=== PATIENT | female | born 1940 | race Caucasian/White ===

== ENCOUNTER 2019-01-08 13:04 | Emergency (ER) | payer MEDICARE, OTHER ==
[2019-01-08] MEDS ORDERED: HYDROcodone/APAP 7.5-325MG 1 EACH TAB PO ONE (14:17)
--- NOTE | 2019-01-08 14:18 | CT ---
EXAMINATION TYPE: CT brain gaye greco DATE OF EXAM: 01/08/2019 COMPARISON: None HISTORY: Fall 2 days ago. Left sided pain CT DLP: 1398.4 mGycm Automated exposure control for dose reduction was used. TECHNIQUE: CT scan of the head and cervical spine are performed without contrast. FINDINGS: There is cerebral cortical atrophy. There is no mass effect nor midline shift. There is n o sign of intracranial hemorrhage. The calvarium is intact. There are subcutaneous calcified masses o abhishek the frontal bone that could be calcified sebaceous cyst. Cervical vertebra have normal alignment. There is degenerative disc space narrowing from C4 to C6 wit h spur formation. Facet joints are intact. The skull base is intact. There is no evidence of a fractu re. I see no bony destructive process. IMPRESSION: Cerebral atrophy. No acute intracranial abnormality. Spondylotic changes in the lower cervical spine. No fracture.
--- NOTE | 2019-01-08 15:05 | XR ---
EXAMINATION TYPE: XR hand complete LT DATE OF EXAM: 01/08/2019 COMPARISON: NONE HISTORY: Pain TECHNIQUE: 3 views FINDINGS: There is some spurring of the IP joints. There is moderate spurring at the first carpometac arpal joint. There are no erosions. I see no fracture. Metacarpals are intact. IMPRESSION: Moderate osteoarthritis. No fracture seen.
--- NOTE | 2019-01-08 15:06 | XR ---
EXAMINATION TYPE: XR femur LT DATE OF EXAM: 01/08/2019 COMPARISON: NONE HISTORY: Fall. Pain. TECHNIQUE: 4 views FINDINGS: There is vascular calcification. Hip joint spaces fairly normal. There is moderately severe osteoarthritis in the knee joint medial joint space. I see no fracture nor dislocation. Hip joint is intact. There is mild acetabular spurring. IMPRESSION: Osteoarthritic changes more severe in the medial joint space of the knee. No fracture see n.
--- NOTE | 2019-01-08 15:07 | XR ---
EXAMINATION TYPE: XR chest 2V DATE OF EXAM: 01/08/2019 COMPARISON: NONE HISTORY: Fall. Pain. TECHNIQUE: Frontal and lateral views of the chest are obtained. FINDINGS: Heart is enlarged. There is no heart failure. Costophrenic angles are clear. Bony thorax i s intact. There is spurring in the thoracic spine. Thoracic aorta is atheromatous. IMPRESSION: Mild cardiomegaly. No active cardiopulmonary disease.
--- NOTE | 2019-01-08 15:08 | XR ---
EXAMINATION TYPE: XR Hip LT and AP Pelvis DATE OF EXAM: 01/08/2019 COMPARISON: NONE HISTORY: Fall. Pain. TECHNIQUE: A single AP view of the pelvis is obtained. Two views of the left hip are obtained. FINDINGS: The pelvic ring is intact. Proximal femur and hip joint appear intact. There is mild acetab ular spurring. Sacroiliac joints appear intact. There are numerous phleboliths in the pelvis. IMPRESSION: Mild spurring. No fracture seen.
[2019-01-08 15:09] LABS: Glucose,Whole Blood 329 mg/dL (75-99)
--- NOTE | 2019-01-08 15:09 | XR ---
EXAMINATION TYPE: XR knee 4V LT DATE OF EXAM: 01/08/2019 COMPARISON: NONE HISTORY: Fall. Pain. TECHNIQUE: 4 views FINDINGS: There is narrowing of the medial joint space with spurring of the femoral and tibial condyl es. I see no fracture nor dislocation. There is no sign of joint effusion. IMPRESSION: Moderate osteoarthritis in the medial joint space. No fracture.
[2019-01-08 15:36] VITALS: BP 166/71; PULSE 71; RESP 16; TEMP 97.9
[2019-01-08] MEDS ORDERED: metFORMIN 500 MG TAB PO STA (15:44)
--- NOTE | 2019-01-08 15:50 | ED ---
General Adult HPI - General Chief complaint: Fall Stated complaint: Fall Time Seen by Provider: 01/08/19 13:23 Source: patient, RN notes reviewed, old records reviewed Mode of arrival: wheelchair Limitations: no limitations - History of Present Illness Initial comments: 79-year-old female patient with past medical history of asthma, type 2 diabetes, hypertension, hyperlipidemia presents to ED after sustaining a fall approximately 2 days prior. Patient reports that she was walking when she lost her footing, fell forward. Patient reports that she fell primarily on her left hip. Patient also had a minor trauma to her left hand. Patient reports that she may have had a minor trauma to head. Patient has a loss of consciousness. Patient denies any use of blood thinners. Patient denies any other complaints. Patient walks with a walker however has had difficulty with ambulation secondary to pain after fall. Patient hasn't chest pain shortness breath abdominal pain nausea vomiting or diarrhea. Systemic: Pt denies fatigue, myalgia, fever/chills, rash. Pt denies weakness, night sweats, weight loss. Neuro: Pt denies headache, visual disturbances, syncope or pre-syncope. HEENT: Pt denies ocular discharge or irritation, otalgia, rhinorrhea, pharyngitis or notable lymphadenopathy. Cardiopulmonary: Pt denies chest pain, SOB, heart palpitations, dyspnea on exertion. Abdominal/GI: Pt denies abdominal pain, n/v/d. : Pt denies dysuria, burning w/ urination, frequency/urgency. Denies new onset urinary or bowel incontinence. MSK: Pt denies myalgia, loss of strength or function in extremities. Neuro: Pt denies new onset weakness, paresthesias. - Related Data Home Medications Medication Instructions Recorded Confirmed Aspirin [Adult Low Dose Aspirin EC] 81 mg PO DAILY 03/13/16 01/08/19 Atorvastatin [Lipitor] 40 mg PO QAM 03/13/16 01/08/19 Fenofibrate [Tricor] 160 mg PO QAM 03/13/16 01/08/19 amLODIPine [Norvasc] 5 mg PO BID 03/13/16 01/08/19 sitaGLIPtin [Januvia] 100 mg PO QAM 03/13/16 01/08/19 Glimepiride [Amaryl] 4 mg PO BID 01/08/19 01/08/19 Isosorbide Mononitrate ER [Imdur] 30 mg PO DAILY 01/08/19 01/08/19 Lisinopril [Zestril] 20 mg PO DAILY 01/08/19 01/08/19 Metoprolol Tartrate [Lopressor] 50 mg PO BID 01/08/19 01/08/19 metFORMIN HCL 1,000 mg PO BID 01/08/19 01/08/19 Allergies Allergy/AdvReac Type Severity Reaction Status Date / Time lincomycin HCl Allergy Unknown Unknown Verified 01/08/19 14:24 [From Lincocin] Review of Systems ROS Statement: Those systems with pertinent positive or pertinent negative responses have been documented in the HPI. ROS Other: All systems not noted in ROS Statement are negative. 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 History of Any Multi-Drug Resistant Organisms: None Reported Past Surgical History: Section, Hysterectomy, Orthopedic Surgery Additional Past Surgical History / Comment(s): X3, CARPAL TUNNEL, LEFT KNEE ARTHROSCOPY, RIGHT CATARACT. Past Anesthesia/Blood Transfusion Reactions: No Reported Reaction Past Psychological History: No Psychological Hx Reported Smoking Status: Former smoker Past Alcohol Use History: Rare Past Drug Use History: None Reported - Past Family History Mother Family Medical History: Cancer Additional Family Medical History / Comment(s): BRAIN TUMOR Brother(s) Family Medical History: Cancer Additional Family Medical History / Comment(s): BRAIN TUMOR. General Exam - General Exam Comments Initial Comments: Constitutional: NAD, AOX3, Pt has pleasant affect. HEENT: NC/AT, trachea midline, neck supple, no lymphadenopathy. Posterior pharynx non erythematous, without exudates. External ears appear normal, without discharge. Mucous membranes moist. Eyes PERRLA, EOM intact. There is no scleral icterus. No pallor noted. Cardiopulmonary: RRR, no murmurs, rubs or gallops, no JVD noted. Lungs CTAB in anterior and posterior webb. No peripheral edema. Abdominal exam: Abdomen soft and non-distended. Abdomen non-tender to palpation in all 4 quadrants. Bowel sounds active in LLQ. No hepatosplenomegaly. No ecchymosis Neuro: CN II-XII grossly intact. No nuchal rigidity. MSK: Dorsal aspect of hand mildly tender to palpation. Full active range of motion. No ecchymoses, neurovascularly intact. Left hip nontender to palpation. No ecchymoses. Range of motion intact. Distal pulses intact and equal. No posterior calf tenderness bilaterally, homans sign negative bilaterally. Posterior tibialis and radial pulse +2 bilaterally. Sensation intact in upper and lower extremities. Full active ROM in upper and lower extremities, 5/5 stregnth. Limitations: no limitations Course Vital Signs 01/08/19 01/08/19 01/08/19 13:13 13:54 15:35 Temperature 98.7 F 97.9 F Pulse Rate 72 79 71 Respiratory 18 18 16 Rate Blood Pressure 212/81 204/78 166/71 O2 Sat by Pulse 98 96 100 Oximetry Medical Decision Making - Medical Decision Making 79-year-old female patient with past medical history of asthma, type 2 diabetes, hypertension, hyperlipidemia presents to ED after sustaining a fall approximately 2 days prior. Patient reports that she was walking when she lost her footing, fell forward. Patient reports that she fell primarily on her left hip. Patient also had a minor trauma to her left hand. Patient reports that she may have had a minor trauma to head. Patient has a loss of consciousness. Patient denies any use of blood thinners. Patient denies any other complaints. Patient walks with a walker however has had difficulty with ambulation secondary to pain after fall. Patient hasn't chest pain shortness breath abdominal pain nausea vomiting or diarrhea. Patient also has additionally displayed mild hypertension, vital signs normalized after analgesic administration. Physical exam displayed: Dorsal aspect of hand mildly tender to palpation. Full active range of motion. No ecchymoses, neurovascularly intact. Left hip nontender to palpation. No ecchymoses. Range of motion intact. Distal pulses intact and equal. Maedw-oe-jsoy glucose elevated at 329. Patient administered at home dose of metformin. Plain film of the knee, hip, hand, femur, chest did not display acute pathology. CT of brain cervical spine not displaying acute pathology. No discharge. Patient follow up with primary care provider in 1-2 days. Patient will monitor blood pressure and his blood sugar at home. Patient return to ER if condition worsens in any way. Case discussed with Dr. Corbett. - Lab Data Lab Results 01/08/19 Range/Units 14:48 POC Glucose (mg/dL) 329 H (75-99) mg/dL POC Glu Childcare Aide ID Suyapa Steven Disposition Clinical Impression: Fall Disposition: HOME SELF-CARE Condition: Stable Instructions (If sedation given, give patient instructions): Fall Prevention for Older Adults (ED) Additional Instructions: Patient to adhere to previously discussed treatment plan and will take medica tion(s) as directed. Patient to follow up with PCP in 1-2 days. Patient to return to ED if symptoms do not improve. Please take medications at home. Metformin administered to you in the ER. Please monitor blood sugar and blood pressure at home. Please return to ER if condition worsens. Is patient prescribed a controlled substance at d/c from ED?: No Referrals: None,Stated [Primary Care Provider] - 1-2 days [facility] [NON-STAFF] - 1-2 days
== END 2019-01-08 16:15 | disposition home or self-care (01) ==
LOC: EC 13:04
DX: S69.92XA Unspecified injury of left wrist, hand and finger(s), initial encounter (principal); E11.9 Type 2 diabetes mellitus without complications; E78.5 Hyperlipidemia, unspecified; I10 Essential (primary) hypertension; M19.90 Unspecified osteoarthritis, unspecified site; Z86.73 Personal history of transient ischemic attack (TIA), and cerebral infarction without residual deficits; Z85.828 Personal history of other malignant neoplasm of skin; Z87.891 Personal history of nicotine dependence; Z79.84 Long term (current) use of oral hypoglycemic drugs; Z79.82 Long term (current) use of aspirin; Z79.899 Other long term (current) drug therapy; Z88.1 Allergy status to other antibiotic agents; W19.XXXA Unspecified fall, initial encounter; Y93.01 Activity, walking, marching and hiking
CPT/HCPCS: 36415; 70450; 71046; 72125; 73502; 99284

== ENCOUNTER 2019-01-17 17:42 | Observation (INO) | payer MEDICARE, OTHER ==
[2019-01-17] MEDS ORDERED: SODIUM CHLORIDE 0.9% 1,000 ML IV STA (17:51)
--- NOTE | 2019-01-17 17:52 | ED ---
Neuro HPI - General Chief Complaint: Neuro Symptoms/Deficit Stated Complaint: WEAKNESS, ALTERED Time Seen by Provider: 01/17/19 17:50 Source: patient, family, RN notes reviewed, old records reviewed Mode of arrival: wheelchair Limitations: altered mental status, physical limitation - History of Present Illness Is the patient presenting with stroke symptoms?: Yes Initial Comments: This is an 17-year-old female the ER for evaluation history of diabetes coming in for possible CVA neurological changes. 15 minutes prior to arrival patient was living dinner and was unable to actively unable to get into the car by her self. Demerol patient over to the hospital patient was very altered at the time unable to answer questions or follow directions, family denies prior history of CVA, no blood thinners. - Related Data Home Medications: Home Medications Medication Instructions Recorded Confirmed Aspirin [Adult Low Dose Aspirin EC] 81 mg PO DAILY 03/13/16 01/17/19 Atorvastatin [Lipitor] 40 mg PO QAM 03/13/16 01/17/19 Fenofibrate [Tricor] 160 mg PO QAM 03/13/16 01/17/19 amLODIPine [Norvasc] 5 mg PO BID 03/13/16 01/17/19 sitaGLIPtin [Januvia] 100 mg PO QAM 03/13/16 01/17/19 Isosorbide Mononitrate ER [Imdur] 30 mg PO DAILY 01/08/19 01/17/19 Lisinopril [Zestril] 20 mg PO DAILY 01/08/19 01/17/19 Metoprolol Tartrate [Lopressor] 50 mg PO BID 01/08/19 01/17/19 metFORMIN HCL 1,000 mg PO BID 01/08/19 01/17/19 Allergies/Adverse Reactions: Allergies Allergy/AdvReac Type Severity Reaction Status Date / Time lincomycin HCl Allergy Unknown Unknown Verified 01/17/19 18:11 [From Lincocin] Review of Systems ROS Statement: Those systems with pertinent positive or pertinent negative responses have been documented in the HPI. ROS Other: All systems not noted in ROS Statement are negative. General Exam Limitations: altered mental status, physical limitation Stroke MDM - Lab Data Result diagrams: 01/17/19 18:10 Lab Results 01/17/19 01/17/19 Range/Units 18:00 18:10 WBC 14.6 H (3.8-10.6) k/uL RBC 4.36 (3.80-5.40) m/uL Hgb 12.8 (11.4-16.0) gm/dL Hct 38.2 (34.0-46.0) % MCV 87.6 (80.0-100.0) fL MCH 29.3 (25.0-35.0) pg MCHC 33.4 (31.0-37.0) g/dL RDW 13.3 (11.5-15.5) % Plt Count 556 H (150-450) k/uL Neutrophils % 55 % Lymphocytes % 36 % Monocytes % 6 % Eosinophils % 1 % Basophils % 0 % Neutrophils # 8.1 H (1.3-7.7) k/uL Lymphocytes # 5.3 H (1.0-4.8) k/uL Monocytes # 0.8 (0-1.0) k/uL Eosinophils # 0.1 (0-0.7) k/uL Basophils # 0.1 (0-0.2) k/uL POC Glucose (mg/dL) 34 L (75-99) mg/dL POC Glu Terminal Supervisor ID Joana Lubin - NIH Stroke Scale 1a. Level of Consciousness: (0) alert 1b. LOC Questions: (1) answers 1 question correctly 1c. LOC Commands: (1) performs 1 task correctly 3. Visual: (0) no visual loss 4. Facial Palsy: (0) normal symmetrical movement 5a. Motor Arm Left: (0) no drift 5b. Motor Arm Right: (0) no drift 6a. Motor Leg Left: (0) no drift 6b. Motor Leg Right: (0) no drift 7. Limb Ataxia: (0) absent 8. Sensory: (0) normal 9. Best Language: (1) mild/moderate aphasia 10. Dysarthria: (1) mild/moderate dysarthria 11. Extinction/Inattention: (1) visual/tactile inattention - Thrombolytic Inclusion/Exclusion Thrombolytic Inclusion Criteria: Ischemic Stroke Onset< 3h Thrombolytic Contraindications: Glucose Below 50mg/dl (Blood sugar noted to be) - Medical Decision Making 79-year-old female the ER for evaluation neurological changes. Patient is hypoglycemic, patient does the [place] s and has complete resolution of symptoms. 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 History of Any Multi-Drug Resistant Organisms: None Reported Past Surgical History: Section, Hysterectomy, Orthopedic Surgery Additional Past Surgical History / Comment(s): X3, CARPAL TUNNEL, LEFT KNEE ARTHROSCOPY, RIGHT CATARACT. Past Anesthesia/Blood Transfusion Reactions: No Reported Reaction Past Psychological History: No Psychological Hx Reported Smoking Status: Former smoker Past Alcohol Use History: Rare Past Drug Use History: None Reported - Past Family History Mother Family Medical History: Cancer Additional Family Medical History / Comment(s): BRAIN TUMOR Brother(s) Family Medical History: Cancer Additional Family Medical History / Comment(s): BRAIN TUMOR. Course Vital Signs 01/17/19 01/17/19 17:45 18:15 Temperature 98.8 F Pulse Rate 69 66 Respiratory 18 18 Rate Blood Pressure 158/72 173/68 O2 Sat by Pulse 96 100 Oximetry - Reevaluation(s) Reevaluation #1: 01/17/19 18:43 Medical record reviewed Reevaluation #2: 01/17/19 18:43 Symptoms are completely resolved with blood sugar administration inpatient eating Disposition Clinical Impression: Hypoglycemia, Adverse reaction to oral hypoglycemic drug Narrative: Recurrent Hypoglycemia Disposition: ADMITTED IP TO THIS [facility] Condition: Fair Is patient prescribed a controlled substance at d/c from ED?: No Referrals: None,Stated [Primary Care Provider] - 1-2 days
[2019-01-17] MEDS ORDERED: DEXTROSE 50% SYRINGE 50 ML IVP STA (18:02)
[2019-01-17] MEDS ORDERED: DEXTROSE 5%-0.45% NACL 1,000 ML IV ONE (18:02)
[2019-01-17] MEDS ORDERED: OCTREOTIDE 100 MCG/ML INJ IVP STA (18:02)
[2019-01-17 18:11] LABS: Glucose,Whole Blood 34 mg/dL (75-99)
[2019-01-17 18:28] LABS: Basophils # (A) 0.1 k/uL (0-0.2); Basophils % (A) 0 %; Eosinophils # (A) 0.1 k/uL (0-0.7); Eosinophils % (A) 1 %; HCT 38.2 % (34.0-46.0); HGB 12.8 gm/dL (11.4-16.0); Lymphocytes # (A) 5.3 k/uL (1.0-4.8); Lymphocytes % (A) 36 %; MCH 29.3 pg (25.0-35.0); MCHC 33.4 g/dL (31.0-37.0); MCV 87.6 fL (80.0-100.0); Monocytes # (A) 0.8 k/uL (0-1.0); Monocytes % (A) 6 %; Neutrophils # (A) 8.1 k/uL (1.3-7.7); Neutrophils % (A) 55 %; Platelet Count 556 k/uL (150-450); RBC 4.36 m/uL (3.80-5.40); RDW 13.3 % (11.5-15.5); WBC 14.6 k/uL (3.8-10.6)
[2019-01-17 18:33] LABS: Albumin 4.6 g/dL (3.5-5.0); Calcium 10.3 mg/dL (8.4-10.2); Potassium 4.1 mmol/L (3.5-5.1); Total Bilirubin 0.6 mg/dL (0.2-1.3); Total Protein 7.3 g/dL (6.3-8.2)
[2019-01-17 18:59] LABS: Partial Thromboplastin Time 29.1 sec (22.0-30.0); Prothrombin Time 10.6 sec (9.0-12.0)
[2019-01-17 19:21] LABS: Glucose,Whole Blood 152 mg/dL (75-99)
[2019-01-17 19:21] LABS: Glucose,Whole Blood 134 mg/dL (75-99)
[2019-01-17 19:53] LABS: Glucose,Whole Blood 208 mg/dL (75-99)
[2019-01-17 20:51] LABS: Glucose,Whole Blood 252 mg/dL (75-99)
[2019-01-17 21:21] VITALS: BMI 31.4
[2019-01-17 22:05] LABS: Glucose,Whole Blood 394 mg/dL (75-99)
[2019-01-17 23:59] LABS: Glucose,Whole Blood 462 mg/dL (75-99)
[2019-01-17 23:59] LABS: Glucose,Whole Blood 504 mg/dL (75-99)
[2019-01-18] MEDS: OCTREOTIDE 100 MCG/ML INJ IVP SCH ×2 (02:34→02:36)
[2019-01-18 06:01] LABS: Glucose,Whole Blood 511 mg/dL (75-99)
[2019-01-18] MEDS ORDERED: SODIUM CHLORIDE 0.9% 500 ML 500 ML IV ONE (06:07)
[2019-01-18] MEDS ORDERED: INSULIN ASPART (NovoLOG) 100 UNIT/ML VIAL SQ ONE (06:08)
[2019-01-18] MEDS ORDERED: INSULIN ASPART (NovoLOG) 100 UNIT/ML VIAL SQ SCH (07:30)
[2019-01-18] MEDS ORDERED: metFORMIN 500 MG TAB PO SCH (09:45)
[2019-01-18 10:01] LABS: Glucose,Whole Blood 459 mg/dL (75-99)
[2019-01-18] MEDS: amLODIPine 5 MG TAB PO SCH ×2 (10:10→20:03)
[2019-01-18] MEDS: METOPROLOL TARTRATE 50 MG TAB PO SCH ×2 (10:10→20:03)
[2019-01-18] MEDS: LISINOPRIL 20 MG TAB PO SCH (10:10)
[2019-01-18] MEDS: ISOSORBIDE MONONITRATE ER 30 MG TAB.ER.24H PO SCH (10:14)
[2019-01-18] MEDS: ASPIRIN 81 MG PO SCH (10:15)
[2019-01-18] MEDS: FENOFIBRATE 160 MG TAB PO SCH (11:24)
[2019-01-18] MEDS: LINAGLIPTIN 5 MG TABLET PO SCH (11:24)
[2019-01-18] MEDS: ATORVASTATIN 40 MG TAB PO SCH (11:25)
[2019-01-18 11:44] LABS: Glucose,Whole Blood 403 mg/dL (75-99)
[2019-01-18] MEDS: SODIUM CHLORIDE 0.9% 1,000 ML IV SCH ×2 (11:50→20:02)
[2019-01-18] MEDS: INSULIN ASPART (NovoLOG) 100 UNIT/ML VIAL SQ SCH ×3 (12:25→20:04)
[2019-01-18 14:09] LABS: Glucose,Whole Blood 408 mg/dL (75-99)
--- NOTE | 2019-01-18 14:50 | P.HPIM ---
History of Present Illness Patient is a pleasant 79-year-old female came in after she had symptoms of hypoglycemia including lightheadedness and palpitations check her blood sugars which are extremely low and the patient came to ER her blood sugars a 30. Linda ent was on glimepiride Januvia and metformin, other than glimepiride rest of the other 2 will not cause hypoglycemia these glimepiride was discontinued by her engine tester on Wednesday she did not take glimepiride yesterday. Patient was started on octreotide by ER and patient received a D5 ampules and now her blood sugars of 400. Patient was resumed on metformin and Januvia will check his her blood sugars every 4 hours here will monitor her overnight depending on on the blood sugars we can make addition regarding her regimen area did patient is bit hyponatremic and creatinine is 1.29 I don't have her baseline available at this time patient will be hydrated patient is not aware she has chronic kidney disease. Worsening kidney function may have contributed to her hypoglycemia from glimepiride. Octreotide was discontinued. Patient will be started on IV fluids and recheck kidney function tomorrow follow the blood sugars depending on that final regimen will be decided. Patient had any fever chills does not have any other signs or symptoms of sepsis patient does not appear to have any ear infection Review of Systems REVIEW OF SYSTEMS: CONSTITUTIONAL: No fever, no malaise, no fatigue. HEENT: No recent visual problems or hearing problems. Denied any sore throat. CARDIOVASCULAR: No chest pain, orthopnea, PND, no palpitations, no syncope. PULMONARY: No shortness of breath, no cough, no hemoptysis. GASTROINTESTINAL: No diarrhea, no nausea, no vomiting, no abdominal pain. NEUROLOGICAL: No headaches, no weakness, no numbness. HEMATOLOGICAL: Denies any bleeding or petechiae. GENITOURINARY: Denies any burning micturition, frequency, or urgency. MUSCULOSKELETAL/RHEUMATOLOGICAL: Denies any joint pain, swelling, or any muscle pain. ENDOCRINE: Denies any polyuria or polydipsia. The rest of the 14-point review of systems is negative. 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 History of Any Multi-Drug Resistant Organisms: None Reported Past Surgical History: Section, Hysterectomy, Orthopedic Surgery Additional Past Surgical History / Comment(s): X3, CARPAL TUNNEL, LEFT KNEE ARTHROSCOPY, RIGHT CATARACT. Past Anesthesia/Blood Transfusion Reactions: No Reported Reaction Smoking Status: Never smoker - Past Family History Mother Family Medical History: Cancer Additional Family Medical History / Comment(s): BRAIN TUMOR Brother(s) Family Medical History: Cancer Additional Family Medical History / Comment(s): BRAIN TUMOR. Medications and Allergies Home Medications Medication Instructions Recorded Confirmed Type Aspirin [Adult Low Dose Aspirin EC] 81 mg PO DAILY 03/13/16 01/17/19 History Atorvastatin [Lipitor] 40 mg PO QAM 03/13/16 01/17/19 History Fenofibrate [Tricor] 160 mg PO QAM 03/13/16 01/17/19 History amLODIPine [Norvasc] 5 mg PO BID 03/13/16 01/17/19 History sitaGLIPtin [Januvia] 100 mg PO QAM 03/13/16 01/17/19 History Isosorbide Mononitrate ER [Imdur] 30 mg PO DAILY 01/08/19 01/17/19 History Lisinopril [Zestril] 20 mg PO DAILY 01/08/19 01/17/19 History Metoprolol Tartrate [Lopressor] 50 mg PO BID 01/08/19 01/17/19 History metFORMIN HCL 1,000 mg PO BID 01/08/19 01/17/19 History Allergies Allergy/AdvReac Type Severity Reaction Status Date / Time lincomycin HCl Allergy Unknown Unknown Verified 01/17/19 18:11 [From Lincocin] Physical Exam Vitals: Vital Signs Temp Pulse Pulse Resp BP BP Pulse Ox 01/18/19 12:00 97.8 F 57 L 16 185/74 98 01/18/19 07:57 99 F 78 16 168/63 96 01/18/19 03:16 73 16 01/18/19 00:00 98.8 F 70 15 166/69 96 01/17/19 23:19 62 16 01/17/19 20:00 64 16 01/17/19 19:39 97.9 F 64 15 125/68 97 01/17/19 19:35 16 01/17/19 19:05 80 18 153/105 01/17/19 18:15 66 18 173/68 100 01/17/19 17:45 98.8 F 69 18 158/72 96 Intake and Output 01/17/19 01/18/19 01/18/19 22:59 06:59 14:59 Intake Total 100 150 840 Balance 100 150 840 Intake: Amount of Fluid Infused ( 100 ml) Oral 150 840 Other: Voiding Method Toilet Toilet # Voids 1 1 1 Weight 68.039 kg PHYSICAL EXAMINATION: GENERAL: The patient is alert and oriented x3, not in any acute distress. Well developed, well nourished. HEENT: Pupils are round and equally reacting to light. EOMI. No scleral icterus. No conjunctival pallor. Normocephalic, atraumatic. No pharyngeal erythema. No thyromegaly. CARDIOVASCULAR: S1 and S2 present. No murmurs, rubs, or gallops. PULMONARY: Chest is clear to auscultation, no wheezing or crackles. ABDOMEN: Soft, nontender, nondistended, normoactive bowel sounds. No palpable organomegaly. MUSCULOSKELETAL: No joint swelling or deformity. EXTREMITIES: No cyanosis, clubbing, or pedal edema. NEUROLOGICAL: Gross neurological examination did not reveal any focal deficits. SKIN: No rashes. Results CBC & Chem 7: 01/17/19 18:10 01/17/19 18:10 Labs: Abnormal Lab Results - Last 24 Hours (Table) 01/17/19 01/17/19 01/17/19 Range/Units 18:00 18:10 18:10 WBC 14.6 H (3.8-10.6) k/uL Plt Count 556 H (150-450) k/uL Neutrophils # 8.1 H (1.3-7.7) k/uL Lymphocytes # 5.3 H (1.0-4.8) k/uL Sodium 133 L (137-145) mmol/L Chloride 97 L (98-107) mmol/L Carbon Dioxide 21 L (22-30) mmol/L BUN 25 H (7-17) mg/dL Creatinine 1.29 H (0.52-1.04) mg/dL Glucose 25 L* (74-99) mg/dL POC Glucose (mg/dL) 34 L (75-99) mg/dL Calcium 10.3 H (8.4-10.2) mg/dL AST 44 H (14-36) U/L 01/17/19 01/17/19 01/17/19 Range/Units 18:20 19:04 19:52 WBC (3.8-10.6) k/uL Plt Count (150-450) k/uL Neutrophils # (1.3-7.7) k/uL Lymphocytes # (1.0-4.8) k/uL Sodium (137-145) mmol/L Chloride (98-107) mmol/L Carbon Dioxide (22-30) mmol/L BUN (7-17) mg/dL Creatinine (0.52-1.04) mg/dL Glucose (74-99) mg/dL POC Glucose (mg/dL) 152 H 134 H 208 H (75-99) mg/dL Calcium (8.4-10.2) mg/dL AST (14-36) U/L 01/17/19 01/17/19 01/17/19 Range/Units 20:50 22:03 23:57 WBC (3.8-10.6) k/uL Plt Count (150-450) k/uL Neutrophils # (1.3-7.7) k/uL Lymphocytes # (1.0-4.8) k/uL Sodium (137-145) mmol/L Chloride (98-107) mmol/L Carbon Dioxide (22-30) mmol/L BUN (7-17) mg/dL Creatinine (0.52-1.04) mg/dL Glucose (74-99) mg/dL POC Glucose (mg/dL) 252 H 394 H 504 H (75-99) mg/dL Calcium (8.4-10.2) mg/dL AST (14-36) U/L 01/17/19 01/18/19 01/18/19 Range/Units 23:58 05:59 09:59 WBC (3.8-10.6) k/uL Plt Count (150-450) k/uL Neutrophils # (1.3-7.7) k/uL Lymphocytes # (1.0-4.8) k/uL Sodium (137-145) mmol/L Chloride (98-107) mmol/L Carbon Dioxide (22-30) mmol/L BUN (7-17) mg/dL Creatinine (0.52-1.04) mg/dL Glucose (74-99) mg/dL POC Glucose (mg/dL) 462 H 511 H 459 H (75-99) mg/dL Calcium (8.4-10.2) mg/dL AST (14-36) U/L 01/18/19 01/18/19 Range/Units 11:43 13:59 WBC (3.8-10.6) k/uL Plt Count (150-450) k/uL Neutrophils # (1.3-7.7) k/uL Lymphocytes # (1.0-4.8) k/uL Sodium (137-145) mmol/L Chloride (98-107) mmol/L Carbon Dioxide (22-30) mmol/L BUN (7-17) mg/dL Creatinine (0.52-1.04) mg/dL Glucose (74-99) mg/dL POC Glucose (mg/dL) 403 H 408 H (75-99) mg/dL Calcium (8.4-10.2) mg/dL AST (14-36) U/L Thrombosis Risk Factor Assmnt - Choose All That Apply Each Factor Represents 1 point: Obesity (BMI >25) Each Risk Factor Represents 3 Points: Age 75 years or older Other congenital or acquired thrombophilia - If yes, enter type in comment: No Thrombosis Risk Factor Assessment Total Risk Factor Score: 4 Thrombosis Risk Factor Assessment Level: Moderate Risk Assessment and Plan Plan: -Hypoglycemia probably because of residual effects of glimepiride she received on Wednesday. Now the patient is hypoglycemic because of the octreotide and the amps of D5 and D50 she received. Patient will be resumed on metformin as her creatinine is at an acceptable level and Januvia and monitor the blood sugars closely. -possible acute renal failure secondary to possibly prerenal azotemia patient will be monitored after IV fluid hydration with a basic metabolic profile tomorrow. -Leukocytosis appear to be reactive without any signs or symptoms of infection -Asthma without any acute exacerbation x-ray and-severity and the past -hypertension: Lisinopril will be held because of possibility of acute renal failure DVT prophylaxis early ablation
[2019-01-18 16:23] LABS: Glucose,Whole Blood 274 mg/dL (75-99)
[2019-01-18 20:05] LABS: Glucose,Whole Blood 272 mg/dL (75-99)
[2019-01-19 01:36] VITALS: RESP 18
[2019-01-19 02:33] LABS: Glucose,Whole Blood 176 mg/dL (75-99)
[2019-01-19 06:47] LABS: Glucose,Whole Blood 224 mg/dL (75-99)
[2019-01-19] MEDS: SODIUM CHLORIDE 0.9% 1,000 ML IV SCH (07:56)
[2019-01-19] MEDS: METOPROLOL TARTRATE 50 MG TAB PO SCH (07:57)
[2019-01-19] MEDS: amLODIPine 5 MG TAB PO SCH (07:57)
[2019-01-19] MEDS: LINAGLIPTIN 5 MG TABLET PO SCH (07:57)
[2019-01-19] MEDS: INSULIN ASPART (NovoLOG) 100 UNIT/ML VIAL SQ SCH ×2 (07:57→12:29)
[2019-01-19] MEDS: FENOFIBRATE 160 MG TAB PO SCH (07:58)
[2019-01-19] MEDS: LISINOPRIL 20 MG TAB PO SCH (07:58)
[2019-01-19] MEDS: ASPIRIN 81 MG PO SCH (07:58)
[2019-01-19] MEDS: ATORVASTATIN 40 MG TAB PO SCH (07:58)
[2019-01-19 08:00] VITALS: BP 178/73; PULSE 65; TEMP 98.5
[2019-01-19] MEDS: ISOSORBIDE MONONITRATE ER 30 MG TAB.ER.24H PO SCH (08:00)
[2019-01-19] MEDS ORDERED: ACETAMINOPHEN TAB 325 MG TAB PO PRN (09:57)
[2019-01-19] MEDS ORDERED: HYDROcodone/APAP 5-325MG 1 EACH TAB PO PRN (09:59)
[2019-01-19 11:43] LABS: Glucose,Whole Blood 354 mg/dL (75-99)
[2019-01-19 12:28] LABS: HCT 34.9 % (34.0-46.0); HGB 11.3 gm/dL (11.4-16.0); MCH 29.8 pg (25.0-35.0); MCHC 32.5 g/dL (31.0-37.0); MCV 91.6 fL (80.0-100.0); Mean Platelet Volume 7.6; Platelet Count 408 k/uL (150-450); RBC 3.81 m/uL (3.80-5.40); RDW 12.7 % (11.5-15.5); WBC 10.4 k/uL (3.8-10.6)
[2019-01-19 12:36] LABS: Calcium 9.5 mg/dL (8.4-10.2); Potassium 5.3 mmol/L (3.5-5.1)
--- NOTE | 2019-01-19 13:58 | P.DS ---
Providers Date of admission: 01/17/19 18:42 Attending physician: Zenaida Hu Primary care physician: Stated None Hospital Course: 79-year-old female came in after she had symptoms of hypoglycemia including lightheadedness and palpitations check her blood sugars which are extremely low and the patient came to ER her blood sugars a 30. Patient was on glimepiride Januvia and metformin, other than glimepiride rest of the other 2 will not cause hypoglycemia these glimepiride was discontinued by her auto finance sales rep on Wednesday she did not take glimepiride yesterday. Patient was started on octreotide by ER and patient received a D5 ampules and now her blood sugars of 400. Patient was resumed on metformin and Januvia will check his her blood sugars every 4 hours here will monitor her overnight depending on on the blood sugars we can make addition regarding her regimen area did patient is bit hyponatremic and creatinine is 1.29 I don't have her baseline available at this time patient will be hydrated patient is not aware she has chronic kidney disease. Worsening kidney function may have contributed to her hypoglycemia from glimepiride. Octreotide was discontinued. Patient will be started on IV fluids and recheck kidney function tomorrow follow the blood sugars depending on that final regimen will be decided. Patient had any fever chills does not have any other signs or symptoms of sepsis patient does not appear to have any ear infection 01/19/2019 Patient is clinically doing well blood sugars are bit elevated. I believe her hypoglycemia is secondary to acute renal failure, have given right was discontinued on Wednesday, patient came in with hyperglycemia on Wednesday. Patient is presently hyperglycemic but patient will be resumed on metformin and Januvia which doesn't cause hypoglycemia normally. Patient will be discharged to follow up closely with endocrinology as an outpatient considering this hyper and hypoglycemia episodes are not started in any new medications are glimepiride. Patient's creatinine improved now patient can resume her metformin. Patient blood pressure is bit elevated because of IV fluids of believe has a serum potassium is bit elevated to 5.3 because of which I'm cutting down the lisinopril dose will repeat basic metabolic profile again since her blood pressure is already elevated I'll change a beta gela from metoprolol to Coreg for better blood pressure control. PHYSICAL EXAMINATION: GENERAL: The patient is alert and oriented x3, not in any acute distress. Well developed, well nourished. HEENT: Pupils are round and equally reacting to light. EOMI. No scleral icterus. No conjunctival pallor. Normocephalic, atraumatic. No pharyngeal erythema. No thyromegaly. CARDIOVASCULAR: S1 and S2 present. No murmurs, rubs, or gallops. PULMONARY: Chest is clear to auscultation, no wheezing or crackles. ABDOMEN: Soft, nontender, nondistended, normoactive bowel sounds. No palpable organomegaly. MUSCULOSKELETAL: No joint swelling or deformity. EXTREMITIES: No cyanosis, clubbing, or pedal edema. NEUROLOGICAL: Gross neurological examination did not reveal any focal deficits. SKIN: No rashes. Assessment and Plan Plan: -Hypoglycemia probably because of residual effects of glimepiride she received on Wednesday. -possible acute renal failure, improved now secondary to prerenal azotemia -Leukocytosis appear to be reactive without any signs or symptoms of infection, improved now -Asthma without any acute exacerbation -hypertension: Management as mentioned above Patient Condition at Discharge: Fair Plan - Discharge Summary Discharge Rx Participant: Yes New Discharge Prescriptions: New Carvedilol [Coreg] 12.5 mg PO BID #60 tablet Continue Atorvastatin [Lipitor] 40 mg PO QAM Fenofibrate [Lofibra] 160 mg PO QAM amLODIPine [Norvasc] 5 mg PO BID sitaGLIPtin [Januvia] 100 mg PO QAM Aspirin [Adult Low Dose Aspirin EC] 81 mg PO DAILY metFORMIN HCL 1,000 mg PO BID Isosorbide Mononitrate ER [Imdur] 30 mg PO DAILY Changed Lisinopril [Zestril] 10 mg PO DAILY #0 Discontinued Metoprolol Tartrate [Lopressor] 50 mg PO BID Discharge Medication List Aspirin [Adult Low Dose Aspirin EC] 81 mg PO DAILY 03/13/16 [History] Atorvastatin [Lipitor] 40 mg PO QAM 03/13/16 [History] Fenofibrate [Lofibra] 160 mg PO QAM 03/13/16 [History] amLODIPine [Norvasc] 5 mg PO BID 03/13/16 [History] sitaGLIPtin [Januvia] 100 mg PO QAM 03/13/16 [History] Isosorbide Mononitrate ER [Imdur] 30 mg PO DAILY 01/08/19 [History] metFORMIN HCL 1,000 mg PO BID 01/08/19 [History] Carvedilol [Coreg] 12.5 mg PO BID #60 tablet 01/19/19 [Rx] Lisinopril [Zestril] 10 mg PO DAILY #0 01/19/19 [Rx] Follow up Appointment(s)/Referral(s): Arianna Davis MD [STAFF PHYSICIAN] - 1 Week None,Stated [Primary Care Provider] - 1-2 days Kassy Vergara MD [STAFF PHYSICIAN] - 3 Days Ambulatory/Diagnostic Orders: Basic Metabolic Panel [LAB.AMB] Time Frame: 3 Days, Location: None Selected Patient Instructions/Handouts: Hypoglycemia in a Person with Diabetes (DC), What to Do if Your Blood Sugar is Low (DC) Discharge Disposition: HOME SELF-CARE
== END 2019-01-19 15:04 | disposition home or self-care (01) ==
LOC: EC 17:42 → 1SOBS 18:42
PROVIDERS: ADMIT Hospitalist; ATTEND Hospitalist
DX: E11.649 Type 2 diabetes mellitus with hypoglycemia without coma (principal); J45.909 Unspecified asthma, uncomplicated; R79.89 Other specified abnormal findings of blood chemistry; E87.1 Hypo-osmolality and hyponatremia; E87.5 Hyperkalemia; D72.829 Elevated white blood cell count, unspecified; R50.9 Fever, unspecified; I10 Essential (primary) hypertension; E11.65 Type 2 diabetes mellitus with hyperglycemia; E78.5 Hyperlipidemia, unspecified; M19.90 Unspecified osteoarthritis, unspecified site; E66.9 Obesity, unspecified; Z68.32 Body mass index [BMI] 32.0-32.9, adult; Z79.82 Long term (current) use of aspirin; Z79.84 Long term (current) use of oral hypoglycemic drugs; Z79.899 Other long term (current) drug therapy; Z88.1 Allergy status to other antibiotic agents; Z86.73 Personal history of transient ischemic attack (TIA), and cerebral infarction without residual deficits; Z85.828 Personal history of other malignant neoplasm of skin; Z98.41 Cataract extraction status, right eye; Z90.710 Acquired absence of both cervix and uterus; Z87.891 Personal history of nicotine dependence; Z80.8 Family history of malignant neoplasm of other organs or systems
CPT/HCPCS: 96361 ×2; 96376; 96365; 96375; 99285; 36415; 93005; 80053; 80048; 84484; 85025; 85027; 85610; 85730; G0378 ×3; J2354 ×2

== ENCOUNTER 2019-02-21 13:06 | Emergency (ER) | payer MEDICARE, OTHER ==
[2019-02-21 13:42] VITALS: RESP 18
[2019-02-21] MEDS ORDERED: DIPH,PERTUS(ACELL)TETVAC-LF 0.5 ML VIAL IM ONE (13:55)
--- NOTE | 2019-02-21 14:27 | CT ---
EXAMINATION TYPE: CT brain cspine wo con DATE OF EXAM: 02/21/2019 COMPARISON: CT brain and cervical spine January 08, 2019 HISTORY: Patient fell and hit back of head from seated position with headache and neck pain. CT DLP: 1256 mGycm. Automated Exposure Control for Dose Reduction was Utilized. TECHNIQUE: CT scan of the head and cervical spine are performed without contrast. FINDINGS: There is no acute intracranial hemorrhage or midline shift identified. Ventricular and fuller lcal prominence is present. Well-defined ossific projection from the frontal calvarium likely reflect osteomas. Cervical spine is visualized in its entirety from C1 through upper thoracic levels and demonstrates s traightened alignment without evidence of acute fracture or dislocation. Prevertebral soft tissue ap pears within normal limits. The C1-C2 articulation is within normal limits on the coronal images. Os seous structures are demineralized. Vertebral body heights are maintained. Mild to moderate spurring and disc space narrowing C4-C5 and C5-C6 levels is present. Posterior spur disc complex effaces anter ior thecal sac at C5-C6 level on sagittal and axial images. Review of axial images shows left-sided uncovertebral facet degenerative changes C3-C4 level causing left-sided neural foraminal narrowing and right C4-C5 and C5-C6 levels causing right-sided neural for aminal narrowing. No apical pneumothorax is present bilaterally. Thyroid gland is within normal limit s. IMPRESSION: 1. There is no acute fracture or dislocation evident in the cervical spine. 2. No acute intracranial hemorrhage or midline shift is seen. No significant interval change from CT roughly 6 weeks ago.
--- NOTE | 2019-02-21 14:32 | XR ---
EXAMINATION TYPE: XR Hip Complete LT DATE OF EXAM: 02/21/2019 CLINICAL HISTORY: Pain after fall. TECHNIQUE: AP and frogleg views of the left hip are obtained. COMPARISON: Pelvic and left hip x-ray January 08, 2019 FINDINGS: There is no acute fracture/dislocation evident in the left hip. Mild axial joint space los s with mild acetabular spurring is redemonstrated. There are left-sided pelvic phleboliths. There is vascular calcification left groin region. IMPRESSION: There is no acute fracture or dislocation in the left hip. No significant change from pr ior.
--- NOTE | 2019-02-21 14:32 | XR ---
EXAMINATION TYPE: XR elbow complete LT DATE OF EXAM: 02/21/2019 CLINICAL HISTORY: Left elbow pain after fall TECHNIQUE: Frontal, lateral and oblique images of the left elbow are obtained. COMPARISON: None FINDINGS: There is no acute fracture/dislocation evident in the left elbow. No abnormal fat pad sig ns are seen. The overlying soft tissue appears unremarkable. There is a punctate focus of subcutaneo us emphysema overlying the olecranon. Enthesophytes are seen at the common flexor and common extensor origins. IMPRESSION: There is no acute fracture or dislocation in the left elbow. Punctate focus of subcutane ous emphysema is seen over the olecranon. Correlate for laceration. No radiopaque foreign body.
[2019-02-21] MEDS: LIDOCAINE 1% INJ 10MG/ML (20 ML MDV) SQ ONE ×2 (14:40→14:41)
--- NOTE | 2019-02-21 14:45 | ED ---
Fall HPI - General Chief Complaint: Fall Stated Complaint: Laceration Time Seen by Provider: 02/21/19 13:48 Source: patient, family Mode of arrival: ambulatory - History of Present Illness Initial Comments: 79-year-old female presenting for fall. Patient states that she was sitting on her walker on the seat being pushed patient states her walker collapsed. She states she fell backwards hitting the back for head however she states her left elbow took most of the force. Patient states she is a laceration of the elbow. She states she is able to range the elbow and there is some mild swelling. Patient states there is pain at the site of laceration however no deeper pain. Patient denies. The shoulder wrist. Patient denies any headache nausea vomiting dizziness visual changes. Patient states her head and neck are fine she denies any back pain. Patient denies any use of anticoagulation therapy. Patient denies any numbness tingling loss sensation of the upper extremities. Patient thought she may need sutures and presented to the emergency department for evaluation. Remaining review of system negative. Upon arrival patient appears well she is smiling and pleasant. Ambulate without difficulty. - Related Data Home Medications Medication Instructions Recorded Confirmed Aspirin [Adult Low Dose Aspirin EC] 81 mg PO DAILY 03/13/16 01/17/19 Atorvastatin [Lipitor] 40 mg PO QAM 03/13/16 01/17/19 Fenofibrate [Lofibra] 160 mg PO QAM 03/13/16 01/17/19 amLODIPine [Norvasc] 5 mg PO BID 03/13/16 01/17/19 sitaGLIPtin [Januvia] 100 mg PO QAM 03/13/16 01/17/19 Isosorbide Mononitrate ER [Imdur] 30 mg PO DAILY 01/08/19 01/17/19 metFORMIN HCL 1,000 mg PO BID 01/08/19 01/17/19 Previous Rx's Medication Instructions Recorded Carvedilol [Coreg] 12.5 mg PO BID #60 tablet 01/19/19 Lisinopril [Zestril] 10 mg PO DAILY #0 01/19/19 Allergies Allergy/AdvReac Type Severity Reaction Status Date / Time lincomycin HCl Allergy Unknown Unknown Verified 01/17/19 18:11 [From Lincocin] Review of Systems ROS Statement: Those systems with pertinent positive or pertinent negative responses have been documented in the HPI. ROS Other: All systems not noted in ROS Statement are negative. 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 History of Any Multi-Drug Resistant Organisms: None Reported Past Surgical History: Section, Hysterectomy, Orthopedic Surgery Additional Past Surgical History / Comment(s): X3, CARPAL TUNNEL, LEFT KNEE ARTHROSCOPY, RIGHT CATARACT. Past Anesthesia/Blood Transfusion Reactions: No Reported Reaction Past Psychological History: No Psychological Hx Reported Smoking Status: Former smoker Past Alcohol Use History: None Reported Past Drug Use History: None Reported - Past Family History Mother Family Medical History: Cancer Additional Family Medical History / Comment(s): BRAIN TUMOR Brother(s) Family Medical History: Cancer Additional Family Medical History / Comment(s): BRAIN TUMOR. General Exam - General Exam Comments Initial Comments: General: The patient is awake and alert, in no distress, and does not appear acutely ill. Eye: +3 mm pupils are equal, round and reactive to light, extra-ocular movements are intact. No nystagmus. There is normal conjunctiva bilaterally. No signs of icterus. Ears, nose, mouth and throat: There are moist mucous membranes and no oral lesions. No raccoon or Quick sign. Tympanic membranes within normal limits. Midline or paravertebral tenderness. Patient of the cervical spine. Patient is able to forward flex extend lateral flex and rotate at the cervical spine without difficulty Neck: The neck is supple, there is no tenderness or JVD. Cardiovascular: There is a regular rate and rhythm. No murmur, rub or gallop is appreciated. Respiratory: Lungs are clear to auscultation, respirations are non-labored, breath sounds are equal. No wheezes, stridor, rales, or rhonchi. Gastrointestinal: Soft, non-distended, non-tender abdomen without masses or organomegaly noted. There is no rebound or guarding present. Bowel sounds are unremarkable. Musculoskeletal: Normal ROM shoulders elbows wrists bilaterally, no tenderness. Strength 5/5. Sensation intact both proximal and distal to injury site. Pulses equal bilaterally 2+. Patient is able to make the okay fingers crossed thumbs- up finger opposition extend at the wrist bilaterally. Neurological: A&O x 3. CN II-XII intact, There are no obvious motor or sensory deficits. Coordination appears grossly intact. Speech is normal. Skin: Skin is warm and dry and no rashes or lesions are noted. v shaped 2.5 cmlaceration of the right elbow, no exposure of underlying structures. Small skin tear superior to laceration. No flap. Psychiatric: Cooperative, appropriate mood & affect, normal judgment. Limitations: no limitations Course Vital Signs 02/21/19 02/21/19 13:36 15:24 Temperature 97.6 F 98 F Pulse Rate 73 70 Respiratory 18 18 Rate Blood Pressure 149/83 153/68 O2 Sat by Pulse 97 98 Oximetry Procedures - Laceration Laceration #1 Consent Obtained: verbal consent Indication: laceration Site: upper extremity (right elbow) Size (cm): 2 Description: linear Depth: simple, single layer Anesthetic Used: lidocaine 1% Anesthesia Technique: local infiltration Amount (mls): 2 Pre-repair: wound explored, irrigated extensively, deep structures intact Size of Sutures: 4-0 Number of Sutures: 3 Technique: simple, interrupted, running Patient Tolerated Procedure: well, no complications Additional Comments: Wound was cleansed with iodine and extensively irrigated with 0.9% NS, prior to closure, no exposure of underlying structure/bone or tendon. Medical Decision Making - Medical Decision Making 79-year-old female presenting for left elbow laceration. Patient is neurovascularly. No limitation to range of motion at the left elbow. No suspicion for acute osseous injury. Laceration was superficial no exposure of underlying structures. This is not open fracture. Patient tetanus was updated. After extensive irrigation and cleansing patient's wound was repaired edges approximated well. Patient states her diabetes controlled last A1c 6.0. At this time feel patient is stable for discharge with outpatient follow-up for wound check. Diabetic status. Otherwise imaging studies of the cervical spine and brain without acute intercurrent apprises. Patient denies any neurological complaints. No focal neurological deficits. C-spine cleared. No difficulties with range of motion no midline tenderness to palpation. Return parameters as well as instructions for suture removal care and signs and symptoms of infection were discussed with patient verbalized understanding. Patient was discharged appearing well after discussed the case by attending provider Dr. Espinosa Disposition Clinical Impression: Fall, Head injury, Elbow laceration, Elbow pain Disposition: HOME SELF-CARE Condition: Good Instructions (If sedation given, give patient instructions): Care For Your Stitches (ED), Laceration (ED), Head Injury (ED) Additional Instructions: Please use medication as discussed. Please follow-up with family doctor in the next 2 days for wound check. Please return to emergency room if the symptoms increase or worsen or for any other concerns. Please return for suture removal in the next 7-10 days. Is patient prescribed a controlled substance at d/c from ED?: No Referrals: None,Stated [Primary Care Provider] - 1-2 days [facility] [NON[facility]] - 1-2 days Time of Disposition: 14:44
[2019-02-21 15:25] VITALS: BP 153/68; PULSE 70; TEMP 98
== END 2019-02-21 15:24 | disposition home or self-care (01) ==
LOC: EC 13:06
DX: S51.012A Laceration without foreign body of left elbow, initial encounter (principal); S09.90XA Unspecified injury of head, initial encounter; E11.9 Type 2 diabetes mellitus without complications; E78.5 Hyperlipidemia, unspecified; I10 Essential (primary) hypertension; M19.90 Unspecified osteoarthritis, unspecified site; Z87.891 Personal history of nicotine dependence; Z88.1 Allergy status to other antibiotic agents; Z79.82 Long term (current) use of aspirin; Z79.84 Long term (current) use of oral hypoglycemic drugs; Z79.899 Other long term (current) drug therapy; Z86.73 Personal history of transient ischemic attack (TIA), and cerebral infarction without residual deficits; Z85.828 Personal history of other malignant neoplasm of skin; Z23 Encounter for immunization; W01.10XA Fall on same level from slipping, tripping and stumbling with subsequent striking against unspecified object, initial encounter; Y93.89 Activity, other specified; Y92.009 Unspecified place in unspecified non-institutional (private) residence as the place of occurrence of the external cause
CPT/HCPCS: 73502; 73080; 72125; 70450; 90715; 99284; 12001; 90471; J2001

== ENCOUNTER → 2019-04-06 | Outpatient (CLI) | payer MEDICARE, OTHER ==
--- NOTE | 2019-04-06 13:40 | US ---
EXAMINATION TYPE: US kidneys/renal and bladder DATE OF EXAM: 04/06/2019 COMPARISON: NONE CLINICAL HISTORY: N18.3 CKD stage 3. no symptoms EXAM MEASUREMENTS: Right Kidney: 9.1 x 3.9 x 4.6 cm Left Kidney: 10.2 x 4.0 x 4.5 cm Right Kidney: 1.4cm cyst seen at inferior pole Left Kidney: 1.1cm inferior pole cyst Bladder: not fully distended, patient voided just prior to exam and was not going to wait for bladder to refill Bilateral diminished cortical medullary differentiation is seen with bilateral cortical renal thinnin g. There is no evidence for hydronephrosis at this point in time. No nephrolithiasis is seen. No fuller spicious masses are identified. The urinary bladder is completely distended. IMPRESSION: 1. Sonographic sequela of medical renal disease with bilateral simple appearing cysts, Bosniak type I . 2. No hydronephrosis of either kidney.
== END | disposition home or self-care (01) ==
LOC: RADUSWWP 12:37
PROVIDERS: ATTEND Internal Medicine Nephrology
DX: N18.3 Chronic kidney disease, stage 3 (moderate) (principal); N28.1 Cyst of kidney, acquired
CPT/HCPCS: 76770

== ENCOUNTER → 2019-04-12 | Outpatient (CLI) | payer MEDICARE, OTHER ==
[2019-04-12 10:28] LABS: Basophils % (A) 0 %; Eosinophils # (A) 0.2 k/uL (0-0.7); Eosinophils % (A) 3 %; HCT 29.7 % (34.0-46.0); HGB 9.5 gm/dL (11.4-16.0); Hypochromasia Slight; Lymphocytes # (A) 2.3 k/uL (1.0-4.8); Lymphocytes % (A) 37 %; MCH 29.5 pg (25.0-35.0); MCHC 32.1 g/dL (31.0-37.0); MCV 91.8 fL (80.0-100.0); Mean Platelet Volume 8.3; Monocytes # (A) 0.2 k/uL (0-1.0); Monocytes % (A) 4 %; Neutrophils # (A) 3.2 k/uL (1.3-7.7); Neutrophils % (A) 53 %; Platelet Count 269 k/uL (150-450); RBC 3.23 m/uL (3.80-5.40); RDW 14.5 % (11.5-15.5)
[2019-04-12 10:38] LABS: Appearance,Urine Cloudy (Clear); Bacteria,Urine Many /hpf; Bilirubin,Urine Negative (Negative); Blood,Urine Trace (Negative); Color,Urine Yellow; Glucose,Urine (UA) Negative (Negative); Ketones,Urine Negative (Negative); Leukocyte Esterase,Urine Large (Negative); Mucus,Urine Rare /hpf; Nitrite,Urine Positive (Negative); Protein,Urine Trace (Negative); RBC,Urine 3 /hpf (0-5); Specific Gravity,Urine 1.015 (1.001-1.035); Squamous Epithelial Cell,Urine 1 /hpf (0-4); Urobilinogen,Urine <2.0 mg/dL (<2.0); WBC,Urine 126 /hpf (0-5)
[2019-04-12 16:29] LABS: Iron Saturation 17.7 (12.00-45.00)
[2019-04-12 16:37] LABS: Vitamin D 25 Hydroxy 16.3 ng/mL (30.0-100.0)
[2019-04-12 16:42] LABS: African American GFR (CKD) 49.4 (60.0-200.0); Anion Gap 9.5 mmol/L (4.00-12.00); BUN/Creat Ratio 22.5 Ratio (12.00-20.00); Calcium 9.4 mg/dL (8.7-10.3); Carbon Dioxide 22.5 mmol/L (21.6-31.8); Magnesium 1.6 mg/dL (1.5-2.4); Phosphorus 3.8 mg/dL (2.4-5.1); Potassium 4.5 mmol/L (3.5-5.5); Uric Acid 5.6 mg/dL (2.9-7.7)
[2019-04-12 16:52] LABS: Parathyroid Hormone Intact 37.2 pg/mL (14.0-72.0)
[2019-04-12 17:15] LABS: Creatinine,Urine Random 115.8 mg/dL
[2019-04-12 18:35] LABS: Total Protein,Urine Random 25.1 mg/dL (0.0-13.5)
== END | disposition home or self-care (01) ==
LOC: LABWHC1 09:38
PROVIDERS: ATTEND Internal Medicine Nephrology
DX: N39.0 Urinary tract infection, site not specified (principal); M10.9 Gout, unspecified; D63.1 Anemia in chronic kidney disease; N18.3 Chronic kidney disease, stage 3 (moderate); E55.9 Vitamin D deficiency, unspecified; N25.81 Secondary hyperparathyroidism of renal origin; R80.9 Proteinuria, unspecified
CPT/HCPCS: 36415; 80048; 81001; 82040; 82306; 82570; 82728; 83540; 83550; 83735; 83970; 84100; 84156; 84550; 85025

== ENCOUNTER → 2019-07-06 | Outpatient (CLI) | payer MEDICARE, OTHER ==
[2019-07-06 11:59] LABS: Basophils % (A) 0 %; Eosinophils # (A) 0.2 k/uL (0-0.7); Eosinophils % (A) 3 %; HCT 34.4 % (34.0-46.0); HGB 11.2 gm/dL (11.4-16.0); Lymphocytes # (A) 2.2 k/uL (1.0-4.8); Lymphocytes % (A) 25 %; MCH 30.2 pg (25.0-35.0); MCHC 32.5 g/dL (31.0-37.0); MCV 93.1 fL (80.0-100.0); Mean Platelet Volume 6.7; Monocytes # (A) 0.4 k/uL (0-1.0); Monocytes % (A) 5 %; Neutrophils # (A) 5.7 k/uL (1.3-7.7); Neutrophils % (A) 65 %; Platelet Count 283 k/uL (150-450); RBC 3.69 m/uL (3.80-5.40); RDW 13.1 % (11.5-15.5); WBC 8.8 k/uL (3.8-10.6)
[2019-07-06 12:28] LABS: Appearance,Urine Cloudy (Clear); Bacteria,Urine Moderate /hpf; Bilirubin,Urine Negative (Negative); Blood,Urine Negative (Negative); Color,Urine Yellow; Glucose,Urine (UA) Negative (Negative); Ketones,Urine Negative (Negative); Leukocyte Esterase,Urine Large (Negative); Mucus,Urine Rare /hpf; Nitrite,Urine Positive (Negative); Protein,Urine 1+ (Negative); RBC,Urine 5 /hpf (0-5); Specific Gravity,Urine 1.015 (1.001-1.035); Squamous Epithelial Cell,Urine 1 /hpf (0-4); Urobilinogen,Urine <2.0 mg/dL (<2.0); WBC,Urine >182 /hpf (0-5)
[2019-07-06 19:01] LABS: Iron Saturation 12.12 (12.00-45.00)
[2019-07-06 19:08] LABS: African American GFR (CKD) 49.4 (60.0-200.0); Albumin 4.3 g/dL (3.80-4.90); Anion Gap 11.2 mmol/L (4.00-12.00); BUN/Creat Ratio 14.17 Ratio (12.00-20.00); Calcium 9.8 mg/dL (8.7-10.3); Carbon Dioxide 24.8 mmol/L (21.6-31.8); Magnesium 1.6 mg/dL (1.5-2.4); Potassium 4.5 mmol/L (3.5-5.5); Uric Acid 6.8 mg/dL (2.9-7.7)
[2019-07-06 19:10] LABS: Ferritin 69.3 ng/mL (10.0-291.0); Vitamin D 25 Hydroxy 39.5 ng/mL (30.0-100.0)
[2019-07-07 01:14] LABS: Creatinine,Urine Random 117.4 mg/dL; Total Protein,Urine Random 36.4 mg/dL (0.0-13.5)
== END | disposition home or self-care (01) ==
LOC: LABWHC1 11:05
PROVIDERS: ATTEND Internal Medicine Nephrology
DX: E55.9 Vitamin D deficiency, unspecified (principal); N25.81 Secondary hyperparathyroidism of renal origin; M10.9 Gout, unspecified; N39.0 Urinary tract infection, site not specified; D64.9 Anemia, unspecified; N18.3 Chronic kidney disease, stage 3 (moderate); R80.9 Proteinuria, unspecified
CPT/HCPCS: 36415; 80048; 81001; 82040; 82306; 82570; 82728; 83540; 83550; 83735; 83970; 84100; 84156; 84550; 85025

== ENCOUNTER → 2020-01-19 | Outpatient (CLI) | payer MEDICARE, OTHER ==
[2020-01-19 09:59] LABS: Basophils # (A) 0.1 k/uL (0-0.2); Basophils % (A) 1 %; Eosinophils # (A) 0.2 k/uL (0-0.7); Eosinophils % (A) 2 %; HCT 38.5 % (34.0-46.0); Lymphocytes # (A) 2.7 k/uL (1.0-4.8); Lymphocytes % (A) 30 %; MCH 28.7 pg (25.0-35.0); MCHC 31.2 g/dL (31.0-37.0); MCV 91.9 fL (80.0-100.0); Mean Platelet Volume 7.9; Monocytes # (A) 0.4 k/uL (0-1.0); Monocytes % (A) 5 %; Neutrophils # (A) 5.5 k/uL (1.3-7.7); Neutrophils % (A) 61 %; Platelet Count 290 k/uL (150-450); RBC 4.19 m/uL (3.80-5.40)
[2020-01-19 10:12] LABS: Appearance,Urine Turbid (Clear); Bacteria,Urine Many /hpf; Bilirubin,Urine Negative (Negative); Blood,Urine Small (Negative); Color,Urine Yellow; Glucose,Urine (UA) Negative (Negative); Ketones,Urine Negative (Negative); Leukocyte Esterase,Urine Large (Negative); Nitrite,Urine Positive (Negative); PH, Urine 5.5 (5.0-8.0); Protein,Urine 1+ (Negative); RBC,Urine 19 /hpf (0-5); Specific Gravity,Urine 1.019 (1.001-1.035); Squamous Epithelial Cell,Urine 2 /hpf (0-4); Urobilinogen,Urine <2.0 mg/dL (<2.0); WBC,Urine >182 /hpf (0-5)
[2020-01-19 15:20] LABS: Urine Creatinine 75.9 mg/dL
[2020-01-19 15:41] LABS: % Iron Saturation 23.96 (12.00-45.00); African American GFR (CKD) 26.5 (60.0-200.0); Anion Gap 12.1 mmol/L (4.00-12.00); BUN/Creat Ratio 16.5 Ratio (12.00-20.00); Calcium 9.6 mg/dL (8.7-10.3); Carbon Dioxide 24.9 mmol/L (21.6-31.8); Non-African American GFR(CKD) 22.8 (60.0-200.0); Potassium 4.9 mmol/L (3.5-5.5); Uric Acid 7.7 mg/dL (2.9-7.7)
[2020-01-19 15:49] LABS: Ferritin 135.3 ng/mL (10.0-291.0)
== END | disposition home or self-care (01) ==
LOC: LABWHC1 09:19
PROVIDERS: ATTEND Nurse Practitioner Family
DX: N18.3 Chronic kidney disease, stage 3 (moderate) (principal); M10.9 Gout, unspecified; N39.0 Urinary tract infection, site not specified; D64.9 Anemia, unspecified; R80.9 Proteinuria, unspecified
CPT/HCPCS: 36415; 80048; 81001; 82043; 82570; 82728; 83540; 83550; 84550; 85025

== ENCOUNTER → 2020-03-07 | Outpatient (CLI) | payer MEDICARE, OTHER ==
[2020-03-07 16:41] LABS: Anion Gap 10.2 mmol/L (4.00-12.00); BUN/Creat Ratio 18.1 Ratio (12.00-20.00); Calcium 9.5 mg/dL (8.7-10.3); Carbon Dioxide 23.8 mmol/L (21.6-31.8); Non-African American GFR(CKD) 21.5 (60.0-200.0); Potassium 4.6 mmol/L (3.5-5.5)
== END | disposition home or self-care (01) ==
LOC: LABWHC1 09:33
PROVIDERS: ATTEND Internal Medicine Nephrology
DX: N18.3 Chronic kidney disease, stage 3 (moderate) (principal)
CPT/HCPCS: 36415; 80048

== ENCOUNTER → 2020-04-12 | Outpatient (CLI) | payer MEDICARE, OTHER ==
[2020-04-12 17:19] LABS: African American GFR (CKD) 30.1 (60.0-200.0); Albumin 4.3 g/dL (3.80-4.90); Albumin/Globulin Ratio 1.87 (1.60-3.17); Anion Gap 8.7 mmol/L (4.00-12.00); BUN/Creat Ratio 17.22 Ratio (12.00-20.00); Calcium 9.6 mg/dL (8.7-10.3); Carbon Dioxide 23.3 mmol/L (21.6-31.8); Chol/HDL Ratio 6.21; Globulin 2.3 g/dL (1.6-3.3); LDL Cholesterol,Calculated 158.6 mg/dL (0.0-131.0); Non-African American GFR(CKD) 25.9 (60.0-200.0); Potassium 5.1 mmol/L (3.5-5.5); Total Bilirubin 0.7 mg/dL (0.2-1.2); Total Protein 6.6 g/dL (6.2-8.2); VLDL Calculation 60.4 mg/dL (5.00-40.00)
== END | disposition home or self-care (01) ==
LOC: LABWHC1 08:36
PROVIDERS: ATTEND Nurse Practitioner Adult Health
DX: E78.2 Mixed hyperlipidemia (principal); N18.9 Chronic kidney disease, unspecified
CPT/HCPCS: 36415; 80053; 80061

== ENCOUNTER → 2020-04-26 | Outpatient (CLI) | payer MEDICARE, OTHER ==
[2020-04-26 10:03] LABS: Appearance,Urine Clear (Clear); Basophils % (A) 0 %; Bilirubin,Urine Negative (Negative); Blood,Urine Negative (Negative); Color,Urine Yellow; Eosinophils # (A) 0.2 k/uL (0-0.7); Eosinophils % (A) 3 %; Glucose,Urine (UA) Negative (Negative); HCT 35.4 % (34.0-46.0); HGB 11.2 gm/dL (11.4-16.0); Ketones,Urine Negative (Negative); Leukocyte Esterase,Urine Trace (Negative); Lymphocytes # (A) 2.8 k/uL (1.0-4.8); Lymphocytes % (A) 35 %; MCHC 31.6 g/dL (31.0-37.0); MCV 91.7 fL (80.0-100.0); Mean Platelet Volume 8.6; Monocytes # (A) 0.4 k/uL (0-1.0); Monocytes % (A) 5 %; Mucus,Urine Rare /hpf; Neutrophils # (A) 4.6 k/uL (1.3-7.7); Neutrophils % (A) 56 %; Nitrite,Urine Negative (Negative); Platelet Count 252 k/uL (150-450); Protein,Urine 1+ (Negative); RBC 3.86 m/uL (3.80-5.40); RBC,Urine 1 /hpf (0-5); RDW 13.2 % (11.5-15.5); Specific Gravity,Urine 1.015 (1.001-1.035); Squamous Epithelial Cell,Urine 1 /hpf (0-4); Urobilinogen,Urine <2.0 mg/dL (<2.0); WBC 8.2 k/uL (3.8-10.6); WBC,Urine 3 /hpf (0-5)
[2020-04-26 10:22] LABS: Protein/Creatinine Ratio,Urine 0.362
[2020-04-26 17:20] LABS: % Iron Saturation 23.02 (12.00-45.00); African American GFR (CKD) 30.1 (60.0-200.0); Anion Gap 6.1 mmol/L (4.00-12.00); BUN/Creat Ratio 21.67 Ratio (12.00-20.00); Calcium 9.3 mg/dL (8.7-10.3); Carbon Dioxide 22.9 mmol/L (21.6-31.8); Magnesium 1.7 mg/dL (1.5-2.4); Non-African American GFR(CKD) 25.9 (60.0-200.0); Potassium 4.4 mmol/L (3.5-5.5); Uric Acid 6.7 mg/dL (2.9-7.7)
[2020-04-26 17:29] LABS: Ferritin 152.4 ng/mL (10.0-291.0)
== END | disposition home or self-care (01) ==
LOC: LABWHC1 09:19
PROVIDERS: ATTEND Internal Medicine Nephrology
DX: N18.3 Chronic kidney disease, stage 3 (moderate) (principal); E55.9 Vitamin D deficiency, unspecified; N25.81 Secondary hyperparathyroidism of renal origin; M10.9 Gout, unspecified; N39.0 Urinary tract infection, site not specified; D63.1 Anemia in chronic kidney disease
CPT/HCPCS: 36415; 80048; 81001; 82040; 82306; 82570; 82728; 83540; 83550; 83735; 83970; 84100; 84156; 84550; 85025

== ENCOUNTER 2020-05-07 22:55 | Inpatient (IN) | payer MEDICARE, OTHER ==
[2020-05-07 23:03] LABS: Glucose,Whole Blood 501 mg/dL (75-99)
[2020-05-07] MEDS ORDERED: LABETALOL 5 MG/ML VIAL MDV IVP STA (23:18)
[2020-05-07] MEDS ORDERED: SODIUM CHLORIDE 0.9% 500 ML 500 ML IV STA (23:18)
[2020-05-07 23:31] LABS: Basophils % (A) 0 %; Eosinophils % (A) 0 %; HGB 12.9 gm/dL (11.4-16.0); Lymphocytes # (A) 1.1 k/uL (1.0-4.8); Lymphocytes % (A) 12 %; MCH 30.3 pg (25.0-35.0); MCHC 32.2 g/dL (31.0-37.0); Mean Platelet Volume 8.8; Monocytes # (A) 0.1 k/uL (0-1.0); Monocytes % (A) 1 %; Neutrophils # (A) 7.9 k/uL (1.3-7.7); Neutrophils % (A) 86 %; Platelet Count 309 k/uL (150-450); RBC 4.25 m/uL (3.80-5.40); RDW 12.7 % (11.5-15.5); WBC 9.2 k/uL (3.8-10.6)
[2020-05-07] MEDS ORDERED: SODIUM CHLORIDE 0.9% 1,000 ML IV ONE (23:31)
[2020-05-07] MEDS ORDERED: INSULIN ASPART (NovoLOG) 100 UNIT/ML VIAL SQ ONE (23:32)
--- NOTE | 2020-05-07 23:33 | ED ---
Chest Pain HPI - General Source: patient, RN notes reviewed Mode of arrival: ambulatory Limitations: no limitations <Scottie Dupree - Last Filed: 05/08/20 01:26> <Jose Jones - Last Filed: 05/09/20 07:56> - General Chief Complaint: Chest Pain Stated Complaint: High blood sugar Time Seen by Provider: 05/07/20 23:07 - History of Present Illness Initial Comments: This is an 80-year-old female presents emergency Department chief complaint of chest pain, hyperglycemia. Patient states that earlier today she received a cortisone injection by Dr. Walter in her left knee. Patient states that she was walking down from her apartment to another apartment when she developed sharp chest pain. Patient states only lasted a few minutes and has subsided at this point. Patient does state that her blood pressure is elevated. She is on multiple medications for hypertension. She does admit that she has a history of Diabetes mellitus, hyperlipidemia hypertension, asthma. Patient did take over medications. Patient denies any current back pain, leg swelling. (Scottie Dupree) - Related Data Home Medications Medication Instructions Recorded Confirmed Aspirin [Adult Low Dose Aspirin EC] 81 mg PO DAILY 03/13/16 05/08/20 sitaGLIPtin [Januvia] 50 mg PO QAM 03/13/16 05/08/20 Isosorbide Mononitrate ER [Imdur] 30 mg PO DAILY 01/08/19 05/08/20 Carvedilol [Coreg] 25 mg PO BID 05/08/20 05/08/20 Ergocalciferol [Vitamin D2 50,000 unit PO Q7D 05/08/20 05/08/20 (DRISDOL)] Fluticasone/Vilanterol [Breo 1 puff INHALATION RT-DAILY PRN 05/08/20 05/08/20 Ellipta 100-25 Mcg Inhaler] Previous Rx's Medication Instructions Recorded lisinopriL [Zestril] 10 mg PO DAILY #0 01/19/19 Atorvastatin [Lipitor] 40 mg PO DAILY 30 Days #30 tab 05/08/20 Clopidogrel [Plavix] 75 mg PO DAILY 30 Days #30 tab 05/08/20 Nitroglycerin Sl Tabs [Nitrostat] 0.4 mg SUBLINGUAL Q5M PRN #20 tab 08/12/20 amLODIPine [Norvasc] 5 mg PO BID 30 Days #60 tab 05/08/20 Allergies Allergy/AdvReac Type Severity Reaction Status Date / Time lincomycin HCl Allergy Unknown Unknown Verified 05/08/20 07:15 [From Lincocin] Review of Systems ROS Other: All systems not noted in ROS Statement are negative. <Scottie Dupree - Last Filed: 05/08/20 01:26> ROS Other: All systems not noted in ROS Statement are negative. <Jose Jones - Last Filed: 05/09/20 07:56> ROS Statement: Those systems with pertinent positive or pertinent negative responses have been documented in the HPI. EKG Findings - EKG Comments: EKG Findings:: EKG performed at 23:09 sinus tachycardia, rate of 107 LA 182 QRS 78, QT/QTC 320/437. Noted Q wave <Scottie Dupree - Last Filed: 05/08/20 01:26> Past Medical History Past Medical History: Asthma, Cancer, CVA/TIA, Diabetes Mellitus, Hyperlipidemia, Hypertension, Osteoarthritis (OA) Additional Past Medical History / Comment(s): CVA - DECEMBER 2015-NO RESIDUAL WEAKNESS., SLIGHT EDEMA LOWER EXTREMITIES, HX OF SKIN CANCER. History of Any Multi-Drug Resistant Organisms: None Reported Past Surgical History: Section, Hysterectomy, Orthopedic Surgery Additional Past Surgical History / Comment(s): X3, CARPAL TUNNEL, LEFT KNEE ARTHROSCOPY, RIGHT CATARACT. Past Anesthesia/Blood Transfusion Reactions: No Reported Reaction Past Psychological History: No Psychological Hx Reported Past Alcohol Use History: None Reported Past Drug Use History: None Reported - Past Family History Mother Family Medical History: Cancer Additional Family Medical History / Comment(s): BRAIN TUMOR Brother(s) Family Medical History: Cancer Additional Family Medical History / Comment(s): BRAIN TUMOR. <Scottie Dupree - Last Filed: 05/08/20 01:26> General Exam Limitations: no limitations General appearance: alert, in no apparent distress Head exam: Present: atraumatic, normocephalic, normal inspection Eye exam: Present: normal appearance, PERRL, EOMI. Absent: scleral icterus, conjunctival injection, periorbital swelling ENT exam: Present: normal exam, mucous membranes moist Neck exam: Present: normal inspection, full ROM. Absent: tenderness, meningismus, lymphadenopathy Respiratory exam: Present: normal lung sounds bilaterally. Absent: respiratory distress, wheezes, rales, rhonchi, stridor Cardiovascular Exam: Present: normal rhythm, tachycardia, normal heart sounds. Absent: systolic murmur, diastolic murmur, rubs, gallop, clicks GI/Abdominal exam: Present: soft, normal bowel sounds. Absent: distended, tenderness, guarding, rebound, rigid Neurological exam: Present: alert, oriented X3 Skin exam: Present: warm, dry, intact, normal color. Absent: rash <Scottie Dupree - Last Filed: 05/08/20 01:26> Course Vital Signs 05/07/20 05/08/20 05/08/20 22:56 00:34 01:02 Temperature 97.5 F L Pulse Rate 110 H 85 91 Respiratory 18 17 18 Rate Blood Pressure 253/108 229/98 221/102 O2 Sat by Pulse 97 95 96 Oximetry 05/08/20 08 01:24 01:48 Temperature Pulse Rate 100 97 Respiratory 18 18 Rate Blood Pressure 184/81 170/90 O2 Sat by Pulse 96 96 Oximetry Chest Pain MDM <Scottie Dupree - Last Filed: 05/08/20 01:26> <Jose Jones - Last Filed: 05/09/20 07:56> - MDM 80-year-old presented for chest pain hyperglycemia. Patient reportedly was taken EKG does not reveal acute abnormality. Patient's blood pressure is improved after multiple antihypertensives. Patient will be admitted for cardiac abscess for hyperglycemia chest pain hypertension (Scottie Dupree) I saw this patient in conjunction with the physician botany laboratory assistant. I performed independent history and physical exam. Agree with case management. Please note there is no evidence of cardiac abscess at time of admission. This is a amalgamator error (Jose Jones) Disposition <Scottie Dupree - Last Filed: 05/08/20 01:26> <Jose Jones - Last Filed: 05/09/20 07:56> Clinical Impression: Hyperglycemia, Chest pain, Hypertension Disposition: ADMITTED IP TO THIS HOSP Condition: Fair
--- NOTE | 2020-05-07 23:46 | XR ---
EXAMINATION TYPE: XR chest 2V DATE OF EXAM: 05/07/2020 COMPARISON: 01/08/2019 HISTORY: Chest pain TECHNIQUE: FINDINGS: There is no heart failure nor confluent pneumonic infiltrate. There is small linear density at the left cardiac border. There is no pleural effusion. Thoracic aorta is atheromatous. There is s purring in the thoracic spine. IMPRESSION: Mild subsegmental atelectasis on the left side is a change compared to old exam. No heart failure.
[2020-05-07 23:49] LABS: Partial Thromboplastin Time 28.1 sec (22.0-30.0)
[2020-05-08 00:03] LABS: Albumin 4.5 g/dL (3.5-5.0); Calcium 9.6 mg/dL (8.4-10.2); Magnesium 1.6 mg/dL (1.6-2.3); Potassium 4.9 mmol/L (3.5-5.1); Total Bilirubin 0.8 mg/dL (0.2-1.3); Total Protein 7.4 g/dL (6.3-8.2)
[2020-05-08 00:32] LABS: Glucose,Whole Blood 487 mg/dL (75-99)
[2020-05-08] MEDS ORDERED: hydrALAZINE HCL 20 MG/ML 1 ML VIAL IVP STA (00:51)
[2020-05-08] MEDS ORDERED: NITROGLYCERIN SL TABS 0.4 MG TAB SUBLINGUAL PRN (01:28)
[2020-05-08] MEDS ORDERED: HEPARIN SODIUM,PORCINE 5,000 UNIT/ML 1 ML VIAL IV PRN (01:28)
[2020-05-08] MEDS ORDERED: ASPIRIN 81 MG PO STA (01:28)
[2020-05-08] MEDS ORDERED: HEPARIN SODIUM,PORCINE 5,000 UNIT/ML 1 ML VIAL IV ONE (01:28)
[2020-05-08] MEDS ORDERED: HEPARIN SOD,PORK IN 0.45% NACL 25,000 UNIT in 0.45% NACL 1 250ML.BAG IV SCH (01:30)
[2020-05-08] MEDS ORDERED: hydrALAZINE HCL 20 MG/ML 1 ML VIAL IVP PRN (01:30)
[2020-05-08 01:54] LABS: Glucose,Whole Blood 382 mg/dL (75-99)
[2020-05-08 06:09] LABS: Mean Platelet Volume 8.7; Platelet Count 297 k/uL (150-450)
[2020-05-08 06:36] LABS: Glucose,Whole Blood 387 mg/dL (75-99)
[2020-05-08 07:49] VITALS: BP 161/75; PULSE 90; RESP 18; TEMP 98.4
[2020-05-08] MEDS: INSULIN ASPART (NovoLOG) 100 UNIT/ML VIAL SQ SCH ×2 (07:53→12:34)
[2020-05-08] MEDS ORDERED: CLOPIDOGREL 75 MG TAB PO SCH (09:00)
[2020-05-08] MEDS ORDERED: carvediloL 12.5 MG TAB PO SCH (09:00)
[2020-05-08] MEDS ORDERED: amLODIPine 5 MG TAB PO SCH (09:00)
[2020-05-08] MEDS ORDERED: ISOSORBIDE MONONITRATE ER 30 MG TAB.ER.24H PO SCH (09:00)
[2020-05-08] MEDS ORDERED: ATORVASTATIN 40 MG TAB PO SCH (09:00)
[2020-05-08] MEDS ORDERED: lisinopriL 10 MG TAB PO SCH ×2 (09:00→21:00)
--- NOTE | 2020-05-08 09:50 | P.CRDCN ---
History of Present Illness History of present illness: HISTORY OF PRESENTING ILLNESS This is a pleasant 80-year-old female past medical history significant for hypertension, dyslipidemia, diabetes mellitus, CVA, thoracic aortic aneurysm 4.2 cm in 2018 and former nicotine dependence. She follows in the office with Dr. Arita. We have been asked to see in consultation for chest pain. She states yesterday she was having lunch with a friend. While walking back to her apartment she started feeling acutely diaphoretic and had a heavy pressure sensation in her chest. She got into her apartment sat down and called her grandson. He called EMS. By the time they arrived her chest pain had subsided. She is seen and examined sitting up in bed in no acute distress. She has had no further symptoms of chest discomfort since arriving at the hospital. Initial EKG on admission was unremarkable for ischemic changes. Initial troponin was unremarkable, second was 0.051 third was 0.292. Creatinine was 1.78. Blood pressure on arrival was 253/108 and 229/98. She was also hyperglycemic. She did receive cortisone injection earlier in the day. Chest x-ray is negative for acute cardiopulmonary process. Current daily cardiac medications include aspirin 81 mg daily, carvedilol 25 mg twice a day, Imdur 30 mg daily, lisinopril 10 mg daily and amlodipine 5 mg twice a day by mouth she states she is compliant with her medication regimen. In January 2019 she underwent a Lexiscan stress test revealing normal ejection fraction and no evidence of reversible reactive ischemia. Echocardiogram obtained February 2019 revealed normal ejection fraction with mild MR and mild TR. REVIEW OF SYSTEMS At the time of my exam: CONSTITUTIONAL: Denies fever or chills. CARDIOVASCULAR: Denies chest pain, shortness of breath, orthopnea, PND or palpit ations. RESPIRATORY: Denies cough. GASTROINTESTINAL: Denies abdominal pain, diarrhea, constipation, nausea or vomiting. MUSCULOSKELETAL: Denies myalgias. NEUROLOGIC: Denies numbness, tingling or weakness. ENDOCRINE: Denies fatigue, weight change, polydipsia or polyurina. GENITOURINARY: Denies burning, hematuria or urgency with micturation. HEMATOLOGIC: Denies history of anemia or bleeding. PHYSICAL EXAMINATION Blood pressure 161/75 heart rate 90 afebrile and maintaining oxygen saturation on room air. CONSTITUTIONAL: No apparent distress. HEENT: Head is normocephalic. Pupils are equal, round. Sclerae anicteric. Mucous membranes of the mouth are moist. No JVD. No carotid bruit. CHEST EXAMINATION: Lungs are clear to auscultation. No chest wall tenderness is noted on palpation or with deep breathing. HEART EXAMINATION: Regular rate and rhythm. S1, S2 heard. No murmurs, gallops or rub. ABDOMEN: Soft, nontender. Positive bowel sounds. EXTREMITIES: 2+ peripheral pulses, no lower extremity edema and no calf tenderness. NEUROLOGIC EXAMINATION: Patient is awake, alert and oriented x3. ASSESSMENT Non-ST elevated myocardial infarction Chest pain suggestive of unstable angina Hypertensive emergency Chronic kidney disease Diabetes mellitus PLAN We discussed at length the diagnosis with the patient and recommended proceeding with cardiac catheterization. The patient does not want to proceed at this time. She would like her medications optimized and would like to follow-up in the office with Dr. Arita for further recommendations if medical therapy does not work. The risks of this approach have been discussed with the patient and she is agreeable. She is agreeable to have an echocardiogram done to assess for wall motion abnormalities. At this time we recommend continuing amlodipine, carvedilol and Imdur. We will increase lisinopril as well as initiate atorvastatin and aspirin daily. Check lipid panel. Thank you kindly for this consultation. Nurse Practitioner note has been reviewed, I agree with a documented findings and plan of care. Patient was seen and examined. Past Medical History Past Medical History: Asthma, Cancer, CVA/TIA, Diabetes Mellitus, Hyperlipidemia, Hypertension, Osteoarthritis (OA) Additional Past Medical History / Comment(s): CVA - DECEMBER 2015-NO RESIDUAL WEAKNESS., HX OF SKIN CANCER. History of Any Multi-Drug Resistant Organisms: None Reported Past Surgical History: Section, Hysterectomy, Orthopedic Surgery Additional Past Surgical History / Comment(s): X3, CARPAL TUNNEL, LEFT KNEE ARTHROSCOPY, RIGHT CATARACT. Past Anesthesia/Blood Transfusion Reactions: No Reported Reaction Past Psychological History: No Psychological Hx Reported Smoking Status: Former smoker Past Alcohol Use History: None Reported Past Drug Use History: None Reported - Past Family History Mother Family Medical History: Cancer Additional Family Medical History / Comment(s): BRAIN TUMOR Brother(s) Family Medical History: Cancer Additional Family Medical History / Comment(s): BRAIN TUMOR. Medications and Allergies Home Medications Medication Instructions Recorded Confirmed Type Aspirin [Adult Low Dose Aspirin EC] 81 mg PO DAILY 03/13/16 05/08/20 History amLODIPine [Norvasc] 5 mg PO BID 03/13/16 05/08/20 History sitaGLIPtin [Januvia] 50 mg PO QAM 03/13/16 05/08/20 History Isosorbide Mononitrate ER [Imdur] 30 mg PO DAILY 01/08/19 05/08/20 History lisinopriL [Zestril] 10 mg PO DAILY #0 01/19/19 05/08/20 Rx Carvedilol [Coreg] 25 mg PO BID 05/08/20 05/08/20 History Ergocalciferol [Vitamin D2] 50,000 unit PO Q7D 05/08/20 05/08/20 History Fluticasone/Vilanterol [Breo 1 puff INHALATION RT-DAILY PRN 05/08/20 05/08/20 History Ellipta 100-25 Mcg Inhaler] Allergies Allergy/AdvReac Type Severity Reaction Status Date / Time lincomycin HCl Allergy Unknown Unknown Verified 05/08/20 07:15 [From Lincocin] Physical Exam Vitals: Vital Signs Temp Pulse Pulse Resp BP BP Pulse Ox 05/08/20 07:47 98.4 F 90 18 161/75 95 05/08/20 03:00 97.6 F 98 20 161/69 97 05/08/20 01:48 97 18 170/90 96 05/08/20 01:24 100 18 184/81 96 05/08/20 01:02 91 18 221/102 96 05/08/20 00:34 85 17 229/98 95 05/07/20 22:56 97.5 F L 110 H 18 253/108 97 Intake and Output 05/07/20 05/08/20 05/08/20 22:59 06:59 14:59 Other: Voiding Method Toilet # Voids 1 Weight 65.771 kg Results 05/08/20 05:37 05/07/20 23:21 Cardiac Enzymes 05/07/20 05/07/20 05/08/20 Range/Units 23:21 23:21 02:48 AST 24 (14-36) U/L Troponin I <0.012 0.051 H* (0.000-0.034) ng/mL 05/08/20 Range/Units 05:37 AST (14-36) U/L Troponin I 0.292 H* (0.000-0.034) ng/mL Coagulation 05/07/20 05/08/20 Range/Units 23:21 07:48 PT 10.0 (9.0-12.0) sec APTT 28.1 82.6 H (22.0-30.0) sec CBC 05/07/20 05/08/20 Range/Units 23:21 05:37 WBC 9.2 (3.8-10.6) k/uL RBC 4.25 (3.80-5.40) m/uL Hgb 12.9 (11.4-16.0) gm/dL Hct 40.0 (34.0-46.0) % Plt Count 309 297 (150-450) k/uL Comprehensive Metabolic Panel 05/07/20 Range/Units 23:21 Sodium 133 L (137-145) mmol/L Potassium 4.9 (3.5-5.1) mmol/L Chloride 101 (98-107) mmol/L Carbon Dioxide 20 L (22-30) mmol/L BUN 37 H (7-17) mg/dL Creatinine 1.78 H (0.52-1.04) mg/dL Glucose 536 H* (74-99) mg/dL Calcium 9.6 (8.4-10.2) mg/dL AST 24 (14-36) U/L ALT 14 (4-34) U/L Alkaline Phosphatase 145 H (38-126) U/L Total Protein 7.4 (6.3-8.2) g/dL Albumin 4.5 (3.5-5.0) g/dL Current Medications Generic Name Dose Route Start Last Admin Trade Name Freq PRN Reason Stop Dose Admin Aspirin 325 mg 05/09/20 09:00 Aspirin PO DAILY GHAZAL Heparin Sodium (Porcine) 0 unit 05/08/20 01:28 Heparin IV Q6HR PRN Low PTT Protocol Hydralazine HCl 10 mg 05/08/20 01:30 Apresoline IVP Q4HR PRN Blood Pressure - High Heparin Sodium/Sodium Chloride 250 mls @ 7.893 mls/hr 05/08/20 01:30 05/08/20 01:50 25,000 unit/ Sodium Chloride IV 12 units/kg/hr .Q24H GHAZAL 7.893 mls/hr Administration Protocol 12 UNITS/KG/HR Insulin Aspart 0 unit 05/08/20 07:30 05/08/20 07:53 Novolog SQ 7 unit ACHS GHAZAL Administration Protocol Nitroglycerin 0.4 mg 05/08/20 01:28 Nitrostat SUBLINGUAL Q5M PRN Chest Pain Intake and Output 05/07/20 05/08/20 05/08/20 22:59 06:59 14:59 Other: Voiding Method Toilet # Voids 1 Weight 65.771 kg 05/08/20 05:37 05/07/20 23:21
[2020-05-08 10:18] LABS: Cholesterol 250 mg/dL (<200); HDL Cholesterol 54 mg/dL (40-60); LDL Cholesterol,Calculated 151 mg/dL (0-99); Triglycerides 227 mg/dL (<150)
--- NOTE | 2020-05-08 12:32 | ECHOF ---
Referral Reason:cp MEASUREMENTS -------- HEIGHT: 127.0 cm WEIGHT: 65.8 kg BP: 161/75 RVIDd: 2.6 cm (< 3.3) IVSd: 1.4 cm (0.6 - 1.1) LVIDd: 3.7 cm (3.9 - 5.3) LVPWd: 1.4 cm (0.6 - 1.1) IVSs: 1.8 cm LVIDs: 1.7 cm LVPWs: 1.8 cm LAESV Index (A-L): 55.52 ml/m Ao Diam: 2.9 cm (2.0 - 3.7) AV Cusp: 1.7 cm (1.5 - 2.6) MV EXCURSION: 13.117 mm (> 18.000) MV EF SLOPE: 39 mm/s (70 - 150) EPSS: 0.5 cm MV E [place]: 0.97 m/s MV DecT: 276 ms MV A [place]: 1.26 m/s MV E/A Ratio: 0.77 RAP: 5.00 mmHg RVSP: 22.86 mmHg FINDINGS -------- This was a technically adequate study. The left ventricular size is normal. There is moderate concentric left ventricular hypertrophy. O verall left ventricular systolic function is normal with, an EF between 55 - 60 %. Left ventricular fillimg pressure cannot be estimated due to severe mitral annular calcification. The right ventricle is normal in size. LA is severely dilated >40 ml/m2 The right atrial size is normal. Interatrial and interventricular septum intact. There is mild aortic valve sclerosis. There is no evidence of aortic regurgitation. There is no e vidence of aortic stenosis. Severe mitral annular calcification present. Mild mitral regurgitation is present. Mild tricuspid regurgitation present. There is no evidence of pulmonary hypertension. The right v entricular systolic pressure, as measured by Doppler, is 22.86mmHg. There is no pulmonic regurgitation present. There is a trivial pericardial effusion present. CONCLUSIONS -------- 1. The left ventricular size is normal. 2. There is moderate concentric left ventricular hypertrophy. 3. Overall left ventricular systolic function is normal with, an EF between 55 - 60 %. 4. Left ventricular fillimg pressure cannot be estimated due to severe mitral annular calcification. 5. LA is severely dilated >40 ml/m2 6. There is mild aortic valve sclerosis. 7. Severe mitral annular calcification present. 8. Mild mitral regurgitation is present. 9. Mild tricuspid regurgitation present. 10. There is a trivial pericardial effusion present. GLASS SETTER: Monica Ponce RDCS
[2020-05-09] MEDS ORDERED: ASPIRIN 325 MG TAB PO SCH (09:00)
[2020-05-09] MEDS ORDERED: ASPIRIN 81 MG PO SCH (09:00)
--- NOTE | 2020-05-10 07:13 | CDI ---
Documentation Clarification Form Date: 05/10/2020 06:50:30 AM From: Ansley Edwards Phone: If you have a question about this query, please contact Kimberly Lilly Audit Clerks Supervisor at [phone] between 8am and 5pm. Admit Date: 05/08/2020 09:57:00 AM Patient Name: Chelsey Suarez Visit Number: [id number] Discharge Date: 05/08/2020 02:35:00 PM ATTENTION: The Clinical Documentation Specialists (CDI) and [facility] Coding Staff appreciate your assistance in clarifying documentation. Please respond to the clarification below the line at the bottom and electronically sign. The CDI & [facility] Coding staff will review the response and follow-up if needed. Please note: Queries are made part of the Legal Health Record. If you have any questions, please contact the author of this message via ITS. Dr. Zenaida Hu [CKD is defined as GFR<=60 for >= 3 months. CKD is documented in the cardiac consult. Please clarify STAGE History/Risk Factors: Clinical Indicators: Current BUN/CR/GFR [be sure to date lab values]: 37 BUN 1.78 CREAT GFR 26 Consults Patient admitted with an NSTEMI In order to capture the severity of condition, please clarify the stage of the CKD, if known: CKD Stage 1 (GFR > 90) CKD Stage 2 (GFR 60-89) CKD Stage 3 (GFR 30-59) CKD Stage 4 (GFR 15-29) CKD Stage 5 (GFR <15) ESRD Other, please specify Unable to determine CKD Stage 3 (GFR 30-59) MTDD
== END 2020-05-08 14:35 | disposition home or self-care (01) | DRG 281 ==
LOC: EC 22:55 → 1SOBS 05-08 01:40 → OBSVTOIN 05-08 09:57
PROVIDERS: ADMIT Hospitalist; ATTEND Hospitalist
DX: I21.4 Non-ST elevation (NSTEMI) myocardial infarction (principal); I16.1 Hypertensive emergency; E11.22 Type 2 diabetes mellitus with diabetic chronic kidney disease; E11.65 Type 2 diabetes mellitus with hyperglycemia; E78.5 Hyperlipidemia, unspecified; I13.10 Hypertensive heart and chronic kidney disease without heart failure, with stage 1 through stage 4 chronic kidney disease, or unspecified chronic kidney disease; J45.909 Unspecified asthma, uncomplicated; Z79.02 Long term (current) use of antithrombotics/antiplatelets; Z79.82 Long term (current) use of aspirin; Z79.84 Long term (current) use of oral hypoglycemic drugs; Z79.899 Other long term (current) drug therapy; Z85.828 Personal history of other malignant neoplasm of skin; Z86.73 Personal history of transient ischemic attack (TIA), and cerebral infarction without residual deficits; Z87.891 Personal history of nicotine dependence; Z90.710 Acquired absence of both cervix and uterus; N18.3 Chronic kidney disease, stage 3 (moderate); Z53.9 Procedure and treatment not carried out, unspecified reason
CPT/HCPCS: 36415; 71046; 80053; 80061; 82550; 83690; 83735; 83880; 84484; 85025; 85049; 85610; 85730; 93005; 93306; 96361; 96374; 96375; 99285

== ENCOUNTER 2020-05-13 12:53 | Inpatient (IN) | payer MEDICARE, OTHER ==
[2020-05-13] MEDS ORDERED: SODIUM CHLORIDE 0.9% 1,000 ML IV STA (13:15)
--- NOTE | 2020-05-13 13:22 | ED ---
Dizziness HPI - General Chief Complaint: Syncope Stated Complaint: Syncope Time Seen by Provider: 05/13/20 13:03 Source: patient, RN notes reviewed, old records reviewed Mode of arrival: wheelchair Limitations: no limitations - History of Present Illness Initial Comments: This 80-year-old female with a recent admission to this facility where she states was told she had headaches mild heart attack and hyperglycemia who presents today with complaints of a syncopal episode. She states she was at home 08/07/1930 when she passed out. She states she woke up on the floor within 5 minutes complains only of right shoulder pain she has noted palpitations no overt dizziness no focal weakness no other complaints. She was brought in by private vehicle with her grandson. MD Complaint: other - Related Data Home Medications Medication Instructions Recorded Confirmed Aspirin [Adult Low Dose Aspirin EC] 81 mg PO DAILY 03/13/16 05/13/20 sitaGLIPtin [Januvia] 100 mg PO QAM 03/13/16 05/13/20 Isosorbide Mononitrate ER [Imdur] 30 mg PO DAILY 01/08/19 05/13/20 Carvedilol [Coreg] 25 mg PO BID 05/08/20 05/13/20 Ergocalciferol [Vitamin D2 50,000 unit PO FR 05/08/20 05/13/20 (DRISDOL)] Fluticasone/Vilanterol [Breo 1 puff INHALATION RT-DAILY PRN 05/08/20 05/13/20 Ellipta 100-25 Mcg Inhaler] Ferrous Sulfate 324mg 324 mg PO DAILY 05/13/20 05/13/20 Vits A,C,E/Lutein/Minerals [Vision 1 tab PO DAILY 05/13/20 05/13/20 Formula with Lutein Tab] Previous Rx's Medication Instructions Recorded lisinopriL [Zestril] 10 mg PO DAILY #0 01/19/19 Atorvastatin [Lipitor] 40 mg PO DAILY 30 Days #30 tab 05/08/20 Clopidogrel [Plavix] 75 mg PO DAILY 30 Days #30 tab 05/08/20 Nitroglycerin Sl Tabs [Nitrostat] 0.4 mg SUBLINGUAL Q5M PRN #20 tab 05/08/20 amLODIPine [Norvasc] 5 mg PO BID 30 Days #60 tab 05/08/20 Allergies Allergy/AdvReac Type Severity Reaction Status Date / Time lincomycin HCl Allergy Unknown Unknown Verified 05/13/20 13:40 [From Lincocin] Review of Systems ROS Statement: Those systems with pertinent positive or pertinent negative responses have been documented in the HPI. ROS Other: All systems not noted in ROS Statement are negative. Past Medical History Past Medical History: Asthma, Cancer, CVA/TIA, Diabetes Mellitus, Hyperlipidemia, Hypertension, Osteoarthritis (OA) Additional Past Medical History / Comment(s): CVA - DECEMBER 2015-NO RESIDUAL WEAKNESS., HX OF SKIN CANCER. History of Any Multi-Drug Resistant Organisms: None Reported Past Surgical History: Section, Hysterectomy, Orthopedic Surgery Additional Past Surgical History / Comment(s): X3, CARPAL TUNNEL, LEFT KNEE ARTHROSCOPY, RIGHT CATARACT. Past Anesthesia/Blood Transfusion Reactions: No Reported Reaction Past Psychological History: No Psychological Hx Reported Smoking Status: Former smoker Past Alcohol Use History: None Reported Past Drug Use History: None Reported - Past Family History Mother Family Medical History: Cancer Additional Family Medical History / Comment(s): BRAIN TUMOR Brother(s) Family Medical History: Cancer Additional Family Medical History / Comment(s): BRAIN TUMOR. General Exam - General Exam Comments Initial Comments: This a well-developed well-nourished awake alert oriented 3 female she does demonstrate a Oenl Coma Scale of 15 Limitations: no limitations General appearance: alert, in no apparent distress Head exam: Present: atraumatic, normocephalic, normal inspection Eye exam: Present: normal appearance, PERRL, EOMI. Absent: scleral icterus, conjunctival injection, periorbital swelling ENT exam: Present: normal exam, mucous membranes moist Neck exam: Present: normal inspection, full ROM, other (No stridor JVD or bruits). Absent: tenderness, meningismus, lymphadenopathy Respiratory exam: Present: normal lung sounds bilaterally. Absent: respiratory distress, wheezes, rales, rhonchi, stridor Cardiovascular Exam: Present: regular rate, normal rhythm, normal heart sounds. Absent: systolic murmur, diastolic murmur, rubs, gallop, clicks GI/Abdominal exam: Present: soft, normal bowel sounds. Absent: distended, tenderness, guarding, rebound, rigid Extremities exam: Present: normal inspection, tenderness (Tennis palpation of the right shoulder no definite deformity however no overt evidence of subluxation.), normal capillary refill. Absent: full ROM, pedal edema, joint swelling, calf tenderness Back exam: Present: normal inspection Neurological exam: Present: alert, oriented X3, CN II-XII intact Psychiatric exam: Present: normal affect, normal mood Skin exam: Present: warm, dry, intact, normal color. Absent: rash Course Vital Signs 05/13/20 12:55 Temperature 98.2 F Pulse Rate 67 Respiratory 18 Rate Blood Pressure 126/57 O2 Sat by Pulse 97 Oximetry EKG Findings - EKG Results: EKG: interpreted by ERMIsmael, sinus rhythm (EKG shows sinus rhythm a 67 CO interval 156 QRS 70 QT since QTC 388/409. Evidence of old inferior and anterior changes this is compared with EKG dated 05/07/20 showing no overt changes.) Medical Decision Making - Medical Decision Making I did discuss the initial findings with Dr. Ferris who did come to the emergency department see the patient I did discuss the findings with the patient and her grandson. Patient will be admitted for evaluation of syncope. Shoulder x-rays are pending if neededwill be consulted - Lab Data Lab Results 05/13/20 Range/Units 13:48 POC Glucose (mg/dL) 308 H (75-99) mg/dL POC Glu Caddy ID Lori Dennis Disposition Clinical Impression: Syncope and collapse, Right shoulder pain Disposition: ADMITTED IP TO THIS HOSP Condition: Fair Referrals: Catherine Mejia MD [Primary Care Provider] - 1-2 days
[2020-05-13 13:57] LABS: Glucose,Whole Blood 308 mg/dL (75-99)
[2020-05-13 14:02] LABS: Basophils # (A) 0.1 k/uL (0-0.2); Basophils % (A) 1 %; Eosinophils # (A) 0.5 k/uL (0-0.7); Eosinophils % (A) 4 %; HCT 36.9 % (34.0-46.0); HGB 11.8 gm/dL (11.4-16.0); Lymphocytes % (A) 18 %; MCH 29.1 pg (25.0-35.0); MCHC 31.8 g/dL (31.0-37.0); MCV 91.3 fL (80.0-100.0); Mean Platelet Volume 8.3; Monocytes # (A) 0.5 k/uL (0-1.0); Monocytes % (A) 4 %; Neutrophils # (A) 7.8 k/uL (1.3-7.7); Neutrophils % (A) 72 %; Platelet Count 312 k/uL (150-450); RBC 4.04 m/uL (3.80-5.40); RDW 13.1 % (11.5-15.5); WBC 10.9 k/uL (3.8-10.6)
[2020-05-13] MEDS ORDERED: NALOXONE 0.4 MG/ML 1 ML VIAL IV PRN (14:02)
[2020-05-13] MEDS ORDERED: NITROGLYCERIN SL TABS 0.4 MG TAB SUBLINGUAL PRN (14:03)
[2020-05-13] MEDS ORDERED: SYMBICORT 80-4.5 MCG INHALER INHALATION PRN (14:03)
[2020-05-13 14:11] LABS: Calcium 9.4 mg/dL (8.4-10.2); Magnesium 1.9 mg/dL (1.6-2.3); Potassium 5.7 mmol/L (3.5-5.1); Total Bilirubin 1.2 mg/dL (0.2-1.3); Total Protein 6.7 g/dL (6.3-8.2)
[2020-05-13 14:13] LABS: Partial Thromboplastin Time 24.4 sec (22.0-30.0); Prothrombin Time 10.3 sec (9.0-12.0)
--- NOTE | 2020-05-13 14:17 | XR ---
EXAMINATION TYPE: XR chest 2V DATE OF EXAM: 05/13/2020 COMPARISON: 05/07/2020 HISTORY: 80-year-old female with syncope TECHNIQUE: PA and lateral views FINDINGS: Heart is upper limits of normal in size moderate atherosclerotic calcifications throughout the aorta. Mild interstitial prominence is unchanged. No consolidation or pleural effusion. IMPRESSION: Chronic changes without acute cardiopulmonary process.
--- NOTE | 2020-05-13 14:19 | XR ---
EXAMINATION TYPE: XR shoulder complete RT DATE OF EXAM: 05/13/2020 COMPARISON: NONE HISTORY: 80-year-old female trauma, syncope with fall, pain TECHNIQUE: 3 views FINDINGS: Mild to moderate degenerative joint space narrowing with marginal spurring and capsular hyp ertrophy at the acromioclavicular joint. Subacromial space is preserved. Minimal spurring at the infe rior humeral head. Some sclerosis is noted at the greater tuberosity. On the Grashey view, there is a pparent loss of the subacromial space. No acute fracture, subluxation, dislocation seen. IMPRESSION: 1. Grashey view shows apparent loss of the subacromial space. Unable to exclude underlying full-thick ness rotator cuff tear. 2. [id number] AC joint OA.
--- NOTE | 2020-05-13 14:33 | ED ---
Medical Decision Making - Medical Decision Making I did review the imaging and reports x-ray was unremarkable for acute findings with respect to the chest the shoulder shows no fracture but there is evidence of rotator cuff injury. - Lab Data Result diagrams: 05/13/20 13:52 05/13/20 13:52 Lab Results 05/13/20 05/13/20 05/13/20 Range/Units 13:48 13:52 13:52 WBC 10.9 H (3.8-10.6) k/uL RBC 4.04 (3.80-5.40) m/uL Hgb 11.8 (11.4-16.0) gm/dL Hct 36.9 (34.0-46.0) % MCV 91.3 (80.0-100.0) fL MCH 29.1 (25.0-35.0) pg MCHC 31.8 (31.0-37.0) g/dL RDW 13.1 (11.5-15.5) % Plt Count 312 (150-450) k/uL Neutrophils % 72 % Lymphocytes % 18 % Monocytes % 4 % Eosinophils % 4 % Basophils % 1 % Neutrophils # 7.8 H (1.3-7.7) k/uL Lymphocytes # 2.0 (1.0-4.8) k/uL Monocytes # 0.5 (0-1.0) k/uL Eosinophils # 0.5 (0-0.7) k/uL Basophils # 0.1 (0-0.2) k/uL PT 10.3 (9.0-12.0) sec INR 1.0 (<1.2) APTT 24.4 (22.0-30.0) sec Sodium (137-145) mmol/L Potassium (3.5-5.1) mmol/L Chloride (98-107) mmol/L Carbon Dioxide (22-30) mmol/L Anion Gap mmol/L BUN (7-17) mg/dL Creatinine (0.52-1.04) mg/dL Est GFR (CKD-EPI)AfAm (>60 ml/min/1.73 sqM) Est GFR (CKD-EPI)NonAf (>60 ml/min/1.73 sqM) Glucose (74-99) mg/dL POC Glucose (mg/dL) 308 H (75-99) mg/dL POC Glu Mica Machine Operator ID Halilaj, Lori Calcium (8.4-10.2) mg/dL Magnesium (1.6-2.3) mg/dL Total Bilirubin (0.2-1.3) mg/dL AST (14-36) U/L ALT (4-34) U/L Alkaline Phosphatase (38-126) U/L Creatine Kinase (30-135) U/L Total Protein (6.3-8.2) g/dL Albumin (3.5-5.0) g/dL 05/13/20 Range/Units 13:52 WBC (3.8-10.6) k/uL RBC (3.80-5.40) m/uL Hgb (11.4-16.0) gm/dL Hct (34.0-46.0) % MCV (80.0-100.0) fL MCH (25.0-35.0) pg MCHC (31.0-37.0) g/dL RDW (11.5-15.5) % Plt Count (150-450) k/uL Neutrophils % % Lymphocytes % % Monocytes % % Eosinophils % % Basophils % % Neutrophils # (1.3-7.7) k/uL Lymphocytes # (1.0-4.8) k/uL Monocytes # (0-1.0) k/uL Eosinophils # (0-0.7) k/uL Basophils # (0-0.2) k/uL PT (9.0-12.0) sec INR (<1.2) APTT (22.0-30.0) sec Sodium 134 L (137-145) mmol/L Potassium 5.7 H (3.5-5.1) mmol/L Chloride 102 (98-107) mmol/L Carbon Dioxide 23 (22-30) mmol/L Anion Gap 9 mmol/L BUN 32 H (7-17) mg/dL Creatinine 1.65 H (0.52-1.04) mg/dL Est GFR (CKD-EPI)AfAm 33 (>60 ml/min/1.73 sqM) Est GFR (CKD-EPI)NonAf 29 (>60 ml/min/1.73 sqM) Glucose 306 H (74-99) mg/dL POC Glucose (mg/dL) (75-99) mg/dL POC Glu Mica Machine Operator ID Calcium 9.4 (8.4-10.2) mg/dL Magnesium 1.9 (1.6-2.3) mg/dL Total Bilirubin 1.2 (0.2-1.3) mg/dL AST 21 (14-36) U/L ALT 12 (4-34) U/L Alkaline Phosphatase 108 (38-126) U/L Creatine Kinase 36 (30-135) U/L Total Protein 6.7 (6.3-8.2) g/dL Albumin 4.0 (3.5-5.0) g/dL Disposition Clinical Impression: Syncope and collapse, Right shoulder pain, Injury of right rotator cuff Disposition: ADMITTED IP TO THIS HOSP Condition: Fair
[2020-05-13 17:21] LABS: Glucose,Whole Blood 217 mg/dL (75-99)
[2020-05-13] MEDS: SODIUM CHLORIDE 0.45% 1,000 ML IV SCH (18:07)
[2020-05-13] MEDS: carvediloL 12.5 MG TAB PO SCH (18:08)
[2020-05-13 19:26] LABS: Amorphous Sediment,Urine Rare /hpf; Bacteria,Urine Rare /hpf; Hyaline Casts,Urine 1 /lpf (0-2); RBC,Urine 1 /hpf (0-5); Squamous Epithelial Cell,Urine 1 /hpf (0-4); WBC,Urine <1 /hpf (0-5)
[2020-05-13 19:30] LABS: Color,Urine Yellow
[2020-05-13 19:31] LABS: Appearance,Urine Clear (Clear); Glucose,Urine (UA) Negative (Negative); Ketones,Urine Negative (Negative); Protein,Urine 1+ (Negative); Specific Gravity,Urine 1.005 (1.001-1.035)
[2020-05-13 19:32] LABS: Bilirubin,Urine Negative (Negative); Blood,Urine Negative (Negative); Leukocyte Esterase,Urine Negative (Negative); Nitrite,Urine Negative (Negative); Urobilinogen,Urine 0.2 mg/dL (<2.0)
[2020-05-13 20:32] LABS: Glucose,Whole Blood 217 mg/dL (75-99)
[2020-05-13] MEDS: HEPARIN SODIUM,PORCINE 5,000 UNIT/ML 1 ML VIAL SQ SCH (20:46)
[2020-05-13] MEDS: amLODIPine 5 MG TAB PO SCH (20:46)
--- NOTE | 2020-05-13 21:15 | P.HPIM ---
History of Present Illness This is a pleasant 80 years old female with past medical history of hypertension, hyperlipidemia, diabetes mellitus, CVA, aortic aneurysm of 4.2 cm 2018, chronic kidney disease stage IV. She is a patient of Dr. Mar in her chief supply chain officer and PCP Dr. No. She follows up with electric arc welder for her kidney disease. Who presents because of syncope while she was cooking, patient thinks she was on the floor for 3-5 minutes however it was and witnessed, patient denies jerking movement, she denies urine or bowel incontinence or tongue biting, she denies chest pain or dizziness or dyspnea prior to or during the fall. She denies tr auma to the head however she complains from right shoulder pain, just 3 was suspicious for rotator cuff tear Vitals are stable. Labs showing sodium 134, potassium 5.7, creatinine 1.65 which is close to baseline of 1.7-2.1. Troponin were elevated at 0.35 and 0.29, liver enzymes not elevated. About 5 days ago on 05/08 she developed episodic chest pain with elevated troponin and found to have non-STEMI chief supply chain officer recommended cardiac cath but patient declined and wanted to follow-up as an outpatient with her chief supply chain officer Dr. Arita Her potassium on admission was 5.7, she is currently on lisinopril 10 mg also sugars uncontrolled while she is on Januvia Review of Systems CONSTITUTIONAL: No fever, no malaise, no fatigue. HEENT: No recent visual problems or hearing problems. Denied any sore throat. CARDIOVASCULAR: No orthopnea, PND, no palpitations, no syncope. PULMONARY: No shortness of breath, no cough, no hemoptysis. GASTROINTESTINAL: No diarrhea, no nausea, no vomiting, no abdominal pain. Normoactive bowel sounds. NEUROLOGICAL: No headaches, no weakness, no numbness. HEMATOLOGICAL: Denies any bleeding or petechiae. GENITOURINARY: Denies any burning micturition, frequency, or urgency. MUSCULOSKELETAL/RHEUMATOLOGICAL: Denies any joint pain, swelling, or any muscle pain. ENDOCRINE: Denies any polyuria or polydipsia. Past Medical History Past Medical History: Asthma, Cancer, CVA/TIA, Diabetes Mellitus, Hyperlipidemia, Hypertension, Osteoarthritis (OA), Pneumonia, Renal Disease, Skin Disorder, Syncope, Vascular Disorder Additional Past Medical History / Comment(s): Pt recently admitted to [facility] on 05/08/20 with chest pain, Other hx: CVA in 2016-no residual, NIDDM type II, low back pain, iron deficiency anemia, thoracic aneurysm per past medical record-pt states she has never been told about an aneurysm, nephrolithiasis-pt passed stones on her own, skin cancer with removals, L knee pain, eczema History of Any Multi-Drug Resistant Organisms: None Reported Past Surgical History: Section, Hysterectomy, Orthopedic Surgery Additional Past Surgical History / Comment(s): x3, bilateral carpal tunnel releases, bilateral cataract removals, skin cancer removals. Past Anesthesia/Blood Transfusion Reactions: No Reported Reaction Smoking Status: Former smoker - Past Family History Mother Family Medical History: Cancer Additional Family Medical History / Comment(s): Cancerous brain tumor Brother(s) Family Medical History: Cancer Additional Family Medical History / Comment(s): Cancerous brain tumor Father Additional Family Medical History / Comment(s): "Heart problems" Medications and Allergies Home Medications Medication Instructions Recorded Confirmed Type Aspirin [Adult Low Dose Aspirin EC] 81 mg PO DAILY 03/13/16 05/13/20 History sitaGLIPtin [Januvia] 100 mg PO QAM 03/13/16 05/13/20 History Isosorbide Mononitrate ER [Imdur] 30 mg PO DAILY 01/08/19 05/13/20 History lisinopriL [Zestril] 10 mg PO DAILY #0 01/19/19 05/13/20 Rx Atorvastatin [Lipitor] 40 mg PO DAILY 30 Days #30 tab 05/08/20 05/13/20 Rx Carvedilol [Coreg] 25 mg PO BID 05/08/20 05/13/20 History Clopidogrel [Plavix] 75 mg PO DAILY 30 Days #30 tab 05/08/20 05/13/20 Rx Ergocalciferol [Vitamin D2 50,000 unit PO FR 05/08/20 05/13/20 History (DRISDOL)] Fluticasone/Vilanterol [Breo 1 puff INHALATION RT-DAILY PRN 05/08/20 05/13/20 History Ellipta 100-25 Mcg Inhaler] Nitroglycerin Sl Tabs [Nitrostat] 0.4 mg SUBLINGUAL Q5M PRN #20 tab 05/08/20 05/13/20 Rx amLODIPine [Norvasc] 5 mg PO BID 30 Days #60 tab 05/08/20 05/13/20 Rx Ferrous Sulfate 324mg 324 mg PO DAILY 05/13/20 05/13/20 History Vits A,C,E/Lutein/Minerals [Vision 1 tab PO DAILY 05/13/20 05/13/20 History Formula with Lutein Tab] Allergies Allergy/AdvReac Type Severity Reaction Status Date / Time lincomycin HCl Allergy Unknown Unknown Verified 05/13/20 13:40 [From Lincocin] Physical Exam Vitals: Vital Signs Temp Pulse Pulse Resp BP BP Pulse Ox 05/13/20 20:36 98 F 65 17 151/75 98 05/13/20 17:21 98.1 F 62 16 148/72 97 05/13/20 15:21 58 L 20 130/65 96 05/13/20 15:00 58 L 20 130/65 96 05/13/20 14:00 20 05/13/20 13:00 20 05/13/20 12:55 98.2 F 67 18 126/57 97 Intake and Output 05/13/20 05/13/20 05/13/20 06:59 14:59 22:59 Other: Voiding Method Toilet Weight 65.771 kg GENERAL: The patient is alert and oriented x3, not in any acute distress. Well developed, well nourished. HEENT: Pupils are round and equally reacting to light. EOMI. No scleral icterus. No conjunctival pallor. Normocephalic, atraumatic. No pharyngeal erythema. No thyromegaly. CARDIOVASCULAR: S1 and S2 present. No murmurs, rubs, or gallops. PULMONARY: Chest is clear to auscultation, no wheezing or crackles. ABDOMEN: Soft, nontender, nondistended, normoactive bowel sounds. No palpable organomegaly. MUSCULOSKELETAL: No joint swelling or deformity. EXTREMITIES: No cyanosis, clubbing, or pedal edema. NEUROLOGICAL: Gross neurological examination did not reveal any focal deficits. SKIN: No rashes. No petechiae Results CBC & Chem 7: 05/13/20 13:52 05/13/20 13:52 Labs: Abnormal Lab Results - Last 24 Hours (Table) 05/13/20 05/13/20 05/13/20 Range/Units 13:48 13:52 13:52 WBC 10.9 H (3.8-10.6) k/uL Neutrophils # 7.8 H (1.3-7.7) k/uL Sodium 134 L (137-145) mmol/L Potassium 5.7 H (3.5-5.1) mmol/L BUN 32 H (7-17) mg/dL Creatinine 1.65 H (0.52-1.04) mg/dL Glucose 306 H (74-99) mg/dL POC Glucose (mg/dL) 308 H (75-99) mg/dL Troponin I (0.000-0.034) ng/mL Urine Protein (Negative) Amorphous Sediment (None) /hpf Urine Bacteria (None) /hpf 05/13/20 05/13/20 05/13/20 Range/Units 13:52 17:20 19:10 WBC (3.8-10.6) k/uL Neutrophils # (1.3-7.7) k/uL Sodium (137-145) mmol/L Potassium (3.5-5.1) mmol/L BUN (7-17) mg/dL Creatinine (0.52-1.04) mg/dL Glucose (74-99) mg/dL POC Glucose (mg/dL) 217 H (75-99) mg/dL Troponin I 0.352 H* (0.000-0.034) ng/mL Urine Protein 1+ H (Negative) Amorphous Sediment Rare H (None) /hpf Urine Bacteria Rare H (None) /hpf 05/13/20 05/13/20 Range/Units 20:10 20:30 WBC (3.8-10.6) k/uL Neutrophils # (1.3-7.7) k/uL Sodium (137-145) mmol/L Potassium (3.5-5.1) mmol/L BUN (7-17) mg/dL Creatinine (0.52-1.04) mg/dL Glucose (74-99) mg/dL POC Glucose (mg/dL) 217 H (75-99) mg/dL Troponin I 0.299 H* (0.000-0.034) ng/mL Urine Protein (Negative) Amorphous Sediment (None) /hpf Urine Bacteria (None) /hpf Thrombosis Risk Factor Assmnt - Choose All That Apply Any of the Below Risk Factors Present?: Yes Each Factor Represents 1 point: Obesity (BMI >25) Other Risk Factors: Yes Each Risk Factor Represents 3 Points: Age 75 years or older Other congenital or acquired thrombophilia - If yes, enter type in comment: No Thrombosis Risk Factor Assessment Total Risk Factor Score: 4 Thrombosis Risk Factor Assessment Level: Moderate Risk Assessment and Plan Assessment: Syncope Recent non-STEMI 5 days prior to admission, patient declined cardiac cath at that time. She has elevated troponin on this admission as well. Chronic kidney disease stage IV Right shoulder rotator cuff tear Diabetes mellitus with hyperglycemia Hypertension Hyperlipidemia History of CVA Aortic aneurysm Plan: This is a pleasant 80 years old female who presents with syncope and high troponin as well as right shoulder rotator cuff tear. Still admitted for further monitoring with cardiology consultation. Also we'll ask for orthopedic team to evaluate the patient. Continue with aspirin and Plavix. Continue with insulin sliding scale Labs and medication were reviewed.. Continue same treatment. Continue with symptomatic treatment. Resume home medication. Monitor lytes and vitals. DVT and GI prophylaxis. Further recommendations of the clinical course of the patient DVT prophylaxis: Subcutaneous heparin GI Prophylaxis: Pepcid Prognosis is guarded
[2020-05-14] MEDS: carvediloL 12.5 MG TAB PO SCH ×2 (06:13→17:40)
[2020-05-14 06:37] LABS: Glucose,Whole Blood 188 mg/dL (75-99)
[2020-05-14 06:45] LABS: Basophils % (A) 0 %; Eosinophils # (A) 0.4 k/uL (0-0.7); Eosinophils % (A) 5 %; HCT 34.2 % (34.0-46.0); HGB 11.2 gm/dL (11.4-16.0); Lymphocytes # (A) 2.6 k/uL (1.0-4.8); Lymphocytes % (A) 30 %; MCH 29.7 pg (25.0-35.0); MCHC 32.9 g/dL (31.0-37.0); MCV 90.5 fL (80.0-100.0); Monocytes # (A) 0.4 k/uL (0-1.0); Monocytes % (A) 5 %; Neutrophils # (A) 4.9 k/uL (1.3-7.7); Neutrophils % (A) 58 %; Platelet Count 235 k/uL (150-450); RBC 3.77 m/uL (3.80-5.40); WBC 8.5 k/uL (3.8-10.6)
[2020-05-14 08:01] LABS: Potassium 4.9 mmol/L (3.5-5.1)
[2020-05-14] MEDS ORDERED: ATORVASTATIN 80 MG TAB PO STA (08:49)
[2020-05-14] MEDS ORDERED: ALPRAZolam 0.25 MG TAB PO PRN (08:49)
[2020-05-14] MEDS ORDERED: ASPIRIN 325 MG TAB PO STA (08:49)
[2020-05-14] MEDS ORDERED: SODIUM CHLORIDE 0.9% 1,000 ML in EMPTY BAG 1 BAG IV ONE (08:49)
[2020-05-14] MEDS ORDERED: CLOPIDOGREL 75 MG TAB PO SCH (09:00)
[2020-05-14] MEDS: ATORVASTATIN 40 MG TAB PO SCH ×2 (09:00→14:36)
[2020-05-14] MEDS: ASPIRIN 81 MG PO SCH (09:00)
--- NOTE | 2020-05-14 09:18 | CONS ---
CONSULTATION CHIEF COMPLAINT: Syncope. HISTORY OF PRESENT ILLNESS: Chelsey is an 80-year-old lady with history of hypertension, [id number] diabetes and dyslipidemia who presents to the hospital having had an episode of syncope. She states that she was in the kitchen, found herself on the floor. She thinks she lost consciousness for about 3-5 minutes. There is no history of chest pain, leg edema, shortness of breath, PND or orthopnea. There was no bladder or bowel incontinence and no seizures. She came to the emergency room and subsequently got admitted. EKG shows sinus rhythm with evidence of prior inferior wall myocardial infarction. The patient was in the hospital last week with typical chest pain and had mild troponin elevation. She was advised to undergo cardiac catheterization at that time. She opted not to and was sent home on optimal medical therapy with aspirin, nitrates, Plavix, statin, and beta blockers. On this admission, again the troponin is mildly elevated. Given the recent non-STEMI and this syncope, I am advising the patient to undergo cardiac catheterization. She has elevated creatinine and is at risk for contrast induced nephropathy. We will hydrate her and Dr. Arita, her feltmaker, will perform the catheterization. I spoke to the patient, explained risks and benefits. She understands and is agreeable at this time. She had an echo at last admission that revealed normal LV function. PAST MEDICAL HISTORY: Significant for hypertension, diabetes, dyslipidemia. CURRENT MEDICATIONS: Include Januvia, daily, amlodipine 5 b.i.d., sublingual nitroglycerin, Imdur 30 daily, Plavix 75 daily, Coreg 25 b.i.d., Lipitor 40 daily and aspirin. ALLERGIC: LINCOMYCIN. FAMILY HISTORY: Negative for premature coronary artery disease. SOCIAL HISTORY: Negative for smoking, EtOH abuse, or drug abuse. REVIEW OF SYSTEMS: HEENT: Unremarkable. CARDIAC: As described above. RESPIRATORY: As described above. GI: Negative. GENITOURINARY: Negative. ALLERGY/IMMUNOLOGY: Negative. SKIN: Negative. MUSCULOSKELETAL: Significant for arthritis. PSYCHOSOCIAL: Negative. DERM: Negative. CONSTITUTIONAL: Negative. ONCOLOGICAL: Negative. EVENT ATTENDANT: Significant for syncope. The rest of the system review is not relevant. The patient had a stress test in February of 2019 that revealed a fixed inferior wall defect with normal LV function. ASSESSMENT: 1. Syncope. 2. Non ST-segment elevation myocardial infarction. 3. Hypertension. 4. Diabetes. 5. Dyslipidemia. PLAN: The patient will undergo cardiac catheterization and will decide on further course of action based on the cath findings. DNAIELA / ARGELIA: [id number] /
[2020-05-14] MEDS ORDERED: IV FLUID CONTINUATION 1,000 ML IV ONE (11:14)
[2020-05-14] MEDS ORDERED: LIDOCAINE 1% INJ 10MG/ML (20 ML MDV) ONE (11:23)
[2020-05-14] MEDS ORDERED: VERAPAMIL 2.5 MG/ML 2 ML AMP ONE (11:23)
[2020-05-14] MEDS ORDERED: fentaNYL (PF) 50 MCG/ML 2 ML AMP ONE (11:24)
--- NOTE | 2020-05-14 11:29 | P.CNOR ---
History of Present Illness - [facility] Consult date: 05/14/20 Consult reason: joint pain (Right shoulder) History of present illness: This is a pleasant 80-year-old female who presents to the emergency department because of syncope while she was cooking, patient thinks she was on the floor for 3-5 minutes however it was unwitnessed. She denies trauma to the head however she complains from right shoulder pain. Vitals are stable. Labs showing sodium 134, potassium 5.7, creatinine 1.65 which is close to baseline of 1.7-2.1. Troponin were elevated at 0.35 and 0.29, liver enzymes not elevated. About 5 days ago on 05/08 she developed episodic chest pain with elevated trop onin and found to have non-STEMI formulation technician recommended cardiac cath but patient declined and wanted to follow-up as an outpatient with her formulation technician Dr. Arita Her potassium on admission was 5.7, she is currently on lisinopril 10 mg also sugars uncontrolled while she is on Januvia. She is admitted for cardiac workup and we are consulted for orthopedic evaluation of her right shoulder pain. 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 Past Anesthesia/Blood Transfusion Reactions: No Reported Reaction Smoking Status: Former smoker - Past Family History Mother Family Medical History: Cancer Additional Family Medical History / Comment(s): Cancerous brain tumor Brother(s) Family Medical History: Cancer Additional Family Medical History / Comment(s): Cancerous brain tumor Father Additional Family Medical History / Comment(s): "Heart problems" Medications and Allergies Home Medications Medication Instructions Recorded Confirmed Type Aspirin [Adult Low Dose Aspirin EC] 81 mg PO DAILY 03/13/16 05/13/20 History sitaGLIPtin [Januvia] 100 mg PO QAM 03/13/16 05/13/20 History Isosorbide Mononitrate ER [Imdur] 30 mg PO DAILY 01/08/19 05/13/20 History lisinopriL [Zestril] 10 mg PO DAILY #0 01/19/19 05/13/20 Rx Atorvastatin [Lipitor] 40 mg PO DAILY 30 Days #30 tab 05/08/20 05/13/20 Rx Carvedilol [Coreg] 25 mg PO BID 05/08/20 05/13/20 History Clopidogrel [Plavix] 75 mg PO DAILY 30 Days #30 tab 05/08/20 05/13/20 Rx Ergocalciferol [Vitamin D2 50,000 unit PO FR 05/08/20 05/13/20 History (DRISDOL)] Fluticasone/Vilanterol [Breo 1 puff INHALATION RT-DAILY PRN 05/08/20 05/13/20 History Ellipta 100-25 Mcg Inhaler] Nitroglycerin Sl Tabs [Nitrostat] 0.4 mg SUBLINGUAL Q5M PRN #20 tab 05/08/20 05/13/20 Rx amLODIPine [Norvasc] 5 mg PO BID 30 Days #60 tab 05/08/20 05/13/20 Rx Ferrous Sulfate 324mg 324 mg PO DAILY 05/13/20 05/13/20 History Vits A,C,E/Lutein/Minerals [Vision 1 tab PO DAILY 05/13/20 05/13/20 History Formula with Lutein Tab] Allergies Allergy/AdvReac Type Severity Reaction Status Date / Time lincomycin HCl Allergy Unknown Unknown Verified 05/13/20 13:40 [From Lincocin] Physical Examination This is a pleasant 80-year-old female in no acute distress. She is alert and oriented 3. Exam of the head neck reveal no obvious deformity. She has full cervical spine motion without difficulty or pain. There is no pain with palpation about the cervical spine. Exam of the upper extremities reveals no obvious deformity. She has full for de la rosa flexion and abduction to the left shoulder. She has full external and internal rotation without difficulty or pain. Exam of the right upper extremity reveals slight limitation in her for flexion. She has 4 flexion to about 110 and abduction to 100 with mild discomfort. There is no pain with palpation about the clavicle or acromioclavicular joint. There is minimal pain with palpation about the proximal humerus. She has full elbow, wrist and finger motion without difficulty or pain bilaterally. Neurovascular status the upper extremities is intact. Exam of the lower extremities reveals no erythema or ecchymosis. She has fairly good knee motion in bed. She has full foot and ankle motion bilaterally. Neurovascular status to the lower extremities is intact. Results X-rays of the right shoulder reveal no obvious fracture. There is mild acromioclavicular joint arthritis and moderate glenohumeral joint arthritis. There is superior translation of the humeral head indicating chronic rotator cuff pathology. She has a type II acromion. - Labs Labs: Abnormal Lab Results - Last 24 Hours (Table) 05/13/20 05/13/20 05/13/20 Range/Units 13:48 13:52 13:52 WBC 10.9 H (3.8-10.6) k/uL RBC (3.80-5.40) m/uL Hgb (11.4-16.0) gm/dL Neutrophils # 7.8 H (1.3-7.7) k/uL Sodium 134 L (137-145) mmol/L Potassium 5.7 H (3.5-5.1) mmol/L Chloride (98-107) mmol/L BUN 32 H (7-17) mg/dL Creatinine 1.65 H (0.52-1.04) mg/dL Glucose 306 H (74-99) mg/dL POC Glucose (mg/dL) 308 H (75-99) mg/dL Troponin I (0.000-0.034) ng/mL Urine Protein (Negative) Amorphous Sediment (None) /hpf Urine Bacteria (None) /hpf 05/13/20 05/13/20 05/13/20 Range/Units 13:52 17:20 19:10 WBC (3.8-10.6) k/uL RBC (3.80-5.40) m/uL Hgb (11.4-16.0) gm/dL Neutrophils # (1.3-7.7) k/uL Sodium (137-145) mmol/L Potassium (3.5-5.1) mmol/L Chloride (98-107) mmol/L BUN (7-17) mg/dL Creatinine (0.52-1.04) mg/dL Glucose (74-99) mg/dL POC Glucose (mg/dL) 217 H (75-99) mg/dL Troponin I 0.352 H* (0.000-0.034) ng/mL Urine Protein 1+ H (Negative) Amorphous Sediment Rare H (None) /hpf Urine Bacteria Rare H (None) /hpf 05/13/20 05/13/20 05/13/20 Range/Units 20:10 20:30 23:02 WBC (3.8-10.6) k/uL RBC (3.80-5.40) m/uL Hgb (11.4-16.0) gm/dL Neutrophils # (1.3-7.7) k/uL Sodium (137-145) mmol/L Potassium (3.5-5.1) mmol/L Chloride (98-107) mmol/L BUN (7-17) mg/dL Creatinine (0.52-1.04) mg/dL Glucose (74-99) mg/dL POC Glucose (mg/dL) 217 H (75-99) mg/dL Troponin I 0.299 H* 0.318 H* (0.000-0.034) ng/mL Urine Protein (Negative) Amorphous Sediment (None) /hpf Urine Bacteria (None) /hpf 05/14/20 05/14/20 05/14/20 Range/Units 06:32 06:32 06:35 WBC (3.8-10.6) k/uL RBC 3.77 L (3.80-5.40) m/uL Hgb 11.2 L (11.4-16.0) gm/dL Neutrophils # (1.3-7.7) k/uL Sodium 136 L (137-145) mmol/L Potassium (3.5-5.1) mmol/L Chloride 108 H (98-107) mmol/L BUN 30 H (7-17) mg/dL Creatinine 1.54 H (0.52-1.04) mg/dL Glucose 181 H (74-99) mg/dL POC Glucose (mg/dL) 188 H (75-99) mg/dL Troponin I (0.000-0.034) ng/mL Urine Protein (Negative) Amorphous Sediment (None) /hpf Urine Bacteria (None) /hpf H & H 05/13/20 05/14/20 Range/Units 13:52 06:32 Hgb 11.8 11.2 L (11.4-16.0) gm/dL Hct 36.9 34.2 (34.0-46.0) % Coagulation 05/13/20 Range/Units 13:52 INR 1.0 (<1.2) Result Diagrams: 05/14/20 06:32 05/14/20 06:32 Assessment and Plan (1) Osteoarthritis of right shoulder Current Visit: Yes Status: Acute Code(s): M19.011 - PRIMARY OSTEOARTHRITIS, RIGHT SHOULDER SNOMED Code(s): 213307844298173 (2) Right shoulder pain Current Visit: Yes Status: Acute Code(s): M25.511 - PAIN IN RIGHT SHOULDER SNOMED Code(s): 12163287 (3) Syncope and collapse Current Visit: Yes Status: Acute Code(s): R55 - SYNCOPE AND COLLAPSE SNOMED Code(s): 569661814 Plan: The clinical and x-ray findings are discussed with the patient. She recently had an episode of hyperglycemia after a cortisone injection of the knee. I would not recommend a cortisone injection to the right shoulder at this time. The patient is related there are no fractures seen. I would recommend physical therapy and range of motion exercises. She is currently going down for a cardiac catheterization. She is to follow up with Dr. Walter, her regular orthopedic doctor, once she is discharged from the hospital. She is offered a sling which she declines at this time.
[2020-05-14] MEDS ORDERED: fentaNYL (PF) 50 MCG/ML 2 ML AMP IVP ONE (12:09)
[2020-05-14] MEDS ORDERED: LIDOCAINE 1% INJ 10MG/ML (20 ML MDV) SQ ONE (12:13)
[2020-05-14] MEDS: VERAPAMIL SYRINGE (5 MG/10 ML) INTRAARTER ONE ×2 (12:14→12:32)
[2020-05-14] MEDS ORDERED: HEPARIN SODIUM 1,000 UN/ML (10ML VL) IV ONE (12:27)
--- NOTE | 2020-05-14 12:48 | P.PN ---
Subjective This is a pleasant 80 years old female with past medical history of hypertension, hyperlipidemia, diabetes mellitus, CVA, aortic aneurysm of 4.2 cm 2018, chronic kidney disease stage IV. She is a patient of Dr. Mar in her garden implement mechanic and PCP Dr. No. She follows up with final inspector and tester for her kidney disease. Who presents because of syncope while she was cooking, patient thinks she was on the floor for 3-5 minutes however it was and witnessed, patient denies jerking movement, she denies urine or bowel incontinence or tongue biting, she denies chest pain or dizziness or dyspnea prior to or during the fall. She denies trauma to the head however she complains from right shoulder pain, just 3 was suspicious for rotator cuff tear Vitals are stable. Labs showing sodium 134, potassium 5.7, creatinine 1.65 which is close to baseline of 1.7-2.1. Troponin were elevated at 0.35 and 0.29, liver enzymes not elevated. About 5 days ago on 05/08 she developed episodic chest pain with elevated troponin and found to have non-STEMI garden implement mechanic recommended cardiac cath but patient declined and wanted to follow-up as an outpatient with her garden implement mechanic Dr. Arita Her potassium on admission was 5.7, she is currently on lisinopril 10 mg also s ugars uncontrolled while she is on Januvia 05/14/2020 Patient is asymptomatic today, no syncope, no chest pain, no dizziness,dyspnea, no shoulder pain Hemodynamically stable. Labs are unremarkable and creatinine is stable at baseline of 1.5. Patient has been evaluated by cardiology team and she is under: Cardiac cath today for non-STEMI [facility] orth[facility] team evaluated the patient and recommended physical therapy, she can follow up with orthopedic Dr. Walter upon discharge Review of Systems CONSTITUTIONAL: No fever, no malaise, no fatigue. HEENT: No recent visual problems or hearing problems. Denied any sore throat. CARDIOVASCULAR: No orthopnea, PND, no palpitations, no syncope. PULMONARY: No shortness of breath, no cough, no hemoptysis. GASTROINTESTINAL: No diarrhea, no nausea, no vomiting, no abdominal pain. Normoactive bowel sounds. NEUROLOGICAL: No headaches, no weakness, no numbness. HEMATOLOGICAL: Denies any bleeding or petechiae. GENITOURINARY: Denies any burning micturition, frequency, or urgency. MUSCULOSKELETAL/RHEUMATOLOGICAL: Denies any joint pain, swelling, or any muscle pain. ENDOCRINE: Denies any polyuria or polydipsia. Active Medications Generic Name Dose Route Start Last Admin Trade Name Freq PRN Reason Stop Dose Admin Alprazolam 0.25 mg 05/14/20 08:49 Xanax PO Q6HR PRN Mild Anxiety Alprazolam 0.5 mg 05/14/20 08:49 Xanax PO Q6HR PRN Moderate Anxiety Amlodipine Besylate 5 mg 05/13/20 21:00 05/13/20 20:46 Norvasc PO 5 mg BID GHA[facility]AL Administration Aspirin 81 mg 05/14/20 09:00 05/14/20 09:00 Aspirin PO Not Given DAILY [facility] Atorvastatin Calcium 40 mg 05/14/20 09:00 05/14/20 09:00 Lipitor PO Not Given DAILY [facility] Budesonide/Formoterol Fumarate 2 puff 05/13/20 14:03 Symbicort 80-4.5 Mcg Inhaler INHALATION RT-BID PRN Shortness Of Breath Carvedilol 25 mg 05/13/20 17:30 05/14/20 06:13 Coreg PO 25 mg BID-W/MEALS [facility] Administration Clopidogrel Bisulfate 75 mg 05/14/20 09:00 Plavix PO DAILY [facility] Ergocalciferol 50,000 unit 05/17/20 09:00 Vitamin D2 PO FR [facility] Famotidine 20 mg 05/14/20 09:00 Pepcid IV Q12HR [facility] Ferrous Sulfate 325 mg 05/14/20 09:00 Feosol PO DAILY [facility] Heparin Sodium (Porcine) 5,000 unit 05/13/20 21:00 05/13/20 20:46 Heparin SQ 5,000 unit Q12HR GHAZAL Administration Sodium Chloride 1,000 mls @ 100 mls/hr 05/13/20 14:15 05/13/20 18:07 Saline 0.45% IV Not Given .Q10H [facility]ZAL Sodium Chloride 1,000 ml/ IV 1,000 mls @ 65.771 mls/hr 05/14/20 08:49 Solution IV 05/15/20 00:01 .[id number] ONE 1 ML/KG/HR Insulin Aspart 0 unit 05/14/20 07:30 Novolog SQ ACHS [facility] Protocol Isosorbide Mononitrate 30 mg 05/14/20 09:00 Imdur PO DAILY [facility] Linagliptin 5 mg 05/14/20 09:00 Tradjenta PO QAM [facility] Lisinopril 10 mg 05/14/20 09:00 Zestril PO DAILY [facility]AAZL Naloxone HCl 0.2 mg 05/13/20 14:02 Narcan IV Q2M PRN Opioid Reversal Nitroglycerin 0.4 mg 05/13/20 14:03 Nitrostat SUBLINGUAL Q5M PRN Chest Pain Objective - Vital Signs Vital signs: Vital Signs Temp 98.1 F 05/14/20 09:00 Pulse 63 05/14/20 09:00 Resp 17 05/14/20 09:00 BP 154/70 05/14/20 09:00 Pulse Ox 97 05/14/20 09:00 Intake & Output 05/13/20 05/14/20 05/14/20 18:59 06:59 18:59 Intake Total 400 Balance 400 Weight 65.771 kg Intake: Intake, IV Titration 400 Amount Sodium Chloride 0.9% 1, 400 000 ml @ 50 mls/hr IV . Q20H [facility] Rx#:[id number] Other: Voiding Method Toilet # Voids 1 - Exam GENERAL: The patient is alert and oriented x3, not in any acute distress. Well developed, well nourished. HEENT: Pupils are round and equally reacting to light. EOMI. No scleral icterus. No conjunctival pallor. Normocephalic, atraumatic. No pharyngeal erythema. No thyromegaly. CARDIOVASCULAR: S1 and S2 present. No murmurs, rubs, or gallops. PULMONARY: Chest is clear to auscultation, no wheezing or crackles. ABDOMEN: Soft, nontender, nondistended, normoactive bowel sounds. No palpable organomegaly. MUSCULOSKELETAL: No joint swelling or deformity. EXTREMITIES: No cyanosis, clubbing, or pedal edema. NEUROLOGICAL: Gross neurological examination did not reveal any focal deficits. SKIN: No rashes. no petechiae. - Labs CBC & Chem 7: 05/14/20 06:32 05/14/20 06:32 Labs: Abnormal Lab Results - Last 24 Hours (Table) 05/13/20 05/13/20 05/13/20 Range/Units 13:48 13:52 13:52 WBC 10.9 H (3.8-10.6) k/uL RBC (3.80-5.40) m/uL Hgb (11.4-16.0) gm/dL Neutrophils # 7.8 H (1.3-7.7) k/uL Sodium 134 L (137-145) mmol/L Potassium 5.7 H (3.5-5.1) mmol/L Chloride (98-107) mmol/L BUN 32 H (7-17) mg/dL Creatinine 1.65 H (0.52-1.04) mg/dL Glucose 306 H (74-99) mg/dL POC Glucose (mg/dL) 308 H (75-99) mg/dL Troponin I (0.000-0.034) ng/mL Urine Protein (Negative) Amorphous Sediment (None) /hpf Urine Bacteria (None) /hpf 05/13/20 05/13/20 05/13/20 Range/Units 13:52 17:20 19:10 WBC (3.8-10.6) k/uL RBC (3.80-5.40) m/uL Hgb (11.4-16.0) gm/dL Neutrophils # (1.3-7.7) k/uL Sodium (137-145) mmol/L Potassium (3.5-5.1) mmol/L Chloride (98-107) mmol/L BUN (7-17) mg/dL Creatinine (0.52-1.04) mg/dL Glucose (74-99) mg/dL POC Glucose (mg/dL) 217 H (75-99) mg/dL Troponin I 0.352 H* (0.000-0.034) ng/mL Urine Protein 1+ H (Negative) Amorphous Sediment Rare H (None) /hpf Urine Bacteria Rare H (None) /hpf 05/13/20 05/13/20 05/13/20 Range/Units 20:10 20:30 23:02 WBC (3.8-10.6) k/uL RBC (3.80-5.40) m/uL Hgb (11.4-16.0) gm/dL Neutrophils # (1.3-7.7) k/uL Sodium (137-145) mmol/L Potassium (3.5-5.1) mmol/L Chloride (98-107) mmol/L BUN (7-17) mg/dL Creatinine (0.52-1.04) mg/dL Glucose (74-99) mg/dL POC Glucose (mg/dL) 217 H (75-99) mg/dL Troponin I 0.299 H* 0.318 H* (0.000-0.034) ng/mL Urine Protein (Negative) Amorphous Sediment (None) /hpf Urine Bacteria (None) /hpf 05/14/20 05/14/20 05/14/20 Range/Units 06:32 06:32 06:35 WBC (3.8-10.6) k/uL RBC 3.77 L (3.80-5.40) m/uL Hgb 11.2 L (11.4-16.0) gm/dL Neutrophils # (1.3-7.7) k/uL Sodium 136 L (137-145) mmol/L Potassium (3.5-5.1) mmol/L Chloride 108 H (98-107) mmol/L BUN 30 H (7-17) mg/dL Creatinine 1.54 H (0.52-1.04) mg/dL Glucose 181 H (74-99) mg/dL POC Glucose (mg/dL) 188 H (75-99) mg/dL Troponin I (0.000-0.034) ng/mL Urine Protein (Negative) Amorphous Sediment (None) /hpf Urine Bacteria (None) /hpf Assessment and Plan Assessment: Syncope Recent non-STEMI 5 days prior to admission, patient declined cardiac cath at that time. She has elevated troponin with non-STEMI on this admission as well. Chronic kidney disease stage III Right shoulder rotator cuff tear Diabetes mellitus with hyperglycemia Hypertension Hyperlipidemia History of CVA Aortic aneurysm Plan: This is a pleasant 80 years old female who presents with syncope and non-STEMI as well as right shoulder rotator cuff tear. Cardiology and orthopedic team on the case. Patient is going for cardiac cath. Continue with aspirin and Plavix. Continue with insulin sliding scale Labs and medication were reviewed.. Continue same treatment. Continue with symptomatic treatment. Resume home medication. Monitor lytes and vitals. DVT and GI prophylaxis. Further recommendations of the clinical course of the patient DVT prophylaxis: Subcutaneous heparin GI Prophylaxis: Pepcid Prognosis is guarded
[2020-05-14] MEDS ORDERED: IOPAMIDOL-370 100ML BTL INJ ONE (12:57)
[2020-05-14] MEDS ORDERED: IOPAMIDOL-370 125ML BTL INJ ONE (12:57)
[2020-05-14] MEDS ORDERED: RX INFO: IV CONTRAST WAS GIVEN 1 EACH MISC MISCELLANE PRN (13:18)
[2020-05-14] MEDS ORDERED: SODIUM CHLORIDE 0.9% 1,000 ML IV SCH (13:30)
[2020-05-14] MEDS: INSULIN ASPART (NovoLOG) 100 UNIT/ML VIAL SQ SCH ×4 (14:13→21:08)
[2020-05-14] MEDS: FAMOTIDINE 20 MG/2 ML VIAL IV SCH ×2 (14:13→14:36)
[2020-05-14] MEDS: SODIUM CHLORIDE 0.45% 1,000 ML IV SCH (14:15)
[2020-05-14] MEDS: HEPARIN SODIUM,PORCINE 5,000 UNIT/ML 1 ML VIAL SQ SCH ×2 (14:36→21:08)
[2020-05-14] MEDS: amLODIPine 5 MG TAB PO SCH ×2 (14:36→21:08)
[2020-05-14] MEDS: ISOSORBIDE MONONITRATE ER 30 MG TAB.ER.24H PO SCH (14:36)
[2020-05-14] MEDS: lisinopriL 10 MG TAB PO SCH (14:36)
[2020-05-14] MEDS: LINAGLIPTIN 5 MG TABLET PO SCH (14:36)
[2020-05-14] MEDS: FERROUS SULFATE 325 MG TAB PO SCH (14:38)
--- NOTE | 2020-05-14 15:40 | P.GSCN ---
History of Present Illness Consult date: 05/14/20 Reason for Consult: Coronary artery disease Requesting physician: Rigo Arita History of present illness: This is an 80-year-old active female who follows on an outpatient basis with Dr. Mejia. She has a previous medical history of recent hospitalization for non- STEMI, hypertension, hyperlipidemia, CVA in December 2015 without residual deficits, non-insulin dependent diabetes mellitus, chronic kidney disease stage IV, previous tobacco dependence, and family history of cancer. Apparently she had been making herself a sandwich at home yesterday when she had a syncopal episode. She thinks her loss of consciousness lasted about 3-5 minutes. She denied any chest pain, shortness of breath, dizziness, bowel or bladder incontinence, or any other symptomatology. Lab work in the emergency room demonstrated white blood cell count 10.9, hemoglobin 11.8, BUN 32, creatinine 1.65, potassium 5.7, troponin 0.352. Chest x-ray demonstrated no acute cardiopulmonary process. EKG showed normal sinus rhythm with a rate 67 bpm with evidence of old infarct. Due to her troponin elevation the patient was admitted for evaluation and treatment with consultation placed to cardiology. Upon further review of her chart the patient was here last week for chest pain with non-STEMI, she was recommended at that time to undergo heart catheterization which she declined. She did have a transthoracic echocardiogram completed du ring that admission which demonstrated normal left ventricular systolic function with EF 55-60%, moderate concentric left ventricular hypertrophy, severely dilated left atrium, severe mitral annular calcification with mild mitral regurgitation, and mild tricuspid regurgitation with no pulmonary hypertension. This admission she was agreeable to heart catheterization which was completed today by Dr. Arita and which demonstrated left main stenosis. Due to these findings Dr. Cui from cardiothoracic surgery was consulted for surgical recommendations. Review of Systems Review of systems was completed and was negative except as noted. - Cardiovascular Reports as per HPI, Reports chest pain, Reports syncope Past Medical History Past Medical History: Asthma, Coronary Artery Disease (CAD), Cancer, Chest Pain / Angina, CVA/TIA, Diabetes Mellitus, Hyperlipidemia, Hypertension, Myocardial Infarction (DC), Osteoarthritis (OA), Pneumonia, Renal Disease, Skin Disorder, Syncope, Vascular Disorder Additional Past Medical History / Comment(s): Pt recently admitted to [facility] on 09/15 with chest pain, Other hx: CVA in 2016-no residual, NIDDM type II, low back pain, iron deficiency anemia, thoracic aneurysm per past medical record-pt states she has never been told about an aneurysm, nephrolithiasis-pt passed stones on her own, skin cancer with removals, L knee pain, eczema History of Any Multi-Drug Resistant Organisms: None Reported Past Surgical History: Section, Hysterectomy, Orthopedic Surgery Additional Past Surgical History / Comment(s): x3, bilateral carpal tunnel releases, bilateral cataract removals, skin cancer removals. Past Anesthesia/Blood Transfusion Reactions: No Reported Reaction Past Psychological History: No Psychological Hx Reported Smoking Status: Former smoker Past Alcohol Use History: None Reported Past Drug Use History: None Reported - Past Family History Mother Family Medical History: Cancer Additional Family Medical History / Comment(s): Cancerous brain tumor Brother(s) Family Medical History: Cancer Additional Family Medical History / Comment(s): Cancerous brain tumor Father Additional Family Medical History / Comment(s): "Heart problems" Medications and Allergies Home Medications Medication Instructions Recorded Confirmed Type Aspirin [Adult Low Dose Aspirin EC] 81 mg PO DAILY 03/13/16 05/13/20 History sitaGLIPtin [Januvia] 100 mg PO QAM 03/13/16 05/13/20 History Isosorbide Mononitrate ER [Imdur] 30 mg PO DAILY 01/08/19 05/13/20 History lisinopriL [Zestril] 10 mg PO DAILY #0 01/19/19 05/13/20 Rx Atorvastatin [Lipitor] 40 mg PO DAILY 30 Days #30 tab 05/08/20 05/13/20 Rx Carvedilol [Coreg] 25 mg PO BID 05/08/20 05/13/20 History Clopidogrel [Plavix] 75 mg PO DAILY 30 Days #30 tab 05/08/20 05/13/20 Rx Ergocalciferol [Vitamin D2 50,000 unit PO FR 05/08/20 05/13/20 History (DRISDOL)] Fluticasone/Vilanterol [Breo 1 puff INHALATION RT-DAILY PRN 05/08/20 05/13/20 H istory Ellipta 100-25 Mcg Inhaler] Nitroglycerin Sl Tabs [Nitrostat] 0.4 mg SUBLINGUAL Q5M PRN #20 tab 05/08/20 05/13/20 Rx amLODIPine [Norvasc] 5 mg PO BID 30 Days #60 tab 05/08/20 05/13/20 Rx Ferrous Sulfate 324mg 324 mg PO DAILY 05/13/20 05/13/20 History Vits A,C,E/Lutein/Minerals [Vision 1 tab PO DAILY 05/13/20 05/13/20 History Formula with Lutein Tab] Allergies Allergy/AdvReac Type Severity Reaction Status Date / Time lincomycin HCl Allergy Unknown Unknown Verified 05/13/20 13:40 [From Lincocin] Surgical - Exam Vital Signs Temp Pulse Resp BP Pulse Ox 98.2 F 67 18 126/57 97 05/13/20 12:55 05/13/20 12:55 05/13/20 12:55 05/13/20 12:55 05/13/20 12:55 - General well developed, well nourished, no distress, no pain - Eyes normal ocular movement - ENT no hearing loss - Neck no masses, no bruits, trachea midline - Respiratory Lungs sounds clear bilaterally. Respirations even, nonlabored. Currently on room air with oxygen saturation 97%. No chest wall deformities. No clubbing or cyanosis present. - Cardiovascular S1, S2 present. Regular rate and rhythm, sinus rhythm on telemetry. Palpable peripheral pulses bilaterally. No edema present. No calf pain or tenderness noted. No chest wall deformities. - Abdomen Abdomen: soft, non tender, bowel sounds - Genitourinary Deferred - Rectum Deferred - Integumentary no rash, no growths - Neurologic normal coordination, normal sensation - Musculoskeletal normal posture - Psychiatric oriented to time, oriented to person, oriented to place, speech is normal, memory intact Results - Labs 05/14/20 06:32 05/14/20 06:32 Abnormal Lab Results - Last 24 Hours (Table) 05/13/20 05/13/20 05/13/20 Range/Units 17:20 19:10 20:10 RBC (3.80-5.40) m/uL Hgb (11.4-16.0) gm/dL Sodium (137-145) mmol/L Chloride (98-107) mmol/L BUN (7-17) mg/dL Creatinine (0.52-1.04) mg/dL Glucose (74-99) mg/dL POC Glucose (mg/dL) 217 H (75-99) mg/dL Troponin I 0.299 H* (0.000-0.034) ng/mL Urine Protein 1+ H (Negative) Amorphous Sediment Rare H (None) /hpf Urine Bacteria Rare H (None) /hpf 05/13/20 05/13/20 05/14/20 Range/Units 20:30 23:02 06:32 RBC 3.77 L (3.80-5.40) m/uL Hgb 11.2 L (11.4-16.0) gm/dL Sodium (137-145) mmol/L Chloride (98-107) mmol/L BUN (7-17) mg/dL Creatinine (0.52-1.04) mg/dL Glucose (74-99) mg/dL POC Glucose (mg/dL) 217 H (75-99) mg/dL Troponin I 0.318 H* (0.000-0.034) ng/mL Urine Protein (Negative) Amorphous Sediment (None) /hpf Urine Bacteria (None) /hpf 05/14/20 05/14/20 Range/Units 06:32 06:35 RBC (3.80-5.40) m/uL Hgb (11.4-16.0) gm/dL Sodium 136 L (137-145) mmol/L Chloride 108 H (98-107) mmol/L BUN 30 H (7-17) mg/dL Creatinine 1.54 H (0.52-1.04) mg/dL Glucose 181 H (74-99) mg/dL POC Glucose (mg/dL) 188 H (75-99) mg/dL Troponin I (0.000-0.034) ng/mL Urine Protein (Negative) Amorphous Sediment (None) /hpf Urine Bacteria (None) /hpf Diabetes panel 05/14/20 Range/Units 06:32 Sodium 136 L (137-145) mmol/L Potassium 4.9 (3.5-5.1) mmol/L Chloride 108 H (98-107) mmol/L Carbon Dioxide 23 (22-30) mmol/L BUN 30 H (7-17) mg/dL Creatinine 1.54 H (0.52-1.04) mg/dL Glucose 181 H (74-99) mg/dL Calcium 9.0 (8.4-10.2) mg/dL Calcium panel 05/14/20 Range/Units 06:32 Calcium 9.0 (8.4-10.2) mg/dL Pituitary panel 05/14/20 Range/Units 06:32 Sodium 136 L (137-145) mmol/L Potassium 4.9 (3.5-5.1) mmol/L Chloride 108 H (98-107) mmol/L Carbon Dioxide 23 (22-30) mmol/L BUN 30 H (7-17) mg/dL Creatinine 1.54 H (0.52-1.04) mg/dL Glucose 181 H (74-99) mg/dL Calcium 9.0 (8.4-10.2) mg/dL Adrenal panel 05/14/20 Range/Units 06:32 Sodium 136 L (137-145) mmol/L Potassium 4.9 (3.5-5.1) mmol/L Chloride 108 H (98-107) mmol/L Carbon Dioxide 23 (22-30) mmol/L BUN 30 H (7-17) mg/dL Creatinine 1.54 H (0.52-1.04) mg/dL Glucose 181 H (74-99) mg/dL Calcium 9.0 (8.4-10.2) mg/dL - Imaging Chest x-ray: report reviewed, image reviewed EKG: image reviewed Additional studies: Heart catheterization films were reviewed with Dr. Cui Assessment and Plan Assessment: 1. Coronary artery disease with left main disease, non-STEMI 2. Mild mitral regurgitation with severe mitral annular calcification, mild tricuspid regurgitation, normal left ventricular systolic function with EF 55- 60% on transthoracic echocardiogram 3. Hypertension 4. Hyperlipidemia 5. CVA in December 2015 without residual deficit 6. [id number] diabetes 7. Chronic kidney disease stage IV 8. Previous tobacco dependence 9. Family history of cancer Plan: The patient was seen and examined at the bedside with Dr. Cui. Chart/diagnostics were reviewed. The case was discussed in detail between Dr. Marisol zapata and Dr. Arita. There is indication for and we offered the patient coronary artery bypass surgery. The patient adamantly stated she does not want open heart surgery. We did discuss the risk of surgery is less than the risk of stenting the left main coronary artery. We also informed the patient that she does not need to make a decision today and that she can discuss our recommendations with her family members. She did have Plavix yesterday and would need to be off Plavix for 5-7 days prior to surgery if she consents. We will see the patient again tomorrow and discuss surgical option further. If patient consents we will initiate preoperative testing, we will calculate STS risk score, we will perform 5 m walk test. We recommend continuing aspirin, statin, beta gela therapy. If patient is agreeable to surgery we would recommend continuing to hold Plavix. Medical management of other co-morbidities per primary care service. More recommendations to follow once patient makes her decision. Thank you Dr. Arita for this consult. We look forward to working with you in the care of your patient.
[2020-05-14 16:51] LABS: Glucose,Whole Blood 151 mg/dL (75-99)
--- NOTE | 2020-05-14 20:27 | CC ---
CARDIAC CATHETERIZATION REPORT Mrs. Suarez is an 80-year-old female with known history of hypertension, hyperlipidemia, diabetes mellitus, who presented with a syncopal episode. She was in the hospital recently with an episode of chest discomfort, and at that time she had minimal troponin elevation but declined cardiac catheterization. In view of her presentation, she was evaluated by Dr. Bush and recommendation was made regarding cardiac catheterization. The procedure, its risks and complications were discussed with the patient, who was in full understanding and agreement. PROCEDURE DESCRIPTION: Patient was brought to the laborer [place] in a fasting, semi-sedated state after receiving fentanyl and Benadryl and achieving a moderate conscious sedated state. Using Xylocaine anesthesia and Seldinger technique, a 6-Indonesian sheath was introduced in the right radial artery. Attempts to cannulate the right coronary ostium and the left coronary ostium using a 5-Indonesian 3-1/2 right Josh, 5-Indonesian 3-1/2 left Josh, 4 bend left Josh and a Sj catheter were unsuccessful. At that point, using Xylocaine anesthesia and Seldinger technique, a 6-Indonesian sheath was introduced in the right femoral artery. Selective right and left coronary angiography was performed using 6-Indonesian 4 bend right and left Josh catheters. Multiple views were taken of the arteries, including hemiaxial views. Following that, catheter and sheath were removed. Hemostasis was obtained with deployment of an Angio-Seal in the right femoral artery and a TR band on the right radial artery. Of note that the aortic valve was crossed using the right Josh catheter, and left ventricular end-diastolic pressure was performed. The patient received 3500 units of intravenous heparin as well as intra- arterial verapamil. There was no immediate complication. FINDINGS: FLUOROSCOPY: There is severe calcification involving all the coronary arteries as well as the mitral anulus. LEFT MAIN: This is a large-sized vessel bifurcating into left circumflex and left anterior descending artery. The left main coronary artery in the ostium and the proximal has an area of stenosis of about 50%. The left main course is upwards before bifurcating into the LAD and the left circumflex. LEFT ANTERIOR DESCENDING CORONARY ARTERY: This is a large-sized vessel reaching to the apex, tapers down distal third, giving rise to one diagonal branch. The left anterior descending artery in the mid segment has a 30% plaque. Distally it has another small plaque of 20% to 30%, without any evidence of high-grade stenosis. LEFT CIRCUMFLEX: This is a nondominant vessel giving rise to 3 obtuse marginal branches. The left circumflex proximally has a 20% to 30% plaque. The rest of the vessel has no high-grade stenosis. RIGHT CORONARY ARTERY: This is a large dominant vessel bifurcating into PDA and posterolateral segment and branches. The right coronary artery is heavily calcified. The ostium has about a 30% plaque. There is another 30% to 40% plaque in the mid and the distal segment. LEFT VENTRICULOGRAM: Left ventriculogram was not performed. HEMODYNAMICS: There was no gradient across the aortic valve. The left ventricular end- diastolic pressure was 12-16 mmHg. CONCLUSION: 1. Heavily calcified coronary arteries and calcified mitral annulus. 2. About 50% stenosis in the ostium of the heavily calcified left main. 3. Mild disease in the left circumflex, the LAD and the right coronary artery. RECOMMENDATIONS: At this time I will continue present therapy. Will obtain the input of the cardiovascular surgeon for further evaluation of the left main, and depending on her progress, further recommendation will be made. Duration of procedure was 50 minutes. MMODL / IJN: [id number] /
[2020-05-14 20:58] LABS: Glucose,Whole Blood 208 mg/dL (75-99)
[2020-05-15] MEDS: SODIUM CHLORIDE 0.45% 1,000 ML IV SCH ×2 (01:42→12:15)
[2020-05-15] MEDS: ALPRAZolam 0.5 MG TAB PO PRN ×2 (04:52→20:31)
[2020-05-15 06:00] LABS: Glucose,Whole Blood 191 mg/dL (75-99)
[2020-05-15] MEDS: INSULIN ASPART (NovoLOG) 100 UNIT/ML VIAL SQ SCH ×4 (07:18→20:31)
[2020-05-15] MEDS: carvediloL 12.5 MG TAB PO SCH ×2 (07:18→17:34)
[2020-05-15] MEDS: amLODIPine 5 MG TAB PO SCH ×2 (08:46→20:31)
[2020-05-15] MEDS: ASPIRIN 81 MG PO SCH (08:46)
[2020-05-15] MEDS: FAMOTIDINE 20 MG TAB PO SCH (08:46)
[2020-05-15] MEDS: HEPARIN SODIUM,PORCINE 5,000 UNIT/ML 1 ML VIAL SQ SCH ×2 (08:46→20:31)
[2020-05-15] MEDS: FERROUS SULFATE 325 MG TAB PO SCH (08:46)
[2020-05-15] MEDS: lisinopriL 10 MG TAB PO SCH (08:47)
[2020-05-15] MEDS: LINAGLIPTIN 5 MG TABLET PO SCH (08:47)
[2020-05-15] MEDS: ISOSORBIDE MONONITRATE ER 30 MG TAB.ER.24H PO SCH (08:47)
[2020-05-15] MEDS: ATORVASTATIN 40 MG TAB PO SCH (08:48)
[2020-05-15] MEDS ORDERED: MD COMMUNICATION TO PHARMACY 1 EACH MISC PO ONE (09:04)
[2020-05-15 10:25] LABS: Basophils % (A) 0 %; Eosinophils # (A) 0.3 k/uL (0-0.7); Eosinophils % (A) 3 %; HCT 35.4 % (34.0-46.0); HGB 11.4 gm/dL (11.4-16.0); Lymphocytes # (A) 2.6 k/uL (1.0-4.8); Lymphocytes % (A) 25 %; MCH 30.2 pg (25.0-35.0); MCHC 32.1 g/dL (31.0-37.0); MCV 93.9 fL (80.0-100.0); Mean Platelet Volume 8.6; Monocytes # (A) 0.4 k/uL (0-1.0); Monocytes % (A) 4 %; Neutrophils # (A) 6.8 k/uL (1.3-7.7); Neutrophils % (A) 66 %; Platelet Count 268 k/uL (150-450); RBC 3.77 m/uL (3.80-5.40); WBC 10.3 k/uL (3.8-10.6)
[2020-05-15 10:26] LABS: Partial Thromboplastin Time 31.3 sec (22.0-30.0); Prothrombin Time 10.3 sec (9.0-12.0)
--- NOTE | 2020-05-15 10:43 | US ---
EXAMINATION TYPE: US carotid duplex BILAT DATE OF EXAM: 05/15/2020 COMPARISON: NONE CLINICAL HISTORY: Pre-Op Cardiac Surgery. TIA per patient EXAM MEASUREMENTS: RIGHT: Peak Systolic Velocity (PSV) cm/sec ----- Right CCA: 57.0 ----- Right ICA: 54.8 ----- Right ECA: 71.1 ICA/CCA ratio: 1.0 RIGHT: End Diastole cm/sec ----- Right CCA: 10.9 ----- Right ICA: 5.4 ----- Right ECA: 0.0 LEFT: Peak Systolic Velocity (PSV) cm/sec ----- Left CCA: 71.4 ----- Left ICA: 71.3 ----- Left ECA: 99.4 ICA/CCA ratio: 1.0 LEFT: End Diastole cm/sec ----- Left CCA: 7.6 ----- Left ICA: 11.8 ----- Left ECA: 0.0 VERTEBRALS (direction of flow): Right Vertebral: Antegrade Left Vertebral: Antegrade Rhythm: Normal IMPRESSION: Moderate, irregular wall changes noted Bilateral ICA , with mild intimal wall changes no severo bilateral ECA and CCA. PSV is wnl bilaterally. Criteria for Assigning % of Stenosis / Diameter reduction (Estimation based on the indirect measurements of the internal carotid artery velocities (ICA PSV). 1. Normal (no stenosis)=ICA PSV < 125 cm/s: ratio < 2.0: ICA EDV<40 cm/s. 2. Less than 50% stenosis=ICA PSV < 125 cm/s: ratio < 2.0: ICA EDV<40 cm/s. 3. 50 to 69% stenosis=ICA PSV of 125 to 230 cm/s: ration 2.0 ? 4.0: ICA EDV 40-100 cm/s. 4. Greater than 70% stenosis to near occlusion= ICA PSV > 230 cm/s: ratio > 4.0: ICA EDV > 100 cm/s. 5. Near occlusion= ICA PSV velocities may be low or undetectable: variable ratio and ICA EDV. 6. Total occlusion=unable to detect flow.
[2020-05-15 10:46] LABS: Albumin 3.9 g/dL (3.5-5.0); Potassium 4.7 mmol/L (3.5-5.1); Total Bilirubin 1.2 mg/dL (0.2-1.3); Total Protein 6.4 g/dL (6.3-8.2)
[2020-05-15 12:04] LABS: Glucose,Whole Blood 253 mg/dL (75-99)
--- NOTE | 2020-05-15 13:12 | P.PN ---
Subjective This is a pleasant 80 years old female with past medical history of hypertension, hyperlipidemia, diabetes mellitus, CVA, aortic aneurysm of 4.2 cm 2018, chronic kidney disease stage IV. She is a patient of Dr. Mar in her set up and charger and PCP Dr. No. 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 Who presents because of syncope while she was cooking, patient thinks she was on the floor for 3-5 minutes however it was and witnessed, patient denies jerking movement, she denies urine or bowel incontinence or tongue biting, she denies chest pain or dizziness or dyspnea prior to or during the fall. She denies trauma to the head however she complains from right shoulder pain, just 3 was suspicious for rotator cuff tear Vitals are stable. Labs showing sodium 134, potassium 5.7, creatinine 1.65 which is close to baseline of 1.7-2.1. Troponin were elevated at 0.35 and 0.29, liver enzymes not elevated. About 5 days ago on 05/08 she developed episodic chest pain with elevated troponin and found to have non-STEMI set up and charger recommended cardiac cath but patient declined and wanted to follow-up as an outpatient with her set up and charger Dr. Arita Her potassium on admission was 5.7, she is currently on lisinopril 10 mg also s ugars uncontrolled while she is on Januvia 05/14/2020 Patient is asymptomatic today, no syncope, no chest pain, no dizziness,dyspnea, no shoulder pain Hemodynamically stable. Labs are unremarkable and creatinine is stable at baseline of 1.5. Patient has been evaluated by cardiology team and she is under: Cardiac cath today for non-STEMI [facility] orthopedic team evaluated the patient and recommended physical therapy, she can follow up with orthopedic Dr. Walter upon discharge 05/15/2020 Patient is awake and alert however she is somewhat confused this morning, she had a rough night with little more confusion however now she looks And oriented. Grandson at bedside. Patient denies chest pain or dyspnea. Cardiac cath showed heavily calcified coronary arteries with calcified mitral annulus with 50% stenosis of the left main coronary artery, surgical team has been consulted and looks like the patient eventually agrees to do the surgery, surgery needs to be done after 5 days as patient took her antiplatelet yesterday. I discussed the plan with patient and consent and they agree. Grandson also wants to check the patient for dementia, he'll call for speech therapy evaluation for this purpose Review of Systems CONSTITUTIONAL: No fever, no malaise, no fatigue. HEENT: No recent visual problems or hearing problems. Denied any sore throat. CARDIOVASCULAR: No orthopnea, PND, no palpitations, no syncope. PULMONARY: No shortness of breath, no cough, no hemoptysis. GASTROINTESTINAL: No diarrhea, no nausea, no vomiting, no abdominal pain. Normoactive bowel sounds. NEUROLOGICAL: No headaches, no weakness, no numbness. HEMATOLOGICAL: Denies any bleeding or petechiae. GENITOURINARY: Denies any burning micturition, frequency, or urgency. MUSCULOSKELETAL/RHEUMATOLOGICAL: Denies any joint pain, swelling, or any muscle pain. ENDOCRINE: Denies any polyuria or polydipsia. Active Medications Generic Name Dose Route Start Last Admin Trade Name Freq PRN Reason Stop Dose Admin Alprazolam 0.25 mg 05/14/20 08:49 Xanax PO Q6HR PRN Mild Anxiety Alprazolam 0.5 mg 05/14/20 08:49 05/15/20 04:52 Xanax PO 0.5 mg Q6HR PRN Administration Moderate Anxiety Amlodipine Besylate 5 mg 05/13/20 21:00 05/15/20 08:46 Norvasc PO 5 mg BID GHAZAL Administration Aspirin 81 mg 05/14/20 09:00 05/15/20 08:46 Aspirin PO 81 mg DAILY GHAZAL Administration Atorvastatin Calcium 40 mg 05/14/20 09:00 05/15/20 08:48 Lipitor PO 40 mg DAILY GHAZAL Administration Budesonide/Formoterol Fumarate 2 puff 05/13/20 14:03 Symbicort 80-4.5 Mcg Inhaler INHALATION RT-BID PRN Shortness Of Breath Carvedilol 25 mg 05/13/20 17:30 05/15/20 07:18 Coreg PO 25 mg BID-W/MEALS GHAZAL Administration Ergocalciferol 50,000 unit 05/17/20 09:00 Vitamin D2 PO FR GHAZAL Famotidine 20 mg 05/15/20 09:00 05/15/20 08:46 Pepcid PO 20 mg DAILY GHAZAL Administration Ferrous Sulfate 325 mg 05/14/20 09:00 05/15/20 08:46 Feosol PO 325 mg DAILY GHAZAL Administration Heparin Sodium (Porcine) 5,000 unit 05/13/20 21:00 05/15/20 08:46 Heparin SQ 5,000 unit Q12HR GHAZAL Administration Sodium Chloride 1,000 mls @ 100 mls/hr 05/13/20 14:15 05/15/20 12:15 Saline 0.45% IV Not Given .Q10H GHAZAL Insulin Aspart 0 unit 05/14/20 07:30 05/15/20 07:18 Novolog SQ 2 unit ACHS GHAZAL Administration Protocol Isosorbide Mononitrate 30 mg 05/14/20 09:00 05/15/20 08:47 Imdur PO 30 mg DAILY GHAZAL Administration Linagliptin 5 mg 05/14/20 09:00 05/15/20 08:47 Tradjenta PO 5 mg QAM GHAZAL Administration Lisinopril 10 mg 05/14/20 09:00 05/15/20 08:47 Zestril PO 10 mg DAILY GHAZAL Administration Miscellaneous Information 1 each 05/14/20 13:18 Rx Info: Iv Contrast Was Given MISCELLANE 05/16/20 13:18 DAILY PRN Per Protocol Naloxone HCl 0.2 mg 05/13/20 14:02 Narcan IV Q2M PRN Opioid Reversal Nitroglycerin 0.4 mg 05/13/20 14:03 Nitrostat SUBLINGUAL Q5M PRN Chest Pain Objective - Vital Signs Vital signs: Vital Signs Temp 98.5 F 05/15/20 12:00 Pulse 62 05/15/20 12:00 Resp 16 05/15/20 12:00 BP 134/60 05/15/20 12:00 Pulse Ox 97 05/15/20 12:00 Intake & Output 05/14/20 05/15/20 05/15/20 18:59 06:59 18:59 Intake Total 50 Balance 50 Intake: IV 50 Other: Voiding Method Toilet Toilet # Voids 2 1 1 - Exam GENERAL: The patient is alert and oriented x3, not in any acute distress. Well developed, well nourished. HEENT: Pupils are round and equally reacting to light. EOMI. No scleral icterus. No conjunctival pallor. Normocephalic, atraumatic. No pharyngeal erythema. No thyromegaly. CARDIOVASCULAR: S1 and S2 present. No murmurs, rubs, or gallops. PULMONARY: Chest is clear to auscultation, no wheezing or crackles. ABDOMEN: Soft, nontender, nondistended, normoactive bowel sounds. No palpable organomegaly. MUSCULOSKELETAL: No joint swelling or deformity. EXTREMITIES: No cyanosis, clubbing, or pedal edema. NEUROLOGICAL: Gross neurological examination did not reveal any focal deficits. SKIN: No rashes. no petechiae. - Labs CBC & Chem 7: 05/15/20 09:25 05/15/20 09:25 Labs: Abnormal Lab Results - Last 24 Hours (Table) 05/14/20 05/14/20 05/15/20 Range/Units 16:49 20:57 05:55 RBC (3.80-5.40) m/uL APTT (22.0-30.0) sec Sodium (137-145) mmol/L BUN (7-17) mg/dL Creatinine (0.52-1.04) mg/dL Glucose (74-99) mg/dL POC Glucose (mg/dL) 151 H 208 H 191 H (75-99) mg/dL 05/15/20 05/15/20 05/15/20 Range/Units 09:25 09:25 09:25 RBC 3.77 L (3.80-5.40) m/uL APTT 31.3 H (22.0-30.0) sec Sodium 133 L (137-145) mmol/L BUN 25 H (7-17) mg/dL Creatinine 1.66 H (0.52-1.04) mg/dL Glucose 290 H (74-99) mg/dL POC Glucose (mg/dL) (75-99) mg/dL 05/15/20 Range/Units 12:02 RBC (3.80-5.40) m/uL APTT (22.0-30.0) sec Sodium (137-145) mmol/L BUN (7-17) mg/dL Creatinine (0.52-1.04) mg/dL Glucose (74-99) mg/dL POC Glucose (mg/dL) 253 H (75-99) mg/dL Assessment and Plan Assessment: -Syncope -Recent non-STEMI 5 days prior to admission, patient declined cardiac cath:Cardiac cath showed heavily calcified coronary arteries with calcified mitral annulus with 50% stenosis of the left main coronary artery, surgery was recommended and patient agrees -Mild confusion, rule out dementia -Chronic kidney disease stage III -Right shoulder rotator cuff tear -Diabetes mellitus with hyperglycemia -Hypertension -Hyperlipidemia -History of CVA -Aortic aneurysm Plan: This is a pleasant 80 years old female who presents with syncope and non-STEMI and coronary artery disease with calcification, it is recommended surgical intervention and cardiothoracic surgery consulted and the following the patient together with the set up and charger. Patient agreed for surgery for now. We appreciate orthopedic input and they recommended outpatient follow-up Hold aspirin and Plavix prior to surgery. Continue with insulin sliding scale Labs and medication were reviewed.. Continue same treatment. Continue with symptomatic treatment. Resume home medication. Monitor lytes and vitals. DVT and GI prophylaxis. Further recommendations of the clinical course of the patient DVT prophylaxis: Subcutaneous heparin GI Prophylaxis: Pepcid Prognosis is guarded
--- NOTE | 2020-05-15 14:24 | P.PN ---
Subjective Progress Note Date: 05/15/20 CHIEF COMPLAINT: syncope HISTORY OF PRESENT ILLNESS: Patient examined at the bedside. She denies chest pain. Denies shortness of breath. She has been ambulating in the hallway. Vital signs are stable. PHYSICAL EXAM: VITAL SIGNS: Reviewed. GENERAL: Well-developed in no acute distress. NECK: Supple. No JVD or thyromegaly LUNGS: Respirations even and unlabored. Lungs essentially clear to auscultation bilaterally. HEART: Regular rate and rhythm. S1 and S2 heard. EXTREMITIES: Normal range of motion. No clubbing or cyanosis. Peripheral pulses intact. No lower extremity edema ASSESSMENT: 1. Syncope 2. NSTEMI 3. Hypertension 4. Hyperlipidemia 5. Diabetes PLAN: -Current continue cardiac medications -Continue to hold Plavix -Patient to undergo surgery with CTS. Timing to be determined by CTS. Nurse practitioner note has been reviewed by physician. Signing provider agrees with the documented findings, assessment, and plan of care. Objective - Vital Signs Vital signs: Vital Signs Temp 98.5 F 05/15/20 12:00 Pulse 62 05/15/20 12:00 Resp 16 05/15/20 12:00 BP 134/60 05/15/20 12:00 Pulse Ox 97 05/15/20 12:00 Intake & Output 05/14/20 05/15/20 05/15/20 18:59 06:59 18:59 Intake Total 50 Balance 50 Intake: IV 50 Other: Voiding Method Toilet Toilet # Voids 2 1 1 - Labs CBC & Chem 7: 05/15/20 09:25 05/15/20 09:25 Labs: Abnormal Lab Results - Last 24 Hours (Table) 05/14/20 05/14/20 05/15/20 Range/Units 16:49 20:57 05:55 RBC (3.80-5.40) m/uL APTT (22.0-30.0) sec Sodium (137-145) mmol/L BUN (7-17) mg/dL Creatinine (0.52-1.04) mg/dL Glucose (74-99) mg/dL POC Glucose (mg/dL) 151 H 208 H 191 H (75-99) mg/dL 05/15/20 05/15/20 05/15/20 Range/Units 09:25 09:25 09:25 RBC 3.77 L (3.80-5.40) m/uL APTT 31.3 H (22.0-30.0) sec Sodium 133 L (137-145) mmol/L BUN 25 H (7-17) mg/dL Creatinine 1.66 H (0.52-1.04) mg/dL Glucose 290 H (74-99) mg/dL POC Glucose (mg/dL) (75-99) mg/dL 05/15/20 Range/Units 12:02 RBC (3.80-5.40) m/uL APTT (22.0-30.0) sec Sodium (137-145) mmol/L BUN (7-17) mg/dL Creatinine (0.52-1.04) mg/dL Glucose (74-99) mg/dL POC Glucose (mg/dL) 253 H (75-99) mg/dL
--- NOTE | 2020-05-15 14:44 | P.PN ---
Subjective Progress Note Date: 05/15/20 Principal diagnosis: Coronary artery disease with left main disease, non-STEMI, mild mitral regurgitation with severe MAC. Previous medical history of hypertension, hyperlipidemia, CVA, yng-kcbetpn-bxqvcjgib diabetes, chronic kidney disease, previous tobacco dependence, and family history of cancer Patient is currently sitting up in a recliner in the cardiac stepdown unit in no acute distress. Denies chest pain or shortness of breath. Son was at the bedside. The usual perioperative course of coronary artery bypass surgery was discussed in detail with the patient and her son as well as with another son who was on the phone, risks and benefits were reviewed in detail, all questions were answered to the best of my ability. The patient does consent to surgery and preoperative teaching was initiated. Objective - Vital Signs Vital signs: Vital Signs Temp 98.5 F 05/15/20 12:00 Pulse 62 05/15/20 12:00 Resp 16 05/15/20 12:00 BP 134/60 05/15/20 12:00 Pulse Ox 97 05/15/20 12:00 Intake & Output 05/14/20 05/15/20 05/15/20 18:59 06:59 18:59 Intake Total 50 220 Balance 50 220 Intake: IV 50 Oral 220 Other: Voiding Method Toilet Toilet # Voids 2 1 1 - Constitutional General appearance: Present: cooperative, no acute distress - Respiratory Details: Lungs sounds clear bilaterally. Respirations even, nonlabored. Currently on room air with oxygen saturation 97%. - Cardiovascular Details: S1, S2 present. Regular rate and rhythm, sinus rhythm on telemetry. Palpable peripheral pulses bilaterally. No edema present. No calf pain or tenderness noted. No chest wall deformities. - Gastrointestinal Gastrointestinal Comment(s): Abdomen soft, nontender, nondistended. Active bowel sounds present 4 quadrants. Tolerating diet. - Genitourinary Genitourinary Comment(s): Continues to void - Integumentary Integumentary Comment(s): Skin is warm and dry - Neurologic Neurologic: Present: CNII-XII intact - Musculoskeletal Musculoskeletal: Present: gait normal, strength equal bilaterally - Psychiatric Psychiatric: Present: A&O x's 3 - Allied health notes Allied health notes reviewed: nursing - Labs CBC & Chem 7: 05/15/20 09:25 05/15/20 09:25 Labs: Abnormal Lab Results - Last 24 Hours (Table) 05/14/20 05/14/20 05/15/20 Range/Units 16:49 20:57 05:55 RBC (3.80-5.40) m/uL APTT (22.0-30.0) sec Sodium (137-145) mmol/L BUN (7-17) mg/dL Creatinine (0.52-1.04) mg/dL Glucose (74-99) mg/dL POC Glucose (mg/dL) 151 H 208 H 191 H (75-99) mg/dL 05/15/20 05/15/20 05/15/20 Range/Units 09:25 09:25 09:25 RBC 3.77 L (3.80-5.40) m/uL APTT 31.3 H (22.0-30.0) sec Sodium 133 L (137-145) mmol/L BUN 25 H (7-17) mg/dL Creatinine 1.66 H (0.52-1.04) mg/dL Glucose 290 H (74-99) mg/dL POC Glucose (mg/dL) (75-99) mg/dL 05/15/20 Range/Units 12:02 RBC (3.80-5.40) m/uL APTT (22.0-30.0) sec Sodium (137-145) mmol/L BUN (7-17) mg/dL Creatinine (0.52-1.04) mg/dL Glucose (74-99) mg/dL POC Glucose (mg/dL) 253 H (75-99) mg/dL Assessment and Plan Assessment: 1. Coronary artery disease with left main disease, non-STEMI 2. Mild mitral regurgitation with severe mitral annular calcification, mild tricuspid regurgitation, normal left ventricular systolic function with EF 55- 60% on transthoracic echocardiogram 3. Hypertension 4. Hyperlipidemia 5. CVA in December 2015 without residual deficit 6. Tnm-tvshvwl-oamrvpeyo diabetes 7. Chronic kidney disease stage IV 8. Previous tobacco dependence 9. Family history of cancer Plan: 1. Continue aspirin, statin, beta gela therapy 2. Continue to hold Plavix 3. Preoperative testing initiated. Once completed we will calculate STS risk score and discussed with the patient and her family. 4. Increase activity, ambulate as tolerated 5. Instrument other comorbidities per primary care service 6. Our plan is for coronary artery bypass surgery, timing to be determined 7. More recommendations to follow Time with Patient: Greater than 30
[2020-05-15 16:49] LABS: Glucose,Whole Blood 121 mg/dL (75-99)
[2020-05-15 18:55] LABS: Hemoglobin A1C 7.5 % (4.0-6.0)
[2020-05-15 19:18] LABS: Hepatitis A Antibody IgM Non-Reactive (Non-Reactive); Hepatitis B Core IgM Non-Reactive (Non-Reactive); Hepatitis B Surface Antigen Non-Reactive (Non-Reactive); Hepatitis C IgG Antibody Non-Reactive (Non-Reactive)
[2020-05-15 20:22] LABS: Glucose,Whole Blood 163 mg/dL (75-99)
[2020-05-15] MEDS ORDERED: HALOPERIDOL LACTATE 5 MG/ML 1 ML VIAL IVP PRN (23:01)
[2020-05-15 23:03] LABS: Appearance,Urine Clear (Clear); Bilirubin,Urine Negative (Negative); Blood,Urine Negative (Negative); Color,Urine Colorless; Glucose,Urine (UA) Negative (Negative); Ketones,Urine Negative (Negative); Leukocyte Esterase,Urine Negative (Negative); Nitrite,Urine Negative (Negative); PH, Urine 5.5 (5.0-8.0); Protein,Urine Negative (Negative); Specific Gravity,Urine 1.006 (1.001-1.035); Urobilinogen,Urine <2.0 mg/dL (<2.0)
[2020-05-16 06:13] LABS: Glucose,Whole Blood 185 mg/dL (75-99)
[2020-05-16] MEDS: SODIUM CHLORIDE 0.45% 1,000 ML IV SCH ×2 (06:30→06:39)
[2020-05-16] MEDS: INSULIN ASPART (NovoLOG) 100 UNIT/ML VIAL SQ SCH ×4 (07:09→21:13)
[2020-05-16] MEDS: carvediloL 12.5 MG TAB PO SCH ×2 (07:09→18:02)
[2020-05-16] MEDS ORDERED: DONEPEZIL 5 MG TAB PO STA (11:37)
--- NOTE | 2020-05-16 11:51 | P.PN ---
Subjective Progress Note Date: 05/16/20 Principal diagnosis: Coronary artery disease with left main disease, non-STEMI, mild mitral regurgitation with severe MAC. Previous medical history of hypertension, hyperlipidemia, CVA, kkc-suofjdz-rwacgofdu diabetes, chronic kidney disease, previous tobacco dependence, and family history of cancer, dementia Patient is currently sitting up in bed in the cardiac stepdown unit in no acute distress. Denies chest pain or shortness of breath. Patient had cognitive evaluation yesterday and only scored 11/30 with normal score considered 26 and above. This morning she was seen and examined with Dr. Cui, she knows she is in the hospital but does not know which one, she does not know the date, she does not remember that we told her she needs open heart surgery, and she does not recall why she was brought to the hospital. We asked again if she was willing to have surgery, and again she adamantly stated she did not want surgery. There is a 1:[address] sitter at the bedside. Dr. Cui called the son Cristobal and had an extensive discussion with him about the patient's mental status and her ability to survive surgery and the postoperative recovery period. The son stated he would talk with his siblings and his nephew regarding what they feel the patient would truly want if she was capable of giving informed consent. Objective - Vital Signs Vital signs: Vital Signs Temp 97.9 F 05/15/20 20:00 Pulse 65 05/16/20 08:00 Resp 18 05/16/20 08:00 BP 176/79 05/16/20 04:00 Pulse Ox 99 05/16/20 04:00 Intake & Output 05/15/20 05/16/20 05/16/20 18:59 06:59 18:59 Intake Total 220 480 Balance 220 480 Weight 67.1 kg Intake: Oral 220 480 Other: Voiding Method Toilet Toilet Toilet # Voids 3 1 1 - Constitutional General appearance: Present: cooperative, no acute distress - Respiratory Details: Lungs sounds clear bilaterally. Respirations even, nonlabored. Currently on room air with oxygen saturation 99%. - Cardiovascular Details: S1, S2 present. Regular rate and rhythm, sinus rhythm on telemetry. Palpable peripheral pulses bilaterally. No edema present. No calf pain or tenderness noted. No chest wall deformities. - Gastrointestinal Gastrointestinal Comment(s): Abdomen soft, nontender, nondistended. Active bowel sounds present 4 quadrants. Tolerating diet. - Genitourinary Genitourinary Comment(s): Continues to void - Integumentary Integumentary Comment(s): Skin is warm and dry - Neurologic Neurologic: Present: CNII-XII intact - Musculoskeletal Musculoskeletal Comment(s): Walks with a cane Musculoskeletal: Present: gait normal, strength equal bilaterally - Psychiatric Psychiatric Comment(s): Oriented to person and that she is in the hospital only, does not know which hospital, does not know the date, does not know why she is in the hospital, and does not remember being told that she needed open heart surgery - Allied health notes Allied health notes reviewed: nursing - Labs CBC & Chem 7: 05/15/20 09:25 05/15/20 09:25 Labs: Abnormal Lab Results - Last 24 Hours (Table) 05/15/20 05/15/20 05/15/20 Range/Units 09:25 12:02 16:38 POC Glucose (mg/dL) 253 H 121 H (75-99) mg/dL Hemoglobin A1c 7.5 H (4.0-6.0) % 05/15/20 05/16/20 Range/Units 20:20 06:09 POC Glucose (mg/dL) 163 H 185 H (75-99) mg/dL Hemoglobin A1c (4.0-6.0) % Microbiology - Last 24 Hours (Table) 05/15/20 09:04 Nasal Screen MRSA/MSSA - Preliminary Nasal Swab Assessment and Plan Assessment: 1. Coronary artery disease with left main disease, non-STEMI 2. Mild mitral regurgitation with severe mitral annular calcification, mild tricuspid regurgitation, normal left ventricular systolic function with EF 55- 60% on transthoracic echocardiogram 3. Hypertension 4. Hyperlipidemia 5. CVA in December 2015 without residual deficit 6. Nci-eeqeaym-uylzxjaop diabetes 7. Chronic kidney disease stage IV 8. Previous tobacco dependence 9. Family history of cancer 10. dementia Plan: 1. Continue aspirin, statin, beta gela therapy 2. STS risk score was calculated, patient is high risk for surgery 3. Increase activity, ambulate as tolerated 4. Medical management of other comorbidities per primary care service 5. Dr. Cui had extensive discussion with the patient's son regarding patient's mental status and what she wanted competent to make her own decisions, awaiting family's decision. Our recommendation is to avoid surgery as the patient is not likely to do well due to her mental status, multiple comorbidities with high risk, and her repeated declination of surgery. Dr. Cui will discuss with Dr. Arita Time with Patient: Greater than 30
[2020-05-16 11:57] LABS: Glucose,Whole Blood 150 mg/dL (75-99)
[2020-05-16] MEDS: lisinopriL 10 MG TAB PO SCH (13:20)
[2020-05-16] MEDS: FERROUS SULFATE 325 MG TAB PO SCH (13:20)
[2020-05-16] MEDS: ASPIRIN 81 MG PO SCH (13:20)
[2020-05-16] MEDS: FAMOTIDINE 20 MG TAB PO SCH (13:20)
[2020-05-16] MEDS: HEPARIN SODIUM,PORCINE 5,000 UNIT/ML 1 ML VIAL SQ SCH ×2 (13:21→21:26)
[2020-05-16] MEDS: MEMANTINE 5 MG TAB PO SCH ×2 (13:21→21:26)
[2020-05-16] MEDS: ISOSORBIDE MONONITRATE ER 30 MG TAB.ER.24H PO SCH (13:21)
[2020-05-16] MEDS: amLODIPine 5 MG TAB PO SCH ×2 (13:21→21:26)
[2020-05-16] MEDS: LINAGLIPTIN 5 MG TABLET PO SCH (13:21)
[2020-05-16 17:16] LABS: Glucose,Whole Blood 245 mg/dL (75-99)
--- NOTE | 2020-05-16 17:29 | P.PN ---
Subjective Progress Note Date: 05/16/20 Principal diagnosis: Coronary artery disease Patient examined at the bedside. Patient seen with her grandson who takes care of her at home. She did apparently have sundowning with confusion this morning. There was concern from cardiothoracic surgery standpoint regarding mental status, competence. Cardiothoracic surgery discussed with son who is making medical decisions for her. Both son and patient came to the agreement that patient would not want aggressive therapy with bypass nor attempted PCI. Patient denies any chest pain or pressure. PHYSICAL EXAM: VITAL SIGNS: Reviewed. GENERAL: Well-developed in no acute distress. NECK: Supple. No JVD or thyromegaly LUNGS: Respirations even and unlabored. Lungs essentially clear to auscultation bilaterally. HEART: Regular rate and rhythm. S1 and S2 heard. EXTREMITIES: Normal range of motion. No clubbing or cyanosis. Peripheral pulses intact. No lower extremity edema ASSESSMENT: 1. Syncope 2. NSTEMI 3. Hypertension 4. Hyperlipidemia 5. Diabetes PLAN: Had long discussion with patient and grandson. There was concern regarding patient's mental status and ability to tolerate CABG. Discussion with cardiothoracic surgery this morning with the son resulted in decision to forego any surgery at this time. Patient did have non-STEMI and catheterization showing 50% left main stenosis and echo showing preserved ejection fraction. Patient states she would like to "leave it up to God" and go home. Discussed that there may be a risk of future CT, heart failure or with an vascularized left main however agreed that this is reasonable given findings of 50% left main. Given recent non-STEMI we will add her Plavix back as this has been held for her anticipated surgery. She is is on a good antianginal regimen with Imdur 30 mg daily and Coreg 25 mg twice a day. She is not currently having any anginal type symptoms and patient appears stable for discharge home with outpatient follow-up with Dr. Arita in one week. Objective - Vital Signs Vital signs: Vital Signs Temp 98.4 F 05/16/20 12:00 Pulse 70 05/16/20 12:00 Resp 18 05/16/20 12:00 BP 150/67 05/16/20 12:00 Pulse Ox 98 05/16/20 12:00 Intake & Output 05/15/20 05/16/20 05/16/20 18:59 06:59 18:59 Intake Total 220 480 Balance 220 480 Weight 67.1 kg Intake: Oral 220 480 Other: Voiding Method Toilet Toilet Toilet # Voids 3 1 2 - Labs CBC & Chem 7: 05/15/20 09:25 05/15/20 09:25 Labs: Abnormal Lab Results - Last 24 Hours (Table) 05/15/20 05/15/20 05/16/20 Range/Units 09:25 20:20 06:09 POC Glucose (mg/dL) 163 H 185 H (75-99) mg/dL Hemoglobin A1c 7.5 H (4.0-6.0) % 05/16/20 05/16/20 Range/Units 11:55 17:14 POC Glucose (mg/dL) 150 H 245 H (75-99) mg/dL Hemoglobin A1c (4.0-6.0) % Microbiology - Last 24 Hours (Table) 05/15/20 09:04 Nasal Screen MRSA/MSSA - Preliminary Nasal Swab
[2020-05-16] MEDS: ATORVASTATIN 40 MG TAB PO SCH (18:02)
[2020-05-16] MEDS: CLOPIDOGREL 75 MG TAB PO SCH (18:02)
[2020-05-16 20:56] LABS: Glucose,Whole Blood 126 mg/dL (75-99)
--- NOTE | 2020-05-16 21:05 | P.PN ---
Subjective This is a pleasant 80 years old female with past medical history of hypertension, hyperlipidemia, diabetes mellitus, CVA, aortic aneurysm of 4.2 cm 2018, chronic kidney disease stage IV. She is a patient of Dr. Mar in her financial planner and PCP Dr. No. She follows up with counter clerk for her kidney disease. Who presents because of syncope while she was cooking, patient thinks she was on the floor for 3-5 minutes however it was and witnessed, patient denies jerking movement, she denies urine or bowel incontinence or tongue biting, she denies chest pain or dizziness or dyspnea prior to or during the fall. She denies trauma to the head however she complains from right shoulder pain, just 3 was suspicious for rotator cuff tear Vitals are stable. Labs showing sodium 134, potassium 5.7, creatinine 1.65 which is close to baseline of 1.7-2.1. Troponin were elevated at 0.35 and 0.29, liver enzymes not elevated. About 5 days ago on 05/08 she developed episodic chest pain with elevated troponin and found to have non-STEMI financial planner recommended cardiac cath but patient declined and wanted to follow-up as an outpatient with her financial planner Dr. Arita Her potassium on admission was 5.7, she is currently on lisinopril 10 mg also s ugars uncontrolled while she is on Januvia 05/14/2020 Patient is asymptomatic today, no syncope, no chest pain, no dizziness,dyspnea, no shoulder pain Hemodynamically stable. Labs are unremarkable and creatinine is stable at baseline of 1.5. Patient has been evaluated by cardiology team and she is under: Cardiac cath today for non-STEMI [facility] orthopedic team evaluated the patient and recommended physical therapy, she can follow up with orthopedic Dr. Walter upon discharge 05/15/2020 Patient is awake and alert however she is somewhat confused this morning, she had a rough night with little more confusion however now she looks And oriented. Grandson at bedside. Patient denies chest pain or dyspnea. Cardiac cath showed heavily calcified coronary arteries with calcified mitral annulus with 50% stenosis of the left main coronary artery, surgical team has been consulted and looks like the patient eventually agrees to do the surgery, surgery needs to be done after 5 days as patient took her antiplatelet yesterday. I discussed the plan with patient and consent and they agree. Grandson also wants to check the patient for dementia, he'll call for speech therapy evaluation for this purpose 05/16/2020 Patient is getting more confusion during the night, she is more awake and, during the day, however she has memory problem, likely when I asked her she could not remember why she came in the hospital or were she was, however she holds logic conversation and looks not in distress and calm. There is sitter at bedside for safety, patient had Patrick 8.1 version test with a score of 11/30, with a normal score considered 26 and above indicating significant dementia, patient was started on namenda and Aricept. Dr. Cui from cardiovascular thoracic surgeon today to the patient in the room for about half an hour per staff, there recommending no need for surgical intervention as risks more than benefits and recommended to continue with medical treatment, patient is high-risk for surgery due to her comorbidities and mental status and refusal to do surgery at time. Cardiology also the case, Plavix restarted and they cleared the patient for discharge Possible discharge in 24-48 hours Objective - Vital Signs Vital signs: Vital Signs Temp 98.4 F 05/16/20 12:00 Pulse 70 05/16/20 12:00 Resp 18 05/16/20 12:00 BP 150/67 05/16/20 12:00 Pulse Ox 98 05/16/20 12:00 Intake & Output 05/15/20 05/16/20 05/16/20 18:59 06:59 18:59 Intake Total 220 480 Balance 220 480 Weight 67.1 kg Intake: Oral 220 480 Other: Voiding Method Toilet Toilet Toilet # Voids 3 1 2 - Exam GENERAL: The patient is alert and oriented x3, not in any acute distress. Well developed, well nourished. HEENT: Pupils are round and equally reacting to light. EOMI. No scleral icterus. No conjunctival pallor. Normocephalic, atraumatic. No pharyngeal erythema. No thyromegaly. CARDIOVASCULAR: S1 and S2 present. No murmurs, rubs, or gallops. PULMONARY: Chest is clear to auscultation, no wheezing or crackles. ABDOMEN: Soft, nontender, nondistended, normoactive bowel sounds. No palpable organomegaly. MUSCULOSKELETAL: No joint swelling or deformity. EXTREMITIES: No cyanosis, clubbing, or pedal edema. NEUROLOGICAL: Gross neurological examination did not reveal any focal deficits. SKIN: No rashes. no petechiae. - Labs CBC & Chem 7: 05/15/20 09:25 05/15/20 09:25 Labs: Abnormal Lab Results - Last 24 Hours (Table) 05/15/20 05/15/20 05/16/20 Range/Units 09:25 20:20 06:09 POC Glucose (mg/dL) 163 H 185 H (75-99) mg/dL Hemoglobin A1c 7.5 H (4.0-6.0) % 05/16/20 05/16/20 Range/Units 11:55 17:14 POC Glucose (mg/dL) 150 H 245 H (75-99) mg/dL Hemoglobin A1c (4.0-6.0) % Microbiology - Last 24 Hours (Table) 05/15/20 09:04 Nasal Screen MRSA/MSSA - Preliminary Nasal Swab Assessment and Plan Assessment: -Syncope -Recent non-STEMI 5 days prior to admission, patient declined cardiac cath:Cardiac cath showed heavily calcified coronary arteries with calcified mitral annulus with 50% stenosis of the left main coronary artery, surgery was recommended and patient agrees -Mild confusion, rule out dementia -Chronic kidney disease stage III -Right shoulder rotator cuff tear -Diabetes mellitus with hyperglycemia -Hypertension -Hyperlipidemia -History of CVA -Aortic aneurysm Plan: This is a pleasant 80 years old female who presents with syncope and non-STEMI and coronary artery disease with calcification, cardiac and cardiothoracic surgery team recommended no surgery, discussed with the family, resume her medication. We appreciate orthopedic input and they recommended outpatient follow-up Hold aspirin and Plavix prior to surgery. Continue with insulin sliding scale Labs and medication were reviewed.. Continue same treatment. Continue with symptomatic treatment. Resume home medication. Monitor lytes and vitals. DVT and GI prophylaxis. Further recommendations of the clinical course of the patient DVT prophylaxis: Subcutaneous heparin GI Prophylaxis: Pepcid Prognosis is guarded Possible discharge in 24-48 hours
[2020-05-16 23:21] VITALS: TEMP 98.2
[2020-05-17 06:06] LABS: Glucose,Whole Blood 121 mg/dL (75-99)
[2020-05-17] MEDS: carvediloL 12.5 MG TAB PO SCH (06:39)
[2020-05-17] MEDS: INSULIN ASPART (NovoLOG) 100 UNIT/ML VIAL SQ SCH ×2 (06:39→12:40)
[2020-05-17] MEDS: HEPARIN SODIUM,PORCINE 5,000 UNIT/ML 1 ML VIAL SQ SCH (08:41)
[2020-05-17] MEDS: FAMOTIDINE 20 MG TAB PO SCH (08:42)
[2020-05-17] MEDS: FERROUS SULFATE 325 MG TAB PO SCH (08:42)
[2020-05-17] MEDS: ATORVASTATIN 40 MG TAB PO SCH (08:42)
[2020-05-17] MEDS: amLODIPine 5 MG TAB PO SCH (08:42)
[2020-05-17] MEDS: MEMANTINE 5 MG TAB PO SCH (08:42)
[2020-05-17] MEDS: lisinopriL 10 MG TAB PO SCH (08:42)
[2020-05-17] MEDS: CLOPIDOGREL 75 MG TAB PO SCH (08:42)
[2020-05-17] MEDS: ASPIRIN 81 MG PO SCH (08:42)
[2020-05-17] MEDS: ISOSORBIDE MONONITRATE ER 30 MG TAB.ER.24H PO SCH (08:42)
[2020-05-17] MEDS: LINAGLIPTIN 5 MG TABLET PO SCH (08:42)
[2020-05-17] MEDS ORDERED: ERGOCALCIFEROL 50,000 UNIT CAP PO SCH (09:00)
[2020-05-17 11:09] VITALS: BP 133/57; PULSE 56; RESP 16
[2020-05-17 11:52] LABS: Glucose,Whole Blood 314 mg/dL (75-99)
[2020-05-17] MEDS ORDERED: DONEPEZIL 5 MG TAB PO SCH (21:00)
--- NOTE | 2020-05-18 00:46 | P.DS ---
Providers Date of admission: 05/15/20 11:09 Attending physician: Miri Ferris Consults: 05/13/20 14:51 Consult Physician Routine Consulting Provider: Da Bush Consult Reason/Comments: Elevated troponin Do you want consulting provider notified?: Yes 05/14/20 13:19 Consult Physician Routine Consulting Provider: Alex Cui Consult Reason/Comments: cabg Do you want consulting provider notified?: Already Contacted Primary care physician: Roberto Alexander Hospital Course: Diagnoses: -Syncope -Recent non-STEMI 5 days prior to admission, patient declined cardiac cath:Cardiac cath showed heavily calcified coronary arteries with calcified mitral annulus with 50% stenosis of the left main coronary artery, surgery was recommended and patient agrees -Mild confusion, rule out dementia -Chronic kidney disease stage III -Right shoulder rotator cuff tear -Diabetes mellitus with hyperglycemia -Hypertension -Hyperlipidemia -History of CVA -Aortic aneurysm Hospital course: This is a pleasant 80 years old female with past medical history of hypertension, hyperlipidemia, diabetes mellitus, CVA, aortic aneurysm of 4.2 cm 2018, chronic kidney disease stage IV. She is a patient of Dr. Mar in her moose hunter and PCP Dr. No. She follows up with side seam tender for her kidney disease. Who presents because of syncope found to have elevated troponin and non-STEMI. Tub Rider recommended Cardiac cath which showed heavily calcified coronary arteries with calcified mitral annulus with 50% stenosis of the left main coronary artery, surgical team has been consulted. However eventually patient was found high-risk for surgical intervention by Dr. Cui from cardiovascular surgical team. patient is high-risk for surgery due to her comorbidities and mental status and refusal to do surgery.Medical management was recommended, patient is on aspirin and Plavix and other medication as per moose hunter recommendation. Patient was cleared for discharge by both cardio vascular surge ry and cardiology team. On the day of discharge patient was fully awake and oriented, she was asymptomatic, no dizziness no confusion, no chest pain, no dyspnea however she has some memory problem. Gait is normal. Also patient was found to have dementia and she was a started on medication Namenda and Aricept Patient was cleared by all consultants for discharge Problems and management plan were discussed with the patient and he verbalized understanding and acceptance Patient was found stable and can be discharged home however he needs follow-up as an outpatient. Patient was instructed to follow up with PCP within one week and patient agrees Gen: patient is a AAOx3, no distress CVS: S1-S2, RRR, no murmur Lungs: B/L CTA, no wheezing Abdomen: soft, no distention, no tenderness, positive bowel sounds Extremity: no leg edema or induration Time spent more than 35 minutesge Patient Condition at Discharge: Fair Plan - Discharge Summary Discharge Rx Participant: No New Discharge Prescriptions: New Donepezil [Aricept] 5 mg PO HS #30 tab Memantine [Namenda] 5 mg PO BID #60 tab Famotidine [Pepcid] 20 mg PO DAILY #21 tab lisinopriL [Zestril] 10 mg PO DAILY #30 tab Continue sitaGLIPtin [Januvia] 100 mg PO QAM Aspirin [Adult Low Dose Aspirin EC] 81 mg PO DAILY Isosorbide Mononitrate ER [Imdur] 30 mg PO DAILY Fluticasone/Vilanterol [Breo Ellipta 100-25 Mcg Inhaler] 1 puff INHALATION RT-DAILY PRN PRN Reason: Shortness Of Breath Carvedilol [Coreg] 25 mg PO BID Ergocalciferol [Vitamin D2 (DRISDOL)] 50,000 unit PO FR Atorvastatin [Lipitor] 40 mg PO DAILY 30 Days #30 tab Nitroglycerin Sl Tabs [Nitrostat] 0.4 mg SUBLINGUAL Q5M PRN #20 tab PRN Reason: Chest Pain amLODIPine [Norvasc] 5 mg PO BID 30 Days #60 tab Clopidogrel [Plavix] 75 mg PO DAILY 30 Days #30 tab Vits A,C,E/Lutein/Minerals [Vision Formula with Lutein Tab] 1 tab PO DAILY Ferrous Sulfate 324mg 324 mg PO DAILY Discontinued lisinopriL [Zestril] 10 mg PO DAILY #0 Discharge Medication List Aspirin [Adult Low Dose Aspirin EC] 81 mg PO DAILY 03/13/16 [History] sitaGLIPtin [Januvia] 100 mg PO QAM 03/13/16 [History] Isosorbide Mononitrate ER [Imdur] 30 mg PO DAILY 01/08/19 [History] Atorvastatin [Lipitor] 40 mg PO DAILY 30 Days #30 tab 05/08/20 [Rx] Carvedilol [Coreg] 25 mg PO BID 05/08/20 [History] Clopidogrel [Plavix] 75 mg PO DAILY 30 Days #30 tab 05/08/20 [Rx] Ergocalciferol [Vitamin D2 (DRISDOL)] 50,000 unit PO FR 05/08/20 [History] Fluticasone/Vilanterol [Breo Ellipta 100-25 Mcg Inhaler] 1 puff INHALATION RT- DAILY PRN 05/08/20 [History] Nitroglycerin Sl Tabs [Nitrostat] 0.4 mg SUBLINGUAL Q5M PRN #20 tab 05/08/20 [Rx] amLODIPine [Norvasc] 5 mg PO BID 30 Days #60 tab 05/08/20 [Rx] Ferrous Sulfate 324mg 324 mg PO DAILY 05/13/20 [History] Vits A,C,E/Lutein/Minerals [Vision Formula with Lutein Tab] 1 tab PO DAILY 05/13/20 [History] Donepezil [Aricept] 5 mg PO HS #30 tab 05/17/20 [Rx] Famotidine [Pepcid] 20 mg PO DAILY #21 tab 05/17/20 [Rx] Memantine [Namenda] 5 mg PO BID #60 tab 05/17/20 [Rx] lisinopriL [Zestril] 10 mg PO DAILY #30 tab 05/17/20 [Rx] Follow up Appointment(s)/Referral(s): Rigo Arita MD [Family Provider] - 05/22/20 3:00 pm Catherine Mejia MD [Primary Care Provider] - 05/23/20 1:00 pm [facility], [NON-STAFF] - Scottie Hall DO [Doctor of Osteopathic Medicine] - 05/24/20 11:00 am Patient Instructions/Handouts: *Surgery [facility] - After Heart Catheterization - Medical Staff Credentialing Coordinator Instructions, Syncope (DC) Activity/Diet/Wound Care/Special Instructions: Continue gentle ROM exercises for the shoulder. Discharge Disposition: HOME WITH HOME HEALTH SERVICES
== END 2020-05-17 13:01 | disposition home health service (06) | DRG 281 ==
LOC: EC 12:53 → 1SOBS 14:09 → 3SCARD 21:29 → OBSVTOIN 05-15 11:09
PROVIDERS: ADMIT Internal Medicine; ATTEND Internal Medicine
PROC: 4A023N7 Measurement of Cardiac Sampling and Pressure, Left Heart, Percutaneous Approach (ICD-10-PCS; principal; 2020-05-15)
PROC: B2111ZZ Fluoroscopy of Multiple Coronary Arteries using Low Osmolar Contrast (ICD-10-PCS; principal; 2020-05-15)
DX: I21.4 Non-ST elevation (NSTEMI) myocardial infarction (principal); F05 Delirium due to known physiological condition; E11.65 Type 2 diabetes mellitus with hyperglycemia; E11.22 Type 2 diabetes mellitus with diabetic chronic kidney disease; D50.9 Iron deficiency anemia, unspecified; E78.5 Hyperlipidemia, unspecified; N18.3 Chronic kidney disease, stage 3 (moderate); F03.90 Unspecified dementia, unspecified severity, without behavioral disturbance, psychotic disturbance, mood disturbance, and anxiety; I71.9 Aortic aneurysm of unspecified site, without rupture; I25.10 Atherosclerotic heart disease of native coronary artery without angina pectoris; Z20.828 Contact with and (suspected) exposure to other viral communicable diseases; I25.2 Old myocardial infarction; I08.1 Rheumatic disorders of both mitral and tricuspid valves; J45.909 Unspecified asthma, uncomplicated; M19.011 Primary osteoarthritis, right shoulder; S46.001A Unspecified injury of muscle(s) and tendon(s) of the rotator cuff of right shoulder, initial encounter; M54.5 Low back pain; Z79.82 Long term (current) use of aspirin; Z79.02 Long term (current) use of antithrombotics/antiplatelets; Z79.84 Long term (current) use of oral hypoglycemic drugs; Z79.51 Long term (current) use of inhaled steroids; Z79.899 Other long term (current) drug therapy; Z87.891 Personal history of nicotine dependence; Z86.73 Personal history of transient ischemic attack (TIA), and cerebral infarction without residual deficits; Z85.828 Personal history of other malignant neoplasm of skin; Z98.891 History of uterine scar from previous surgery; Z90.710 Acquired absence of both cervix and uterus; Z87.42 Personal history of other diseases of the female genital tract; Z98.890 Other specified postprocedural states; Z98.41 Cataract extraction status, right eye; Z98.42 Cataract extraction status, left eye; Z87.01 Personal history of pneumonia (recurrent); Z87.39 Personal history of other diseases of the musculoskeletal system and connective tissue; Z87.2 Personal history of diseases of the skin and subcutaneous tissue; Z87.442 Personal history of urinary calculi; W18.30XA Fall on same level, unspecified, initial encounter; Y93.G3 Activity, cooking and baking; Y92.000 Kitchen of unspecified non-institutional (private) residence as the place of occurrence of the external cause; Z88.8 Allergy status to other drugs, medicaments and biological substances; Z80.8 Family history of malignant neoplasm of other organs or systems
CPT/HCPCS: 36415; 71046; 80048; 80053; 80074; 81001; 81003; 82550; 83036; 83735; 84443; 84484; 85025; 85610; 85730; 87070; 93005; 93458; 93880; 93922; 93970; 94150; 96360; 99285

== ENCOUNTER 2020-05-20 21:34 | Observation (INO) | payer MEDICARE, OTHER ==
--- NOTE | 2020-05-20 22:33 | CT ---
EXAMINATION TYPE: CT brain wo con DATE OF EXAM: 05/20/2020 COMPARISON: 02/21/2019 HISTORY: weakness, fall, ams CT DLP: 1125.4 mGycm Automated exposure control for dose reduction was used. There is diffuse cerebral cortical atrophy. There is no mass effect nor midline shift. There is no si gn of intracranial hemorrhage. The calvarium is intact. Skull base is intact. There are calcified lisa aceous cysts over the frontal bone. IMPRESSION: Moderate diffuse cerebral atrophy. No acute intracranial abnormality. No change.
--- NOTE | 2020-05-20 22:35 | XR ---
EXAMINATION TYPE: XR chest 2V DATE OF EXAM: 05/20/2020 COMPARISON: 05/13/2020 HISTORY: Altered mental status TECHNIQUE: 2 views FINDINGS: Heart is enlarged. There is no heart failure. Thoracic aorta is atheromatous. There are carlos alber[address] leads. Costophrenic angles are clear. IMPRESSION: No active cardiopulmonary disease. Atheromatous aorta. No change.
[2020-05-20 23:04] LABS: Basophils # (A) 0.1 k/uL (0-0.2); Basophils % (A) 1 %; Eosinophils # (A) 0.4 k/uL (0-0.7); Eosinophils % (A) 3 %; HCT 31.5 % (34.0-46.0); HGB 10.5 gm/dL (11.4-16.0); Lymphocytes # (A) 3.8 k/uL (1.0-4.8); Lymphocytes % (A) 31 %; MCHC 33.4 g/dL (31.0-37.0); MCV 89.9 fL (80.0-100.0); Mean Platelet Volume 8.2; Monocytes # (A) 0.6 k/uL (0-1.0); Monocytes % (A) 5 %; Neutrophils # (A) 7.3 k/uL (1.3-7.7); Neutrophils % (A) 59 %; Platelet Count 289 k/uL (150-450); RDW 13.4 % (11.5-15.5); WBC 12.4 k/uL (3.8-10.6)
[2020-05-20 23:12] LABS: Albumin 3.9 g/dL (3.5-5.0); Calcium 9.2 mg/dL (8.4-10.2); Potassium 4.7 mmol/L (3.5-5.1); Total Bilirubin 0.6 mg/dL (0.2-1.3); Total Protein 6.3 g/dL (6.3-8.2)
[2020-05-20] MEDS ORDERED: SODIUM CHLORIDE 0.9% 500 ML 500 ML IV ONE (23:14)
[2020-05-20] MEDS: SODIUM CHLORIDE 0.9% 1,000 ML IV SCH (23:23)
[2020-05-20 23:26] LABS: Prothrombin Time 10.2 sec (9.0-12.0)
[2020-05-20 23:27] LABS: Appearance,Urine Cloudy (Clear); Bacteria,Urine Occasional /hpf; Bilirubin,Urine Negative (Negative); Blood,Urine Negative (Negative); Color,Urine Colorless; Glucose,Urine (UA) Negative (Negative); Ketones,Urine Negative (Negative); Leukocyte Esterase,Urine Large (Negative); Nitrite,Urine Negative (Negative); Protein,Urine Negative (Negative); RBC,Urine 1 /hpf (0-5); Specific Gravity,Urine 1.006 (1.001-1.035); Squamous Epithelial Cell,Urine <1 /hpf (0-4); Urobilinogen,Urine <2.0 mg/dL (<2.0); WBC,Urine 45 /hpf (0-5)
[2020-05-20 23:34] LABS: Amphetamine Screen,Urine Not Detected (NotDetected); Barbiturate Screen,Urine Not Detected (NotDetected); Benzodiazepines Screen,Urine Not Detected (NotDetected); Cocaine Screen,Urine Not Detected (NotDetected); Methadone Screen, Urine Not Detected (NotDetected); Opiate Screen,Urine Not Detected (NotDetected); Oxycodone Screen, Urine Not Detected (NotDetected); Phencyclidine Screen,Urine Not Detected (NotDetected); Tricyclic Antidepressant,Urine Not Detected (NotDetected); Urn Cannabinoid Scrn Not Detected (NotDetected)
[2020-05-21] MEDS ORDERED: NALOXONE 0.4 MG/ML 1 ML VIAL IV PRN (00:04)
--- NOTE | 2020-05-21 00:07 | ED ---
Recheck HPI - General Chief Complaint: Recheck/Abnormal Lab/Rx Stated Complaint: Revisit "not feeling right" Time Seen by Provider: 05/20/20 22:15 Source: patient Mode of arrival: wheelchair Limitations: no limitations - History of Present Illness Initial Comments: 80-year-old feel presenting with grandirma who states patient has been having visual hallucinations today. Patient states she has no complaints she states that her grandson made her come here. He states that she has been acting slightly different today and had an episode where she was talking to her sister. Patient states she was just teasing her friend that was over who brought up her sister and pretended to begin speaking to her. Grandson says this is not true. Grandson states the patient has what he believes is early dementia. He states the patient has not had any strokelike symptoms he has not noticed any speech changes. Patient does a visual or speech changes, denies weakness, abdominal pain, chest pain or SOB. Denies dysuria urgency frequency. She denies any upper respiratory symptoms. Patient grandson deny any additional complaints--however grandirma didn't request a CT of the head as she was admitted recently for syncopal episode and had no CAT scan done he states he believes she had her head and patient is on plavix. - Related Data Home Medications Medication Instructions Recorded Confirmed Aspirin [Adult Low Dose Aspirin EC] 81 mg PO DAILY 03/13/16 05/20/20 sitaGLIPtin [Januvia] 100 mg PO DAILY 03/13/16 05/20/20 Isosorbide Mononitrate ER [Imdur] 30 mg PO DAILY 01/08/19 05/20/20 Carvedilol [Coreg] 25 mg PO BID 05/08/20 05/20/20 Ergocalciferol [Vitamin D2 50,000 unit PO FR 05/08/20 05/20/20 (DRISDOL)] Fluticasone/Vilanterol [Breo 1 puff INHALATION RT-DAILY PRN 05/08/20 05/20/20 Ellipta 100-25 Mcg Inhaler] Ferrous Sulfate 324mg 324 mg PO DAILY 05/13/20 05/20/20 Vits A,C,E/Lutein/Minerals [Vision 1 tab PO DAILY 05/13/20 05/20/20 Formula with Lutein Tab] Nitroglycerin Sl Tabs [Nitrostat] 0.4 mg SL Q5M PRN 05/20/20 05/20/20 Previous Rx's Medication Instructions Recorded Atorvastatin [Lipitor] 40 mg PO DAILY 30 Days #30 tab 05/08/20 Clopidogrel [Plavix] 75 mg PO DAILY 30 Days #30 tab 05/08/20 amLODIPine [Norvasc] 5 mg PO BID 30 Days #60 tab 05/08/20 Donepezil [Aricept] 5 mg PO HS #30 tab 05/17/20 Famotidine [Pepcid] 20 mg PO DAILY #21 tab 05/17/20 Memantine [Namenda] 5 mg PO BID #60 tab 05/17/20 lisinopriL [Zestril] 10 mg PO DAILY #30 tab 05/17/20 Allergies Allergy/AdvReac Type Severity Reaction Status Date / Time lincomycin HCl Allergy Unknown Unknown Verified 05/20/20 23:06 [From Lincocin] Review of Systems ROS Statement: Those systems with pertinent positive or pertinent negative responses have been documented in the HPI. ROS Other: All systems not noted in ROS Statement are negative. Past Medical History Past Medical History: Asthma, Coronary Artery Disease (CAD), Cancer, Chest Pain / Angina, CVA/TIA, Diabetes Mellitus, Hyperlipidemia, Hypertension, Myocardial Infarction ([place]), Osteoarthritis (OA), Pneumonia, Renal Disease, Skin Disorder, Syncope, Vascular Disorder Additional Past Medical History / Comment(s): Pt recently admitted to [facility] on 05/08/20 with chest pain, Other hx: CVA in 2016-no residual, NIDDM type II, low back pain, iron deficiency anemia, thoracic aneurysm per past medical record-pt states she has never been told about an aneurysm, nephrolithiasis-pt passed stones on her own, skin cancer with removals, L knee pain, eczema History of Any Multi-Drug Resistant Organisms: None Reported Past Surgical History: Section, Hysterectomy, Orthopedic Surgery Additional Past Surgical History / Comment(s): x3, bilateral carpal tunnel releases, bilateral cataract removals, skin cancer removals. Past Anesthesia/Blood Transfusion Reactions: No Reported Reaction Past Psychological History: No Psychological Hx Reported Smoking Status: Former smoker Past Alcohol Use History: None Reported Past Drug Use History: None Reported - Past Family History Mother Family Medical History: Cancer Additional Family Medical History / Comment(s): Cancerous brain tumor Brother(s) Family Medical History: Cancer Additional Family Medical History / Comment(s): Cancerous brain tumor Father Additional Family Medical History / Comment(s): "Heart problems" General Exam - General Exam Comments Initial Comments: General: The patient is awake and alert, in no distress, and does not appear acutely ill. Eye: Pupils are equal, round and reactive to light, extra-ocular movements are intact. No nystagmus. There is normal conjunctiva bilaterally. No signs of icterus. Ears, nose, mouth and throat: There are moist mucous membranes and no oral lesions. No raccoon or Quick sign Neck: The neck is supple, there is no tenderness or JVD. Cardiovascular: There is a regular rate and rhythm. No murmur, rub or gallop is appreciated. Respiratory: Lungs are clear to auscultation, respirations are non-labored, breath sounds are equal. No wheezes, stridor, rales, or rhonchi. Gastrointestinal: Soft, non-distended, non-tender abdomen without masses or organomegaly noted. There is no rebound or guarding present. Musculoskeletal: Normal ROM, no tenderness. Strength 5/5. Sensation intact. Pulses equal bilaterally 2+. Neurological: A&O x 3. CN II-XII intact, There are no obvious motor or sensory deficits. Coordination appears grossly intact. Speech is normal. Skin: Skin is warm and dry and no rashes or lesions are noted. Psychiatric: Cooperative, appropriate mood & affect, normal judgment. Limitations: no limitations Course Vital Signs 05/20/20 05/20/20 05/21/20 22:06 23:30 00:26 Temperature 97.9 F Pulse Rate 66 65 69 Respiratory 18 18 18 Rate Blood Pressure 158/75 155/72 160/70 O2 Sat by Pulse 97 98 98 Oximetry Medical Decision Making - Medical Decision Making Nontoxic appearing 80yo female. Presenting for suspected visual hallucinations- as patient was talking with sister per grandson. Suspect UTI, UA confirms. CT brain (-), no focal neurological deficits, patient is witty, cracking appropriate jokes and does not appear acutely altered. Patient labs reveal increase in Cr, lips dry will hydrate. Patient CXR stable. other labs within acceptable/baseline limits. Patient given rocephin in ER and will stay for IV abx and hydration. Dr. Salinas agreeable to care plan and admission as is patient and patient grandson. - Lab Data Result diagrams: 05/20/20 22:42 05/20/20 22:42 Lab Results 05/20/20 05/20/20 05/20/20 Range/Units 22:42 22:42 22:42 WBC 12.4 H (3.8-10.6) k/uL RBC 3.50 L (3.80-5.40) m/uL Hgb 10.5 L (11.4-16.0) gm/dL Hct 31.5 L (34.0-46.0) % MCV 89.9 (80.0-100.0) fL MCH 30.0 (25.0-35.0) pg MCHC 33.4 (31.0-37.0) g/dL RDW 13.4 (11.5-15.5) % Plt Count 289 (150-450) k/uL Neutrophils % 59 % Lymphocytes % 31 % Monocytes % 5 % Eosinophils % 3 % Basophils % 1 % Neutrophils # 7.3 (1.3-7.7) k/uL Lymphocytes # 3.8 (1.0-4.8) k/uL Monocytes # 0.6 (0-1.0) k/uL Eosinophils # 0.4 (0-0.7) k/uL Basophils # 0.1 (0-0.2) k/uL PT 10.2 (9.0-12.0) sec INR 1.0 (<1.2) APTT 28.0 (22.0-30.0) sec Sodium (137-145) mmol/L Potassium (3.5-5.1) mmol/L Chloride (98-107) mmol/L Carbon Dioxide (22-30) mmol/L Anion Gap mmol/L BUN (7-17) mg/dL Creatinine (0.52-1.04) mg/dL Est GFR (CKD-EPI)AfAm (>60 ml/min/1.73 sqM) Est GFR (CKD-EPI)NonAf (>60 ml/min/1.73 sqM) Glucose (74-99) mg/dL Calcium (8.4-10.2) mg/dL Total Bilirubin (0.2-1.3) mg/dL AST (14-36) U/L ALT (4-34) U/L Alkaline Phosphatase (38-126) U/L Troponin I (0.000-0.034) ng/mL Total Protein (6.3-8.2) g/dL Albumin (3.5-5.0) g/dL Urine Color Colorless Urine Appearance Cloudy H (Clear) Urine pH 5.0 (5.0-8.0) Ur Specific [place] 1.006 (1.001-1.035) Urine Protein Negative (Negative) Urine Glucose (UA) Negative (Negative) Urine Ketones Negative (Negative) Urine Blood Negative (Negative) Urine Nitrite Negative (Negative) Urine Bilirubin Negative (Negative) Urine Urobilinogen <2.0 (<2.0) mg/dL Ur Leukocyte Esterase Large H (Negative) Urine RBC 1 (0-5) /hpf Urine WBC 45 H (0-5) /hpf Urine WBC Clumps Many H (None) /hpf Ur Squamous Epith Cells <1 (0-4) /hpf Urine Bacteria Occasional H (None) /hpf Urine Opiates Screen Not Detected (NotDetected) Ur Oxycodone Screen Not Detected (NotDetected) Urine Methadone Screen Not Detected (NotDetected) Ur Propoxyphene Screen Not Detected (NotDetected) Ur Barbiturates Screen Not Detected (NotDetected) U Tricyclic Antidepress Not Detected (NotDetected) Ur Phencyclidine Scrn Not Detected (NotDetected) Ur Amphetamines Screen Not Detected (NotDetected) U Methamphetamines Scrn Not Detected (NotDetected) U Benzodiazepines Scrn Not Detected (NotDetected) Urine Cocaine Screen Not Detected (NotDetected) U Marijuana (THC) Screen Not Detected (NotDetected) 05/20/20 05/20/20 Range/Units 22:42 22:42 WBC (3.8-10.6) k/uL RBC (3.80-5.40) m/uL Hgb (11.4-16.0) gm/dL Hct (34.0-46.0) % MCV (80.0-100.0) fL MCH (25.0-35.0) pg MCHC (31.0-37.0) g/dL RDW (11.5-15.5) % Plt Count (150-450) k/uL Neutrophils % % Lymphocytes % % Monocytes % % Eosinophils % % Basophils % % Neutrophils # (1.3-7.7) k/uL Lymphocytes # (1.0-4.8) k/uL Monocytes # (0-1.0) k/uL Eosinophils # (0-0.7) k/uL Basophils # (0-0.2) k/uL PT (9.0-12.0) sec INR (<1.2) APTT (22.0-30.0) sec Sodium 134 L (137-145) mmol/L Potassium 4.7 (3.5-5.1) mmol/L Chloride 107 (98-107) mmol/L Carbon Dioxide 20 L (22-30) mmol/L Anion Gap 7 mmol/L BUN 30 H (7-17) mg/dL Creatinine 2.06 H (0.52-1.04) mg/dL Est GFR (CKD-EPI)AfAm 26 (>60 ml/min/1.73 sqM) Est GFR (CKD-EPI)NonAf 22 (>60 ml/min/1.73 sqM) Glucose 234 H (74-99) mg/dL Calcium 9.2 (8.4-10.2) mg/dL Total Bilirubin 0.6 (0.2-1.3) mg/dL AST 23 (14-36) U/L ALT 14 (4-34) U/L Alkaline Phosphatase 97 (38-126) U/L Troponin I <0.012 (0.000-0.034) ng/mL Total Protein 6.3 (6.3-8.2) g/dL Albumin 3.9 (3.5-5.0) g/dL Urine Color Urine Appearance (Clear) Urine pH (5.0-8.0) Ur Specific [place] (1.001-1.035) Urine Protein (Negative) Urine Glucose (UA) (Negative) Urine Ketones (Negative) Urine Blood (Negative) Urine Nitrite (Negative) Urine Bilirubin (Negative) Urine Urobilinogen (<2.0) mg/dL Ur Leukocyte Esterase (Negative) Urine RBC (0-5) /hpf Urine WBC (0-5) /hpf Urine WBC Clumps (None) /hpf Ur Squamous Epith Cells (0-4) /hpf Urine Bacteria (None) /hpf Urine Opiates Screen (NotDetected) Ur Oxycodone Screen (NotDetected) Urine Methadone Screen (NotDetected) Ur Propoxyphene Screen (NotDetected) Ur Barbiturates Screen (NotDetected) U Tricyclic Antidepress (NotDetected) Ur Phencyclidine Scrn (NotDetected) Ur Amphetamines Screen (NotDetected) U Methamphetamines Scrn (NotDetected) U Benzodiazepines Scrn (NotDetected) Urine Cocaine Screen (NotDetected) U Marijuana (THC) Screen (NotDetected) Disposition Clinical Impression: UTI (urinary tract infection), Increase in creatinine, Dehydration Disposition: ADMITTED IP TO THIS [facility] Condition: Stable Is patient prescribed a controlled substance at d/c from ED?: No Time of Disposition: 00:06 Decision to Admit Reason: Admit from EC Decision Date: 05/21/20 Decision Time: 00:06
[2020-05-21 08:01] VITALS: BP 166/71; PULSE 74; RESP 20; TEMP 98.8
[2020-05-21 11:21] LABS: Basophils # (A) 0.1 k/uL (0-0.2); Basophils % (A) 1 %; Eosinophils # (A) 0.3 k/uL (0-0.7); Eosinophils % (A) 2 %; HCT 35.4 % (34.0-46.0); HGB 11.3 gm/dL (11.4-16.0); Lymphocytes # (A) 2.7 k/uL (1.0-4.8); Lymphocytes % (A) 21 %; MCH 29.5 pg (25.0-35.0); MCHC 31.9 g/dL (31.0-37.0); MCV 92.4 fL (80.0-100.0); Mean Platelet Volume 8.1; Monocytes # (A) 0.6 k/uL (0-1.0); Monocytes % (A) 5 %; Neutrophils % (A) 71 %; Platelet Count 282 k/uL (150-450); RBC 3.83 m/uL (3.80-5.40); RDW 13.1 % (11.5-15.5); WBC 12.8 k/uL (3.8-10.6)
[2020-05-21] MEDS ORDERED: SYMBICORT 80-4.5 MCG INHALER INHALATION PRN (11:49)
[2020-05-21 11:51] LABS: Glucose,Whole Blood 199 mg/dL (75-99)
[2020-05-21] MEDS: SODIUM CHLORIDE 0.9% 1,000 ML IV SCH (12:01)
[2020-05-21 12:02] LABS: Calcium 9.3 mg/dL (8.4-10.2); Potassium 5.2 mmol/L (3.5-5.1)
[2020-05-21] MEDS ORDERED: INSULIN ASPART (NovoLOG) 100 UNIT/ML VIAL SQ SCH (12:30)
--- NOTE | 2020-05-21 13:22 | P.HPIM ---
History of Present Illness 80-year-old pleasant female was brought in by her grandson as he was having hallucinations. Patient does have history of dementia but patient is alert oriented 3 takes care of herself patient that did not have any significant memory deficits and I evaluated the patient patient is a at her baseline. Patient the creatinine actually went up from 1.6 baseline to 2 and the patient was mildly hyponatremic patient is probably a bit dehydrated. Which may have contributed to her confusion patient does have some leukocytosis no fever patient denied dysuria or increased urinary frequency or urgency. Her urine analysis is mildly abnormal. But I still do not believe patient has urinary tract infection patient probably has a symptomatically bacteriuria patient received 1 dose of antibiotics yesterday. I'll give her 1 more dose of antibiotic. Patient wanted to go home patient is at her baseline regarding her mental status and will be discharged today. Patient hyponatremia improved renal failure improved patient is on ZAKIYA inhibitor which will be held temporally for now I do not have enough information to titrated diabetic or have her antidepressant medications. Patient is mildly hyperkalemic with the serum potassium of 5.1. Because of these 2 reasons and hold off lisinopril. Can be restarted as an outpatient slowly with a low potassium diet Review of Systems REVIEW OF SYSTEMS: CONSTITUTIONAL: No fever, no malaise, no fatigue. HEENT: No recent visual problems or hearing problems. Denied any sore throat. CARDIOVASCULAR: No chest pain, orthopnea, PND, no palpitations, no syncope. PULMONARY: No shortness of breath, no cough, no hemoptysis. GASTROINTESTINAL: No diarrhea, no nausea, no vomiting, no abdominal pain. NEUROLOGICAL: No headaches, no weakness, no numbness. HEMATOLOGICAL: Denies any bleeding or petechiae. GENITOURINARY: Denies any burning micturition, frequency, or urgency. MUSCULOSKELETAL/RHEUMATOLOGICAL: Denies any joint pain, swelling, or any muscle pain. ENDOCRINE: Denies any polyuria or polydipsia. The rest of the 14-point review of systems is negative. Past Medical History Past Medical History: Asthma, Coronary Artery Disease (CAD), Cancer, Chest Pain / Angina, CVA/TIA, Diabetes Mellitus, Hyperlipidemia, Hypertension, Myocardial Infarction ([place]), Osteoarthritis (OA), Pneumonia, Renal Disease, Skin Disorder, Syncope, Vascular Disorder Additional Past Medical History / Comment(s): Pt recently admitted to [facility] on 05/08/20 with chest pain, Other hx: CVA in 2016-no residual, NIDDM type II, low back pain, iron deficiency anemia, thoracic aneurysm per past medical record-pt states she has never been told about an aneurysm, nephrolithiasis-pt passed stones on her own, skin cancer with removals, L knee pain, eczema Last Myocardial Infarction Date:: 2018 History of Any Multi-Drug Resistant Organisms: None Reported Past Surgical History: Section, Hysterectomy, Orthopedic Surgery Additional Past Surgical History / Comment(s): x3, bilateral carpal tunnel releases, bilateral cataract removals, skin cancer removals. Past Anesthesia/Blood Transfusion Reactions: No Reported Reaction Past Psychological History: No Psychological Hx Reported Additional Psychological History / Comment(s): Pt resides alone. She uses a cane/walker to ambulate. She does not have a car, her grandson lives a couple miles from her and gives her rides. Smoking Status: Former smoker Past Alcohol Use History: None Reported Additional Past Alcohol Use History / Comment(s): Pt started smoking in 1955 and quit in 1984. Past Drug Use History: None Reported - Past Family History Mother Family Medical History: Cancer Additional Family Medical History / Comment(s): Cancerous brain tumor Brother(s) Family Medical History: Cancer Additional Family Medical History / Comment(s): Cancerous brain tumor Father Additional Family Medical History / Comment(s): "Heart problems" Medications and Allergies Home Medications Medication Instructions Recorded Confirmed Type Aspirin [Adult Low Dose Aspirin EC] 81 mg PO DAILY 03/13/16 05/20/20 History sitaGLIPtin [Januvia] 100 mg PO DAILY 03/13/16 05/20/20 History Isosorbide Mononitrate ER [Imdur] 30 mg PO DAILY 01/08/19 05/20/20 History Atorvastatin [Lipitor] 40 mg PO DAILY 30 Days #30 tab 05/08/20 05/20/20 Rx Carvedilol [Coreg] 25 mg PO BID 05/08/20 05/20/20 History Clopidogrel [Plavix] 75 mg PO DAILY 30 Days #30 tab 05/08/20 05/20/20 Rx Ergocalciferol [Vitamin D2 50,000 unit PO FR 05/08/20 05/20/20 History (DRISDOL)] Fluticasone/Vilanterol [Breo 1 puff INHALATION RT-DAILY PRN 05/08/20 05/20/20 History Ellipta 100-25 Mcg Inhaler] amLODIPine [Norvasc] 5 mg PO BID 30 Days #60 tab 05/08/20 05/20/20 Rx Ferrous Sulfate 324mg 324 mg PO DAILY 05/13/20 05/20/20 History Vits A,C,E/Lutein/Minerals [Vision 1 tab PO DAILY 05/13/20 05/20/20 History Formula with Lutein Tab] Donepezil [Aricept] 5 mg PO HS #30 tab 05/17/20 05/20/20 Rx Famotidine [Pepcid] 20 mg PO DAILY #21 tab 05/17/20 05/20/20 Rx Memantine [Namenda] 5 mg PO BID #60 tab 05/17/20 05/20/20 Rx lisinopriL [Zestril] 10 mg PO DAILY #30 tab 05/17/20 05/20/20 Rx Nitroglycerin Sl Tabs [Nitrostat] 0.4 mg SL Q5M PRN 05/20/20 05/20/20 History Allergies Allergy/AdvReac Type Severity Reaction Status Date / Time lincomycin HCl Allergy Unknown Unknown Verified 05/20/20 23:06 [From Lincocin] Physical Exam Vitals: Vital Signs Temp Pulse Pulse Resp BP BP Pulse Ox 05/21/20 07:00 98.8 F 74 20 166/71 97 05/21/20 04:00 67 18 05/21/20 02:38 97.8 F 67 18 171/68 97 05/21/20 00:26 69 18 160/70 98 05/20/20 23:30 65 18 155/72 98 05/20/20 22:06 97.9 F 66 18 158/75 97 Intake and Output 05/20/20 05/21/20 05/21/20 22:59 06:59 14:59 Intake Total 500 Balance 500 Intake: Intake, IV Titration 300 Amount Sodium Chloride 0.9% 1, 300 000 ml @ 75 mls/hr IV . [id number] [id number] Rx#:[id number] Oral 200 Other: Voiding Method Toilet Toilet # Voids 2 Weight 65.771 kg 65.771 kg PHYSICAL EXAMINATION: GENERAL: The patient is alert and oriented x3, not in any acute distress. Well developed, well nourished. HEENT: Pupils are round and equally reacting to light. EOMI. No scleral icterus. No conjunctival pallor. Normocephalic, atraumatic. No pharyngeal erythema. No thyromegaly. CARDIOVASCULAR: S1 and S2 present. No murmurs, rubs, or gallops. PULMONARY: Chest is clear to auscultation, no wheezing or crackles. ABDOMEN: Soft, nontender, nondistended, normoactive bowel sounds. No palpable organomegaly. MUSCULOSKELETAL: No joint swelling or deformity. EXTREMITIES: No cyanosis, clubbing, or pedal edema. NEUROLOGICAL: Gross neurological examination did not reveal any focal deficits. SKIN: No rashes. Results CBC & Chem 7: 05/21/20 10:58 05/21/20 10:58 Labs: Abnormal Lab Results - Last 24 Hours (Table) 05/20/20 05/20/20 05/20/20 Range/Units 22:42 22:42 22:42 WBC 12.4 H (3.8-10.6) k/uL RBC 3.50 L (3.80-5.40) m/uL Hgb 10.5 L (11.4-16.0) gm/dL Hct 31.5 L (34.0-46.0) % Neutrophils # (1.3-7.7) k/uL Sodium 134 L (137-145) mmol/L Potassium (3.5-5.1) mmol/L Carbon Dioxide 20 L (22-30) mmol/L BUN 30 H (7-17) mg/dL Creatinine 2.06 H (0.52-1.04) mg/dL Glucose 234 H (74-99) mg/dL POC Glucose (mg/dL) (75-99) mg/dL Urine Appearance Cloudy H (Clear) Ur Leukocyte Esterase Large H (Negative) Urine WBC 45 H (0-5) /hpf Urine WBC Clumps Many H (None) /hpf Urine Bacteria Occasional H (None) /hpf 05/21/20 05/21/20 05/21/20 Range/Units 10:58 10:58 11:45 WBC 12.8 H (3.8-10.6) k/uL RBC (3.80-5.40) m/uL Hgb 11.3 L (11.4-16.0) gm/dL Hct (34.0-46.0) % Neutrophils # 9.0 H (1.3-7.7) k/uL Sodium 135 L (137-145) mmol/L Potassium 5.2 H (3.5-5.1) mmol/L Carbon Dioxide (22-30) mmol/L BUN 28 H (7-17) mg/dL Creatinine 1.84 H (0.52-1.04) mg/dL Glucose 185 H (74-99) mg/dL POC Glucose (mg/dL) 199 H (75-99) mg/dL Urine Appearance (Clear) Ur Leukocyte Esterase (Negative) Urine WBC (0-5) /hpf Urine WBC Clumps (None) /hpf Urine Bacteria (None) /hpf Microbiology - Last 24 Hours (Table) 05/20/20 22:42 Urine Culture - Preliminary Urine,Voided Thrombosis Risk Factor Assmnt - Choose All That Apply Each Risk Factor Represents 3 Points: Age 75 years or older Thrombosis Risk Factor Assessment Total Risk Factor Score: 3 Thrombosis Risk Factor Assessment Level: Moderate Risk Assessment and Plan Plan: -Possible Delirium: Possibly secondary to acute renal failure, prerenal azotemia the dehydration. Patient was given IV fluids overnight. Suspicion for UTI is low delirium/metabolic encephalopathy resolved. -Possible symptomatic bacteriuria will not require any antibiotics upon dischar ge. 2 dose of antibiotics here -Type 2 diabetes mellitus -Hypertension -Leukocytosis reactive -Coronary artery disease -Asthma without any acute exacerbation -CVA /TIA in the past -Hyperlipidemia -Osteoarthritis -Chronic kidney disease stage 3-4 -Diabetic nephropathy Patient will be discharged today patient is medically stable to be discharged
--- NOTE | 2020-05-21 13:22 | P.DS ---
Providers Date of admission: 05/21/20 01:14 Attending physician: Zenaida Hu Primary care physician: Roberto Whyte [facility] Course: Please refer to my history of present illness for further details Patient Condition at Discharge: Stable Plan - Discharge Summary Discharge Rx Participant: No New Discharge Prescriptions: Continue sitaGLIPtin [Januvia] 100 mg PO DAILY Aspirin [Adult Low Dose Aspirin EC] 81 mg PO DAILY Isosorbide Mononitrate ER [Imdur] 30 mg PO DAILY Fluticasone/Vilanterol [Breo Ellipta 100-25 Mcg Inhaler] 1 puff INHALATION RT-DAILY PRN PRN Reason: Shortness Of Breath Carvedilol [Coreg] 25 mg PO BID Ergocalciferol [Vitamin D2 (DRISDOL)] 50,000 unit PO FR Atorvastatin [Lipitor] 40 mg PO DAILY 30 Days #30 tab amLODIPine [Norvasc] 5 mg PO BID 30 Days #60 tab Clopidogrel [Plavix] 75 mg PO DAILY 30 Days #30 tab Vits A,C,E/Lutein/Minerals [Vision Formula with Lutein Tab] 1 tab PO DAILY Ferrous Sulfate 324mg 324 mg PO DAILY Donepezil [Aricept] 5 mg PO HS #30 tab Memantine [Namenda] 5 mg PO BID #60 tab Famotidine [Pepcid] 20 mg PO DAILY #21 tab Nitroglycerin Sl Tabs [Nitrostat] 0.4 mg SL Q5M PRN PRN Reason: Chest Pain Discontinued lisinopriL [Zestril] 10 mg PO DAILY #30 tab Discharge Medication List Aspirin [Adult Low Dose Aspirin EC] 81 mg PO DAILY 03/13/16 [History] sitaGLIPtin [Januvia] 100 mg PO DAILY 03/13/16 [History] Isosorbide Mononitrate ER [Imdur] 30 mg PO DAILY 01/08/19 [History] Atorvastatin [Lipitor] 40 mg PO DAILY 30 Days #30 tab 05/08/20 [Rx] Carvedilol [Coreg] 25 mg PO BID 05/08/20 [History] Clopidogrel [Plavix] 75 mg PO DAILY 30 Days #30 tab 05/08/20 [Rx] Ergocalciferol [Vitamin D2 (DRISDOL)] 50,000 unit PO FR 05/08/20 [History] Fluticasone/Vilanterol [Breo Ellipta 100-25 Mcg Inhaler] 1 puff INHALATION RT- DAILY PRN 05/08/20 [History] amLODIPine [Norvasc] 5 mg PO BID 30 Days #60 tab 05/08/20 [Rx] Ferrous Sulfate 324mg 324 mg PO DAILY 05/13/20 [History] Vits A,C,E/Lutein/Minerals [Vision Formula with Lutein Tab] 1 tab PO DAILY 05/13/20 [History] Donepezil [Aricept] 5 mg PO HS #30 tab 05/17/20 [Rx] Famotidine [Pepcid] 20 mg PO DAILY #21 tab 05/17/20 [Rx] Memantine [Namenda] 5 mg PO BID #60 tab 05/17/20 [Rx] Nitroglycerin Sl Tabs [Nitrostat] 0.4 mg SL Q5M PRN 05/20/20 [History] Follow up Appointment(s)/Referral(s): Catherine Mejia MD [Primary Care Provider] - 05/23/20 1:00 pm [facility], [NON-STAFF] - As Needed Discharge Disposition: HOME SELF-CARE
[2020-05-21] MEDS ORDERED: carvediloL 12.5 MG TAB PO SCH (17:30)
[2020-05-21] MEDS ORDERED: DONEPEZIL 5 MG TAB PO SCH (21:00)
[2020-05-21] MEDS ORDERED: amLODIPine 5 MG TAB PO SCH (21:00)
[2020-05-21] MEDS ORDERED: MEMANTINE 5 MG TAB PO SCH (21:00)
[2020-05-22] MEDS ORDERED: ISOSORBIDE MONONITRATE ER 30 MG TAB.ER.24H PO SCH (09:00)
[2020-05-22] MEDS ORDERED: CLOPIDOGREL 75 MG TAB PO SCH (09:00)
[2020-05-22] MEDS ORDERED: LINAGLIPTIN 5 MG TABLET PO SCH (09:00)
[2020-05-22] MEDS ORDERED: ASPIRIN 81 MG PO SCH (09:00)
[2020-05-22] MEDS ORDERED: FERROUS SULFATE 325 MG TAB PO SCH (09:00)
[2020-05-22] MEDS ORDERED: FAMOTIDINE 20 MG TAB PO SCH (09:00)
[2020-05-22] MEDS ORDERED: ATORVASTATIN 40 MG TAB PO SCH (09:00)
== END 2020-05-21 13:48 | disposition home or self-care (01) ==
LOC: EC 21:34 → 4SSUR 05-21 01:14
PROVIDERS: ADMIT Hospitalist; ATTEND Hospitalist
DX: N17.9 Acute kidney failure, unspecified (principal); R79.89 Other specified abnormal findings of blood chemistry; E86.0 Dehydration; R41.0 Disorientation, unspecified; G93.41 Metabolic encephalopathy; E87.5 Hyperkalemia; R44.1 Visual hallucinations; R47.9 Unspecified speech disturbances; D72.829 Elevated white blood cell count, unspecified; I25.10 Atherosclerotic heart disease of native coronary artery without angina pectoris; J45.909 Unspecified asthma, uncomplicated; E78.5 Hyperlipidemia, unspecified; E87.1 Hypo-osmolality and hyponatremia; M19.90 Unspecified osteoarthritis, unspecified site; E11.22 Type 2 diabetes mellitus with diabetic chronic kidney disease; I12.9 Hypertensive chronic kidney disease with stage 1 through stage 4 chronic kidney disease, or unspecified chronic kidney disease; N18.3 Chronic kidney disease, stage 3 (moderate); E11.21 Type 2 diabetes mellitus with diabetic nephropathy; I25.2 Old myocardial infarction; L30.9 Dermatitis, unspecified; I99.9 Unspecified disorder of circulatory system; D50.9 Iron deficiency anemia, unspecified; I71.2 Thoracic aortic aneurysm, without rupture; F03.90 Unspecified dementia, unspecified severity, without behavioral disturbance, psychotic disturbance, mood disturbance, and anxiety; Z79.02 Long term (current) use of antithrombotics/antiplatelets; Z79.82 Long term (current) use of aspirin; Z79.84 Long term (current) use of oral hypoglycemic drugs; Z79.51 Long term (current) use of inhaled steroids; Z88.1 Allergy status to other antibiotic agents; Z85.828 Personal history of other malignant neoplasm of skin; Z86.73 Personal history of transient ischemic attack (TIA), and cerebral infarction without residual deficits; Z87.01 Personal history of pneumonia (recurrent); Z87.448 Personal history of other diseases of urinary system; Z98.890 Other specified postprocedural states; Z87.442 Personal history of urinary calculi; Z90.710 Acquired absence of both cervix and uterus; Z87.39 Personal history of other diseases of the musculoskeletal system and connective tissue; Z98.41 Cataract extraction status, right eye; Z98.42 Cataract extraction status, left eye; Z87.891 Personal history of nicotine dependence; Z79.899 Other long term (current) drug therapy; Z80.8 Family history of malignant neoplasm of other organs or systems; Z82.49 Family history of ischemic heart disease and other diseases of the circulatory system
CPT/HCPCS: 96361 ×2; 96365; 99285; 36415; 93005; 80053; 80048; 84484; 85025 ×2; 85610; 85730; 81001; 80306; 87086; 87077; 87186; 71046; 70450; G0378; J0696

== ENCOUNTER 2020-06-06 18:19 | Observation (INO) | payer MEDICARE, OTHER ==
[2020-06-06] MEDS ORDERED: SODIUM CHLORIDE 0.9% 1,000 ML IV STA ×4 (18:34→20:10)
--- NOTE | 2020-06-06 18:36 | ED ---
Syncope HPI - General Stated Complaint: Syncope Time Seen by Provider: 06/06/20 18:34 Source: RN notes reviewed, old records reviewed Limitations: altered mental status - History of Present Illness Initial Comments: This is an 80-year-old female poor story presented for syncopal event. Patient has no complaints no headache chest pain shortness of breath or abdominal pain. Patient did ask collapse after having initial syncopal event MD Complaint: loss of consciousness, collapsed -: hour(s) Prodromal Symptoms: lightheaded, palpitations, nausea/vomiting Description of Event: incontinence -: minutes(s) Witnessed: yes - by bystander Injuries Sustained Associated with Event: None Current Symptoms: back to baseline, lightheaded History: previous syncopal episode Context: at rest Treatments Prior to Arrival: none - Related Data Home Medications Medication Instructions Recorded Confirmed Aspirin [Adult Low Dose Aspirin EC] 81 mg PO DAILY 03/13/16 06/06/20 sitaGLIPtin [Januvia] 100 mg PO DAILY 03/13/16 06/06/20 Isosorbide Mononitrate ER [Imdur] 30 mg PO DAILY 01/08/19 06/06/20 Carvedilol [Coreg] 25 mg PO BID 05/08/20 06/06/20 Ergocalciferol [Vitamin D2 50,000 unit PO FR 05/08/20 06/06/20 (DRISDOL)] Fluticasone/Vilanterol [Breo 1 puff INHALATION RT-DAILY PRN 05/08/20 06/06/20 Ellipta 100-25 Mcg Inhaler] Ferrous Sulfate 324mg 324 mg PO DAILY 05/13/20 06/06/20 Vits A,C,E/Lutein/Minerals [Vision 1 tab PO DAILY 05/13/20 06/06/20 Formula with Lutein Tab] Nitroglycerin Sl Tabs [Nitrostat] 0.4 mg SL Q5M PRN 05/20/20 06/06/20 Previous Rx's Medication Instructions Recorded Atorvastatin [Lipitor] 40 mg PO DAILY 30 Days #30 tab 05/08/20 Clopidogrel [Plavix] 75 mg PO DAILY 30 Days #30 tab 05/08/20 amLODIPine [Norvasc] 5 mg PO BID 30 Days #60 tab 05/08/20 Donepezil [Aricept] 5 mg PO HS #30 tab 05/17/20 Famotidine [Pepcid] 20 mg PO DAILY #21 tab 05/17/20 Memantine [Namenda] 5 mg PO BID #60 tab 05/17/20 Allergies Allergy/AdvReac Type Severity Reaction Status Date / Time lincomycin HCl Allergy Unknown Unknown Verified 06/06/20 20:50 [From Lincocin] Review of Systems ROS Statement: Those systems with pertinent positive or pertinent negative responses have been documented in the HPI. ROS Other: All systems not noted in ROS Statement are negative. 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 Past Anesthesia/Blood Transfusion Reactions: No Reported Reaction Past Psychological History: No Psychological Hx Reported Smoking Status: Former smoker Past Alcohol Use History: None Reported Past Drug Use History: None Reported - Past Family History Mother Family Medical History: Cancer Brother(s) Family Medical History: Cancer General Exam General appearance: alert, in no apparent distress Head exam: Present: atraumatic, normocephalic, normal inspection Eye exam: Present: normal appearance, PERRL, EOMI. Absent: scleral icterus, conjunctival injection, periorbital swelling ENT exam: Present: normal exam, mucous membranes moist Neck exam: Present: normal inspection. Absent: tenderness, meningismus, lymphadenopathy Respiratory exam: Present: normal lung sounds bilaterally. Absent: respiratory distress, wheezes, rales, rhonchi, stridor Cardiovascular Exam: Present: normal rhythm, bradycardia, normal heart sounds. Absent: systolic murmur, diastolic murmur, rubs, gallop, clicks GI/Abdominal exam: Present: soft, normal bowel sounds. Absent: distended, tenderness, guarding, rebound, rigid Extremities exam: Present: normal inspection, full ROM, normal capillary refill. Absent: tenderness, pedal edema, joint swelling, calf tenderness Back exam: Present: normal inspection Neurological exam: Present: alert, oriented X3, CN II-XII intact Psychiatric exam: Present: normal affect, normal mood Skin exam: Present: warm, dry, intact, normal color. Absent: rash Course Vital Signs 06/06/20 06/06/20 06/06/20 18:35 19:06 20:30 Temperature 98.2 F 98.1 F Pulse Rate 59 L 78 71 Respiratory 18 18 16 Rate Blood Pressure 92/45 87/77 99/46 O2 Sat by Pulse 97 97 97 Oximetry 06/06/20 21:14 Temperature Pulse Rate 65 Respiratory 16 Rate Blood Pressure 118/85 O2 Sat by Pulse 97 Oximetry - Reevaluation(s) Reevaluation #1: Medical record is reviewed Patient reevaluated, symptoms are significantly improved Patient informed of results and questions are answered EKG Findings - EKG Comments: EKG Findings:: EKG shows sinus bradycardia 58 IN 170 QRS 74 QTc 414 Medical Decision Making - Medical Decision Making 80 female for syncopal event. Patient will be admitted for cardiopulmonary monitoring for cause of syncope. No acute distress no current complaints - Lab Data Result diagrams: 06/08/20 06:05 06/08/20 06:05 Lab Results 06/06/20 06/06/20 06/06/20 Range/Units 18:54 18:56 18:56 WBC 10.5 (3.8-10.6) k/uL RBC 3.53 L (3.80-5.40) m/uL Hgb 10.5 L (11.4-16.0) gm/dL Hct 32.1 L (34.0-46.0) % MCV 91.1 (80.0-100.0) fL MCH 29.8 (25.0-35.0) pg MCHC 32.7 (31.0-37.0) g/dL RDW 13.0 (11.5-15.5) % Plt Count 315 (150-450) k/uL Neutrophils % 59 % Lymphocytes % 31 % Monocytes % 5 % Eosinophils % 4 % Basophils % 1 % Neutrophils # 6.2 (1.3-7.7) k/uL Lymphocytes # 3.2 (1.0-4.8) k/uL Monocytes # 0.5 (0-1.0) k/uL Eosinophils # 0.4 (0-0.7) k/uL Basophils # 0.1 (0-0.2) k/uL PT 10.4 (9.0-12.0) sec INR 1.0 (<1.2) APTT 20.4 L (22.0-30.0) sec D-Dimer 1.42 H (<0.60) mg/L FEU Sodium (137-145) mmol/L Potassium (3.5-5.1) mmol/L Chloride (98-107) mmol/L Carbon Dioxide (22-30) mmol/L Anion Gap mmol/L BUN (7-17) mg/dL Creatinine (0.52-1.04) mg/dL Est GFR (CKD-EPI)AfAm (>60 ml/min/1.73 sqM) Est GFR (CKD-EPI)NonAf (>60 ml/min/1.73 sqM) Glucose (74-99) mg/dL Estimated Ave Glu mg/dL 174 Hemoglobin A1c 7.7 H (4.0-6.0) % Plasma Lactic Acid Sav (0.7-2.0) mmol/L Calcium (8.4-10.2) mg/dL Phosphorus (2.5-4.5) mg/dL Magnesium (1.6-2.3) mg/dL Total Bilirubin (0.2-1.3) mg/dL AST (14-36) U/L ALT (4-34) U/L Alkaline Phosphatase (38-126) U/L Creatine Kinase (30-135) U/L Troponin I (0.000-0.034) ng/mL NT-Pro-B Natriuret Pep pg/mL Total Protein (6.3-8.2) g/dL Albumin (3.5-5.0) g/dL 06/06/20 06/06/20 06/06/20 Range/Units 18:56 18:56 18:56 WBC (3.8-10.6) k/uL RBC (3.80-5.40) m/uL Hgb (11.4-16.0) gm/dL Hct (34.0-46.0) % MCV (80.0-100.0) fL MCH (25.0-35.0) pg MCHC (31.0-37.0) g/dL RDW (11.5-15.5) % Plt Count (150-450) k/uL Neutrophils % % Lymphocytes % % Monocytes % % Eosinophils % % Basophils % % Neutrophils # (1.3-7.7) k/uL Lymphocytes # (1.0-4.8) k/uL Monocytes # (0-1.0) k/uL Eosinophils # (0-0.7) k/uL Basophils # (0-0.2) k/uL PT (9.0-12.0) sec INR (<1.2) APTT (22.0-30.0) sec D-Dimer (<0.60) mg/L FEU Sodium 131 L (137-145) mmol/L Potassium 4.7 (3.5-5.1) mmol/L Chloride 101 (98-107) mmol/L Carbon Dioxide 23 (22-30) mmol/L Anion Gap 7 mmol/L BUN 35 H (7-17) mg/dL Creatinine 2.15 H (0.52-1.04) mg/dL Est GFR (CKD-EPI)AfAm 24 (>60 ml/min/1.73 sqM) Est GFR (CKD-EPI)NonAf 21 (>60 ml/min/1.73 sqM) Glucose 254 H (74-99) mg/dL Estimated Ave Glu mg/dL Hemoglobin A1c (4.0-6.0) % Plasma Lactic Acid Sav 1.3 (0.7-2.0) mmol/L Calcium 8.8 (8.4-10.2) mg/dL Phosphorus 4.4 (2.5-4.5) mg/dL Magnesium 1.8 (1.6-2.3) mg/dL Total Bilirubin 0.7 (0.2-1.3) mg/dL AST 24 (14-36) U/L ALT 13 (4-34) U/L Alkaline Phosphatase 102 (38-126) U/L Creatine Kinase 44 (30-135) U/L Troponin I <0.012 (0.000-0.034) ng/mL NT-Pro-B Natriuret Pep pg/mL Total Protein 6.1 L (6.3-8.2) g/dL Albumin 3.7 (3.5-5.0) g/dL 06/06/20 Range/Units 18:56 WBC (3.8-10.6) k/uL RBC (3.80-5.40) m/uL Hgb (11.4-16.0) gm/dL Hct (34.0-46.0) % MCV (80.0-100.0) fL MCH (25.0-35.0) pg MCHC (31.0-37.0) g/dL RDW (11.5-15.5) % Plt Count (150-450) k/uL Neutrophils % % Lymphocytes % % Monocytes % % Eosinophils % % Basophils % % Neutrophils # (1.3-7.7) k/uL Lymphocytes # (1.0-4.8) k/uL Monocytes # (0-1.0) k/uL Eosinophils # (0-0.7) k/uL Basophils # (0-0.2) k/uL PT (9.0-12.0) sec INR (<1.2) APTT (22.0-30.0) sec D-Dimer (<0.60) mg/L FEU Sodium (137-145) mmol/L Potassium (3.5-5.1) mmol/L Chloride (98-107) mmol/L Carbon Dioxide (22-30) mmol/L Anion Gap mmol/L BUN (7-17) mg/dL Creatinine (0.52-1.04) mg/dL Est GFR (CKD-EPI)AfAm (>60 ml/min/1.73 sqM) Est GFR (CKD-EPI)NonAf (>60 ml/min/1.73 sqM) Glucose (74-99) mg/dL Estimated Ave Glu mg/dL Hemoglobin A1c (4.0-6.0) % Plasma Lactic Acid Sav (0.7-2.0) mmol/L Calcium (8.4-10.2) mg/dL Phosphorus (2.5-4.5) mg/dL Magnesium (1.6-2.3) mg/dL Total Bilirubin (0.2-1.3) mg/dL AST (14-36) U/L ALT (4-34) U/L Alkaline Phosphatase (38-126) U/L Creatine Kinase (30-135) U/L Troponin I (0.000-0.034) ng/mL NT-Pro-B Natriuret Pep 694 pg/mL Total Protein (6.3-8.2) g/dL Albumin (3.5-5.0) g/dL - Radiology Data Radiology results: report reviewed (X-ray abdominal series and chest is negative for acute disease), image reviewed Disposition Clinical Impression: Vasovagal syncope, Hypertension, Syncope, Syncope and collapse Disposition: [facility] Condition: Serious Is patient prescribed a controlled substance at d/c from ED?: No
[2020-06-06 19:08] LABS: Basophils # (A) 0.1 k/uL (0-0.2); Basophils % (A) 1 %; Eosinophils # (A) 0.4 k/uL (0-0.7); Eosinophils % (A) 4 %; HCT 32.1 % (34.0-46.0); HGB 10.5 gm/dL (11.4-16.0); Lymphocytes # (A) 3.2 k/uL (1.0-4.8); Lymphocytes % (A) 31 %; MCH 29.8 pg (25.0-35.0); MCHC 32.7 g/dL (31.0-37.0); MCV 91.1 fL (80.0-100.0); Mean Platelet Volume 7.7; Monocytes # (A) 0.5 k/uL (0-1.0); Monocytes % (A) 5 %; Neutrophils # (A) 6.2 k/uL (1.3-7.7); Neutrophils % (A) 59 %; Platelet Count 315 k/uL (150-450); RBC 3.53 m/uL (3.80-5.40); WBC 10.5 k/uL (3.8-10.6)
[2020-06-06 19:27] LABS: Albumin 3.7 g/dL (3.5-5.0); Calcium 8.8 mg/dL (8.4-10.2); Magnesium 1.8 mg/dL (1.6-2.3); Phosphorus 4.4 mg/dL (2.5-4.5); Potassium 4.7 mmol/L (3.5-5.1); Total Bilirubin 0.7 mg/dL (0.2-1.3); Total Protein 6.1 g/dL (6.3-8.2)
[2020-06-06 19:28] LABS: Prothrombin Time 10.4 sec (9.0-12.0)
[2020-06-06 19:33] LABS: D-Dimer 1.42 mg/L FEU (<0.60); Partial Thromboplastin Time 20.4 sec (22.0-30.0)
[2020-06-06] MEDS ORDERED: NITROGLYCERIN SL TABS 0.4 MG TAB SUBLINGUAL PRN (20:30)
--- NOTE | 2020-06-06 20:35 | XR ---
EXAMINATION TYPE: XR abdomen acute w cxr DATE OF EXAM: 06/06/2020 COMPARISON: Chest x-ray 05/20/2020 HISTORY: Abdominal pain. Altered mental status TECHNIQUE: 4 views FINDINGS: There is no heart failure. There is some atelectasis in the left lower lobe behind the hear t. Heart is enlarged. Thoracic aorta is atheromatous. There is no sign of intestinal obstruction or p neumoperitoneum. Fecal pattern is normal. There is no evidence of a mass. There are no pathologic anne cifications over the kidneys. There are numerous phleboliths in the pelvis. IMPRESSION: Cardiomegaly. There is some atelectasis in the left lower lobe that appears new compared to old exam. Nonacute abdomen.
[2020-06-06] MEDS ORDERED: SYMBICORT 80-4.5 MCG INHALER INHALATION PRN (23:11)
[2020-06-06 23:41] LABS: Glucose,Whole Blood 260 mg/dL (75-99)
[2020-06-06 23:44] LABS: Glucose,Whole Blood 264 mg/dL (75-99)
[2020-06-06] MEDS: INSULIN ASPART (NovoLOG) 100 UNIT/ML VIAL SQ SCH (23:44)
[2020-06-07] LABS: Appearance,Urine Clear (Clear); Bilirubin,Urine Negative (Negative); Blood,Urine Negative (Negative); Color,Urine Colorless; Glucose,Urine (UA) Trace (Negative); Ketones,Urine Negative (Negative); Leukocyte Esterase,Urine Negative (Negative); Nitrite,Urine Negative (Negative); Protein,Urine Negative (Negative); Specific Gravity,Urine 1.005 (1.001-1.035); Urobilinogen,Urine <2.0 mg/dL (<2.0)
[2020-06-07 02:49] LABS: Cholesterol 165 mg/dL (<200); HDL Cholesterol 34 mg/dL (40-60); LDL Cholesterol,Calculated 67 mg/dL (0-99); Triglycerides 320 mg/dL (<150)
[2020-06-07] MEDS: carvediloL 12.5 MG TAB PO SCH ×2 (06:19→17:11)
[2020-06-07 06:20] LABS: Glucose,Whole Blood 179 mg/dL (75-99)
[2020-06-07] MEDS: INSULIN ASPART (NovoLOG) 100 UNIT/ML VIAL SQ SCH ×4 (07:05→21:06)
[2020-06-07] MEDS ORDERED: ALBUTEROL NEBULIZED 2.5 MG/3 ML INHALATION PRN (08:00)
--- NOTE | 2020-06-07 08:41 | P.HPIM ---
History of Present Illness This is a pleasant 80 years old female with past medical history of hypertension, hyperlipidemia, diabetes mellitus, CVA, aortic aneurysm of 4.2 cm 2018, chronic kidney disease stage IV. She is a patient of Dr. Mar in her stock room manager and PCP Dr. Calix. She follows up with filter operator for her kidney disease. Patient with frequent hospital admissions, this is the fourth admission in about one month. She was recently admitted to the hospital for syncope and non-STEMI. She had underwent cardiac cath which showed heavily calcified coronary arteries with calcified mitral annulus with 50% stenosis of the left main coronary artery, surgical team has been consulted. However eventually patient was found high- risk for surgical intervention by Dr. Cui from cardiovascular surgical team. patient is high-risk for surgery due to her comorbidities and mental status and refusal to do surgery. This time - the patient she stated that she came to the hospital because she did not feel well but she did not know what exactly happened to her. However she denies chest pain or dyspnea, no abdominal pain, nausea vomiting, no fever, no headache or weakness or numbness. Also there is no much documentation in the emergency room notes Patient's once I saw her she told me she wants to go home today, and last time when she was admitted for non-STEMI also she did not want to be admitted to the hospital to her grandson came and convinced her to come in. Also this morning her sugar was elevated to 64 and she refuses and insulin treatment, when I talked to her she says she does not need it. I told the patient this is her fourth admission to the hospital and she couldn't remember only as a second. Patient is oriented to place and person as she knows this is [facility] and the name of the president Karlene however she t hought this is a 1981. Also patient has refusing to place IV line, but after we talk to her she agreed. Vitals are stable. CBC is unremarkable, INR is 1.0, d-dimer is 1.4. Sodium 131, creatinine 2.1 with baseline 1.5-1.8. Urinalysis is negative Abdominal x-ray showing no acute abdomen with atelectasis in the lung. EKG showing sinus bradycardia at [address]-T changes. QTC is 414. In the emergency room she received 3 L of normal saline and started on june 30 ml/h. Review of Systems CONSTITUTIONAL: No fever, no malaise, no fatigue. HEENT: No recent visual problems or hearing problems. Denied any sore throat. CARDIOVASCULAR: No orthopnea, PND, no palpitations, no syncope. PULMONARY: No shortness of breath, no cough, no hemoptysis. GASTROINTESTINAL: No diarrhea, no nausea, no vomiting, no abdominal pain. Normoactive bowel sounds. NEUROLOGICAL: No headaches, no weakness, no numbness. HEMATOLOGICAL: Denies any bleeding or petechiae. GENITOURINARY: Denies any burning micturition, frequency, or urgency. MUSCULOSKELETAL/RHEUMATOLOGICAL: Denies any joint pain, swelling, or any muscle pain. ENDOCRINE: Denies any polyuria or polydipsia. Past Medical History Past Medical History: Asthma, Coronary Artery Disease (CAD), Cancer, Chest Pain / Angina, CVA/TIA, Diabetes Mellitus, Hyperlipidemia, Hypertension, Myocardial Infarction ([place]), Osteoarthritis (OA), Pneumonia, Renal Disease, Skin Disorder, Syncope, Vascular Disorder Additional Past Medical History / Comment(s): Pt recently admitted to [facility] on 05/08/20 with chest pain, Other hx: CVA in 2016-no residual, NIDDM type II, low back pain, iron deficiency anemia, thoracic aneurysm per past medical record -pt states she has never been told about an aneurysm, nephrolithiasis-pt passed stones on her own, skin cancer with removals, L knee pain, eczema Last Myocardial Infarction Date:: 2018 History of Any Multi-Drug Resistant Organisms: None Reported Past Surgical History: Section, Hysterectomy, Orthopedic Surgery Additional Past Surgical History / Comment(s): x3, bilateral carpal tu nnel releases, bilateral cataract removals, skin cancer removals. Past Anesthesia/Blood Transfusion Reactions: No Reported Reaction Past Psychological History: No Psychological Hx Reported Additional Psychological History / Comment(s): Pt resides alone. She uses a cane/walker to ambulate. She does not have a car, her grandson lives a couple miles from her and gives her rides. Smoking Status: Former smoker Past Alcohol Use History: None Reported Additional Past Alcohol Use History / Comment(s): Pt started smoking in 1956 and quit in 1984. Past Drug Use History: None Reported - Past Family History Mother Family Medical History: Cancer Brother(s) Family Medical History: Cancer Medications and Allergies Home Medications Medication Instructions Recorded Confirmed Type Aspirin [Adult Low Dose Aspirin EC] 81 mg PO DAILY 03/13/16 06/06/20 History sitaGLIPtin [Januvia] 100 mg PO DAILY 03/13/16 06/06/20 History Isosorbide Mononitrate ER [Imdur] 30 mg PO DAILY 01/08/19 06/06/20 History Atorvastatin [Lipitor] 40 mg PO DAILY 30 Days #30 tab 05/08/20 06/06/20 Rx Carvedilol [Coreg] 25 mg PO BID 05/08/20 06/06/20 History Clopidogrel [Plavix] 75 mg PO DAILY 30 Days #30 tab 05/08/20 06/06/20 Rx Ergocalciferol [Vitamin D2 50,000 unit PO FR 05/08/20 06/06/20 History (DRISDOL)] Fluticasone/Vilanterol [Breo 1 puff INHALATION RT-DAILY PRN 05/08/20 06/06/20 History Ellipta 100-25 Mcg Inhaler] amLODIPine [Norvasc] 5 mg PO BID 30 Days #60 tab 05/08/20 06/06/20 Rx Ferrous Sulfate 324mg 324 mg PO DAILY 05/13/20 06/06/20 History Vits A,C,E/Lutein/Minerals [Vision 1 tab PO DAILY 05/13/20 06/06/20 History Formula with Lutein Tab] Donepezil [Aricept] 5 mg PO HS #30 tab 05/17/20 06/06/20 Rx Famotidine [Pepcid] 20 mg PO DAILY #21 tab 05/17/20 06/06/20 Rx Memantine [Namenda] 5 mg PO BID #60 tab 05/17/20 06/06/20 Rx Nitroglycerin Sl Tabs [Nitrostat] 0.4 mg SL Q5M PRN 05/20/20 06/06/20 History Allergies Allergy/AdvReac Type Severity Reaction Status Date / Time lincomycin HCl Allergy Unknown Unknown Verified 06/06/20 20:50 [From Lincocin] Physical Exam Vitals: Vital Signs Temp Pulse Pulse Resp BP BP Pulse Ox 06/07/20 06:14 69 136/70 06/07/20 02:55 98.2 F 70 17 151/64 98 06/06/20 22:43 97.7 F 68 18 104/54 98 06/06/20 21:14 65 16 118/85 97 06/06/20 20:30 98.1 F 71 16 99/46 97 06/06/20 19:06 78 18 87/77 97 06/06/20 18:35 98.2 F 59 L 18 92/45 97 Intake and Output 06/06/20 06/07/20 06/07/20 22:59 06:59 14:59 Output Total 850 Balance -850 Output: Urine 850 Other: Voiding Method Toilet Toilet Weight 63.503 kg -GENERAL: The patient is alert and oriented x2, not in any acute distress. Well developed, well nourished. HEENT: Pupils are round and equally reacting to light. EOMI. No scleral icterus. No conjunctival pallor. Normocephalic, atraumatic. No pharyngeal erythema. No thyromegaly. CARDIOVASCULAR: S1 and S2 present. No murmurs, rubs, or gallops. PULMONARY: Chest is clear to auscultation, no wheezing or crackles. ABDOMEN: Soft, nontender, nondistended, normoactive bowel sounds. No palpable organomegaly. MUSCULOSKELETAL: No joint swelling or deformity. EXTREMITIES: No cyanosis, clubbing, or pedal edema. NEUROLOGICAL: Gross neurological examination did not reveal any focal deficits. SKIN: No rashes. No petechiae Results CBC & Chem 7: 06/06/20 18:56 06/06/20 18:56 Labs: Abnormal Lab Results - Last 24 Hours (Table) 06/06/20 06/06/20 06/06/20 Range/Units 18:56 18:56 18:56 RBC 3.53 L (3.80-5.40) m/uL Hgb 10.5 L (11.4-16.0) gm/dL Hct 32.1 L (34.0-46.0) % APTT 20.4 L (22.0-30.0) sec D-Dimer 1.42 H (<0.60) mg/L FEU Sodium 131 L (137-145) mmol/L BUN 35 H (7-17) mg/dL Creatinine 2.15 H (0.52-1.04) mg/dL Glucose 254 H (74-99) mg/dL POC Glucose (mg/dL) (75-99) mg/dL Total Protein 6.1 L (6.3-8.2) g/dL Triglycerides (<150) mg/dL HDL Cholesterol (40-60) mg/dL Urine Glucose (UA) (Negative) 06/06/20 06/06/20 06/06/20 Range/Units 23:34 23:43 23:50 RBC (3.80-5.40) m/uL Hgb (11.4-16.0) gm/dL Hct (34.0-46.0) % APTT (22.0-30.0) sec D-Dimer (<0.60) mg/L FEU Sodium (137-145) mmol/L BUN (7-17) mg/dL Creatinine (0.52-1.04) mg/dL Glucose (74-99) mg/dL POC Glucose (mg/dL) 260 H 264 H (75-99) mg/dL Total Protein (6.3-8.2) g/dL Triglycerides (<150) mg/dL HDL Cholesterol (40-60) mg/dL Urine Glucose (UA) Trace H (Negative) 06/07/20 06/07/20 Range/Units 02:19 06:18 RBC (3.80-5.40) m/uL Hgb (11.4-16.0) gm/dL Hct (34.0-46.0) % APTT (22.0-30.0) sec D-Dimer (<0.60) mg/L FEU Sodium (137-145) mmol/L BUN (7-17) mg/dL Creatinine (0.52-1.04) mg/dL Glucose (74-99) mg/dL POC Glucose (mg/dL) 179 H (75-99) mg/dL Total Protein (6.3-8.2) g/dL Triglycerides 320 H (<150) mg/dL HDL Cholesterol 34 L (40-60) mg/dL Urine Glucose (UA) (Negative) Thrombosis Risk Factor Assmnt - Choose All That Apply Each Factor Represents 1 point: Obesity (BMI >25) Other Risk Factors: No Each Risk Factor Represents 3 Points: Age 75 years or older Other congenital or acquired thrombophilia - If yes, enter type in comment: No Thrombosis Risk Factor Assessment Total Risk Factor Score: 4 Thrombosis Risk Factor Assessment Level: Moderate Risk Assessment and Plan Assessment: -Syncope -Acute kidney injury, on the top of chronic kidney disease -Refusal of treatment -Recent non-STEMI 5 days prior to admission, patient declined cardiac cath:Cardiac cath showed heavily calcified coronary arteries with calcified mitral annulus with 50% stenosis of the left main coronary artery, surgery was recommended and patient agrees -Mild confusion, rule out dementia -Chronic kidney disease stage III -Right shoulder rotator cuff tear -Diabetes mellitus with hyperglycemia -Hypertension -Hyperlipidemia -History of CVA -Aortic aneurysm Plan: This is a pleasant 80 years old female who presents with syncope. History is limited, we'll keep monitoring the patient. Patient refusing treatment for example insulin and IV. Also I think patient she has difficulty taking care of herself since she has multiple hospitalization with similar complaints. Pressure is uncontrolled. we called psychiatric service evaluation because she refuses treatment and to assess capacity. Also we will consult physical therapy And given her significant cardiac history we'll ask for stock room manager table with the patient in view of her syncope Labs and medication were reviewed.. Continue same treatment. Continue with symptomatic treatment. Resume home medication. Monitor lytes and vitals. DVT and GI prophylaxis. Further recommendations of the clinical course of the patient DVT prophylaxis: Subcutaneous heparin GI Prophylaxis: Pepcid PT/OT: Pending Prognosis is guarded
[2020-06-07] MEDS ORDERED: SODIUM CHLORIDE 0.9% 1,000 ML IV SCH (08:45)
[2020-06-07] MEDS: LINAGLIPTIN 5 MG TABLET PO SCH (08:51)
[2020-06-07] MEDS: ASPIRIN 81 MG PO SCH (08:51)
[2020-06-07] MEDS: CLOPIDOGREL 75 MG TAB PO SCH (08:51)
[2020-06-07] MEDS: amLODIPine 5 MG TAB PO SCH ×2 (08:51→21:06)
[2020-06-07] MEDS: VIT A,C & E-LUTEIN-MINERALS 1 EACH TAB PO SCH (08:51)
[2020-06-07] MEDS: ATORVASTATIN 40 MG TAB PO SCH (08:51)
[2020-06-07] MEDS: ENOXAPARIN 30 MG/0.3 ML SYRINGE SQ SCH (08:55)
[2020-06-07] MEDS: ISOSORBIDE MONONITRATE ER 30 MG TAB.ER.24H PO SCH (08:55)
[2020-06-07] MEDS: FAMOTIDINE 20 MG TAB PO SCH (08:55)
[2020-06-07] MEDS ORDERED: FERROUS SULFATE 324 MG PO SCH (09:00)
[2020-06-07] MEDS ORDERED: ASPIRIN 325 MG TAB PO SCH (09:00)
--- NOTE | 2020-06-07 10:21 | P.CRDCN ---
History of Present Illness History of present illness: HISTORY OF PRESENTING ILLNESS This is a pleasant 80-year-old occasion female past medical history significant for coronary artery disease, diabetes mellitus, hypertension and dyslipidemia. The patient recently underwent cardiac catheterization revealing diffuse coronary artery disease with a lesion in the ostial left main of 50%, 30% disease in the mid and distal LAD, 30% disease of the circumflex, 30% disease of the ostial RCA and 30-40% disease of the mid and distal RCA. At that time she was recommended to undergo bypass grafting however the patient declined. She is currently being treated with maximal medical therapy. She follows in the office with Dr. Arita. We have been asked to see in consultation for weak heart. She presented to the hospital with symptoms of dizziness. She states she was walking from her living room to her kitchen when she felt dizzy. She is some what of a poor historian however she is very clear that she would like to go home and she wants no further cardiac testing or procedures to be performed. She is seen and examined sitting up in bed in no acute distress. She discussed and working with physical therapy and an related in the hallway without difficulty. She denies symptoms of chest pain, shortness of breath, dizziness or palpitations. Telemetry tracings have been unremarkable for an arrhythmia. EKG reveals sinus bradycardia heart rate of 58 with no ischemic changes noted. Acute abdominal series reveals some atelectasis in the left lower lobe and nonacute abdomen. Laboratory data reviewed, cardiac enzymes negative 3, LDL 6 7, WBC 10.5, hemoglobin 10.5, platelets 315, d-dimer 1.42, sodium 131, potassium 4.7, creatinine 2.15, NT proBNP 694 and magnesium 1.8. Current daily cardiac medications include aspirin 81 mg daily, atorvastatin 40 mg daily, carvedilol 25 mg twice a day, Plavix 75 mg daily, Imdur 30 mg daily and amlodipine 5 mg twice a day. At the time of her heart catheterization in April 2020 she underwent an echocardiogram revealing preserved LV systolic function with ejection fraction 55-60% heavily calcified mitral valve and mild mitral regurgitation and mild tricuspid regurgitation. REVIEW OF SYSTEMS At the time of my exam: CONSTITUTIONAL: Denies fever or chills. CARDIOVASCULAR: Denies chest pain, shortness of breath, orthopnea, PND or palpitations. RESPIRATORY: Denies cough. GASTROINTESTINAL: Denies abdominal pain, diarrhea, constipation, nausea or vomiting. MUSCULOSKELETAL: Denies myalgias. NEUROLOGIC: Denies numbness, tingling or weakness. ENDOCRINE: Denies fatigue, weight change, polydipsia or polyurina. GENITOURINARY: Denies burning, hematuria or urgency with micturation. HEMATOLOGIC: Denies history of anemia or bleeding. PHYSICAL EXAMINATION Blood pressure 146/66 heart rate 62 afebrile and maintaining oxygen saturation on room air. CONSTITUTIONAL: No apparent distress. HEENT: Head is normocephalic. Pupils are equal, round. Sclerae anicteric. Mucous membranes of the mouth are moist. No JVD. No carotid bruit. CHEST EXAMINATION: Lungs are clear to auscultation. No chest wall tenderness is noted on palpation or with deep breathing. HEART EXAMINATION: Regular rate and rhythm. S1, S2 heard. Soft systolic ejection murmur at the left sternal border, no gallops or rub. ABDOMEN: Soft, nontender. Positive bowel sounds. EXTREMITIES: 2+ peripheral pulses, no lower extremity edema and no calf tenderness. NEUROLOGIC EXAMINATION: Patient is awake, alert and oriented x3. ASSESSMENT Acute on chronic kidney disease Near syncope Coronary artery disease on maximum medical therapy Hypertension Dyslipidemia Diabetes mellitus PLAN Continue current medical regimen. The patient is aware of her cardiac disease and history. She wants no further cardiac testing and prefers to remain in maximal medical therapy. This has been discussed with the patient's family in the past in the office with Dr. Arita. No further cardiac testing needed at this time. Follow-up in the office with Dr. Arita. Thank you kindly for this consultation. Nurse Practitioner note has been reviewed, I agree with a documented findings and plan of care. Patient was seen and examined. Past Medical History Past Medical History: Asthma, Coronary Artery Disease (CAD), Cancer, Chest Pain / Angina, CVA/TIA, Diabetes Mellitus, Hyperlipidemia, Hypertension, Myocardial Infarction ([place]), Osteoarthritis (OA), Pneumonia, Renal Disease, Skin Disorder, Syncope, Vascular Disorder Additional Past Medical History / Comment(s): Pt recently admitted to [facility] on 05/08/20 with chest pain, Other hx: CVA in 2016-no residual, NIDDM type II, low back pain, iron deficiency anemia, thoracic aneurysm per past medical record-pt states she has never been told about an aneurysm, nephrolithiasis-pt passed stones on her own, skin cancer with removals, L knee pain, eczema Last Myocardial Infarction Date:: 2018 History of Any Multi-Drug Resistant Organisms: None Reported Past Surgical History: Section, Hysterectomy, Orthopedic Surgery Additional Past Surgical History / Comment(s): x3, bilateral carpal tunnel releases, bilateral cataract removals, skin cancer removals. Past Anesthesia/Blood Transfusion Reactions: No Reported Reaction Past Psychological History: No Psychological Hx Reported Additional Psychological History / Comment(s): Pt resides alone. She uses a cane/walker to ambulate. She does not have a car, her grandson lives a couple miles from her and gives her rides. Smoking Status: Former smoker Past Alcohol Use History: None Reported Additional Past Alcohol Use History / Comment(s): Pt started smoking in 5 and quit in 1984. Past Drug Use History: None Reported - Past Family History Mother Family Medical History: Cancer Brother(s) Family Medical History: Cancer Medications and Allergies Home Medications Medication Instructions Recorded Confirmed Type Aspirin [Adult Low Dose Aspirin EC] 81 mg PO DAILY 03/13/16 06/06/20 History sitaGLIPtin [Januvia] 100 mg PO DAILY 03/13/16 06/06/20 History Isosorbide Mononitrate ER [Imdur] 30 mg PO DAILY 01/08/19 06/06/20 History Atorvastatin [Lipitor] 40 mg PO DAILY 30 Days #30 tab 05/08/20 06/06/20 Rx Carvedilol [Coreg] 25 mg PO BID 05/08/20 06/06/20 History Clopidogrel [Plavix] 75 mg PO DAILY 30 Days #30 tab 05/08/20 06/06/20 Rx Ergocalciferol [Vitamin D2 50,000 unit PO FR 05/08/20 06/06/20 History (DRISDOL)] Fluticasone/Vilanterol [Breo 1 puff INHALATION RT-DAILY PRN 05/08/20 06/06/20 History Ellipta 100-25 Mcg Inhaler] amLODIPine [Norvasc] 5 mg PO BID 30 Days #60 tab 05/08/20 06/06/20 Rx Ferrous Sulfate 324mg 324 mg PO DAILY 05/13/20 06/06/20 History Vits A,C,E/Lutein/Minerals [Vision 1 tab PO DAILY 05/13/20 06/06/20 History Formula with Lutein Tab] Donepezil [Aricept] 5 mg PO HS #30 tab 05/17/20 06/06/20 Rx Famotidine [Pepcid] 20 mg PO DAILY #21 tab 05/17/20 06/06/20 Rx Memantine [Namenda] 5 mg PO BID #60 tab 05/17/20 06/06/20 Rx Nitroglycerin Sl Tabs [Nitrostat] 0.4 mg SL Q5M PRN 05/20/20 06/06/20 History Allergies Allergy/AdvReac Type Severity Reaction Status Date / Time lincomycin HCl Allergy Unknown Unknown Verified 06/06/20 20:50 [From Lincocin] Physical Exam Vitals: Vital Signs Temp Pulse Pulse Resp BP BP Pulse Ox 06/07/20 08:08 97.8 F 62 16 146/66 95 06/07/20 06:14 69 136/70 06/07/20 02:55 98.2 F 70 17 151/64 98 06/06/20 22:43 97.7 F 68 18 104/54 98 06/06/20 21:14 65 16 118/85 97 06/06/20 20:30 98.1 F 71 16 99/46 97 06/06/20 19:06 78 18 87/77 97 06/06/20 18:35 98.2 F 59 L 18 92/45 97 Intake and Output 06/06/20 06/07/20 06/07/20 22:59 06:59 14:59 Output Total 850 Balance -850 Output: Urine 850 Other: Voiding Method Toilet Toilet Weight 63.503 kg Results 06/06/20 18:56 06/06/20 18:56 Cardiac Enzymes 06/06/20 06/06/20 06/06/20 Range/Units 18:56 18:56 22:31 AST 24 (14-36) U/L Troponin I <0.012 <0.012 (0.000-0.034) ng/mL 06/07/20 Range/Units 02:19 AST (14-36) U/L Troponin I <0.012 (0.000-0.034) ng/mL Coagulation 06/06/20 Range/Units 18:56 PT 10.4 (9.0-12.0) sec APTT 20.4 L (22.0-30.0) sec Lipids 06/07/20 Range/Units 02:19 Triglycerides 320 H (<150) mg/dL Cholesterol 165 (<200) mg/dL HDL Cholesterol 34 L (40-60) mg/dL CBC 06/06/20 Range/Units 18:56 WBC 10.5 (3.8-10.6) k/uL RBC 3.53 L (3.80-5.40) m/uL Hgb 10.5 L (11.4-16.0) gm/dL Hct 32.1 L (34.0-46.0) % Plt Count 315 (150-450) k/uL Comprehensive Metabolic Panel 06/06/20 Range/Units 18:56 Sodium 131 L (137-145) mmol/L Potassium 4.7 (3.5-5.1) mmol/L Chloride 101 (98-107) mmol/L Carbon Dioxide 23 (22-30) mmol/L BUN 35 H (7-17) mg/dL Creatinine 2.15 H (0.52-1.04) mg/dL Glucose 254 H (74-99) mg/dL Calcium 8.8 (8.4-10.2) mg/dL AST 24 (14-36) U/L ALT 13 (4-34) U/L Alkaline Phosphatase 102 (38-126) U/L Total Protein 6.1 L (6.3-8.2) g/dL Albumin 3.7 (3.5-5.0) g/dL Current Medications Generic Name Dose Route Start Last Admin Trade Name Freq PRN Reason Stop Dose Admin Albuterol Sulfate 2.5 mg 06/07/20 08:00 Albuterol Nebulized 2.5 Mg/3 Ml INHALATION RT-TID PRN Shortness Of Breath Or Wheezing Amlodipine Besylate 5 mg 06/07/20 09:00 06/07/20 08:51 Amlodipine 5 Mg Tab PO 5 mg BID GHAZAL Administration Aspirin 81 mg 06/07/20 09:00 06/07/20 08:51 Aspirin 81 Mg PO 81 mg DAILY GHAZAL Administration Atorvastatin Calcium 40 mg 06/07/20 09:00 06/07/20 08:51 Atorvastatin 40 Mg Tab PO 40 mg DAILY GHAZAL Administration Budesonide/Formoterol Fumarate 2 puff 06/06/20 23:11 Symbicort 80-4.5 Mcg Inhaler INHALATION RT-BID PRN Shortness Of Breath Carvedilol 25 mg 06/07/20 07:30 06/07/20 06:19 Carvedilol 12.5 Mg Tab PO 25 mg BID-W/MEALS GHAZAL Administration Clopidogrel Bisulfate 75 mg 06/07/20 09:00 06/07/20 08:51 Clopidogrel 75 Mg Tab PO 75 mg DAILY GHAZAL Administration Enoxaparin Sodium 30 mg 06/07/20 09:00 06/07/20 08:55 Enoxaparin 30 Mg/0.3 Ml Syringe SQ 30 mg DAILY GHAZAL Administration Famotidine 20 mg 06/07/20 09:00 06/07/20 08:55 Famotidine 20 Mg Tab PO 20 mg DAILY GHAZAL Administration Sodium Chloride 1,000 mls @ 130 mls/hr 06/07/20 08:45 06/07/20 08:51 Saline 0.9% IV 130 mls/hr .[id number] GHAZAL Administration Insulin Aspart 0 unit 06/06/20 23:25 06/07/20 07:05 Insulin Aspart (Novolog) 100 Unit/Ml Vial SQ Not Given [facility] Protocol Isosorbide Mononitrate 30 mg 06/07/20 09:00 06/07/20 08:55 Isosorbide Mononitrate Er 30 Mg Tab.Er.24h PO 30 mg DAILY GHAZAL Administration Linagliptin 5 mg 06/07/20 09:00 06/07/20 08:51 Linagliptin 5 Mg Tablet PO 5 mg DAILY GHAZAL Administration Multivitamins/Minerals 1 each 06/07/20 09:00 06/07/20 08:51 Vit A,C & [id number] 1 Each Tab PO 1 each DAILY GHAZAL Administration Nitroglycerin 0.4 mg 06/06/20 20:30 Nitroglycerin Sl Tabs 0.4 Mg Tab SUBLINGUAL Q5M PRN Chest Pain Intake and Output 06/06/20 06/07/20 06/07/20 22:59 06:59 14:59 Output Total 850 Balance -850 Output: Urine 850 Other: Voiding Method Toilet Toilet Weight 63.503 kg 06/06/20 18:56 06/06/20 18:56
[2020-06-07 12:14] LABS: Glucose,Whole Blood 210 mg/dL (75-99)
[2020-06-07] MEDS: SODIUM CHLORIDE 0.9% 1,000 ML IV SCH (16:54)
[2020-06-07 16:58] LABS: Glucose,Whole Blood 200 mg/dL (75-99)
[2020-06-07 20:23] LABS: Hemoglobin A1C 7.7 % (4.0-6.0)
[2020-06-07 21:11] LABS: Glucose,Whole Blood 188 mg/dL (75-99)
[2020-06-08 06:23] LABS: Basophils % (A) 0 %; Eosinophils # (A) 0.4 k/uL (0-0.7); Eosinophils % (A) 5 %; HCT 32.9 % (34.0-46.0); HGB 10.8 gm/dL (11.4-16.0); Lymphocytes # (A) 2.4 k/uL (1.0-4.8); Lymphocytes % (A) 28 %; MCHC 32.7 g/dL (31.0-37.0); MCV 91.6 fL (80.0-100.0); Monocytes # (A) 0.4 k/uL (0-1.0); Monocytes % (A) 5 %; Neutrophils # (A) 5.1 k/uL (1.3-7.7); Neutrophils % (A) 60 %; Platelet Count 265 k/uL (150-450); RDW 13.1 % (11.5-15.5); WBC 8.5 k/uL (3.8-10.6)
[2020-06-08 06:34] LABS: Calcium 9.2 mg/dL (8.4-10.2); Potassium 4.4 mmol/L (3.5-5.1)
[2020-06-08 06:34] LABS: Glucose,Whole Blood 143 mg/dL (75-99)
[2020-06-08] MEDS: carvediloL 12.5 MG TAB PO SCH (06:34)
[2020-06-08] MEDS: INSULIN ASPART (NovoLOG) 100 UNIT/ML VIAL SQ SCH ×2 (06:35→13:02)
[2020-06-08 08:32] VITALS: RESP 16
[2020-06-08] MEDS: VIT A,C & E-LUTEIN-MINERALS 1 EACH TAB PO SCH (08:42)
[2020-06-08] MEDS: CLOPIDOGREL 75 MG TAB PO SCH (08:42)
[2020-06-08] MEDS: LINAGLIPTIN 5 MG TABLET PO SCH (08:42)
[2020-06-08] MEDS: ASPIRIN 81 MG PO SCH (08:42)
[2020-06-08] MEDS: ISOSORBIDE MONONITRATE ER 30 MG TAB.ER.24H PO SCH (08:42)
[2020-06-08] MEDS: ATORVASTATIN 40 MG TAB PO SCH (08:42)
[2020-06-08] MEDS: amLODIPine 5 MG TAB PO SCH (08:42)
[2020-06-08] MEDS: FAMOTIDINE 20 MG TAB PO SCH (08:42)
[2020-06-08] MEDS: ENOXAPARIN 30 MG/0.3 ML SYRINGE SQ SCH (08:42)
[2020-06-08 12:16] LABS: Glucose,Whole Blood 174 mg/dL (75-99)
[2020-06-08] MEDS: SODIUM CHLORIDE 0.9% 1,000 ML IV SCH (13:03)
[2020-06-08 15:03] VITALS: BP 176/64; PULSE 70; TEMP 97.6
--- NOTE | 2020-06-08 19:37 | CONS ---
DATE OF SERVICE: 06/08/2020 CONSULTATION PURPOSE FOR CONSULTATION: Evaluate for competency for medical decision. HISTORY OF PRESENTING ILLNESS: The patient is an 80-year-old female. She has had four medical admissions to this facility in the past month. Her first admission in the last month related to elevated blood sugar issues and apparently an SD followed by a second admission when she had blacked out. At that time she apparently fell and hit her head. She indicates that she was passed out, "for a few minutes." Her third admission related to having hallucinations. She apparently also had a fainting spell at that time. As noted on this admission, the patient was stating that she was not feeling right though apparently she did not provide much for details. She thought that her current hospitalization was just her second and she did not remember the other hospitalizations. The patient lives alone in her own apartment in an apartment complex. Her grandson generally sees her on a daily basis though recently he apparently was out of the state for some days. It is not clear what the patient herself had for home care. It is noted that the patient had been having meals delivered though because of these recent hospitalizations where no one was there to accept the meals, the service ended up discontinuing home meals. The grandson who was with the patient when I saw her, states that she does cook. It is noted that her oldest son has power of commercial real estate attorney. She also has a younger son who has been involved in providing support. Her sons live in [facility] and are not able to provide close support. Apparently, social work had made contact with one of the sons yesterday in regards to discharge planning, though no information is available in regards to what specifically was discussed. When I talked with the patient about the question of it being unsafe for her to return home living alone, she could acknowledge that there were ongoing problems because she has had two recent episodes of passing out and having falls. On the other hand, the patient was adamant about the idea that she did not feel she was prepared to move into an alternative living situation. We talked with her grandson as part of the conversation. He indicated that there were assisted living situations that might be supportive for her. The patient said she has talked with one of her sons and would be willing to look at facilities. When I asked her where she would be most comfortable living, she was able to say she could move down state to where one of her sons were or stay in [place]. She says that the one downside to her current situation is she does not have a store that she could walk to where she could feel she has some independence and have some services available. MENTAL STATUS: Patient gave fairly good eye contact. Psychomotor activity was normal. She answered questions appropriately. Her thoughts were generally clear. At times she was a little intense in her affect. She had a worried manner. Her mood for the most part was in reasonable range. She did get upset a few times about the thought of moving to an alternative living situation, though she was also able to process some information about it in an appropriate manner. She was worried about some of her issues, though otherwise did not appear to be having significant distress. There was no indication of thought disorder. She was not at risk for self-harm. On cognitive exam, the patient was able to say it was May. She thought it was the . She knew the year. She knew that she was in "[facility]", though she could not give me any other name for the hospital. She was not able to say who her hospital doctor was other than "he has a foreign name." She was able to give me some details about her first hospitalization with her having had an apparent heart attack. She was able to acknowledge that she had a blackout at home and had another episode of being dizzy and faint. As noted by Dr. Lakhani, she was not clear about the fact of having had three prior hospitalizations in the past month. ASSESSMENT: This 80-year-old female is reasonably oriented to her circumstances and her overall situation. She is borderline as far as whether she is at a point of not being able to make medical decisions for herself. She apparently has been able to express her concerns on previous admissions in regard to medical care. She was able to at least passively accept the fact that with two recent episodes of passing out at this point there are safety concerns for determining discharge. I suggested to the patient that if our addiction social worker could talk with one of her two sons and set up the concrete plans for her in the very near future to visit some alternative living options that that would be a reasonable plan and would put her in a situation where she could be discharged to home, understanding that her current living situation puts her in a precarious situation for any longer term living. For the patient's part she was willing to accept that situation. At this point it would be unsafe to discharge the patient until some concrete plans are in place with support from her immediate family, namely her elder son who is her DPOA or her younger son who also is in a position of providing support. I will continue to follow. DANIELA / ARGELIA: [id number] / MTDD
--- NOTE | 2020-06-08 23:28 | P.DS ---
Providers Date of admission: 06/06/20 20:30 Expected date of discharge: 06/08/20 Attending physician: Zenaida Hu Consults: 06/07/20 08:33 Consult Physician Routine Consulting Provider: Nayla Ceja Consult Reason/Comments: weak heart Do you want consulting provider notified?: Yes Consult Physician Routine Consulting Provider: Mark Chase Consult Reason/Comments: assess capacity ,dementia, refusal treatment Do you want consulting provider notified?: Yes Primary care physician: Roberto Whyte [facility] Course: HPI - This is a pleasant 80 years old female with past medical history of hypertension, hyperlipidemia, diabetes mellitus, CVA, aortic aneurysm of 4.2 cm 2018, chronic kidney disease stage IV. 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 Calix. She follows up with hand outside cutter for her kidney disease. Patient with frequent hospital admissions, this is the fourth admission in about one month. She was recently admitted to the hospital for syncope and non-STEMI. She had underwent cardiac cath which showed heavily calcified coronary arteries with calcified mitral annulus with 50% stenosis of the left main coronary artery, surgical team has been consulted. However eventually patient was found high- risk for surgical intervention by Dr. Cui from cardiovascular surgical team. patient is high-risk for surgery due to her comorbidities and mental status and refusal to do surgery. This time - the patient she stated that she came to the hospital because she did not feel well but she did not know what exactly happened to her. However she denies chest pain or dyspnea, no abdominal pain, nausea vomiting, no fever, no headache or weakness or numbness. Also there is no much documentation in the emergency room notes : Patient's once I saw her she told me she wants to go home today, and last time when she was admitted for non-STEMI also she did not want to be admitted to the hospital to her grandson came and convinced her to come in. Also this morning her sugar was elevated to 64 and she refuses and insulin treatment, when I talked to her she says she does not need it. I told the patient this is her fourth admission to the hospital and she couldn't remember only as a second. Patient is oriented to place and person as she knows this is [facility] and the name of the president Karlene however she thought this is a 1982. Also patient has refusing to place IV line, but after we talk to her she agreed. Vitals are stable. CBC is unremarkable, INR is 1.0, d-dimer is 1.4. Sodium 131, creatinine 2.1 with baseline 1.5-1.8. Urinalysis is negative Abdominal x-ray showing no acute abdomen with atelectasis in the lung. EKG showing sinus bradycardia at [address]-T changes. QTC is 414. In the emergency room she received 3 L of normal saline and started on june 30 ml/h. Hospital course - this morning when I went into the room patient started to ask me that she wants to go home. Patient is being monitored for near syncope. Patient has history of significant coronary artery disease, but does not want any further cardiac testing and prefers to be maintained on maximal medical therapy. Patient had 4 admissions in the past 6 weeks for pretty much the same complaints. The patient comes to the emergency department but does not want to get the workup done and leaves the hospital AGAINST MEDICAL ADVICE. Patient's current mentation is that she is alert awake and oriented 3. She answered all of my questions and her MMSE score was 23 out of 30. Patient was advised to stay in the hospital and get further workup and care done but she refuses to do so and left the hospital AGAINST MEDICAL ADVICE. DISCHARGE DIAGNOSIS Acute on chronic kidney disease Near syncope Coronary artery disease on maximum medical therapy Hypertension Dyslipidemia Diabetes mellitus Patient left AGAINST MEDICAL ADVICE. More than 40 minutes spent, trying to convince the patient to stay, her grandson was at the bedside. Eventually patient left AGAINST MEDICAL ADVICE. Patient Condition at Discharge: Serious Plan - Discharge Summary Discharge Rx Participant: No New Discharge Prescriptions: No Action sitaGLIPtin [Januvia] 100 mg PO DAILY Aspirin [Adult Low Dose Aspirin EC] 81 mg PO DAILY Isosorbide Mononitrate ER [Imdur] 30 mg PO DAILY Fluticasone/Vilanterol [Breo Ellipta 100-25 Mcg Inhaler] 1 puff INHALATION RT-DAILY PRN PRN Reason: Shortness Of Breath Carvedilol [Coreg] 25 mg PO BID Ergocalciferol [Vitamin D2 (DRISDOL)] 50,000 unit PO FR Atorvastatin [Lipitor] 40 mg PO DAILY 30 Days #30 tab amLODIPine [Norvasc] 5 mg PO BID 30 Days #60 tab Clopidogrel [Plavix] 75 mg PO DAILY 30 Days #30 tab Vits A,C,E/Lutein/Minerals [Vision Formula with Lutein Tab] 1 tab PO DAILY Ferrous Sulfate 324mg 324 mg PO DAILY Donepezil [Aricept] 5 mg PO HS #30 tab Memantine [Namenda] 5 mg PO BID #60 tab Famotidine [Pepcid] 20 mg PO DAILY #21 tab Nitroglycerin Sl Tabs [Nitrostat] 0.4 mg SL Q5M PRN PRN Reason: Chest Pain Discharge Medication List Aspirin [Adult Low Dose Aspirin EC] 81 mg PO DAILY 03/13/16 [History] sitaGLIPtin [Januvia] 100 mg PO DAILY 03/13/16 [History] Isosorbide Mononitrate ER [Imdur] 30 mg PO DAILY 01/08/19 [History] Atorvastatin [Lipitor] 40 mg PO DAILY 30 Days #30 tab 05/08/20 [Rx] Carvedilol [Coreg] 25 mg PO BID 05/08/20 [History] Clopidogrel [Plavix] 75 mg PO DAILY 30 Days #30 tab 05/08/20 [Rx] Ergocalciferol [Vitamin D2 (DRISDOL)] 50,000 unit PO FR 05/08/20 [History] Fluticasone/Vilanterol [Breo Ellipta 100-25 Mcg Inhaler] 1 puff INHALATION RT- DAILY PRN 05/08/20 [History] amLODIPine [Norvasc] 5 mg PO BID 30 Days #60 tab 05/08/20 [Rx] Ferrous Sulfate 324mg 324 mg PO DAILY 05/13/20 [History] Vits A,C,E/Lutein/Minerals [Vision Formula with Lutein Tab] 1 tab PO DAILY 05/13/20 [History] Donepezil [Aricept] 5 mg PO HS #30 tab 05/17/20 [Rx] Famotidine [Pepcid] 20 mg PO DAILY #21 tab 05/17/20 [Rx] Memantine [Namenda] 5 mg PO BID #60 tab 05/17/20 [Rx] Nitroglycerin Sl Tabs [Nitrostat] 0.4 mg SL Q5M PRN 05/20/20 [History] Follow up Appointment(s)/Referral(s): Rigo Arita MD [STAFF PHYSICIAN] - 2 Weeks (Office is currently closed, please call wednesday am to schedule follow up appointment) Catherine Mejia MD [Primary Care Provider] - 1-2 days (Office is currently closed, please call wednesday am to schedule follow up appointment.) Saritha [facility] [place], [NON-STAFF] - 1 Week Patient Instructions/Handouts: Dehydration (GEN), Syncope (GEN) Discharge Disposition: Left Against Medical Advice
== END 2020-06-08 16:54 | disposition left against medical advice (07) ==
LOC: EC 18:19 → 3NCARDOBS 20:30
PROVIDERS: ADMIT Hospitalist; ATTEND Hospitalist
DX: R55 Syncope and collapse (principal); I12.9 Hypertensive chronic kidney disease with stage 1 through stage 4 chronic kidney disease, or unspecified chronic kidney disease; E11.65 Type 2 diabetes mellitus with hyperglycemia; E11.22 Type 2 diabetes mellitus with diabetic chronic kidney disease; N18.4 Chronic kidney disease, stage 4 (severe); N17.9 Acute kidney failure, unspecified; I25.10 Atherosclerotic heart disease of native coronary artery without angina pectoris; I08.3 Combined rheumatic disorders of mitral, aortic and tricuspid valves; I25.2 Old myocardial infarction; E78.5 Hyperlipidemia, unspecified; Z53.29 Procedure and treatment not carried out because of patient's decision for other reasons; I71.9 Aortic aneurysm of unspecified site, without rupture; J45.909 Unspecified asthma, uncomplicated; R41.0 Disorientation, unspecified; R32 Unspecified urinary incontinence; R11.2 Nausea with vomiting, unspecified; M19.90 Unspecified osteoarthritis, unspecified site; Z86.73 Personal history of transient ischemic attack (TIA), and cerebral infarction without residual deficits; M54.5 Low back pain; D50.9 Iron deficiency anemia, unspecified; L30.9 Dermatitis, unspecified; E66.9 Obesity, unspecified; Z68.30 Body mass index [BMI] 30.0-30.9, adult; M75.101 Unspecified rotator cuff tear or rupture of right shoulder, not specified as traumatic; Z87.01 Personal history of pneumonia (recurrent); Z87.442 Personal history of urinary calculi; Z85.828 Personal history of other malignant neoplasm of skin; Z90.710 Acquired absence of both cervix and uterus; Z87.891 Personal history of nicotine dependence; Z79.82 Long term (current) use of aspirin; Z79.84 Long term (current) use of oral hypoglycemic drugs; Z79.899 Other long term (current) drug therapy; Z79.02 Long term (current) use of antithrombotics/antiplatelets; Z88.1 Allergy status to other antibiotic agents; R29.6 Repeated falls; Z80.9 Family history of malignant neoplasm, unspecified
CPT/HCPCS: 93005 ×2; 96361 ×3; 96372 ×2; 96365; 99285; 36415; 97162; 97166; 85379; 83880; 80061; 80053; 80048; 82550; 83605; 83735; 84100; 84484 ×2; 85025 ×2; 85610; 85730; 81003; 83036; 74022; G0378 ×3; J0696; J1650 ×2

== ENCOUNTER 2020-06-21 17:12 | Emergency (ER) | payer MEDICARE, OTHER ==
[2020-06-21 17:24] VITALS: RESP 18
--- NOTE | 2020-06-21 18:08 | ED ---
General Adult HPI - General Chief complaint: Syncope Stated complaint: Syncope Time Seen by Provider: 06/21/20 17:26 Source: patient, RN notes reviewed, old records reviewed Mode of arrival: ambulatory Limitations: no limitations - History of Present Illness Initial comments: 80-year-old presenting for evaluation of syncopal episode. Patient was walking to the kitchen to get something to eat. She had an episode where she collapsed and was unconscious for several minutes. She denies any preceding chest pain or palpitations. She states she did not injure herself when she collapsed. No head or neck trauma. She has no pain complaints. She has no complaints whatsoever the time my evaluation. No fever. No headache. No focal numbness or weakness. No chest pain. No abdominal pain. No vomiting or diarrhea. No dysuria. - Related Data Home Medications Medication Instructions Recorded Confirmed Aspirin [Adult Low Dose Aspirin EC] 81 mg PO DAILY 03/13/16 06/21/20 sitaGLIPtin [Januvia] 50 mg PO DAILY 03/13/16 06/21/20 Isosorbide Mononitrate ER [Imdur] 30 mg PO DAILY 01/08/19 06/21/20 Carvedilol [Coreg] 25 mg PO BID 05/08/20 06/21/20 Ergocalciferol [Vitamin D2 50,000 unit PO FR 05/08/20 06/21/20 (DRISDOL)] Fluticasone/Vilanterol [Breo 1 puff INHALATION RT-DAILY PRN 05/08/20 06/21/20 Ellipta 100-25 Mcg Inhaler] Ferrous Sulfate 324mg 324 mg PO DAILY 05/13/20 06/21/20 Vits A,C,E/Lutein/Minerals [Vision 1 tab PO DAILY 05/13/20 06/21/20 Formula with Lutein Tab] Nitroglycerin Sl Tabs [Nitrostat] 0.4 mg SL Q5M PRN 05/20/20 06/21/20 Previous Rx's Medication Instructions Recorded Atorvastatin [Lipitor] 40 mg PO DAILY 30 Days #30 tab 05/08/20 Clopidogrel [Plavix] 75 mg PO DAILY 30 Days #30 tab 05/08/20 amLODIPine [Norvasc] 5 mg PO BID 30 Days #60 tab 05/08/20 Donepezil [Aricept] 5 mg PO HS #30 tab 05/17/20 Famotidine [Pepcid] 20 mg PO DAILY #21 tab 05/17/20 Memantine [Namenda] 5 mg PO BID #60 tab 05/17/20 Allergies Allergy/AdvReac Type Severity Reaction Status Date / Time lincomycin HCl Allergy Unknown Unknown Verified 06/21/20 19:04 [From Lincocin] Review of Systems ROS Statement: Those systems with pertinent positive or pertinent negative responses have been documented in the HPI. ROS Other: All systems not noted in ROS Statement are negative. Past Medical History Past Medical History: Asthma, Coronary Artery Disease (CAD), Cancer, Chest Pain / Angina, CVA/TIA, Diabetes Mellitus, Hyperlipidemia, Hypertension, Myocardial Infarction (NC), Osteoarthritis (OA), Pneumonia, Renal Disease, Skin Disorder, Syncope, Vascular Disorder Additional Past Medical History / Comment(s): Pt recently admitted to [facility] on 05/08/20 with chest pain, Other hx: CVA in 2016-no residual, NIDDM type II, low back pain, iron deficiency anemia, thoracic aneurysm per past medical record-pt states she has never been told about an aneurysm, nephrolithiasis-pt passed stones on her own, skin cancer with removals, L knee pain, eczema Last Myocardial Infarction Date:: 2018 History of Any Multi-Drug Resistant Organisms: None Reported Past Surgical History: Section, Hysterectomy, Orthopedic Surgery Additional Past Surgical History / Comment(s): x3, bilateral carpal tunnel releases, bilateral cataract removals, skin cancer removals. Past Anesthesia/Blood Transfusion Reactions: No Reported Reaction Past Psychological History: No Psychological Hx Reported Smoking Status: Former smoker Past Alcohol Use History: None Reported Past Drug Use History: None Reported - Past Family History Mother Family Medical History: Cancer Additional Family Medical History / Comment(s): BRAIN TUMOR Brother(s) Family Medical History: Cancer Additional Family Medical History / Comment(s): BRAIN TUMOR. Father Additional Family Medical History / Comment(s): "Heart problems" General Exam Limitations: no limitations General appearance: alert, in no apparent distress Head exam: Present: atraumatic, normocephalic Eye exam: Present: normal appearance, PERRL ENT exam: Present: normal exam Neck exam: Present: normal inspection. Absent: tenderness, meningismus Respiratory exam: Present: normal lung sounds bilaterally. Absent: respiratory distress, wheezes Cardiovascular Exam: Present: regular rate, normal rhythm GI/Abdominal exam: Present: soft. Absent: distended, tenderness, guarding, rebound Extremities exam: Present: normal inspection, normal capillary refill. Absent: pedal edema Back exam: Present: normal inspection, full ROM Neurological exam: Present: alert, oriented X3, CN II-XII intact. Absent: motor sensory deficit Psychiatric exam: Present: normal affect, normal mood Skin exam: Present: warm, dry, intact. Absent: cyanosis, diaphoretic Course Vital Signs 06/21/20 06/21/20 17:14 18:19 Temperature 97.6 F 97.4 F L Pulse Rate 59 L 62 Respiratory 18 18 Rate Blood Pressure 122/72 104/60 O2 Sat by Pulse 96 97 Oximetry - Reevaluation(s) Reevaluation #1: 06/21/20 18:06 Patient had recent admission for a non-ST segment elevated NC, heart cath at that time did show coronary artery disease and she was evaluated by cardiothoracic surgery for possible open heart surgery and bypass. She declined this surgery. She did not want any intervention for her heart. EKG Findings - EKG Comments: EKG Findings:: EKG: Sinus rhythm with ventricular rate of 63, TN interval 162, QRS duration 72, QTC 409, no ST segment elevation, no definitive signs of ischemia. Medical Decision Making - Medical Decision Making Patient with recurrent syncope. No complaints the time my evaluation. Known history of left main coronary artery disease. Patient does not want intervention on this. She has had multiple episodes of syncope. No injury. No pain complaints. Patient is considering palliative care. EKG is sinus rhythm with no definitive ischemic changes. Her vitals are stable. Chest x-ray negative for acute cardio pulmonary disease. She has mild leukocytosis, stable hemoglobin. She has potassium 5.5 and chronic kidney disease which is at baseline. Her troponin is negative. Patient is very eager for discharge. She has no complaints and wishes to go home. I did offer observation she does not wish to be admitted. She is considering palliative care. She will call her kidney doctor next week for repeat laboratory testing including electrolytes and kidney function. - Lab Data Result diagrams: 06/21/20 18:14 06/21/20 18:14 Lab Results 06/21/20 06/21/20 06/21/20 Range/Units 18:14 18:14 18:14 WBC 12.0 H (3.8-10.6) k/uL RBC 4.02 (3.80-5.40) m/uL Hgb 11.8 (11.4-16.0) gm/dL Hct 36.1 (34.0-46.0) % MCV 90.0 (80.0-100.0) fL MCH 29.3 (25.0-35.0) pg MCHC 32.5 (31.0-37.0) g/dL RDW 12.7 (11.5-15.5) % Plt Count 348 (150-450) k/uL Neutrophils % 74 % Lymphocytes % 19 % Monocytes % 4 % Eosinophils % 1 % Basophils % 1 % Neutrophils # 8.9 H (1.3-7.7) k/uL Lymphocytes # 2.3 (1.0-4.8) k/uL Monocytes # 0.5 (0-1.0) k/uL Eosinophils # 0.2 (0-0.7) k/uL Basophils # 0.1 (0-0.2) k/uL PT 11.2 (9.0-12.0) sec INR 1.1 (<1.2) APTT 25.2 (22.0-30.0) sec Sodium 135 L (137-145) mmol/L Potassium 5.5 H (3.5-5.1) mmol/L Chloride 104 (98-107) mmol/L Carbon Dioxide 22 (22-30) mmol/L Anion Gap 9 mmol/L BUN 33 H (7-17) mg/dL Creatinine 1.85 H (0.52-1.04) mg/dL Est GFR (CKD-EPI)AfAm 29 (>60 ml/min/1.73 sqM) Est GFR (CKD-EPI)NonAf 25 (>60 ml/min/1.73 sqM) Glucose 287 H (74-99) mg/dL Calcium 9.5 (8.4-10.2) mg/dL Magnesium 2.0 (1.6-2.3) mg/dL Total Bilirubin 1.3 (0.2-1.3) mg/dL AST 29 (14-36) U/L ALT 12 (4-34) U/L Alkaline Phosphatase 118 (38-126) U/L Troponin I (0.000-0.034) ng/mL Total Protein 7.0 (6.3-8.2) g/dL Albumin 4.3 (3.5-5.0) g/dL 06/21/20 Range/Units 18:14 WBC (3.8-10.6) k/uL RBC (3.80-5.40) m/uL Hgb (11.4-16.0) gm/dL Hct (34.0-46.0) % MCV (80.0-100.0) fL MCH (25.0-35.0) pg MCHC (31.0-37.0) g/dL RDW (11.5-15.5) % Plt Count (150-450) k/uL Neutrophils % % Lymphocytes % % Monocytes % % Eosinophils % % Basophils % % Neutrophils # (1.3-7.7) k/uL Lymphocytes # (1.0-4.8) k/uL Monocytes # (0-1.0) k/uL Eosinophils # (0-0.7) k/uL Basophils # (0-0.2) k/uL PT (9.0-12.0) sec INR (<1.2) APTT (22.0-30.0) sec Sodium (137-145) mmol/L Potassium (3.5-5.1) mmol/L Chloride (98-107) mmol/L Carbon Dioxide (22-30) mmol/L Anion Gap mmol/L BUN (7-17) mg/dL Creatinine (0.52-1.04) mg/dL Est GFR (CKD-EPI)AfAm (>60 ml/min/1.73 sqM) Est GFR (CKD-EPI)NonAf (>60 ml/min/1.73 sqM) Glucose (74-99) mg/dL Calcium (8.4-10.2) mg/dL Magnesium (1.6-2.3) mg/dL Total Bilirubin (0.2-1.3) mg/dL AST (14-36) U/L ALT (4-34) U/L Alkaline Phosphatase (38-126) U/L Troponin I <0.012 (0.000-0.034) ng/mL Total Protein (6.3-8.2) g/dL Albumin (3.5-5.0) g/dL Disposition Clinical Impression: Syncope Disposition: HOME SELF-CARE Condition: Fair Instructions (If sedation given, give patient instructions): Syncope (ED) Is patient prescribed a controlled substance at d/c from ED?: No Referrals: Catherine Mejia MD [Primary Care Provider] - 1-2 days Time of Disposition: 19:34
[2020-06-21 18:19] LABS: Basophils # (A) 0.1 k/uL (0-0.2); Basophils % (A) 1 %; Eosinophils # (A) 0.2 k/uL (0-0.7); Eosinophils % (A) 1 %; HCT 36.1 % (34.0-46.0); HGB 11.8 gm/dL (11.4-16.0); Lymphocytes # (A) 2.3 k/uL (1.0-4.8); Lymphocytes % (A) 19 %; MCH 29.3 pg (25.0-35.0); MCHC 32.5 g/dL (31.0-37.0); Mean Platelet Volume 7.3; Monocytes # (A) 0.5 k/uL (0-1.0); Monocytes % (A) 4 %; Neutrophils # (A) 8.9 k/uL (1.3-7.7); Neutrophils % (A) 74 %; Platelet Count 348 k/uL (150-450); RBC 4.02 m/uL (3.80-5.40); RDW 12.7 % (11.5-15.5)
--- NOTE | 2020-06-21 18:31 | XR ---
EXAMINATION TYPE: XR chest 2V DATE OF EXAM: 06/21/2020 COMPARISON: 05/20/2020 INDICATION: Syncope TECHNIQUE: Frontal and lateral views of the chest are obtained. FINDINGS: The heart size is mildly prominent. The pulmonary vasculature is normal. Some streak opacities extending into the left lower lobe likely some atelectasis. Lungs are otherwise clear. IMPRESSION: 1. Mild cardiomegaly, Improved. 2. Mild streak atelectasis left lower lobe.
[2020-06-21 18:32] VITALS: TEMP 97.4
[2020-06-21 18:35] LABS: Albumin 4.3 g/dL (3.5-5.0); Calcium 9.5 mg/dL (8.4-10.2); Potassium 5.5 mmol/L (3.5-5.1); Total Bilirubin 1.3 mg/dL (0.2-1.3)
[2020-06-21 18:36] LABS: INR 1.1 (<1.2); Partial Thromboplastin Time 25.2 sec (22.0-30.0); Prothrombin Time 11.2 sec (9.0-12.0)
[2020-06-21] MEDS ORDERED: SODIUM CHLORIDE 0.9% 500 ML 500 ML IV ONE (19:24)
[2020-06-21 20:02] VITALS: BP 124/73; PULSE 63
== END 2020-06-21 19:52 | disposition home or self-care (01) ==
LOC: EC 17:12
DX: R55 Syncope and collapse (principal); E11.22 Type 2 diabetes mellitus with diabetic chronic kidney disease; I12.9 Hypertensive chronic kidney disease with stage 1 through stage 4 chronic kidney disease, or unspecified chronic kidney disease; I25.119 Atherosclerotic heart disease of native coronary artery with unspecified angina pectoris; E78.5 Hyperlipidemia, unspecified; I25.2 Old myocardial infarction; J45.909 Unspecified asthma, uncomplicated; Z79.82 Long term (current) use of aspirin; Z79.02 Long term (current) use of antithrombotics/antiplatelets; Z79.84 Long term (current) use of oral hypoglycemic drugs; Z79.899 Other long term (current) drug therapy; Z88.1 Allergy status to other antibiotic agents; Z87.891 Personal history of nicotine dependence; Z86.73 Personal history of transient ischemic attack (TIA), and cerebral infarction without residual deficits
CPT/HCPCS: 36415; 71046; 80053; 83735; 84484; 85025; 85610; 85730; 99284

== ENCOUNTER 2020-07-01 14:07 | Observation (INO) | payer MEDICARE, OTHER ==
[2020-07-01] MEDS ORDERED: SODIUM CHLORIDE 0.9% 500 ML 500 ML IV STA (14:14)
--- NOTE | 2020-07-01 14:18 | ED ---
General Adult HPI - General Stated complaint: SYNCOPE Time Seen by Provider: 07/01/20 14:08 Source: patient, EMS, RN notes reviewed, old records reviewed Mode of arrival: EMS Limitations: no limitations - History of Present Illness Initial comments: 80-year-old female presenting with syncopal episode. Patient was at her primary care physician office waiting for an appointment. She had not eat yet today with plans for lab work. She was walking back to the office, became lig htheaded, diaphoretic, passed out momentarily. There was no injury. Patient has no complaints time my evaluation. She was transported by EMS, noted to be in sinus bradycardia in the 50s, stable blood pressure. Patient denying headache, denying chest pain or palpitations. Denies nausea vomiting or diarrhea. - Related Data Home Medications Medication Instructions Recorded Confirmed Aspirin [Adult Low Dose Aspirin EC] 81 mg PO DAILY 03/13/16 07/01/20 sitaGLIPtin [Januvia] 50 mg PO DAILY 03/13/16 07/01/20 Isosorbide Mononitrate ER [Imdur] 30 mg PO DAILY 01/08/19 07/01/20 Carvedilol [Coreg] 25 mg PO BID 05/08/20 07/01/20 Ergocalciferol [Vitamin D2 50,000 unit PO FR 05/08/20 07/01/20 (DRISDOL)] Fluticasone/Vilanterol [Breo 1 puff INHALATION RT-DAILY PRN 05/08/20 07/01/20 Ellipta 100-25 Mcg Inhaler] Ferrous Sulfate 324mg 324 mg PO DAILY 05/13/20 07/01/20 Vits A,C,E/Lutein/Minerals [Vision 1 tab PO DAILY 05/13/20 07/01/20 Formula with Lutein Tab] Nitroglycerin Sl Tabs [Nitrostat] 0.4 mg SL Q5M PRN 05/20/20 07/01/20 Lisinopril [Zestril] 10 mg PO DAILY 07/01/20 07/01/20 Previous Rx's Medication Instructions Recorded Atorvastatin [Lipitor] 40 mg PO DAILY 30 Days #30 tab 05/08/20 Clopidogrel [Plavix] 75 mg PO DAILY 30 Days #30 tab 05/08/20 amLODIPine [Norvasc] 5 mg PO BID 30 Days #60 tab 05/08/20 Donepezil [Aricept] 5 mg PO HS #30 tab 05/17/20 Memantine [Namenda] 5 mg PO BID #60 tab 05/17/20 Allergies Allergy/AdvReac Type Severity Reaction Status Date / Time lincomycin HCl Allergy Unknown Unknown Verified 07/01/20 15:03 [From Lincocin] Review of Systems ROS Statement: Those systems with pertinent positive or pertinent negative responses have been documented in the HPI. ROS Other: All systems not noted in ROS Statement are negative. Past Medical History Past Medical History: Asthma, Coronary Artery Disease (CAD), Cancer, Chest Pain / Angina, CVA/TIA, Diabetes Mellitus, Hyperlipidemia, Hypertension, Myocardial Infarction (ME), Osteoarthritis (OA), Pneumonia, Renal Disease, Skin Disorder, Syncope, Vascular Disorder Additional Past Medical History / Comment(s): Pt recently admitted to [facility] on 05/08/20 with chest pain, Other hx: CVA in 2016-no residual, NIDDM type II, low back pain, iron deficiency anemia, thoracic aneurysm per past medical record-pt states she has never been told about an aneurysm, nephrolithiasis-pt passed stones on her own, skin cancer with removals, L knee pain, eczema Last Myocardial Infarction Date:: 2018 History of Any Multi-Drug Resistant Organisms: None Reported Past Surgical History: Section, Hysterectomy, Orthopedic Surgery Additional Past Surgical History / Comment(s): x3, bilateral carpal tunnel releases, bilateral cataract removals, skin cancer removals. Past Anesthesia/Blood Transfusion Reactions: No Reported Reaction Past Psychological History: No Psychological Hx Reported Smoking Status: Former smoker Past Alcohol Use History: None Reported Past Drug Use History: None Reported - Past Family History Mother Family Medical History: Cancer Additional Family Medical History / Comment(s): BRAIN TUMOR Brother(s) Family Medical History: Cancer Additional Family Medical History / Comment(s): BRAIN TUMOR. Father Additional Family Medical History / Comment(s): "Heart problems" General Exam Limitations: no limitations General appearance: alert, in no apparent distress Head exam: Present: atraumatic, normocephalic Eye exam: Present: normal appearance, PERRL ENT exam: Present: mucous membranes dry Neck exam: Present: normal inspection. Absent: tenderness, meningismus Respiratory exam: Present: normal lung sounds bilaterally. Absent: respiratory distress, wheezes Cardiovascular Exam: Present: normal rhythm, bradycardia GI/Abdominal exam: Present: soft. Absent: distended, tenderness, guarding Extremities exam: Present: normal inspection, normal capillary refill. Absent: pedal edema, joint swelling Neurological exam: Present: alert, oriented X3, CN II-XII intact. Absent: motor sensory deficit Psychiatric exam: Present: normal affect, normal mood Skin exam: Present: warm, dry, intact. Absent: cyanosis, diaphoretic Course Vital Signs 07/01/20 07/01/20 14:10 14:15 Temperature 97.5 F L Pulse Rate 53 L Respiratory 16 18 Rate Blood Pressure 135/76 O2 Sat by Pulse 97 96 Oximetry EKG Findings - EKG Comments: EKG Findings:: EKG: Sinus bradycardia rate of 53, GA interval 160 over QRS duration 76, QTC 407, no ST segment elevation, T waves are upright. Medical Decision Making - Medical Decision Making 80-year-old female with recurrent syncope. Patient is in sinus bradycardia with a rate of 53, stable blood pressure. X-ray negative for acute cardiopulmonary disease. Hemoglobin is stable, mild leukocytosis. She has a potassium 5.5 which is baseline for this patient. Creatinine is slightly up trending from recent baseline. She's given IV hydration. She will be kept in observation for telemetry, hydration. Case discussed with Dr. Hu who will admit. Repeat laboratory testing has been ordered for the morning. - Lab Data Result diagrams: 07/01/20 14:30 07/01/20 14:30 Lab Results 07/01/20 07/01/20 07/01/20 Range/Units 14:30 14:30 14:30 WBC 10.9 H (3.8-10.6) k/uL RBC 3.75 L (3.80-5.40) m/uL Hgb 10.9 L (11.4-16.0) gm/dL Hct 33.9 L (34.0-46.0) % MCV 90.4 (80.0-100.0) fL MCH 29.2 (25.0-35.0) pg MCHC 32.3 (31.0-37.0) g/dL RDW 13.0 (11.5-15.5) % Plt Count 351 (150-450) k/uL Neutrophils % 67 % Lymphocytes % 23 % Monocytes % 4 % Eosinophils % 4 % Basophils % 1 % Neutrophils # 7.3 (1.3-7.7) k/uL Lymphocytes # 2.5 (1.0-4.8) k/uL Monocytes # 0.4 (0-1.0) k/uL Eosinophils # 0.4 (0-0.7) k/uL Basophils # 0.1 (0-0.2) k/uL PT 10.6 (9.0-12.0) sec INR 1.0 (<1.2) APTT 25.4 (22.0-30.0) sec Sodium 135 L (137-145) mmol/L Potassium 5.5 H (3.5-5.1) mmol/L Chloride 108 H (98-107) mmol/L Carbon Dioxide 19 L (22-30) mmol/L Anion Gap 8 mmol/L BUN 30 H (7-17) mg/dL Creatinine 1.92 H (0.52-1.04) mg/dL Est GFR (CKD-EPI)AfAm 28 (>60 ml/min/1.73 sqM) Est GFR (CKD-EPI)NonAf 24 (>60 ml/min/1.73 sqM) Glucose 250 H (74-99) mg/dL Calcium 9.3 (8.4-10.2) mg/dL Magnesium 1.9 (1.6-2.3) mg/dL Total Bilirubin 0.9 (0.2-1.3) mg/dL AST 23 (14-36) U/L ALT 12 (4-34) U/L Alkaline Phosphatase 118 (38-126) U/L Troponin I (0.000-0.034) ng/mL Total Protein 6.3 (6.3-8.2) g/dL Albumin 3.8 (3.5-5.0) g/dL 07/01/20 Range/Units 14:30 WBC (3.8-10.6) k/uL RBC (3.80-5.40) m/uL Hgb (11.4-16.0) gm/dL Hct (34.0-46.0) % MCV (80.0-100.0) fL MCH (25.0-35.0) pg MCHC (31.0-37.0) g/dL RDW (11.5-15.5) % Plt Count (150-450) k/uL Neutrophils % % Lymphocytes % % Monocytes % % Eosinophils % % Basophils % % Neutrophils # (1.3-7.7) k/uL Lymphocytes # (1.0-4.8) k/uL Monocytes # (0-1.0) k/uL Eosinophils # (0-0.7) k/uL Basophils # (0-0.2) k/uL PT (9.0-12.0) sec INR (<1.2) APTT (22.0-30.0) sec Sodium (137-145) mmol/L Potassium (3.5-5.1) mmol/L Chloride (98-107) mmol/L Carbon Dioxide (22-30) mmol/L Anion Gap mmol/L BUN (7-17) mg/dL Creatinine (0.52-1.04) mg/dL Est GFR (CKD-EPI)AfAm (>60 ml/min/1.73 sqM) Est GFR (CKD-EPI)NonAf (>60 ml/min/1.73 sqM) Glucose (74-99) mg/dL Calcium (8.4-10.2) mg/dL Magnesium (1.6-2.3) mg/dL Total Bilirubin (0.2-1.3) mg/dL AST (14-36) U/L ALT (4-34) U/L Alkaline Phosphatase (38-126) U/L Troponin I <0.012 (0.000-0.034) ng/mL Total Protein (6.3-8.2) g/dL Albumin (3.5-5.0) g/dL Disposition Clinical Impression: Syncope and collapse, ALYSA (acute kidney injury) Disposition: ADMITTED IP TO THIS [facility] Condition: Stable Is patient prescribed a controlled substance at d/c from ED?: No Referrals: Catherine Mejia MD [Primary Care Provider] - 1-2 days Decision to Admit Reason: Admit from EC Decision Date: 07/01/20 Decision Time: 16:38
[2020-07-01 14:46] LABS: Basophils # (A) 0.1 k/uL (0-0.2); Basophils % (A) 1 %; Eosinophils # (A) 0.4 k/uL (0-0.7); Eosinophils % (A) 4 %; HCT 33.9 % (34.0-46.0); HGB 10.9 gm/dL (11.4-16.0); Lymphocytes # (A) 2.5 k/uL (1.0-4.8); Lymphocytes % (A) 23 %; MCH 29.2 pg (25.0-35.0); MCHC 32.3 g/dL (31.0-37.0); MCV 90.4 fL (80.0-100.0); Mean Platelet Volume 7.8; Monocytes # (A) 0.4 k/uL (0-1.0); Monocytes % (A) 4 %; Neutrophils # (A) 7.3 k/uL (1.3-7.7); Neutrophils % (A) 67 %; Platelet Count 351 k/uL (150-450); RBC 3.75 m/uL (3.80-5.40); WBC 10.9 k/uL (3.8-10.6)
[2020-07-01 14:56] LABS: Partial Thromboplastin Time 25.4 sec (22.0-30.0); Prothrombin Time 10.6 sec (9.0-12.0)
[2020-07-01 15:05] LABS: Albumin 3.8 g/dL (3.5-5.0); Calcium 9.3 mg/dL (8.4-10.2); Magnesium 1.9 mg/dL (1.6-2.3); Potassium 5.5 mmol/L (3.5-5.1); Total Bilirubin 0.9 mg/dL (0.2-1.3); Total Protein 6.3 g/dL (6.3-8.2)
--- NOTE | 2020-07-01 16:11 | XR ---
EXAMINATION TYPE: XR chest 2V DATE OF EXAM: 07/01/2020 COMPARISON: 06/21/2020 HISTORY: Shortness of breath TECHNIQUE: Frontal and lateral views of the chest are obtained. FINDINGS: Scattered senescent parenchymal changes noted. Hyperinflation compatible with COPD. No evidence for infiltrate. No evidence for atelectasis. Heart size is stable. Mediastinal structures are stable and grossly unremarkable. No evidence for hilar prominence. Degenerative changes dorsal spine. IMPRESSION: 1. No evidence for acute pulmonary disease.
[2020-07-01] MEDS ORDERED: NALOXONE 0.4 MG/ML 1 ML VIAL IV PRN (16:31)
[2020-07-01 17:01] LABS: Appearance,Urine Cloudy (Clear); Bacteria,Urine Occasional /hpf; Bilirubin,Urine Negative (Negative); Blood,Urine Negative (Negative); Color,Urine Yellow; Glucose,Urine (UA) Negative (Negative); Granular Casts,Urine 5 /lpf (0); Hyaline Casts,Urine 16 /lpf (0-2); Ketones,Urine Negative (Negative); Leukocyte Esterase,Urine Small (Negative); Mucus,Urine Rare /hpf; Nitrite,Urine Negative (Negative); Protein,Urine 1+ (Negative); RBC,Urine <1 /hpf (0-5); Squamous Epithelial Cell,Urine 3 /hpf (0-4); Urobilinogen,Urine <2.0 mg/dL (<2.0); WBC,Urine 4 /hpf (0-5)
[2020-07-01] MEDS: SODIUM CHLORIDE 0.9% 1,000 ML IV SCH (17:16)
[2020-07-01] MEDS ORDERED: NITROGLYCERIN SL TABS 0.4 MG TAB SUBLINGUAL PRN (19:32)
[2020-07-01] MEDS ORDERED: SYMBICORT 80-4.5 MCG INHALER INHALATION PRN (19:32)
[2020-07-01 21:17] LABS: Glucose,Whole Blood 200 mg/dL (75-99)
[2020-07-01] MEDS: INSULIN ASPART (NovoLOG) 100 UNIT/ML VIAL SQ SCH (21:21)
[2020-07-01] MEDS: DONEPEZIL 5 MG TAB PO SCH (21:21)
[2020-07-01] MEDS: amLODIPine 5 MG TAB PO SCH (21:21)
[2020-07-01] MEDS: MEMANTINE 5 MG TAB PO SCH (21:21)
--- NOTE | 2020-07-01 23:23 | US ---
EXAMINATION TYPE: US carotid duplex BILAT DATE OF EXAM: 07/01/2020 COMPARISON: 2019 CLINICAL HISTORY: syncope. Syncope. Hx hypertension, hyperlipidemia, previous smoker. EXAM MEASUREMENTS: RIGHT: Peak Systolic Velocity (PSV) cm/sec ----- Right CCA: 68.6 ----- Right ICA: 90.1 ----- Right ECA: 101.7 ICA/CCA ratio: 1.3 RIGHT: End Diastole cm/sec ----- Right CCA: 11.9 ----- Right ICA: 13.7 ----- Right ECA: 0.0 LEFT: Peak Systolic Velocity (PSV) cm/sec ----- Left CCA: 86.1 ----- Left ICA: 85.3 ----- Left ECA: 94.9 ICA/CCA ratio: 1.0 LEFT: End Diastole cm/sec ----- Left CCA: 15.7 ----- Left ICA: 21.5 ----- Left ECA: 0.0 VERTEBRALS (direction of flow): Right Vertebral: Antegrade Left Vertebral: Antegrade Rhythm: Normal Hyperechoic plaque seen right prox CCA, right ICA, left ICA and left ECA. Intimal thickening seen mahad aterally. No elevated velocities at this time. Hypoechoic area with hyperechoic center seen right neck: 1.3 x 1.1 x 0.7 cm. Hypoechoic area with hyperechoic center seen left neck: 1.4 x 0.8 x 0.4 cm. IMPRESSION: There is antegrade flow in the vertebral arteries. The images and measurements suggest 3 0-40% stenosis in both internal carotid arteries. Criteria for Assigning % of Stenosis / Diameter reduction (Estimation based on the indirect measurements of the internal carotid artery velocities (ICA PSV). 1. Normal (no stenosis)=ICA PSV < 125 cm/s: ratio < 2.0: ICA EDV<40 cm/s. 2. Less than 50% stenosis=ICA PSV < 125 cm/s: ratio < 2.0: ICA EDV<40 cm/s. 3. 50 to 69% stenosis=ICA PSV of 125 to 230 cm/s: ration 2.0 ? 4.0: ICA EDV 40-100 cm/s. 4. Greater than 70% stenosis to near occlusion= ICA PSV > 230 cm/s: ratio > 4.0: ICA EDV > 100 cm/s. 5. Near occlusion= ICA PSV velocities may be low or undetectable: variable ratio and ICA EDV. 6. Total occlusion=unable to detect flow.
--- NOTE | 2020-07-01 23:27 | HP ---
HISTORY AND PHYSICAL DATE OF SERVICE: 07/01/2020 CHIEF COMPLAINT: Syncope. HISTORY OF PRESENT ILLNESS: This 80-year-old woman with a past medical history of asthma, history of CVA, TIA, diabetes mellitus, hypertension, hyperlipidemia, history of myocardial infarction, DJD, history of section, being followed by Dr. Mejia in the outpatient setting went for a doctor's appointment today. The patient did not eat any breakfast and the patient was waiting for an appointment. The patient was walking back to the office, became lightheaded, diaphoretic and passed momentarily and the patient improved. The patient was taken to [facility] and found to have hyponatremia, hyperkalemia as well as renal failure. Creatinine was elevated to 1.92. The patient also had chronic kidney disease stage 3. The patient admitted for further evaluation and treatment. The urine was cloudy with occasional bacteria. There is no history of fever or rigors. No history of headache, loss of consciousness, or seizures. PAST MEDICAL HISTORY: History of asthma, CAD, history of chest pain, CVA, TIA, hypertension, hyperlipidemia, history of diabetes, history of myocardial infarction. MEDICATIONS: Home medications are: 1. Zestril 10 mg p.o. daily. 2. Januvia 50 mg daily. 3. Norvasc 5 mg p.o. b.i.d. 4. Multivitamins. 5. Nitrostat 0.4 sublingual. 6. Namenda 5 mg p.o. b.i.d. 7. Imdur 30 mg daily. 8. Ferrous sulfate 324 mg p.o. daily. 9. Plavix 75 mg p.o. daily. 10.Coreg 25 mg b.i.d. 11.Lipitor 40 mg. 12.Aspirin 81 mg. 13.Breo Ellipta 1 puff daily p.r.n. 14.Drisdol 50,000 p.o. Wednesday. 15.Aricept 5 mg at bedtime. ALLERGIES: LINCOCIN. FAMILY HISTORY: History of brain tumor in the family. SOCIAL HISTORY: Previous history of smoking. No history of current smoking or alcohol intake. REVIEW OF SYSTEMS: ENT: Diminished hearing and diminished vision. CARDIOVASCULAR SYSTEM: As mentioned earlier. RESPIRATORY SYSTEM: As mentioned earlier. GI: No nausea. : No dysuria. NERVOUS SYSTEM: As mentioned earlier. ALLERGY/IMMUNOLOGY: No asthma or hayfever. MUSCULOSKELETAL: As mentioned earlier. HEMATOLOGY: No history of anemia. ENDOCRINE: Diabetes mellitus. CONSTITUTIONAL: As mentioned earlier. DERMATOLOGY: Negative. RHEUMATOLOGY: Negative. PSYCHIATRY: As mentioned earlier. PHYSICAL EXAMINATION: The patient is alert and oriented x3. Pulse 55, blood pressure 111/56, respiration 18, temperature 97.5, pulse ox 96% on room air, HEENT: Conjunctivae normal. Oral mucosa dry. NECK: No jugular venous distention. No carotid bruit. No lymph node enlargement. CARDIOVASCULAR: S1, S2 muffled. RESPIRATORY: Breath sounds diminished at the bases. No rhonchi. No crackles. ABDOMEN: Soft, nontender. No mass palpable. Obese. LEGS: No edema, no swelling. NERVOUS SYSTEM: Higher functions as mentioned earlier. Moves all 4 limbs. No focal motor or sensory deficits. LYMPHATICS: No lymphadenopathy of the neck, axillae or groin. SKIN: No ulcer, rash or bleeding. JOINTS: No active deforming arthropathy. LABS: WBC 10.9, hemoglobin 10.9, sodium 135, potassium 5.5 creatinine is 1.92. ASSESSMENT: 1. Syncope possibly vasovagal. 2. Renal failure acute renal failure with acute tubular necrosis and dehydration. 3. Chronic kidney disease, stage 3, baseline. 4. Hyponatremia. 5. Hyperkalemia. 6. Diabetes mellitus type 2. 7. Increased WBC. 8. Anemia, normocytic anemia of chronic disease. 9. History of asthma. 10.History of coronary artery disease. 11.History of transient ischemic attack. 12.Hypertension. 13.Hyperlipidemia. 14.Myocardial infarction. 15.History of degenerative joint disease. 16.History of syncope. 17.History of hysterectomy. 18.FULL CODE. RECOMMENDATIONS AND DISCUSSION: This 80-year-old woman presented with multiple complex medical issues. We will monitor the patient closely. Continue the current medications. Continue with cautious hydration. Otherwise we will monitor the creatinine closely other than that chest x-ray which was reviewed personally by me showed no acute abnormality. Otherwise, prognosis guarded because of multiple complex medical issues. I would also recommend a 2D echo and carotid Doppler to complete the workup and further recommendations to follow. Cardiology will be completed for syncope workup. MMODL / IJN: [id number] /
[2020-07-02] MEDS: carvediloL 12.5 MG TAB PO SCH ×3 (03:15→17:54)
[2020-07-02] MEDS: SODIUM CHLORIDE 0.9% 1,000 ML IV SCH (04:00)
[2020-07-02 06:50] LABS: Glucose,Whole Blood 124 mg/dL (75-99)
[2020-07-02] MEDS: INSULIN ASPART (NovoLOG) 100 UNIT/ML VIAL SQ SCH ×4 (06:50→20:54)
[2020-07-02 07:30] LABS: Basophils % (A) 0 %; Eosinophils # (A) 0.4 k/uL (0-0.7); Eosinophils % (A) 4 %; HCT 31.7 % (34.0-46.0); HGB 10.4 gm/dL (11.4-16.0); Lymphocytes # (A) 2.8 k/uL (1.0-4.8); Lymphocytes % (A) 26 %; MCH 29.2 pg (25.0-35.0); MCHC 32.7 g/dL (31.0-37.0); MCV 89.3 fL (80.0-100.0); Mean Platelet Volume 7.8; Monocytes # (A) 0.4 k/uL (0-1.0); Monocytes % (A) 4 %; Neutrophils # (A) 7.1 k/uL (1.3-7.7); Neutrophils % (A) 66 %; Platelet Count 305 k/uL (150-450); RBC 3.55 m/uL (3.80-5.40); RDW 12.9 % (11.5-15.5); WBC 10.8 k/uL (3.8-10.6)
[2020-07-02 07:47] LABS: Albumin 3.5 g/dL (3.5-5.0); Calcium 9.1 mg/dL (8.4-10.2); Potassium 4.8 mmol/L (3.5-5.1); Total Bilirubin 0.9 mg/dL (0.2-1.3)
[2020-07-02 08:12] VITALS: RESP 18
[2020-07-02] MEDS: MEMANTINE 5 MG TAB PO SCH ×2 (08:32→20:54)
[2020-07-02] MEDS: VIT A,C & E-LUTEIN-MINERALS 1 EACH TAB PO SCH (08:32)
[2020-07-02] MEDS: ATORVASTATIN 40 MG TAB PO SCH (08:33)
[2020-07-02] MEDS: LINAGLIPTIN 5 MG TABLET PO SCH (08:33)
[2020-07-02] MEDS: FERROUS SULFATE 325 MG TAB PO SCH (08:33)
[2020-07-02] MEDS: amLODIPine 5 MG TAB PO SCH ×2 (08:39→20:54)
[2020-07-02] MEDS: ISOSORBIDE MONONITRATE ER 30 MG TAB.ER.24H PO SCH (08:39)
[2020-07-02] MEDS: ASPIRIN 81 MG PO SCH (08:39)
[2020-07-02] MEDS: CLOPIDOGREL 75 MG TAB PO SCH (08:39)
--- NOTE | 2020-07-02 08:47 | P.CRDCN ---
History of Present Illness Consult date: 07/02/20 Chief complaint: Syncopal episode History of present illness: This is a very pleasant 80-year-old female patient with a past medical history significant for coronary artery disease documented by heart catheterization was performed in April 2020 where the patient at that point was found to have coronary artery disease involving the left main coronary artery, history of diabetes and hypertension and dyslipidemia and also history of underlying dementia was admitted to the hospital for further evaluation off syncope. The patient was seen at her primary care physician office yesterday where she came in to undergo a blood work and she was nothing by mouth the night before and she lost her consciousness over there. The patient does not recall anything. As a matter of fact the patient does not recall why she is in the hospital this time. She does not recall having any symptoms of dizziness or lightheadedness or any feeling of heart racing or fluttering or any symptoms of chest pain or chest discomfort or shortness of breath. Because of that she was admitted to the hospital. The EKG when she presented showed sinus bradycardia. No ischemic ST or T-wave abnormalities. Troponin came in to be unremarkable. Carotid duplex study was performed and came in to be unremarkable. The rest of blood work came in to be unremarkable. She was found to be positive for urinary tract infection. Orthostatic blood pressure check was performed as well and that came in to be unremarkable. The patient has been maintaining good blood pressure and good heart rate while she is in the hospital here. When she presented she was a slightly bradycardic but not anymore. Please note that the patient was admitted to the hospital in April 2020 with acute non-ST elevation myocardial infarction and to heart catheterization was performed at that point and that revealed intermediate to severe disease involving the left main coronary artery and the cardiothoracic surgeon seen the patient where she was offered to have an open heart surgery but the patient declined at that point. She does have definitely underlying dementia which seems to be more than mild. No arrhythmia was noted so far Y she is in the hospital. Past Medical History Past Medical History: Asthma, Coronary Artery Disease (CAD), Cancer, Chest Pain / Angina, CVA/TIA, Diabetes Mellitus, Hyperlipidemia, Hypertension, Myocardial Infarction (CO), Osteoarthritis (OA), Pneumonia, Renal Disease, Skin Disorder, Syncope, Vascular Disorder Additional Past Medical History / Comment(s): Pt recently admitted to [facility] on 05/08/20 with chest pain, Other hx: CVA in 2016-no residual, NIDDM type II, low back pain, iron deficiency anemia, thoracic aneurysm per past medical record-pt states she has never been told about an aneurysm, nephrolithiasis-pt passed stones on her own, skin cancer with removals, L knee pain, eczema Last Myocardial Infarction Date:: 2018 History of Any Multi-Drug Resistant Organisms: None Reported Past Surgical History: Section, Hysterectomy, Orthopedic Surgery Additional Past Surgical History / Comment(s): x3, bilateral carpal tunnel releases, bilateral cataract removals, skin cancer removals. Past Anesthesia/Blood Transfusion Reactions: No Reported Reaction Smoking Status: Former smoker - Past Family History Mother Family Medical History: Cancer Additional Family Medical History / Comment(s): BRAIN TUMOR Brother(s) Family Medical History: Cancer Additional Family Medical History / Comment(s): BRAIN TUMOR. Father Additional Family Medical History / Comment(s): "Heart problems" Medications and Allergies Home Medications Medication Instructions Recorded Confirmed Type Aspirin [Adult Low Dose Aspirin EC] 81 mg PO DAILY 03/13/16 07/01/20 History sitaGLIPtin [Januvia] 50 mg PO DAILY 03/13/16 07/01/20 History Isosorbide Mononitrate ER [Imdur] 30 mg PO DAILY 01/08/19 07/01/20 History Atorvastatin [Lipitor] 40 mg PO DAILY 30 Days #30 tab 05/08/20 07/01/20 Rx Carvedilol [Coreg] 25 mg PO BID 05/08/20 07/01/20 History Clopidogrel [Plavix] 75 mg PO DAILY 30 Days #30 tab 05/08/20 07/01/20 Rx Ergocalciferol [Vitamin D2 50,000 unit PO FR 05/08/20 07/01/20 History (DRISDOL)] Fluticasone/Vilanterol [Breo 1 puff INHALATION RT-DAILY PRN 05/08/20 07/01/20 History Ellipta 100-25 Mcg Inhaler] amLODIPine [Norvasc] 5 mg PO BID 30 Days #60 tab 05/08/20 07/01/20 Rx Ferrous Sulfate 324mg 324 mg PO DAILY 05/13/20 07/01/20 History Vits A,C,E/Lutein/Minerals [Vision 1 tab PO DAILY 05/13/20 07/01/20 History Formula with Lutein Tab] Donepezil [Aricept] 5 mg PO HS #30 tab 05/17/20 07/01/20 Rx Memantine [Namenda] 5 mg PO BID #60 tab 05/17/20 07/01/20 Rx Nitroglycerin Sl Tabs [Nitrostat] 0.4 mg SL Q5M PRN 05/20/20 07/01/20 History Lisinopril [Zestril] 10 mg PO DAILY 07/01/20 07/01/20 History Allergies Allergy/AdvReac Type Severity Reaction Status Date / Time lincomycin HCl Allergy Unknown Unknown Verified 07/01/20 15:03 [From Lincocin] Physical Exam Vitals: Vital Signs Temp Pulse Pulse Resp BP BP BP 07/02/20 08:10 98.6 F 66 18 07/02/20 04:30 98.1 F 81 14 167/71 163/73 07/02/20 03:00 98.1 F 81 14 07/01/20 21:00 97.9 F 78 16 07/01/20 18:52 97.9 F 64 16 07/01/20 17:46 97.5 F L 55 L 18 111/56 07/01/20 16:15 55 L 18 111/56 07/01/20 15:15 56 L 18 111/66 07/01/20 14:15 18 07/01/20 14:10 97.5 F L 53 L 16 135/76 BP BP Pulse Ox 07/02/20 08:10 138/64 98 07/02/20 04:30 153/67 99 07/02/20 03:00 153/67 99 07/01/20 21:00 158/60 98 07/01/20 18:52 134/79 97 07/01/20 17:46 96 07/01/20 16:15 96 07/01/20 15:15 96 07/01/20 14:15 96 07/01/20 14:10 97 Intake and Output 07/01/20 07/02/20 07/02/20 22:59 06:59 14:59 Intake Total 237 Balance 237 Intake: Oral 237 Other: Voiding Method Toilet Toilet # Voids 2 Weight 65.317 kg - Constitutional General appearance: no acute distress - Respiratory Respiratory: bilateral: CTA - Cardiovascular Rhythm: regular Heart sounds: normal: S1, S2 Results 07/02/20 06:32 07/02/20 06:32 Cardiac Enzymes 07/01/20 07/01/20 07/02/20 Range/Units 14:30 14:30 06:32 AST 23 21 (14-36) U/L Troponin I <0.012 (0.000-0.034) ng/mL Coagulation 07/01/20 Range/Units 14:30 PT 10.6 (9.0-12.0) sec APTT 25.4 (22.0-30.0) sec CBC 07/01/20 07/02/20 Range/Units 14:30 06:32 WBC 10.9 H 10.8 H (3.8-10.6) k/uL RBC 3.75 L 3.55 L (3.80-5.40) m/uL Hgb 10.9 L 10.4 L (11.4-16.0) gm/dL Hct 33.9 L 31.7 L (34.0-46.0) % Plt Count 351 305 (150-450) k/uL Comprehensive Metabolic Panel 07/01/20 07/02/20 Range/Units 14:30 06:32 Sodium 135 L 137 (137-145) mmol/L Potassium 5.5 H 4.8 (3.5-5.1) mmol/L Chloride 108 H 109 H (98-107) mmol/L Carbon Dioxide 19 L 21 L (22-30) mmol/L BUN 30 H 27 H (7-17) mg/dL Creatinine 1.92 H 1.63 H (0.52-1.04) mg/dL Glucose 250 H 130 H (74-99) mg/dL Calcium 9.3 9.1 (8.4-10.2) mg/dL AST 23 21 (14-36) U/L ALT 12 12 (4-34) U/L Alkaline Phosphatase 118 107 (38-126) U/L Total Protein 6.3 6.0 L (6.3-8.2) g/dL Albumin 3.8 3.5 (3.5-5.0) g/dL Current Medications Generic Name Dose Route Start Last Admin Trade Name Freq PRN Reason Stop Dose Admin Amlodipine Besylate 5 mg 07/01/20 21:00 07/02/20 08:39 Amlodipine 5 Mg Tab PO 5 mg BID GHAZAL Administration Aspirin 81 mg 07/02/20 09:00 07/02/20 08:39 Aspirin 81 Mg PO 81 mg DAILY GHAZAL Administration Atorvastatin Calcium 40 mg 07/02/20 09:00 07/02/20 08:33 Atorvastatin 40 Mg Tab PO 40 mg DAILY GHAZAL Administration Budesonide/Formoterol Fumarate 2 puff 07/01/20 19:32 Symbicort 80-4.5 Mcg Inhaler INHALATION RT-DAILY PRN Shortness Of Breath Carvedilol 25 mg 07/01/20 21:00 07/02/20 06:51 Carvedilol 12.5 Mg Tab PO 25 mg AC-BID GHAZAL Administration Clopidogrel Bisulfate 75 mg 07/02/20 09:00 07/02/20 08:39 Clopidogrel 75 Mg Tab PO 75 mg DAILY GHAZAL Administration Donepezil HCl 5 mg 07/01/20 21:00 07/01/20 21:21 Donepezil 5 Mg Tab PO 5 mg HS GHAZAL Administration Ergocalciferol 50,000 unit 07/05/20 09:00 Ergocalciferol 50,000 Unit Cap PO FR GHAZAL Ferrous Sulfate 325 mg 07/02/20 09:00 07/02/20 08:33 Ferrous Sulfate 325 Mg Tab PO 325 mg DAILY GHAZAL Administration Sodium Chloride 1,000 mls @ 75 mls/hr 07/01/20 16:30 07/02/20 04:00 Saline 0.9% IV 75 mls/hr .[id number] GHAZAL Administration Insulin Aspart 0 unit 07/01/20 21:00 07/02/20 06:50 Insulin Aspart (Novolog) 100 Unit/Ml Vial SQ Not Given ACHS [facility] Protocol Isosorbide Mononitrate 30 mg 07/02/20 09:00 07/02/20 08:39 Isosorbide Mononitrate Er 30 Mg Tab.Er.24h PO 30 mg DAILY GHAZAL Administration Linagliptin 5 mg 07/02/20 09:00 07/02/20 08:33 Linagliptin 5 Mg Tablet PO 5 mg DAILY GHAZAL Administration Memantine 5 mg 07/01/20 21:00 07/02/20 08:32 Memantine 5 Mg Tab PO 5 mg BID GHAZAL Administration Multivitamins/Minerals 1 each 07/02/20 09:00 07/02/20 08:32 Vit A,C & U-Fxkusp-Boasyyhc 1 Each Tab PO 1 each DAILY GHAZAL Administration Naloxone HCl 0.2 mg 07/01/20 16:31 Naloxone 0.4 Mg/Ml 1 Ml Vial IV Q2M PRN Opioid Reversal Nitroglycerin 0.4 mg 07/01/20 19:32 Nitroglycerin Sl Tabs 0.4 Mg Tab SUBLINGUAL Q5M PRN Chest Pain Intake and Output 07/01/20 07/02/20 07/02/20 22:59 06:59 14:59 Intake Total 237 Balance 237 Intake: Oral 237 Other: Voiding Method Toilet Toilet # Voids 2 Weight 65.317 kg 07/02/20 06:32 07/02/20 06:32 Assessment and Plan Assessment: Assessment #1 syncopal episode #2 coronary artery disease #3 diabetes #4 hypertension #5 dyslipidemia #6 underlying dementia Plan #1 acute coronary event was ruled out #2 orthostatic blood pressure was ruled out #3 the syncope could be related to vasovagal since she was going to have a blood drawn #4 hypoglycemia to be ruled out #5 we'll get an echocardiogram was Doppler #6 orthostatic blood pressure orthostatic hypotension was ruled out Overall would pursue a conservative medical approach only giving her age as well as the underlying dementia. We'll continue following up with her and she possibly can be discharged home in the next 12-24 hours.
--- NOTE | 2020-07-02 10:14 | ECHOF ---
Referral Reason:syncope MEASUREMENTS -------- HEIGHT: 149.9 cm WEIGHT: 65.3 kg BP: 153/67 RVIDd: 2.8 cm (< 3.3) IVSd: 1.5 cm (0.6 - 1.1) LVIDd: 3.6 cm (3.9 - 5.3) LVPWd: 1.4 cm (0.6 - 1.1) IVSs: 1.9 cm LVIDs: 1.6 cm LVPWs: 2.0 cm LAESV Index (A-L): 45.33 ml/m Ao Diam: 2.5 cm (2.0 - 3.7) AV Cusp: 1.5 cm (1.5 - 2.6) LA Diam: 2.9 cm (2.7 - 3.8) MV EXCURSION: 14.230 mm (> 18.000) MV EF SLOPE: 46 mm/s (70 - 150) EPSS: 0.2 cm MV E Zelalem: 0.83 m/s MV A [place]: 1.26 m/s MV E/A Ratio: 0.65 AV maxP.20 mmHg AV meanP.13 mmHg RAP: 5.00 mmHg RVSP: 9.20 mmHg FINDINGS -------- This was a technically good study. The left ventricular size is normal. There is moderate concentric left ventricular hypertrophy. O verall left ventricular systolic function is normal with, an EF between 55 - 60 %. Increased LAP Gr kaden 2 Diastolic Dysfunction. The right ventricle is normal in size. LA is severely dilated >40 ml/m2 The right atrial size is normal. Interatrial and interventricular septum intact. Aortic valve is trileaflet and is mildly thickened. There is mild aortic stenosis present. Peak/m giovanna gradient across the Aortic Valve is 17.20mmHg / 8.13mmHg. The mitral valve is normal. The mitral valve leaflets are mildly thickened. Mild mitral regurgita tion is present. The tricuspid valve appears structurally normal. Mild tricuspid regurgitation present. Right vent ricular systolic pressure is normal at < 35 mmHg. There is no pulmonic regurgitation present. The aortic root size is normal. Normal inferior vena cava with normal inspiratory collapse consistent with estimated right atrial pre ssure of 5 mmHg. There is no pericardial effusion. CONCLUSIONS -------- 1. The left ventricular size is normal. 2. There is moderate concentric left ventricular hypertrophy. 3. Overall left ventricular systolic function is normal with, an EF between 55 - 60 %. 4. Increased LAP Grade 2 Diastolic Dysfunction. 5. LA is severely dilated >40 ml/m2 6. Aortic valve is trileaflet and is mildly thickened. 7. There is mild aortic stenosis present. 8. Peak/mean gradient across the Aortic Valve is 17.20mmHg / 8.13mmHg. 9. The mitral valve leaflets are mildly thickened. 10. Mild mitral regurgitation is present. 11. Mild tricuspid regurgitation present. 12. The aortic root size is normal. 13. There is no pericardial effusion. TRACK REPAIRER HELPER: Christine Beal RDCS
--- NOTE | 2020-07-02 10:54 | P.PN ---
Subjective This is a pleasant 80 years old female with past medical history of dementia, CVA/TIA, diabetes mellitus, hyperlipidemia, hypertension, osteoarthritis, coronary artery disease, asthma, syncope, hronic kidney disease stage IV. She is a patient of Dr. Arita her documentation writer and PCP Dr. Calix. She follows up with soil technologist for her kidney disease. Patient with frequent hospital admissions, this is the fifth admission in about 1.5 month. She was recently admitted to the hospital for syncope and non-STEMI. She had underwent cardiac cath which showed heavily calcified coronary arteries with calcified mitral annulus with 50% stenosis of the left main coronary artery, surgical team has been consulted. However eventually patient was found high- risk for surgical intervention by Dr. Cui from cardiovascular surgical team. patient is high-risk for surgery due to her comorbidities and mental status and refusal to do surgery. This morning patient is pleasant and smiling but refuses treatment as I saw her at this is twice during previous admissions over 1.5 months ago. Patient also has significant memory problems for example she thinks she passed out at home while she was walking while actually she passed out and office to her blood draw as per documents, patient has memory problems which affect her function and she keeps comes to the hospital. I remember first time when she came to emergency room for non-STEMI she wanted to go home to the grandson came and convinced her to come to the hospital but then she refused treatment most of the time and she wants to go home. I think the patient has difficulty taking care of herself and I will recommend case liner/social director evaluation for possible guardianship given the patient significant dementia and difficulty taking care of herself Objective - Vital Signs Vital signs: Vital Signs Temp 98.6 F 07/02/20 08:10 Pulse 66 07/02/20 09:00 Resp 18 07/02/20 09:00 BP 138/64 07/02/20 08:10 Pulse Ox 98 07/02/20 08:10 Intake & Output 07/01/20 07/02/20 07/02/20 18:59 06:59 18:59 Intake Total 237 240 Balance 237 240 Weight 65.317 kg Intake: Oral 237 240 Other: Voiding Method Toilet Toilet # Voids 2 - Labs CBC & Chem 7: 07/02/20 06:32 07/02/20 06:32 Labs: Abnormal Lab Results - Last 24 Hours (Table) 07/01/20 07/01/20 07/01/20 Range/Units 14:30 14:30 21:15 WBC 10.9 H (3.8-10.6) k/uL RBC 3.75 L (3.80-5.40) m/uL Hgb 10.9 L (11.4-16.0) gm/dL Hct 33.9 L (34.0-46.0) % Sodium 135 L (137-145) mmol/L Potassium 5.5 H (3.5-5.1) mmol/L Chloride 108 H (98-107) mmol/L Carbon Dioxide 19 L (22-30) mmol/L BUN 30 H (7-17) mg/dL Creatinine 1.92 H (0.52-1.04) mg/dL Glucose 250 H (74-99) mg/dL POC Glucose (mg/dL) 200 H (75-99) mg/dL Total Protein (6.3-8.2) g/dL Urine Appearance (Clear) Urine Protein (Negative) Ur Leukocyte Esterase (Negative) Urine Bacteria (None) /hpf Hyaline Casts (0-2) /lpf Urine Mucus (None) /hpf 07/01/20 07/02/20 07/02/20 Range/Units Unknown 06:32 06:32 WBC 10.8 H (3.8-10.6) k/uL RBC 3.55 L (3.80-5.40) m/uL Hgb 10.4 L (11.4-16.0) gm/dL Hct 31.7 L (34.0-46.0) % Sodium (137-145) mmol/L Potassium (3.5-5.1) mmol/L Chloride 109 H (98-107) mmol/L Carbon Dioxide 21 L (22-30) mmol/L BUN 27 H (7-17) mg/dL Creatinine 1.63 H (0.52-1.04) mg/dL Glucose 130 H (74-99) mg/dL POC Glucose (mg/dL) (75-99) mg/dL Total Protein 6.0 L (6.3-8.2) g/dL Urine Appearance Cloudy H (Clear) Urine Protein 1+ H (Negative) Ur Leukocyte Esterase Small H (Negative) Urine Bacteria Occasional H (None) /hpf Hyaline Casts 16 H (0-2) /lpf Urine Mucus Rare H (None) /hpf 07/02/20 Range/Units 06:48 WBC (3.8-10.6) k/uL RBC (3.80-5.40) m/uL Hgb (11.4-16.0) gm/dL Hct (34.0-46.0) % Sodium (137-145) mmol/L Potassium (3.5-5.1) mmol/L Chloride (98-107) mmol/L Carbon Dioxide (22-30) mmol/L BUN (7-17) mg/dL Creatinine (0.52-1.04) mg/dL Glucose (74-99) mg/dL POC Glucose (mg/dL) 124 H (75-99) mg/dL Total Protein (6.3-8.2) g/dL Urine Appearance (Clear) Urine Protein (Negative) Ur Leukocyte Esterase (Negative) Urine Bacteria (None) /hpf Hyaline Casts (0-2) /lpf Urine Mucus (None) /hpf Assessment and Plan Assessment: -Syncope, recurrent -Possible acute urinary tract infection -chronic kidney disease, stage IV -Non-adherence to therapy, forgetful and difficult to take care of herself. -Recent non-STEMI last month, cardiac cath:Cardiac cath showed heavily calcified coronary arteries with calcified mitral annulus with 50% stenosis of the left main coronary artery, surgery was recommended no surgery because patient declined surgery as well -Mild confusion, rule out dementia -Chronic kidney disease stage III -Right shoulder rotator cuff tear -Diabetes mellitus with hyperglycemia -Hypertension -Hyperlipidemia -History of CVA -Aortic aneurysm Plan: This is a pleasant 80 years old female with frequent hospitalization over short period of time for similar conditions for example recurrent syncope. She has significant coronary artery disease and she refuses surgery, cardiothoracic surgeon last time recommended no surgery because of her dementia and nonadherence to therapy. Recommend to continue the current treatment. Continue with antibiotic Rocephin for possible UTI. We'll consult case liner/social director. Labs and medication were reviewed.. Continue same treatment. Continue with symptomatic treatment. Resume home medication. Monitor lytes and vitals. DVT and GI prophylaxis. Further recommendations as per clinical course of the patient DVT prophylaxis: Subcutaneous heparin GI Prophylaxis: Pepcid PT/OT: Pending Prognosis is guarded
[2020-07-02 12:03] LABS: Glucose,Whole Blood 232 mg/dL (75-99)
[2020-07-02 17:34] LABS: Glucose,Whole Blood 219 mg/dL (75-99)
--- NOTE | 2020-07-02 20:41 | US ---
EXAMINATION TYPE: US venous doppler duplex LE DATE OF EXAM: 07/02/2020 8:16 PM COMPARISON: NONE CLINICAL HISTORY: Rule out DVT. R/O DVT. Patient takes Plavix and aspirin. No hx of DVT. SIDE PERFORMED: Bilateral TECHNIQUE: The lower extremity deep venous system is examined utilizing real time linear array sonog awilda with graded compression, doppler sonography and color-flow sonography. VESSELS IMAGED: External Iliac Vein (EIV) Common Femoral Vein Deep Femoral Vein Greater Saphenous Vein * Femoral Vein Popliteal Vein Small Saphenous Vein * Proximal Calf Veins (* superficial vessels) Right Leg: No evidence of DVT in veins imaged at this time from prox calf veins to EIV. Left Leg: No evidence of DVT in veins imaged at this time from prox calf veins to EIV. IMPRESSION: No acute DVT in either lower extremity on the images saved.
[2020-07-02 20:51] LABS: Glucose,Whole Blood 137 mg/dL (75-99)
[2020-07-02] MEDS: DONEPEZIL 5 MG TAB PO SCH (20:54)
[2020-07-03 06:33] LABS: Glucose,Whole Blood 138 mg/dL (75-99)
[2020-07-03] MEDS: carvediloL 12.5 MG TAB PO SCH (06:34)
[2020-07-03] MEDS: INSULIN ASPART (NovoLOG) 100 UNIT/ML VIAL SQ SCH ×2 (06:34→12:12)
[2020-07-03 08:05] LABS: Potassium 4.7 mmol/L (3.5-5.1)
[2020-07-03 08:34] VITALS: BP 133/57; PULSE 98; TEMP 97.4
[2020-07-03] MEDS: MEMANTINE 5 MG TAB PO SCH (08:35)
[2020-07-03] MEDS: FERROUS SULFATE 325 MG TAB PO SCH (08:35)
[2020-07-03] MEDS: CLOPIDOGREL 75 MG TAB PO SCH (08:35)
[2020-07-03] MEDS: VIT A,C & E-LUTEIN-MINERALS 1 EACH TAB PO SCH (08:35)
[2020-07-03] MEDS: LINAGLIPTIN 5 MG TABLET PO SCH (08:35)
[2020-07-03] MEDS: amLODIPine 5 MG TAB PO SCH (08:35)
[2020-07-03] MEDS: ASPIRIN 81 MG PO SCH (08:35)
[2020-07-03] MEDS: ATORVASTATIN 40 MG TAB PO SCH (08:35)
[2020-07-03] MEDS: ISOSORBIDE MONONITRATE ER 30 MG TAB.ER.24H PO SCH (08:37)
--- NOTE | 2020-07-03 10:05 | P.PN ---
Subjective Progress Note Date: 07/03/20 This is a very pleasant 80-year-old female patient with a past medical history significant for coronary artery disease documented by heart catheterization was performed in April 2020 where the patient at that point was found to have coronary artery disease involving the left main coronary artery, history of diabetes and hypertension and dyslipidemia and also history of underlying dementia was admitted to the hospital for further evaluation off syncope. Orthostatics were obtained which came back to be negative. Blood pressure this morning 133/56. Sodium 135, potassium 4.7, BUN 34, creatinine 2.0. D-dimer came back at 1.75. A venous duplex study of the lower extremities was obtained which came back to be negative for any DVT. Echocardiogram with Doppler study was performed which revealed an ejection fraction of 55-60%. The LAD was severely dilated. Patient was advised to undergo a VQ scan this morning, which she has consented to do. There were no significant tachycardia or bradycardia arrhythmias noted on the monitor. Objective - Vital Signs Vital signs: Vital Signs Temp 97.4 F L 07/03/20 08:33 Pulse 98 07/03/20 08:33 Resp 18 07/03/20 09:00 BP 133/57 07/03/20 08:33 Pulse Ox 98 07/03/20 08:33 Intake & Output 07/02/20 07/03/20 07/03/20 18:59 06:59 18:59 Intake Total 880 350 240 Balance 880 350 240 Intake: Intake, IV Titration 400 Amount cefTRIAXone 1 gm In 400 Sodium Chloride 0.9% 50 ml @ 100 mls/hr IVPB Q24HR [facility] Rx#:[id number] Oral 480 350 240 Other: Voiding Method Toilet Toilet Toilet # Voids 2 - Exam PHYSICAL EXAMINATION: GENERAL: 80-year-old female in no acute distress at the time of my examination HEENT: Head is atraumatic, normocephalic. Pupils equal, round. Sclera anicteric. Conjunctiva are clear. Mucous membranes of the mouth are moist. Neck is supple. There is no elevated jugular venous pressure. No carotid bruit is heard. HEART EXAMINATION: S1 and S2 with soft systolic murmur is heard CHEST EXAMINATION: Lungs are clear to auscultation and precussion. No chest wall tenderness is noted on palpation or with deep breathing. ABDOMEN: Soft, nontender. Bowel sounds are heard. No organomegaly noted. EXTREMITIES: 2+ peripheral pulses with no evidence of peripheral edema and no calf tenderness noted. NEUROLOGIC patient is awake, alert and oriented 3 . . - Labs CBC & Chem 7: 07/02/20 06:32 07/03/20 07:22 Labs: Abnormal Lab Results - Last 24 Hours (Table) 07/02/20 07/02/20 07/02/20 Range/Units 12:01 15:29 17:31 D-Dimer 1.75 H (<0.60) mg/L FEU Sodium (137-145) mmol/L BUN (7-17) mg/dL Creatinine (0.52-1.04) mg/dL Glucose (74-99) mg/dL POC Glucose (mg/dL) 232 H 219 H (75-99) mg/dL 07/02/20 07/03/20 07/03/20 Range/Units 20:50 06:32 07:22 D-Dimer (<0.60) mg/L FEU Sodium 135 L (137-145) mmol/L BUN 34 H (7-17) mg/dL Creatinine 2.03 H (0.52-1.04) mg/dL Glucose 146 H (74-99) mg/dL POC Glucose (mg/dL) 137 H 138 H (75-99) mg/dL Assessment and Plan Plan: Assessment and plan #1 syncope #2 coronary artery disease #3 diabetes #4 hypertension #5 hyperlipidemia #6 underlying dementia Plan Patient will undergo a VQ scan today to rule out the possibility of pulmonary embolism. There are no significant orthostatics documented. No evidence of any significant tachycardia or bradycardia arrhythmias. Echocardiogram with Doppler study revealed a normal left ventricular systolic function. If the VQ scan com es back negative, patient may be able to be discharged home from our perspective. We will make her a follow-up appointment in the office post discharge. Recommend a 30 day event monitor on discharge. DNP note has been reviewed, I agree with a documented findings and plan of care. Patient was seen and examined.
--- NOTE | 2020-07-03 10:27 | NM ---
EXAMINATION TYPE: NM pul vent and perfuse DATE OF EXAM: 07/03/2020 COMPARISON: NONE HISTORY: Shortness of breath TECHNIQUE: Utilizing inhalation of 38.5 mCi Tc 99m DTPA aerosol and intravenous injection of 5.2 mCi of Tc 99m MAA, ventilation and perfusion images are acquired post injection in multiple projections. FINDINGS: There is central accumulation of radiotracer on the ventilation portion of the study compatible with COPD. No evidence for ventilation/perfusion mismatch this time. IMPRESSION: Low probability for pulmonary embolism.
[2020-07-03 11:59] LABS: Glucose,Whole Blood 287 mg/dL (75-99)
--- NOTE | 2020-07-03 17:12 | P.DS ---
Providers Date of admission: 07/01/20 17:30 Attending physician: Miri Ferris Consults: 07/01/20 19:32 Consult Physician Routine Consulting Provider: Nayla Ceja Consult Reason/Comments: syncope Do you want consulting provider notified?: Yes Primary care physician: Roberto Whyte [facility] Course: 80 years old female with past medical history of dementia, CVA/TIA, diabetes mellitus, hyperlipidemia, hypertension, osteoarthritis, coronary artery disease, asthma, syncope, hronic kidney disease stage IV. She is a patient of Dr. Arita her sponge fisherman and PCP Dr. Calix. She follows up with applied researcher for her kidney disease. Patient with frequent hospital admissions, this is the fifth admission in about 1.5 month. She was recently admitted to the hospital for syncope and non-STEMI. She had underwent cardiac cath which showed heavily calcified coronary arteries with calcified mitral annulus with 50% stenosis of the left main coronary artery, surgical team has been consulted. However eventually patient was found high- risk for surgical intervention by Dr. Cui from cardiovascular surgical team. patient is high-risk for surgery due to her comorbidities and mental status and refusal to do surgery. This morning patient is pleasant and smiling but refuses treatment as I saw her at this is twice during previous admissions over 1.5 months ago. Patient also has significant memory problems for example she thinks she passed out at home while she was walking while actually she passed out and office to her blood draw as per documents, patient has memory problems which affect her function and she keeps comes to the hospital. I remember first time when she came to emergency room for non-STEMI she wanted to go home to the grandson came and convinced her to come to the hospital but then she refused treatment most of the time and she wants to go home. I think the patient has difficulty taking care of herself and I will recommend caser shoe parts/social service coordinator evaluation for possible guardianship given the patient significant dementia and difficulty taking care of herself 07/03/2020 Patient is VQ scan which did not show any pulmonary embolism patient will be discharged today patient still has chronic kidney disease. Low potassium diet was advised and the patient came in with elevated potassium lisinopril is being held and patient the patient is within normal limits . we will set up a follow with nephrology patient is not willing to stay in the hospital at this time. Patient will be discharged today.patient may have a competent of acute renal failure as well patient does have dementia and her granddaughter Sais with the patient. Patient also hemodynamically pretty stable at this time PHYSICAL EXAMINATION: GENERAL: The patient is alert and oriented x2, not in any acute distress. Well developed, well nourished. HEENT: Pupils are round and equally reacting to light. EOMI. No scleral icterus. No conjunctival pallor. Normocephalic, atraumatic. No pharyngeal erythema. No thyromegaly. CARDIOVASCULAR: S1 and S2 present. No murmurs, rubs, or gallops. PULMONARY: Chest is clear to auscultation, no wheezing or crackles. ABDOMEN: Soft, nontender, nondistended, normoactive bowel sounds. No palpable organomegaly. MUSCULOSKELETAL: No joint swelling or deformity. EXTREMITIES: No cyanosis, clubbing, or pedal edema. NEUROLOGICAL: Gross neurological examination did not reveal any focal deficits. SKIN: No rashes. Assessment and Plan Assessment: -Syncope, recurrent, may be secondary to hypotension and intravascular depletion patient was hydrated. -Coronary artery disease patient declined any operative intervention -Possible acute urinary tract infectionpatient will be discharged on Ceftin -chronic kidney disease, stage 3-4 -Non-adherence to therapy, forgetful and difficult to take care of herself. -Recent non-STEMI last month, cardiac cath:Cardiac cath showed heavily calcified coronary arteries with calcified mitral annulus with 50% stenosis of the left main coronary artery, surgery was recommended no surgery because patient declined surgery as well -mild to moderate dementia -Chronic kidney disease stage III -Right shoulder rotator cuff tear -Diabetes mellitus with hyperglycemia -Hypertension -Hyperlipidemia -History of CVA -Aortic aneurysm Patient Condition at Discharge: Stable Plan - Discharge Summary Discharge Rx Participant: No New Discharge Prescriptions: New Cefuroxime Axetil [Ceftin] 500 mg PO BID 3 Days #6 tab Continue sitaGLIPtin [Januvia] 50 mg PO DAILY Aspirin [Adult Low Dose Aspirin EC] 81 mg PO DAILY Isosorbide Mononitrate ER [Imdur] 30 mg PO DAILY Fluticasone/Vilanterol [Breo Ellipta 100-25 Mcg Inhaler] 1 puff INHALATION RT-DAILY PRN PRN Reason: Shortness Of Breath Carvedilol [Coreg] 25 mg PO BID Ergocalciferol [Vitamin D2 (DRISDOL)] 50,000 unit PO FR Atorvastatin [Lipitor] 40 mg PO DAILY 30 Days #30 tab amLODIPine [Norvasc] 5 mg PO BID 30 Days #60 tab Clopidogrel [Plavix] 75 mg PO DAILY 30 Days #30 tab Vits A,C,E/Lutein/Minerals [Vision Formula with Lutein Tab] 1 tab PO DAILY Ferrous Sulfate 324mg 324 mg PO DAILY Donepezil [Aricept] 5 mg PO HS #30 tab Memantine [Namenda] 5 mg PO BID #60 tab Nitroglycerin Sl Tabs [Nitrostat] 0.4 mg SL Q5M PRN PRN Reason: Chest Pain Lisinopril [Zestril] 10 mg PO DAILY Discharge Medication List Aspirin [Adult Low Dose Aspirin EC] 81 mg PO DAILY 03/13/16 [History] sitaGLIPtin [Januvia] 50 mg PO DAILY 03/13/16 [History] Isosorbide Mononitrate ER [Imdur] 30 mg PO DAILY 01/08/19 [History] Atorvastatin [Lipitor] 40 mg PO DAILY 30 Days #30 tab 05/08/20 [Rx] Carvedilol [Coreg] 25 mg PO BID 05/08/20 [History] Clopidogrel [Plavix] 75 mg PO DAILY 30 Days #30 tab 05/08/20 [Rx] Ergocalciferol [Vitamin D2 (DRISDOL)] 50,000 unit PO FR 05/08/20 [History] Fluticasone/Vilanterol [Breo Ellipta 100-25 Mcg Inhaler] 1 puff INHALATION RT- DAILY PRN 05/08/20 [History] amLODIPine [Norvasc] 5 mg PO BID 30 Days #60 tab 05/08/20 [Rx] Ferrous Sulfate 324mg 324 mg PO DAILY 05/13/20 [History] Vits A,C,E/Lutein/Minerals [Vision Formula with Lutein Tab] 1 tab PO DAILY 05/13/20 [History] Donepezil [Aricept] 5 mg PO HS #30 tab 05/17/20 [Rx] Memantine [Namenda] 5 mg PO BID #60 tab 05/17/20 [Rx] Nitroglycerin Sl Tabs [Nitrostat] 0.4 mg SL Q5M PRN 05/20/20 [History] Lisinopril [Zestril] 10 mg PO DAILY 07/01/20 [History] Cefuroxime Axetil [Ceftin] 500 mg PO BID 3 Days #6 tab 07/03/20 [Rx] Follow up Appointment(s)/Referral(s): Catherine Mejia MD [Primary Care Provider] - 07/05/20 10:40 am Paxton Sandoval DO [STAFF PHYSICIAN] - 07/15/20 9:00 am (will see Maria L CABRERA) Patient Instructions/Handouts: Syncope (GEN) Discharge Disposition: HOME SELF-CARE
[2020-07-05] MEDS ORDERED: ERGOCALCIFEROL 50,000 UNIT CAP PO SCH (09:00)
== END 2020-07-03 16:06 | disposition home or self-care (01) ==
LOC: EC 14:07 → 3NCARDOBS 17:30
PROVIDERS: ADMIT Internal Medicine; ATTEND Internal Medicine
DX: R55 Syncope and collapse (principal); J45.909 Unspecified asthma, uncomplicated; E78.5 Hyperlipidemia, unspecified; I12.9 Hypertensive chronic kidney disease with stage 1 through stage 4 chronic kidney disease, or unspecified chronic kidney disease; F03.90 Unspecified dementia, unspecified severity, without behavioral disturbance, psychotic disturbance, mood disturbance, and anxiety; E11.22 Type 2 diabetes mellitus with diabetic chronic kidney disease; Z91.19 Patient's noncompliance with other medical treatment and regimen; R41.3 Other amnesia; E87.5 Hyperkalemia; E87.1 Hypo-osmolality and hyponatremia; D63.8 Anemia in other chronic diseases classified elsewhere; E86.0 Dehydration; M75.101 Unspecified rotator cuff tear or rupture of right shoulder, not specified as traumatic; I71.9 Aortic aneurysm of unspecified site, without rupture; E11.65 Type 2 diabetes mellitus with hyperglycemia; I25.119 Atherosclerotic heart disease of native coronary artery with unspecified angina pectoris; I25.2 Old myocardial infarction; M19.90 Unspecified osteoarthritis, unspecified site; M54.5 Low back pain; D50.9 Iron deficiency anemia, unspecified; M25.562 Pain in left knee; L30.9 Dermatitis, unspecified; R00.1 Bradycardia, unspecified; N17.0 Acute kidney failure with tubular necrosis; N18.4 Chronic kidney disease, stage 4 (severe); Z79.82 Long term (current) use of aspirin; Z79.84 Long term (current) use of oral hypoglycemic drugs; Z79.899 Other long term (current) drug therapy; Z79.02 Long term (current) use of antithrombotics/antiplatelets; Z79.51 Long term (current) use of inhaled steroids; Z88.1 Allergy status to other antibiotic agents; Z86.73 Personal history of transient ischemic attack (TIA), and cerebral infarction without residual deficits; Z87.01 Personal history of pneumonia (recurrent); Z87.442 Personal history of urinary calculi; Z85.828 Personal history of other malignant neoplasm of skin; Z87.891 Personal history of nicotine dependence; Z90.710 Acquired absence of both cervix and uterus; Z82.49 Family history of ischemic heart disease and other diseases of the circulatory system; Z80.8 Family history of malignant neoplasm of other organs or systems
CPT/HCPCS: 96361; 96365; 96366 ×2; 99285; 36415; 93005; 93306; 97161; 85379; 80053 ×2; 80048; 83735; 84484; 85025 ×2; 85610; 85730; 81001; 71046; 93880; 93970; 78582; G0378 ×3; A9540; A9567; J0696 ×2

== ENCOUNTER → 2020-07-09 | Outpatient (CLI) | payer MEDICARE, OTHER ==
[2020-07-09 11:39] LABS: Appearance,Urine Clear (Clear); Bilirubin,Urine Negative (Negative); Blood,Urine Negative (Negative); Color,Urine Light Yellow; Glucose,Urine (UA) Negative (Negative); Ketones,Urine Negative (Negative); Leukocyte Esterase,Urine Negative (Negative); Nitrite,Urine Negative (Negative); Protein,Urine Trace (Negative); Specific Gravity,Urine 1.009 (1.001-1.035); Urobilinogen,Urine <2.0 mg/dL (<2.0)
[2020-07-09 11:51] LABS: Basophils # (A) 0.1 k/uL (0-0.2); Basophils % (A) 1 %; Eosinophils # (A) 0.3 k/uL (0-0.7); Eosinophils % (A) 3 %; HCT 35.9 % (34.0-46.0); HGB 11.8 gm/dL (11.4-16.0); Lymphocytes # (A) 2.2 k/uL (1.0-4.8); Lymphocytes % (A) 22 %; MCH 30.7 pg (25.0-35.0); MCHC 32.9 g/dL (31.0-37.0); MCV 93.4 fL (80.0-100.0); Mean Platelet Volume 7.4; Monocytes # (A) 0.4 k/uL (0-1.0); Monocytes % (A) 4 %; Neutrophils # (A) 6.9 k/uL (1.3-7.7); Neutrophils % (A) 69 %; Platelet Count 357 k/uL (150-450); RBC 3.84 m/uL (3.80-5.40); RDW 12.6 % (11.5-15.5)
[2020-07-09 11:57] LABS: Protein/Creatinine Ratio,Urine 0.417
[2020-07-09 22:06] LABS: % Iron Saturation 16.61 (12.00-45.00); African American GFR (CKD) 30.1 (60.0-200.0); Albumin 4.4 g/dL (3.80-4.90); Anion Gap 8.1 mmol/L (4.00-12.00); Calcium 9.5 mg/dL (8.7-10.3); Carbon Dioxide 23.9 mmol/L (21.6-31.8); Magnesium 1.9 mg/dL (1.5-2.4); Non-African American GFR(CKD) 25.9 (60.0-200.0); Phosphorus 3.9 mg/dL (2.4-5.1); Uric Acid 6.8 mg/dL (2.9-7.7)
[2020-07-09 22:16] LABS: Ferritin 211.6 ng/mL (10.0-291.0)
== END | disposition home or self-care (01) ==
LOC: LABWHC1 09:24
PROVIDERS: ATTEND Nurse Practitioner Family
DX: E55.9 Vitamin D deficiency, unspecified (principal); D63.1 Anemia in chronic kidney disease; N25.81 Secondary hyperparathyroidism of renal origin; M10.9 Gout, unspecified; N39.0 Urinary tract infection, site not specified; N18.30 Chronic kidney disease, stage 3 unspecified; R80.9 Proteinuria, unspecified
CPT/HCPCS: 36415; 80048; 81003; 82040; 82306; 82570; 82728; 83540; 83550; 83735; 83970; 84100; 84156; 84550; 85025

== ENCOUNTER 2020-12-11 20:51 | Inpatient (IN) | payer MEDICARE, OTHER ==
[2020-12-12] MEDS ORDERED: IPRATROPIUM-ALBUTEROL 3 ML NEB INHALATION PRN (00:56)
[2020-12-12 01:18] LABS: Glucose,Whole Blood 296 mg/dL (75-99)
[2020-12-12] MEDS: INSULIN ASPART (NovoLOG) 100 UNIT/ML VIAL SQ SCH ×5 (01:48→21:40)
[2020-12-12] MEDS: SODIUM CHLORIDE 0.9% 1,000 ML IV SCH ×2 (05:32→18:00)
[2020-12-12 07:37] LABS: Glucose,Whole Blood 142 mg/dL (75-99)
[2020-12-12] MEDS: ZINC SULFATE 220 MG CAP PO SCH (07:52)
[2020-12-12] MEDS: ASCORBIC ACID 500 MG TAB PO SCH (07:52)
[2020-12-12] MEDS: ALBUTEROL HFA INHALER INHALATION PRN (08:13)
[2020-12-12] MEDS ORDERED: ENOXAPARIN 40 MG/0.4 ML SYRINGE SQ SCH (09:00)
[2020-12-12 09:34] LABS: Basophils # (A) 0.02 X 10*3/uL (0.00-0.10); Basophils % (A) 0.3 %; Eosinophils # (A) 0.03 X 10*3/uL (0.04-0.35); Eosinophils % (A) 0.5 %; Lymphocytes # (A) 3.42 X 10*3/uL (0.90-5.00); Lymphocytes % (A) 54.5 %; MCH 28.7 pg (27.0-32.0); MCHC 31.4 g/dL (32.0-37.0); MCV 91.4 fL (80.0-97.0); Monocytes # (A) 0.61 X 10*3/uL (0.20-1.00); Monocytes % (A) 9.7 %; Neutrophils # (A) 2.16 X 10*3/uL (1.80-7.70); Neutrophils % (A) 34.5 %; Platelet Count 261 X 10*3/uL (140-440); RBC 3.83 X 10*6/uL (4.10-5.20); WBC 6.27 X 10*3/uL (4.50-10.00)
[2020-12-12 09:36] LABS: Glucose,Whole Blood 166 mg/dL (75-99)
[2020-12-12 09:51] LABS: African American GFR (CKD) 20.2 (60.0-200.0); Anion Gap 8.9 mmol/L (4.00-12.00); BUN/Creat Ratio 15.6 Ratio (12.00-20.00); Calcium 9.2 mg/dL (8.7-10.3); Carbon Dioxide 24.1 mmol/L (21.6-31.8); Non-African American GFR(CKD) 17.4 (60.0-200.0); Potassium 4.6 mmol/L (3.5-5.5)
[2020-12-12 12:04] LABS: Glucose,Whole Blood 198 mg/dL (75-99)
--- NOTE | 2020-12-12 14:01 | P.HPIM ---
History of Present Illness Patient is a pleasant 80-year-old female was transferred from [facility] after she had a syncopal episode. Patient was also getting appear like symptoms or cough dry cough and denies any chance of breath denied any fever chills. Found to have covid 19. Patient had another syncopal episode because of which, echocardiogram will be obtained along with EKG. Patient is not hypoxic at this time not wearing oxygen. Patient denied any symptoms at this time except for minimal cough. Patient doesn't exactly remember the onset of symptoms. Patient baseline creatinine around 1.8 presently 2.5. Review of Systems REVIEW OF SYSTEMS: CONSTITUTIONAL: No fever, no malaise, no fatigue. HEENT: No recent visual problems or hearing problems. Denied any sore throat. CARDIOVASCULAR: No chest pain, orthopnea, PND, no palpitations, no syncope. PULMONARY: No shortness of breath, no hemoptysis. GASTROINTESTINAL: No diarrhea, no nausea, no vomiting, no abdominal pain. NEUROLOGICAL: No headaches, no weakness, no numbness. HEMATOLOGICAL: Denies any bleeding or petechiae. GENITOURINARY: Denies any burning micturition, frequency, or urgency. MUSCULOSKELETAL/RHEUMATOLOGICAL: Denies any joint pain, swelling, or any muscle pain. ENDOCRINE: Denies any polyuria or polydipsia. The rest of the 14-point review of systems is negative. Past Medical History Past Medical History: Asthma, Coronary Artery Disease (CAD), Cancer, Chest Pain / Angina, CVA/TIA, Diabetes Mellitus, Hyperlipidemia, Hypertension, Myocardial Infarction ([place]), Osteoarthritis (OA), Pneumonia, Renal Disease, Skin Disorder, Syncope, Vascular Disorder Additional Past Medical History / Comment(s): Pt recently admitted to [facility] on 05/08/20 with chest pain, Other hx: CVA in 2016-no residual, NIDDM type II, low back pain, iron deficiency anemia, thoracic aneurysm per past medical record-pt states she has never been told about an aneurysm, nephrolithiasis-pt passed stones on her own, skin cancer with removals, L knee pain, eczema Last Myocardial Infarction Date:: 2018 History of Any Multi-Drug Resistant Organisms: None Reported Past Surgical History: Section, Hysterectomy, Orthopedic Surgery Additional Past Surgical History / Comment(s): x3, bilateral carpal tunnel releases, bilateral cataract removals, skin cancer removals. Past Anesthesia/Blood Transfusion Reactions: No Reported Reaction Past Psychological History: No Psychological Hx Reported Additional Psychological History / Comment(s): Pt resides alone. She uses a cane/walker to ambulate. She does not have a car, her grandson lives a couple miles from her and gives her rides. Smoking Status: Former smoker Past Alcohol Use History: None Reported Additional Past Alcohol Use History / Comment(s): Pt started smoking in 5 and quit in 1984. Past Drug Use History: None Reported - Past Family History Mother Family Medical History: Cancer Additional Family Medical History / Comment(s): BRAIN TUMOR Brother(s) Family Medical History: Cancer, Diabetes Mellitus Additional Family Medical History / Comment(s): BRAIN TUMOR. Father Family Medical History: Myocardial Infarction ([place]) Additional Family Medical History / Comment(s): "Heart problems" Daughter(s) Family Medical History: Cancer Additional Family Medical History / Comment(s): Malignant neoplasm of brain Unspecified Family Medical History: Asthma, Hyperlipidemia, Renal Disease Medications and Allergies Home Medications Medication Instructions Recorded Confirmed Type Aspirin [Adult Low Dose Aspirin EC] 81 mg PO DAILY 03/13/16 12/12/20 History sitaGLIPtin [Januvia] 50 mg PO DAILY 03/13/16 12/12/20 History Isosorbide Mononitrate ER [Imdur] 30 mg PO DAILY 01/08/19 12/12/20 History Atorvastatin [Lipitor] 40 mg PO DAILY 30 Days #30 tab 05/08/20 12/12/20 Rx Carvedilol [Coreg] 25 mg PO BID 05/08/20 12/12/20 History Clopidogrel [Plavix] 75 mg PO DAILY 30 Days #30 tab 05/08/20 12/12/20 Rx Ergocalciferol [Vitamin D2 50,000 unit PO FR 05/08/20 12/12/20 History (DRISDOL)] Fluticasone/Vilanterol [Breo 1 puff INHALATION RT-DAILY 05/08/20 12/12/20 History Ellipta 100-25 Mcg Inhaler] amLODIPine [Norvasc] 5 mg PO BID 30 Days #60 tab 05/08/20 12/12/20 Rx Donepezil [Aricept] 5 mg PO HS #30 tab 05/17/20 12/12/20 Rx Memantine [Namenda] 5 mg PO BID #60 tab 05/17/20 12/12/20 Rx Nitroglycerin Sl Tabs [Nitrostat] 0.4 mg SL Q5M PRN 05/20/20 12/12/20 History Famotidine [Pepcid] 20 mg PO BID 12/12/20 12/12/20 History Fenofibrate [Lofibra] 160 mg PO DAILY 12/12/20 12/12/20 History Ferrous Sulfate [Feosol] 325 mg PO DAILY 12/12/20 12/12/20 History Furosemide [Lasix] 20 mg PO DAILY 12/12/20 12/12/20 History Allergies Allergy/AdvReac Type Severity Reaction Status Date / Time lincomycin HCl Allergy Unknown Unknown Verified 12/12/20 08:24 [From Lincocin] Physical Exam Vitals: Vital Signs Temp Pulse Resp BP Pulse Ox 12/12/20 11:38 97.6 F 67 16 125/68 97 12/12/20 08:00 64 16 12/12/20 05:55 97.7 F 64 16 119/65 95 12/12/20 02:45 97.9 F 63 17 136/70 94 L 12/12/20 00:00 98.1 F 70 18 Intake and Output 12/11/20 12/12/20 12/12/20 22:59 06:59 14:59 Intake Total 160 Balance 160 Intake: Intake, IV Titration 160 Amount Sodium Chloride 0.9% 1, 160 000 ml @ 20 mls/hr IV . Q24H [facility] Rx#:[id number] Other: Weight 64 kg PHYSICAL EXAMINATION: GENERAL: The patient is alert and oriented x3, not in any acute distress. Well developed, well nourished. HEENT: Pupils are round and equally reacting to light. EOMI. No scleral icterus. No conjunctival pallor. Normocephalic, atraumatic. No pharyngeal erythema. No thyromegaly. CARDIOVASCULAR: S1 and S2 present. No murmurs, rubs, or gallops. PULMONARY: Chest is clear to auscultation, no wheezing or crackles. ABDOMEN: Soft, nontender, nondistended, normoactive bowel sounds. No palpable organomegaly. MUSCULOSKELETAL: No joint swelling or deformity. EXTREMITIES: No cyanosis, clubbing, or pedal edema. NEUROLOGICAL: Gross neurological examination did not reveal any focal deficits. SKIN: No rashes. Results CBC & Chem 7: 12/12/20 06:17 12/12/20 06:17 Labs: Abnormal Lab Results - Last 24 Hours (Table) 12/12/20 12/12/20 12/12/20 Range/Units 01:16 06:17 06:17 RBC 3.83 L (4.10-5.20) X 10*6/uL Hgb 11.0 L (12.0-15.0) g/dL Hct 35.0 L (37.2-46.3) % MCHC 31.4 L (32.0-37.0) g/dL Eosinophils # 0.03 L (0.04-0.35) X 10*3/uL BUN 39.0 H (9.0-27.0) mg/dL Creatinine 2.5 H (0.6-1.5) mg/dL Est GFR (CKD-EPI)AfAm 20.2 L (60.0-200.0) Est GFR (CKD-EPI)NonAf 17.4 L (60.0-200.0) Glucose 161 H (70-110) mg/dL POC Glucose (mg/dL) 296 H (75-99) mg/dL 12/12/20 12/12/20 12/12/20 Range/Units 07:36 09:35 12:03 RBC (4.10-5.20) X 10*6/uL Hgb (12.0-15.0) g/dL Hct (37.2-46.3) % MCHC (32.0-37.0) g/dL Eosinophils # (0.04-0.35) X 10*3/uL BUN (9.0-27.0) mg/dL Creatinine (0.6-1.5) mg/dL Est GFR (CKD-EPI)AfAm (60.0-200.0) Est GFR (CKD-EPI)NonAf (60.0-200.0) Glucose (70-110) mg/dL POC Glucose (mg/dL) 142 H 166 H 198 H (75-99) mg/dL Assessment and Plan Plan: -Syncope: Secondary to intravascular depletion, from Coumadin 19 infection patient will be started and continued on IV fluids. because of recurrence of syncope or Sophia echocardiogram and also up and EKG. -Covid infection: Patient will be started and zinc cremasteric acid supportive care patient will not need steroids at this time. -Chronic kidney disease stage IV -Acute renal failure related azotemia secondary to intravascular depletion IV fluids as mentioned above -DVT prophylaxis subcutaneous heparin
[2020-12-12 17:23] LABS: Glucose,Whole Blood 199 mg/dL (75-99)
--- NOTE | 2020-12-12 18:13 | ECHOF ---
Referral Reason:Syncope MEASUREMENTS -------- HEIGHT: 149.9 cm WEIGHT: 64.0 kg BP: 140/60 RVIDd: 2.8 cm (< 3.3) IVSd: 1.3 cm (0.6 - 1.1) LVIDd: 3.4 cm (3.9 - 5.3) LVPWd: 1.2 cm (0.6 - 1.1) IVSs: 1.9 cm LVIDs: 2.0 cm LVPWs: 1.7 cm LA Diam: 3.4 cm (2.7 - 3.8) LAESV Index (A-L): 25.04 ml/m Ao Diam: 2.6 cm (2.0 - 3.7) AV Cusp: 1.8 cm (1.5 - 2.6) MV EXCURSION: 8.785 mm (> 18.000) MV EF SLOPE: 13 mm/s (70 - 150) EPSS: 0.9 cm MV E [place]: 0.81 m/s MV DecT: 413 ms MV A [place]: 1.38 m/s MV E/A Ratio: 0.59 AV maxP.11 mmHg AV meanP.57 mmHg RAP: 5.00 mmHg RVSP: 26.20 mmHg FINDINGS -------- Sinus rhythm. This was a technically adequate study. The left ventricular size is normal. There is mild concentric left ventricular hypertrophy. Overa ll left ventricular systolic function is normal with, an EF between 60 - 65 %. The right ventricle is normal in size. Normal LA size by volume 22+/-6 ml/m2. The right atrium is normal in size. Interatrial and interventricular septum intact. There is mild aortic valve sclerosis. Trace amount of aortic regurgitation. Peak/mean gradient a cross the Aortic Valve is 13.11mmHg / 6.57mmHg. The mitral valve leaflets are mildly thickened. Mild mitral annular calcification present. Mild tricuspid regurgitation present. Right ventricular systolic pressure is normal at < 35 mmHg. Trace/mild (physiologic) pulmonic regurgitation. The aortic root size is normal. Normal inferior vena cava with normal inspiratory collapse consistent with estimated right atrial pre ssure of 5 mmHg. There is no pericardial effusion. CONCLUSIONS -------- 1. The left ventricular size is normal. 2. There is mild concentric left ventricular hypertrophy. 3. Overall left ventricular systolic function is normal with, an EF between 60 - 65 %. 4. There is mild aortic valve sclerosis. 5. Trace amount of aortic regurgitation. 6. Peak/mean gradient across the Aortic Valve is 13.11mmHg / 6.57mmHg. 7. The mitral valve leaflets are mildly thickened. 8. Mild mitral annular calcification present. 9. Mild tricuspid regurgitation present. 10. Trace/mild (physiologic) pulmonic regurgitation. 11. There is no pericardial effusion. CARPENTER MATE: Amita Young RDCS
[2020-12-12 18:15] LABS: Hemoglobin A1C 9.5 % (4.0-6.0)
[2020-12-12] MEDS: HEPARIN SODIUM,PORCINE 5,000 UNIT/ML 1 ML VIAL SQ SCH (20:22)
[2020-12-12 20:48] LABS: Glucose,Whole Blood 159 mg/dL (75-99)
[2020-12-13] MEDS: SODIUM CHLORIDE 0.9% 1,000 ML IV SCH ×3 (01:21→12:30)
[2020-12-13 06:50] LABS: Glucose,Whole Blood 159 mg/dL (75-99)
[2020-12-13] MEDS: ASCORBIC ACID 500 MG TAB PO SCH (07:49)
[2020-12-13] MEDS: HEPARIN SODIUM,PORCINE 5,000 UNIT/ML 1 ML VIAL SQ SCH (07:49)
[2020-12-13] MEDS: INSULIN ASPART (NovoLOG) 100 UNIT/ML VIAL SQ SCH ×3 (07:49→16:50)
[2020-12-13] MEDS: ZINC SULFATE 220 MG CAP PO SCH (07:49)
[2020-12-13] MEDS: ALBUTEROL HFA INHALER INHALATION PRN ×3 (07:59→15:59)
[2020-12-13] MEDS ORDERED: ENOXAPARIN 30 MG/0.3 ML SYRINGE SQ SCH (09:00)
[2020-12-13 11:06] VITALS: BMI 30.5
[2020-12-13 11:38] LABS: African American GFR (CKD) 28 (>60 ml/min/1.73 sqM); Anion Gap 7 mmol/L; Blood Urea Nitrogen 39 mg/dL (7-17); Calcium 8.8 mg/dL (8.4-10.2); Carbon Dioxide 22 mmol/L (22-30); Chloride 105 mmol/L (98-107); Glucose 139 mg/dL (74-99); Non-African American GFR(CKD) 24 (>60 ml/min/1.73 sqM); Potassium 4.5 mmol/L (3.5-5.1); Sodium 134 mmol/L (137-145)
[2020-12-13 11:40] LABS: Glucose,Whole Blood 142 mg/dL (75-99)
[2020-12-13] MEDS ORDERED: amLODIPine 5 MG TAB PO SCH (12:00)
[2020-12-13] MEDS: carvediloL 12.5 MG TAB PO SCH ×2 (12:30→17:19)
[2020-12-13 14:27] VITALS: BP 110/67; PULSE 61; RESP 18; TEMP 98.7
--- NOTE | 2020-12-13 16:23 | P.DS ---
Providers Date of admission: 12/11/20 23:34 Expected date of discharge: 12/13/20 Attending physician: Natalia Faye Primary care physician: Stated None Hospital Course: Final Diagnosis -Syncope: Secondary to intravascular depletion, from Covid 19 infection -Covid infection -Chronic kidney disease stage IV -Acute renal failure related azotemia secondary to intravascular depletion -DVT prophylaxis subcutaneous heparin Discharge disposition Patient is being discharged in a stable condition with guarded prognosis to home. Patient will follow-up with priMary care provider and Dr. Arita in the outpatient setting upon discharge. Total time taken is greater than 35 minutes. Hospital course Patient is a pleasant 80-year-old female was transferred from [facility] after she had a syncopal episode. Patient was also getting appear like symptoms or cough dry cough and denies any chance of breath denied any fever chills. Found to have covid 19. Patient had another syncopal episode because of which, echocardiogram will be obtained along with EKG. Patient is not hypoxic at this time not wearing oxygen. Patient denied any symptoms at this time except for minimal cough. Patient doesn't exactly remember the onset of symptoms. Patient baseline creatinine around 1.8 presently 2.5. 12/13/2020 Patient is seen and evaluated in follow-up with no acute overnight issues. Patient has been up and walking and denies any dizziness or feelings of lightheadedness. Patient is currently 97% on room air not requiring any oxygen. Patient would like to go home. Patient underwent an echo showing LV systolic function is normal with an EF between 60 and 65%. Patient will follow-up with cardiology outpatient. Patient will continue to hold Lasix until follow-up. Currently no reports of chest pain, shortness of breath, or palpitations. Patient is afebrile. No reports of nausea or vomiting and patient is tolerating diet. Patient will be going to [facility] today. On exam vital signs are stable. Cardio S1, S2 are muffled. Respiratory system shows diminished breath sounds at the bases with no wheezing or rhonchi noted. Abdomen is soft and obese, and nontender. Nervous system shows no focal de ficits. Please refer to medication reconciliation sheet for a list of medications. Plan - Discharge Summary Discharge Rx Participant: Yes New Discharge Prescriptions: New Zinc Sulfate [Orazinc] 220 mg PO DAILY 30 Days #30 cap Albuterol Inhaler [Ventolin Hfa Inhaler] 2 puff INHALATION Q4HR PRN 30 Days #1 puff PRN Reason: Shortness Of Breath Or Wheezing Ascorbic Acid [Vitamin C] 500 mg PO DAILY 30 Days #30 tab Continue sitaGLIPtin [Januvia] 50 mg PO DAILY Aspirin [Adult Low Dose Aspirin EC] 81 mg PO DAILY Isosorbide Mononitrate ER [Imdur] 30 mg PO DAILY Fluticasone/Vilanterol [Breo Ellipta 100-25 Mcg Inhaler] 1 puff INHALATION RT-DAILY Carvedilol [Coreg] 25 mg PO BID Ergocalciferol [Vitamin D2 (DRISDOL)] 50,000 unit PO FR Atorvastatin [Lipitor] 40 mg PO DAILY 30 Days #30 tab amLODIPine [Norvasc] 5 mg PO BID 30 Days #60 tab Clopidogrel [Plavix] 75 mg PO DAILY 30 Days #30 tab Donepezil [Aricept] 5 mg PO HS #30 tab Memantine [Namenda] 5 mg PO BID #60 tab Nitroglycerin Sl Tabs [Nitrostat] 0.4 mg SL Q5M PRN PRN Reason: Chest Pain Ferrous Sulfate [Iron (65 MG Elemental)] 325 mg PO DAILY Fenofibrate [Lofibra] 160 mg PO DAILY Famotidine [Pepcid] 20 mg PO BID Discontinued Furosemide [Lasix] 20 mg PO DAILY Discharge Medication List Aspirin [Adult Low Dose Aspirin EC] 81 mg PO DAILY 03/13/16 [History] sitaGLIPtin [Januvia] 50 mg PO DAILY 03/13/16 [History] Isosorbide Mononitrate ER [Imdur] 30 mg PO DAILY 01/08/19 [History] Atorvastatin [Lipitor] 40 mg PO DAILY 30 Days #30 tab 05/08/20 [Rx] Carvedilol [Coreg] 25 mg PO BID 05/08/20 [History] Clopidogrel [Plavix] 75 mg PO DAILY 30 Days #30 tab 05/08/20 [Rx] Ergocalciferol [Vitamin D2 (DRISDOL)] 50,000 unit PO FR 05/08/20 [History] Fluticasone/Vilanterol [Breo Ellipta 100-25 Mcg Inhaler] 1 puff INHALATION RT- DAILY 05/08/20 [History] amLODIPine [Norvasc] 5 mg PO BID 30 Days #60 tab 05/08/20 [Rx] Donepezil [Aricept] 5 mg PO HS #30 tab 05/17/20 [Rx] Memantine [Namenda] 5 mg PO BID #60 tab 05/17/20 [Rx] Nitroglycerin Sl Tabs [Nitrostat] 0.4 mg SL Q5M PRN 05/20/20 [History] Famotidine [Pepcid] 20 mg PO BID 12/12/20 [History] Fenofibrate [Lofibra] 160 mg PO DAILY 12/12/20 [History] Ferrous Sulfate [Iron (65 MG Elemental)] 325 mg PO DAILY 12/12/20 [History] Albuterol Inhaler [Ventolin Hfa Inhaler] 2 puff INHALATION Q4HR PRN 30 Days #1 puff 12/13/20 [Rx] Ascorbic Acid [Vitamin C] 500 mg PO DAILY 30 Days #30 tab 12/13/20 [Rx] Zinc Sulfate [Orazinc] 220 mg PO DAILY 30 Days #30 cap 12/13/20 [Rx] Follow up Appointment(s)/Referral(s): Rigo Arita MD [STAFF PHYSICIAN] - 12/17/20 8:30 am Ambulatory/Diagnostic Orders: Basic Metabolic Panel [LAB.AMB] Time Frame: 3 Days, Location: None Selected Activity/Diet/Wound Care/Special Instructions: Activity Limited until follow-up Follow-up with primary care provider upon discharge follow-up cardiology outpatient Continue to hold Lasix until primary follow-up repeat labs in 2-3 days to monitor kidney functions Continue to monitor blood sugars and keep a diary for primary care follow-up Continue with consistent carb heart healthy diet Continue to encourage fluids and rest Monitor for fever and treat with Tylenol Discharge Disposition: HOME SELF-CARE
[2020-12-13 16:46] LABS: Glucose,Whole Blood 139 mg/dL (75-99)
== END 2020-12-13 18:23 | disposition home or self-care (01) | DRG 178 ==
LOC: 4SSUR 23:34
PROVIDERS: ADMIT Internal Medicine; ATTEND Internal Medicine
DX: U07.1 COVID-19 (principal); N18.4 Chronic kidney disease, stage 4 (severe); N17.9 Acute kidney failure, unspecified; E11.22 Type 2 diabetes mellitus with diabetic chronic kidney disease; E11.51 Type 2 diabetes mellitus with diabetic peripheral angiopathy without gangrene; E78.5 Hyperlipidemia, unspecified; D50.9 Iron deficiency anemia, unspecified; I71.2 Thoracic aortic aneurysm, without rupture; I12.9 Hypertensive chronic kidney disease with stage 1 through stage 4 chronic kidney disease, or unspecified chronic kidney disease; I25.10 Atherosclerotic heart disease of native coronary artery without angina pectoris; E86.9 Volume depletion, unspecified; J45.909 Unspecified asthma, uncomplicated; L30.9 Dermatitis, unspecified; M54.5 Low back pain; I25.2 Old myocardial infarction; M19.90 Unspecified osteoarthritis, unspecified site; Z79.82 Long term (current) use of aspirin; Z79.02 Long term (current) use of antithrombotics/antiplatelets; Z79.84 Long term (current) use of oral hypoglycemic drugs; Z79.51 Long term (current) use of inhaled steroids; Z79.899 Other long term (current) drug therapy; Z87.891 Personal history of nicotine dependence; Z86.73 Personal history of transient ischemic attack (TIA), and cerebral infarction without residual deficits; Z87.01 Personal history of pneumonia (recurrent); Z87.442 Personal history of urinary calculi; Z85.828 Personal history of other malignant neoplasm of skin; Z90.710 Acquired absence of both cervix and uterus; Z87.42 Personal history of other diseases of the female genital tract; Z98.42 Cataract extraction status, left eye; Z98.41 Cataract extraction status, right eye; Z87.39 Personal history of other diseases of the musculoskeletal system and connective tissue; Z98.891 History of uterine scar from previous surgery; Z98.890 Other specified postprocedural states; Z88.8 Allergy status to other drugs, medicaments and biological substances; Z80.8 Family history of malignant neoplasm of other organs or systems; Z83.3 Family history of diabetes mellitus; Z82.49 Family history of ischemic heart disease and other diseases of the circulatory system; Z82.5 Family history of asthma and other chronic lower respiratory diseases; Z84.1 Family history of disorders of kidney and ureter
CPT/HCPCS: 80048; 83036; 83735; 85025; 93005; 93306; 94640

== ENCOUNTER 2021-01-18 10:42 | Inpatient (IN) | payer MEDICARE, OTHER ==
--- NOTE | 2021-01-18 11:25 | ED ---
General Adult HPI <Jeronimo Corbett - Last Filed: 01/18/21 11:53> - General Source: patient, family, EMS, RN notes reviewed Mode of arrival: EMS Limitations: no limitations <Vinh Harp - Last Filed: 01/18/21 12:39> - General Chief complaint: Syncope Stated complaint: syncope Time Seen by Provider: 01/18/21 10:44 - History of Present Illness Initial comments: 81-year-old female with a past medical history of asthma, CAD, CVA, diabetes, hyperlipidemia, hypertension, renal disease presents to the emergency room for a chief complaint of syncope. Patient had a syncopal episode according to EMS. Patient does not remember what she was doing with this but remembers waking up on the EMS gurney. Patient states she feels fine. According to EMS patient is seeing cardiology and is supposed to have a pacemaker placed.Patient has no other complaints at this time including shortness of breath, chest pain, abdominal pain, nausea or vomiting, headache, or visual changes. (Vinh Harp) - Related Data Home Medications Medication Instructions Recorded Confirmed Aspirin [Adult Low Dose Aspirin EC] 81 mg PO DAILY 03/13/16 01/18/21 sitaGLIPtin [Januvia] 50 mg PO DAILY 03/13/16 01/18/21 Isosorbide Mononitrate ER [Imdur] 30 mg PO DAILY 01/08/19 01/18/21 Carvedilol [Coreg] 25 mg PO BID 05/08/20 01/18/21 Ergocalciferol [Vitamin D2 50,000 unit PO FR 05/08/20 01/18/21 (DRISDOL)] Fluticasone/Vilanterol [Breo 1 puff INHALATION RT-DAILY 05/08/20 01/18/21 Ellipta 100-25 Mcg Inhaler] Nitroglycerin Sl Tabs [Nitrostat] 0.4 mg SL Q5M PRN 05/20/20 01/18/21 Famotidine [Pepcid] 20 mg PO BID 12/12/20 01/18/21 Fenofibrate [Lofibra] 160 mg PO DAILY 12/12/20 01/18/21 Ferrous Sulfate [Iron (65 MG 325 mg PO DAILY 12/12/20 01/18/21 Elemental)] Previous Rx's Medication Instructions Recorded Atorvastatin [Lipitor] 40 mg PO DAILY 30 Days #30 tab 05/08/20 Clopidogrel [Plavix] 75 mg PO DAILY 30 Days #30 tab 05/08/20 amLODIPine [Norvasc] 5 mg PO BID 30 Days #60 tab 05/08/20 Donepezil [Aricept] 5 mg PO HS #30 tab 05/17/20 Memantine [Namenda] 5 mg PO BID #60 tab 05/17/20 Albuterol Inhaler [Ventolin Hfa 2 puff INHALATION Q4HR PRN 30 Days 12/13/20 Inhaler] #1 puff Ascorbic Acid [Vitamin C] 500 mg PO DAILY 30 Days #30 tab 12/13/20 Zinc Sulfate [Orazinc] 220 mg PO DAILY 30 Days #30 cap 12/13/20 Allergies Allergy/AdvReac Type Severity Reaction Status Date / Time lincomycin HCl Allergy Unknown Unknown Verified 01/18/21 12:04 [From Lincocin] Review of Systems ROS Other: All systems not noted in ROS Statement are negative. <Jeronimo Corbett - Last Filed: 01/18/21 11:53> ROS Other: All systems not noted in ROS Statement are negative. <Vinh Harp - Last Filed: 01/18/21 12:39> ROS Statement: Those systems with pertinent positive or pertinent negative responses have been documented in the HPI. Past Medical History Past Medical History: Asthma, Coronary Artery Disease (CAD), Cancer, Chest Pain / Angina, CVA/TIA, Diabetes Mellitus, Hyperlipidemia, Hypertension, Myocardial Infarction ([place]), Osteoarthritis (OA), Pneumonia, Renal Disease, Skin Disorder, Syncope, Vascular Disorder Additional Past Medical History / Comment(s): Pt recently admitted to [facility] on 05/08/20 with chest pain, Other hx: CVA in 2016-no residual, NIDDM type II, low back pain, iron deficiency anemia, thoracic aneurysm per past medical record-pt states she has never been told about an aneurysm, nephrolithiasis-pt passed stones on her own, skin cancer with removals, L knee pain, eczema Last Myocardial Infarction Date:: 2018 History of Any Multi-Drug Resistant Organisms: None Reported Past Surgical History: Section, Hysterectomy, Orthopedic Surgery Additional Past Surgical History / Comment(s): x3, bilateral carpal tunnel releases, bilateral cataract removals, skin cancer removals. Past Anesthesia/Blood Transfusion Reactions: No Reported Reaction Past Psychological History: No Psychological Hx Reported Smoking Status: Former smoker Past Alcohol Use History: None Reported Past Drug Use History: None Reported - Past Family History Mother Family Medical History: Cancer Additional Family Medical History / Comment(s): BRAIN TUMOR Brother(s) Family Medical History: Cancer, Diabetes Mellitus Additional Family Medical History / Comment(s): BRAIN TUMOR. Father Family Medical History: Myocardial Infarction ([place]) Additional Family Medical History / Comment(s): "Heart problems" Daughter(s) Family Medical History: Cancer Additional Family Medical History / Comment(s): Malignant neoplasm of brain Unspecified Family Medical History: Asthma, Hyperlipidemia, Renal Disease <Vinh Harp P - Last Filed: 01/18/21 12:39> General Exam Limitations: no limitations General appearance: alert, in no apparent distress Head exam: Present: atraumatic, normocephalic, normal inspection Eye exam: Present: normal appearance, PERRL, EOMI. Absent: scleral icterus, conjunctival injection, periorbital swelling ENT exam: Present: normal exam, mucous membranes moist Neck exam: Present: normal inspection, full ROM. Absent: tenderness, meningismus, lymphadenopathy Respiratory exam: Present: normal lung sounds bilaterally. Absent: respiratory distress, wheezes, rales, rhonchi, stridor Cardiovascular Exam: Present: regular rate, normal rhythm, normal heart sounds. Absent: systolic murmur, diastolic murmur, rubs, gallop, clicks GI/Abdominal exam: Present: soft, normal bowel sounds. Absent: distended, tenderness, guarding, rebound, rigid <Vinh Harp P - Last Filed: 01/18/21 12:39> Course Vital Signs 01/18/21 10:52 Temperature 97.3 F L Pulse Rate 46 L Respiratory 22 Rate Blood Pressure 128/49 O2 Sat by Pulse 95 Oximetry EKG Findings - EKG Comments: EKG Findings:: 1050:Sinus bradycardia, ventricular rate 46, WV interval 160, QTC 400. 1147: sinus robson, vent rate 52, pr int 170, QTc 412 <Vinh Harp P - Last Filed: 01/18/21 12:39> Medical Decision Making - Lab Data Result diagrams: 01/18/21 11:19 01/18/21 11:19 <Jeronimo Corbett - Last Filed: 01/18/21 11:53> - Lab Data Result diagrams: 01/18/21 11:19 01/18/21 11:19 <Vinh Harp - Last Filed: 01/18/21 12:39> - Medical Decision Making Patient reevaluated and reexamined by myself, Dr. Corbett. Patient resting comfortably in bed. Heart rate sinus bradycardia with at 48. Patient updated on results and plan. I agree with PA findings. This includes diagnostic interpretation and treatment plan. Case was also discussed with Dr. Richardson who agrees with admission and will consult. (Jeronimo Corbett) Heart rate on presentation is in the 40s. Blood pressure is stable. EKG x 2 reveals a sinus bradycardia with a ventricular rate in the mid 40s to low 50s. CBC is unremarkable. CMP shows evidence of chronic kidney disease. CXR negative. Coronavirus is detected however patient was positive in November, she has no new symptoms. I suspect this is residual. Patient will be admitted for cardiac monitoring and cardiology consultation. (Vinh Harp) - Lab Data Lab Results 01/18/21 01/18/21 01/18/21 Range/Units 11:19 11:19 11:19 WBC 8.0 (3.8-10.6) k/uL RBC 3.51 L (3.80-5.40) m/uL Hgb 10.7 L (11.4-16.0) gm/dL Hct 31.4 L (34.0-46.0) % MCV 89.6 (80.0-100.0) fL MCH 30.6 (25.0-35.0) pg MCHC 34.2 (31.0-37.0) g/dL RDW 13.7 (11.5-15.5) % Plt Count 273 (150-450) k/uL MPV 8.0 Neutrophils % 62 % Lymphocytes % 28 % Monocytes % 4 % Eosinophils % 4 % Basophils % 1 % Neutrophils # 5.0 (1.3-7.7) k/uL Lymphocytes # 2.3 (1.0-4.8) k/uL Monocytes # 0.4 (0-1.0) k/uL Eosinophils # 0.3 (0-0.7) k/uL Basophils # 0.1 (0-0.2) k/uL PT 11.3 (9.0-12.0) sec INR 1.1 (<1.2) APTT 23.2 (22.0-30.0) sec Sodium 133 L (137-145) mmol/L Potassium 5.1 (3.5-5.1) mmol/L Chloride 104 (98-107) mmol/L Carbon Dioxide 21 L (22-30) mmol/L Anion Gap 8 mmol/L BUN 29 H (7-17) mg/dL Creatinine 1.93 H (0.52-1.04) mg/dL Est GFR (CKD-EPI)AfAm 27 (>60 ml/min/1.73 sqM) Est GFR (CKD-EPI)NonAf 24 (>60 ml/min/1.73 sqM) Glucose 244 H (74-99) mg/dL Calcium 9.2 (8.4-10.2) mg/dL Total Bilirubin 0.6 (0.2-1.3) mg/dL AST 25 (14-36) U/L ALT 10 (4-34) U/L Alkaline Phosphatase 74 (38-126) U/L Troponin I (0.000-0.034) ng/mL Total Protein 6.3 (6.3-8.2) g/dL Albumin 3.6 (3.5-5.0) g/dL Coronavirus (PCR) (Not Detectd) 01/18/21 01/18/21 Range/Units 11:19 11:19 WBC (3.8-10.6) k/uL RBC (3.80-5.40) m/uL Hgb (11.4-16.0) gm/dL Hct (34.0-46.0) % MCV (80.0-100.0) fL MCH (25.0-35.0) pg MCHC (31.0-37.0) g/dL RDW (11.5-15.5) % Plt Count (150-450) k/uL MPV Neutrophils % % Lymphocytes % % Monocytes % % Eosinophils % % Basophils % % Neutrophils # (1.3-7.7) k/uL Lymphocytes # (1.0-4.8) k/uL Monocytes # (0-1.0) k/uL Eosinophils # (0-0.7) k/uL Basophils # (0-0.2) k/uL PT (9.0-12.0) sec INR (<1.2) APTT (22.0-30.0) sec Sodium (137-145) mmol/L Potassium (3.5-5.1) mmol/L Chloride (98-107) mmol/L Carbon Dioxide (22-30) mmol/L Anion Gap mmol/L BUN (7-17) mg/dL Creatinine (0.52-1.04) mg/dL Est GFR (CKD-EPI)AfAm (>60 ml/min/1.73 sqM) Est GFR (CKD-EPI)NonAf (>60 ml/min/1.73 sqM) Glucose (74-99) mg/dL Calcium (8.4-10.2) mg/dL Total Bilirubin (0.2-1.3) mg/dL AST (14-36) U/L ALT (4-34) U/L Alkaline Phosphatase (38-126) U/L Troponin I <0.012 (0.000-0.034) ng/mL Total Protein (6.3-8.2) g/dL Albumin (3.5-5.0) g/dL Coronavirus (PCR) Detected A (Not Detectd) Disposition <Jeronimo Corbett - Last Filed: 01/18/21 11:53> Is patient prescribed a controlled substance at d/c from ED?: No Time of Disposition: 12:32 <Vinh Harp - Last Filed: 01/18/21 12:39> Clinical Impression: Syncope, Sinus bradycardia, Chronic kidney disease Disposition: ADMITTED IP TO THIS HOSP Referrals: None,Stated [REFERRING] - 1-2 days
[2021-01-18 11:32] LABS: Basophils # (A) 0.1 k/uL (0-0.2); Basophils % (A) 1 %; Eosinophils # (A) 0.3 k/uL (0-0.7); Eosinophils % (A) 4 %; HCT 31.4 % (34.0-46.0); HGB 10.7 gm/dL (11.4-16.0); Lymphocytes # (A) 2.3 k/uL (1.0-4.8); Lymphocytes % (A) 28 %; MCH 30.6 pg (25.0-35.0); MCHC 34.2 g/dL (31.0-37.0); MCV 89.6 fL (80.0-100.0); Monocytes # (A) 0.4 k/uL (0-1.0); Monocytes % (A) 4 %; Neutrophils % (A) 62 %; Platelet Count 273 k/uL (150-450); RBC 3.51 m/uL (3.80-5.40); RDW 13.7 % (11.5-15.5)
[2021-01-18 11:42] LABS: Albumin 3.6 g/dL (3.5-5.0); Calcium 9.2 mg/dL (8.4-10.2); Potassium 5.1 mmol/L (3.5-5.1); Total Bilirubin 0.6 mg/dL (0.2-1.3); Total Protein 6.3 g/dL (6.3-8.2)
[2021-01-18 11:49] LABS: INR 1.1 (<1.2); Partial Thromboplastin Time 23.2 sec (22.0-30.0); Prothrombin Time 11.3 sec (9.0-12.0)
[2021-01-18] MEDS ORDERED: SODIUM CHLORIDE 0.9% 1,000 ML IV STA (12:36)
--- NOTE | 2021-01-18 12:37 | XR ---
EXAMINATION TYPE: XR chest 2V DATE OF EXAM: 01/18/2021 COMPARISON: Chest x-ray 07/01/2020 HISTORY: Syncope TECHNIQUE: Frontal and lateral views of the chest are obtained. FINDINGS: There is no focal air space opacity, pleural effusion, or pneumothorax seen. The cardiac silhouette size is stable. Aorta is dense. The osseous structures are intact. Patient is rotated. IMPRESSION: No acute cardiopulmonary process.
[2021-01-18 17:43] LABS: Glucose,Whole Blood 219 mg/dL (75-99)
[2021-01-18] MEDS: INSULIN ASPART (NovoLOG) 100 UNIT/ML VIAL SQ SCH ×2 (17:59→21:14)
[2021-01-18] MEDS: FAMOTIDINE 20 MG TAB PO SCH (17:59)
[2021-01-18 19:31] LABS: Albumin 3.6 g/dL (3.5-5.0); Calcium 9.2 mg/dL (8.4-10.2); Potassium 5.2 mmol/L (3.5-5.1); Total Bilirubin 0.5 mg/dL (0.2-1.3)
[2021-01-18] MEDS: carvediloL 12.5 MG TAB PO SCH (20:42)
[2021-01-18 21:18] LABS: Glucose,Whole Blood 198 mg/dL (75-99)
[2021-01-18] MEDS: amLODIPine 5 MG TAB PO SCH (21:25)
[2021-01-18] MEDS: DONEPEZIL 5 MG TAB PO SCH (21:25)
[2021-01-18] MEDS: MEMANTINE 5 MG TAB PO SCH (21:25)
--- NOTE | 2021-01-18 22:44 | HP ---
HISTORY AND PHYSICAL CHIEF COMPLAINT: Syncope. HISTORY OF PRESENT ILLNESS: This 81-year-old woman with a past medical history of multiple medical problems including history of CAD, CVA, TIA, diabetes, hyperlipidemia, hypertension being followed Dr. Mejia in the outpatient setting has complaints of syncope. Patient passed out. EMS brought the patient to the hospital. The patient is unable to remember what happened. The patient had multiple abnormalities including elevated creatinine and also Covid 19 was positive. Of note, the patient last month also was admitted with renal failure and Covid 19 and also associated syncope. Currently the oxygenation sats, the patient found to be bradycardic. The Cardiology is apparently planning the patient for pacemaker implantation also. The patient also had a chest x-ray on admission which I reviewed personally which showed no significant acute abnormality. The EKG on admission showed sinus bradycardia. The patient admitted for further evaluation and treatment. There is no history of fever, rigors or chills at this time. Covid-19 still positive. PAST MEDICAL HISTORY: History of asthma, CAD, CVA, TIA, diabetes type 2, hypertension, hyperlipidemia, history of myocardial infarction. MEDICATIONS: Home medications are reviewed and include: Januvia, Norvasc, Coreg, Zinc, Nitrostat, Namenda, Imdur, Breo Ellipta, Lofibra, Pepcid, Drisdol, Aricept, Plavix. Coreg, Lipitor, vitamin C. ALLERGIES: LINCOCIN. FAMILY HISTORY: History of brain tumor in the family. SOCIAL HISTORY: Previous history of smoking. No history of alcohol. REVIEW OF SYSTEMS: Review of systems could not be taken, the patient is mildly confused. PHYSICAL EXAMINATION: Patient is alert, oriented x2. Pulse is 56. Blood pressure 124/80, respirations 20, temperature 97.2, pulse ox 98% on 3 L. HEENT: Conjunctivae normal. NECK: No JVD. CARDIOVASCULAR: S1, S2 muffled. RESPIRATIONS: Breath sounds diminished in the bases. A few scattered rhonchi. ABDOMEN: Soft, nontender. LEGS are no edema. No swelling. NERVOUS SYSTEM: No focal deficits. SKIN: No ulcers, rashes or bleeding. JOINTS: No active deforming arthropathy. LABS: WBC 8.2, hemoglobin 10.7, creatinine is 1.93. Covid-19 is positive. ASSESSMENT: 1. Acute syncope for evaluation, possibly cardiac arrhythmia. 2. Sinus bradycardia. 3. Increased creatinine with chronic kidney disease stage 3. 4. Hyponatremia. 5. Persistent Covid-19 positivity. 6. Anemia, normocytic. 7. History of recent COVID-19 infection. 8. Asthma. 9. History of coronary artery disease. 10.History of cerebrovascular accident, transient ischemic attack. 11.Diabetes mellitus type 2. 12.Hypertension. 13.Hyperlipidemia. 14.Myocardial infarction. 15.History of degenerative joint disease. 16.History of pneumonia. 17.History of vascular disorder. 18.History of chronic kidney disease stage 3 possibly. 19.History of thoracic aortic aneurysm. 20.History of nephrolithiasis. 21.History of . 22.Remote history of nicotine dependence. 23.Obesity, body mass of 37.8. RECOMMENDATIONS AND DISCUSSION: This 81-year-old woman who presented with multiple complex medical issues, we will monitor the patient closely, continue the current medications, management and symptomatic treatment. Otherwise, I would recommend cautious IV fluids and continue the home medications. I would recommend cardiology consultation as well as Infectious Disease consultation. I would recommend a D-dimer also which is positive. Also recommend a CT angio of the chest to rule out possibility of pulmonary embolism. Prognosis guarded because of multiple complex medical issues. Further recommendations to follow. A copy of dictation being forwarded to Dr. Mejia who is the primary physician. DVT prophylaxis. MMODL / IJN: [id number] /
[2021-01-19 06:31] LABS: Glucose,Whole Blood 292 mg/dL (75-99)
[2021-01-19] MEDS: INSULIN ASPART (NovoLOG) 100 UNIT/ML VIAL SQ SCH ×4 (06:41→22:43)
[2021-01-19] MEDS: carvediloL 12.5 MG TAB PO SCH (06:42)
--- NOTE | 2021-01-19 08:13 | NM ---
EXAMINATION TYPE: NM pul perfusion DATE OF EXAM: 01/19/2021 COMPARISON: Chest x-ray 01/18/2021, prior nuclear medicine ventilation/perfusion scan 07/03/2020 HISTORY: Elevated d-dimer, renal failure, difficulty breathing and cough Following administration of 5.0 mCi Tc 99m MAA. Images obtained post injection. FINDINGS: Perfusion only was performed. There is homogenous uptake of radiopharmaceutical, stable appearance co mpared to prior perfusion portion of the ventilation/perfusion scan . IMPRESSION: No perfusion defect evident to suggest pulmonary embolism.
[2021-01-19] MEDS: SYMBICORT 80-4.5 MCG INHALER INHALATION SCH ×3 (08:16→20:08)
[2021-01-19] MEDS: ALBUTEROL HFA INHALER INHALATION PRN ×2 (08:24→20:08)
[2021-01-19] MEDS: MEMANTINE 5 MG TAB PO SCH ×2 (08:42→22:43)
[2021-01-19] MEDS: ZINC SULFATE 220 MG CAP PO SCH (08:42)
[2021-01-19] MEDS: ASCORBIC ACID 500 MG TAB PO SCH (08:42)
[2021-01-19] MEDS: FAMOTIDINE 20 MG TAB PO SCH (08:42)
[2021-01-19] MEDS: amLODIPine 5 MG TAB PO SCH (08:42)
[2021-01-19] MEDS: ISOSORBIDE MONONITRATE ER 30 MG TAB.ER.24H PO SCH (08:42)
[2021-01-19] MEDS: FENOFIBRATE 160 MG TAB PO SCH (08:42)
[2021-01-19] MEDS: CLOPIDOGREL 75 MG TAB PO SCH (08:42)
[2021-01-19] MEDS: ASPIRIN 81 MG PO SCH (08:42)
[2021-01-19] MEDS: FERROUS SULFATE 325 MG TAB PO SCH (08:42)
[2021-01-19] MEDS: ATORVASTATIN 40 MG TAB PO SCH (08:42)
[2021-01-19 09:36] LABS: Basophils % (A) 1 %; Eosinophils # (A) 0.4 k/uL (0-0.7); Eosinophils % (A) 5 %; HCT 30.5 % (34.0-46.0); Lymphocytes # (A) 2.2 k/uL (1.0-4.8); Lymphocytes % (A) 27 %; MCH 29.4 pg (25.0-35.0); MCV 89.3 fL (80.0-100.0); Mean Platelet Volume 8.1; Monocytes # (A) 0.5 k/uL (0-1.0); Monocytes % (A) 6 %; Neutrophils # (A) 5.1 k/uL (1.3-7.7); Neutrophils % (A) 61 %; Platelet Count 278 k/uL (150-450); RBC 3.41 m/uL (3.80-5.40); RDW 13.6 % (11.5-15.5); WBC 8.3 k/uL (3.8-10.6)
[2021-01-19 10:00] LABS: Cholesterol 174 mg/dL (<200); HDL Cholesterol 45 mg/dL (40-60); LDL Cholesterol,Calculated 95 mg/dL (0-99); Triglycerides 171 mg/dL (<150)
--- NOTE | 2021-01-19 11:43 | P.NPCON ---
History of Present Illness - Reason for Consult Consult date: 01/19/21 hyponatremia, hypernatremia - Chief Complaint Syncopal episode and chronic kidney disease - History of Present Illness This is 81-year-old female seen in consultation because of hyponatremia and ch ronic kidney disease. Sodium was 133, with a blood sugar of 244 at the time of admission came down to 129, blood sugar was 240. She received IV fluids, normal saline which is being maintained at this time. Her creatinine is 1.8 and his baseline. Additionally she has a potassium of 5.2 and a bicarb of 22. She came in because of a syncopal episode. In the ER she was found to have bradycardia in the 40s to 50s normal sinus rhythm. Supposedly she was scheduled for pacemaker as an outpatient but did not get to her appointment yet. Patient denies any nausea vomiting diarrhea no chest pain no dizziness no fever chills no cough. She is COVID positive although she has no shortness of breath cough and chest x- ray is rather unremarkable. A pulmonary perfusion scan was negative also. Past Medical History Past Medical History: Asthma, Coronary Artery Disease (CAD), Cancer, Chest Pain / Angina, CVA/TIA, Diabetes Mellitus, Hyperlipidemia, Hypertension, Myocardial Infarction ([place]), Osteoarthritis ([place]), Pneumonia, Renal Disease, Skin Disorder, Syncope, Vascular Disorder Additional Past Medical History / Comment(s): Pt recently admitted to [facility] on 05/08/20 with chest pain, Other hx: CVA in 2016-no residual, NIDDM type II, low back pain, iron deficiency anemia, thoracic aneurysm per past medical record-pt states she has never been told about an aneurysm, nephrolithiasis-pt passed stones on her own, skin cancer with removals, L knee pain, eczema Last Myocardial Infarction Date:: 2018 History of Any Multi-Drug Resistant Organisms: None Reported Past Surgical History: Section, Hysterectomy, Orthopedic Surgery Additional Past Surgical History / Comment(s): x3, bilateral carpal tunnel releases, bilateral cataract removals, skin cancer removals. Past Anesthesia/Blood Transfusion Reactions: No Reported Reaction Past Psychological History: No Psychological Hx Reported Additional Psychological History / Comment(s): Pt resides alone. She uses a cane/walker to ambulate. She does not have a car, her grandson lives a couple miles from her and gives her rides. Smoking Status: Former smoker Past Alcohol Use History: None Reported Additional Past Alcohol Use History / Comment(s): Pt started smoking in 1956 and quit in 1984. Past Drug Use History: None Reported - Past Family History Mother Family Medical History: Cancer Additional Family Medical History / Comment(s): BRAIN TUMOR Brother(s) Family Medical History: Cancer, Diabetes Mellitus Additional Family Medical History / Comment(s): BRAIN TUMOR. Father Family Medical History: Myocardial Infarction ([place]) Additional Family Medical History / Comment(s): "Heart problems" Daughter(s) Family Medical History: Cancer Additional Family Medical History / Comment(s): Malignant neoplasm of brain Unspecified Family Medical History: Asthma, Hyperlipidemia, Renal Disease Medications and Allergies Home Medications Medication Instructions Recorded Confirmed Type Aspirin [Adult Low Dose Aspirin EC] 81 mg PO DAILY 03/13/16 01/18/21 History sitaGLIPtin [Januvia] 50 mg PO DAILY 03/13/16 01/18/21 History Isosorbide Mononitrate ER [Imdur] 30 mg PO DAILY 01/08/19 01/18/21 History Atorvastatin [Lipitor] 40 mg PO DAILY 30 Days #30 tab 05/08/20 01/18/21 Rx Carvedilol [Coreg] 25 mg PO BID 05/08/20 01/18/21 History Clopidogrel [Plavix] 75 mg PO DAILY 30 Days #30 tab 05/08/20 01/18/21 Rx Ergocalciferol [Vitamin D2 50,000 unit PO FR 05/08/20 01/18/21 History (DRISDOL)] Fluticasone/Vilanterol [Breo 1 puff INHALATION RT-DAILY 05/08/20 01/18/21 History Ellipta 100-25 Mcg Inhaler] amLODIPine [Norvasc] 5 mg PO BID 30 Days #60 tab 05/08/20 01/18/21 Rx Donepezil [Aricept] 5 mg PO HS #30 tab 05/17/20 01/18/21 Rx Memantine [Namenda] 5 mg PO BID #60 tab 05/17/20 01/18/21 Rx Nitroglycerin Sl Tabs [Nitrostat] 0.4 mg SL Q5M PRN 05/20/20 01/18/21 History Famotidine [Pepcid] 20 mg PO BID 12/12/20 01/18/21 History Fenofibrate [Lofibra] 160 mg PO DAILY 12/12/20 01/18/21 History Ferrous Sulfate [Iron (65 MG 325 mg PO DAILY 12/12/20 01/18/21 History Elemental)] Albuterol Inhaler [Ventolin Hfa 2 puff INHALATION Q4HR PRN 30 Days 12/13/20 01/18/21 Rx Inhaler] #1 puff Ascorbic Acid [Vitamin C] 500 mg PO DAILY 30 Days #30 tab 12/13/20 01/18/21 Rx Zinc Sulfate [Orazinc] 220 mg PO DAILY 30 Days #30 cap 12/13/20 01/18/21 Rx Allergies Allergy/AdvReac Type Severity Reaction Status Date / Time lincomycin HCl Allergy Unknown Unknown Verified 01/18/21 12:04 [From Lincocin] Physical Exam Vitals: Vital Signs Temp Pulse Pulse Resp BP BP Pulse Ox 01/19/21 08:41 98.0 F 55 L 18 105/63 97 01/19/21 08:00 55 L 18 01/19/21 03:37 97.9 F 74 18 122/80 98 01/19/21 02:00 18 01/19/21 00:30 18 01/18/21 23:20 97.9 F 57 L 18 119/79 97 01/18/21 21:25 55 L 18 122/80 98 01/18/21 18:35 62 20 106/61 96 01/18/21 16:47 56 L 20 120/48 99 01/18/21 14:47 53 L 20 104/65 99 01/18/21 12:51 53 L 20 112/87 100 01/18/21 12:30 48 L 18 114/56 100 Intake and Output 01/18/21 01/19/21 01/19/21 22:59 06:59 14:59 Intake Total 0 Balance 0 Intake: Oral 0 Other: Voiding Method Toilet Weight 20.5 kg Examination awake alert oriented comfortable. Warm to touch HEENT exam no JVP neck is supple no facial asymmetry Lungs are clear to auscultation good air entry bilaterally Heart sounds are unremarkable for any murmur rub gallop Abdomen soft nontender no masses felt Extremity exam no edema Neurologically awake alert oriented comfortable and cheerful Results - Lab Results Most recent lab results Calcium 9.2 mg/dL (8.4-10.2) 01/18/21 18:52 01/19/21 08:49 01/18/21 18:52 Assessment and Plan Assessment: Impression 1. Chronic kidney disease, stage III secondary to likely nephrosclerosis with a baseline creatinine of 1.5-2. 2. Hyponatremia secondary to chronic kidney disease and an element of transcellular shift from high blood sugar. On IV fluids with normal saline sodium has gone down from 133 to 129. This rules out any volume depletion. Alternatively No evidence to suggest congestive heart failure. TSH has been normal on April 2020 3.Covid +, but asymptomatic. 4. Admitted with syncope and bradycardia. Scheduled for pacemaker prior to this admission. 5. Diabetes mellitus with blood sugar slightly high Recommendation 1. Check urine osmolality and sodium. 2. Check orthostatic changes 3. Repeat labs tomorrow. Thank you for this consultation and we'll continue to follow closely
[2021-01-19 11:51] LABS: Glucose,Whole Blood 131 mg/dL (75-99)
[2021-01-19 13:38] LABS: Appearance,Urine Cloudy (Clear); Bacteria,Urine Many /hpf; Bilirubin,Urine Negative (Negative); Blood,Urine Negative (Negative); Color,Urine Yellow; Glucose,Urine (UA) 2+ (Negative); Ketones,Urine Negative (Negative); Leukocyte Esterase,Urine Large (Negative); Nitrite,Urine Positive (Negative); Protein,Urine Trace (Negative); RBC,Urine 1 /hpf (0-5); Specific Gravity,Urine 1.012 (1.001-1.035); Squamous Epithelial Cell,Urine <1 /hpf (0-4); Urobilinogen,Urine <2.0 mg/dL (<2.0); WBC,Urine 126 /hpf (0-5)
--- NOTE | 2021-01-19 16:25 | PN ---
PROGRESS NOTE DATE OF SERVICE: 01/19/2021 INTERVAL HISTORY: This 81-year-old woman was admitted with syncope, also had some bradycardia. Patient had recent history of recent COVID 19 infection. The patient also had a V/Q scan that was negative for pulmonary embolism. The patient also had some features of UTI. PAST MEDICAL HISTORY: Reviewed. REVIEW OF SYSTEMS: CARDIOVASCULAR: No angina or palpitations. RESPIRATORY: As mentioned earlier. GI: As mentioned earlier. : As mentioned earlier. NERVOUS SYSTEM: No numbness or weakness. CURRENT MEDICATIONS: Reviewed include Ventolin, Norvasc, Lipitor, Symbicort, Coreg, vitamin D3. Doses are reviewed. PHYSICAL EXAM: GENERAL: Patient is alert and oriented times two. VITAL SIGNS: Pulse 69, blood pressure 100/46, respirations 18, temperature 98, pulse ox 94% on 4 liters. HEENT: Conjunctivae normal. NECK: No jugular venous distention. No carotid bruits. RESPIRATORY: Breath sounds diminished at the bases. A few scattered rhonchi. HEART: S1 and S2, muffled. ABDOMEN: Soft, no tenderness. No masses palpable. EXTREMITIES: No edema, no swelling. NERVOUS: Diffusely weak. LABS: WBC 8.2, hemoglobin is 10. UA noted. ASSESSMENT: 1. Possible acute urinary tract infection with sepsis present on admission. 2. Acute syncope, present on admission, rule out acute cardiac arrhythmia. 3. Sinus bradycardia. 4. Increased creatinine with chronic kidney disease stage 3. 5. Hyponatremia. 6. Persistent COVID-19 positivity. 7. Anemia, normocytic. 8. History of recent COVID-19 infection. 9. History of asthma. 10.History of coronary artery disease. 11.History of cerebrovascular accident, transient ischemic attack. 12.Diabetes mellitus type 2. 13.Hypertension. 14.Hyperlipidemia. 15.History of myocardial infarction. 16.History of degenerative joint disease. 17.History of pneumonia. 18.History of vascular disorder. 19.History of chronic kidney disease stage 3 possibly. 20.History of thoracic aortic stenosis. 21.History of nephrolithiasis. 22.History of . 23.Remote history of nicotine dependence. 24.Obesity with body mass index of 37.8. RECOMMENDATIONS AND DISCUSSION: Recommend to continue current management and continue with symptomatic treatment. Otherwise, at this time I recommend empiric antibiotics for UTI. I would also recommend Dr. Roque for persistently positive COVID-19. The patient will also consult Nephrology and Cardiology. Repeat labs will be arranged. Guarded prognosis. Further recommendations to follow. MMODL / IJN: [id number] /
[2021-01-19 17:03] LABS: Glucose,Whole Blood 255 mg/dL (75-99)
[2021-01-19 18:19] LABS: Albumin 3.4 g/dL (3.5-5.0); Calcium 8.4 mg/dL (8.4-10.2); Potassium 4.8 mmol/L (3.5-5.1); Total Bilirubin 0.4 mg/dL (0.2-1.3); Total Protein 5.9 g/dL (6.3-8.2)
--- NOTE | 2021-01-19 19:33 | P.CRDCN ---
History of Present Illness History of present illness: HISTORY OF PRESENTING ILLNESS Patient is a pleasant 81-year-old female with history of coronary artery disease, CVA, TIA, diabetes mellitus type 2, hyperlipidemia, hypertension, dementia and recent COVID-19 infection who presents secondary to apparent syncopal episode. Patient states she was unable to tell what happened and does not recall falling however apparently was found on the floor. She has had hospitalizations in the past and has had recommendations for pacemaker in the past however has not wanted 1. Patient had COVID-19 infection approximately 1 month ago. She states she has been feeling well and normally lives at home and does fine however patient somewhat a poor historian. Patient did have non-STEMI last year and had heart catheterization performed which showed ostial left main 50% stenosis, mild LAD stenosis, circumflex 20th 30% stenosis and RCA 30-40% stenosis. Patient was evaluated by cardiothoracic surgery and has been treated medically. On presentation she was found to have sinus bradycardia with heart rate 46 bpm, left axis deviation, poor R-wave progression. Last echocardiogram from 11/2020 showed ejection fraction 60-65%, mild aortic valve sclerosis, no other significant abnormalities. Blood work shows white blood cell count 8.0, hemoglobin 10.7, platelets 273, sodium 133, BUN 29, creatinine 1.93, troponin normal 3 and coronavirus still detected. Patient's sodium since yesterday has decreased from 133-129 and potassium noted to be mildly elevated at 5.2. Orthostatic vitals were checked today with a pressure going from 122/49 supine with blood pressure dropping to 86/42. REVIEW OF SYSTEMS At the time of my exam: CONSTITUTIONAL: Denies fever or chills. + Lightheadedness CARDIOVASCULAR: Denies chest pain, shortness of breath, orthopnea, PND or palpitations. RESPIRATORY: Denies cough. GASTROINTESTINAL: Denies abdominal pain, diarrhea, constipation, nausea or vomiting. MUSCULOSKELETAL: Denies myalgias. NEUROLOGIC: Denies numbness, tingling or weakness. ENDOCRINE: Denies fatigue, weight change, polydipsia or polyurina. GENITOURINARY: Denies burning, hematuria or urgency with micturation. HEMATOLOGIC: Denies history of anemia or bleeding. PHYSICAL EXAMINATION Vital signs reviewed. CONSTITUTIONAL: No apparent distress. Frail, elderly, poor recall HEENT: Head is normocephalic. Pupils are equal, round. Sclerae anicteric. Mucous membranes of the mouth are moist. No JVD. No carotid bruit. CHEST EXAMINATION: Lungs are clear to auscultation. No chest wall tenderness is noted on palpation or with deep breathing. HEART EXAMINATION: Regular rate and rhythm. S1, S2 heard. No murmurs, gallops or rub. ABDOMEN: Soft, nontender. Positive bowel sounds. EXTREMITIES: 2+ peripheral pulses, no lower extremity edema and no calf tenderness. NEUROLOGIC EXAMINATION: Patient is awake, alert poor historian ASSESSMENT 1. Syncope with recurrent episodes 2. Sinus bradycardia, appears symptomatic and has had recommendations for p acemaker in the past apparently 3. Orthostatic hypotension 4. History of hypertension on antihypertensive medications 5. Coronary artery disease with 50% left main stenosis, treated medically 6. Diabetes mellitus type 2 7. History of stroke 8. Dementia PLAN Patient with previous echocardiogram from last month. Patient presents with multiple falls and poor historian however appears to be syncopal episodes. Patient has had recommendations for pacemaker in the past however again discussed this today and patient states "I don't want one of those ". Discussed that this may result in falls and possible fractures or worse. Patient however also has orthostatic hypotension with significant drop in blood pressures, systolics 120s down to 80s. Therefore we will stop her amlodipine and start Midrin. Would allow for permissive hypertension given her age and multiple comorbidities. Monitor responses patient is willing to take medications and may be treatment of orthostatic hypotension will limit falls. Past Medical History Past Medical History: Asthma, Coronary Artery Disease (CAD), Cancer, Chest Pain / Angina, CVA/TIA, Diabetes Mellitus, Hyperlipidemia, Hypertension, Myocardial Infarction ([place]), Osteoarthritis (OA), Pneumonia, Renal Disease, Skin Disorder, Syncope, Vascular Disorder Additional Past Medical History / Comment(s): Pt recently admitted to [facility] on 05/08/20 with chest pain, Other hx: CVA in 2016-no residual, NIDDM type II, low back pain, iron deficiency anemia, thoracic aneurysm per past medical record-pt states she has never been told about an aneurysm, nephrolithiasis-pt passed stones on her own, skin cancer with removals, L knee pain, eczema Last Myocardial Infarction Date:: 2018 History of Any Multi-Drug Resistant Organisms: None Reported Past Surgical History: Section, Hysterectomy, Orthopedic Surgery Additional Past Surgical History / Comment(s): x3, bilateral carpal tunnel releases, bilateral cataract removals, skin cancer removals. Past Anesthesia/Blood Transfusion Reactions: No Reported Reaction Past Psychological History: No Psychological Hx Reported Additional Psychological History / Comment(s): Pt resides alone. She uses a cane/walker to ambulate. She does not have a car, her grandson lives a couple miles from her and gives her rides. Smoking Status: Former smoker Past Alcohol Use History: None Reported Additional Past Alcohol Use History / Comment(s): Pt started smoking in 1955 and quit in 1984. Past Drug Use History: None Reported - Past Family History Mother Family Medical History: Cancer Additional Family Medical History / Comment(s): BRAIN TUMOR Brother(s) Family Medical History: Cancer, Diabetes Mellitus Additional Family Medical History / Comment(s): BRAIN TUMOR. Father Family Medical History: Myocardial Infarction ([place]) Additional Family Medical History / Comment(s): "Heart problems" Daughter(s) Family Medical History: Cancer Additional Family Medical History / Comment(s): Malignant neoplasm of brain Unspecified Family Medical History: Asthma, Hyperlipidemia, Renal Disease Medications and Allergies Home Medications Medication Instructions Recorded Confirmed Type Aspirin [Adult Low Dose Aspirin EC] 81 mg PO DAILY 03/13/16 01/18/21 History sitaGLIPtin [Januvia] 50 mg PO DAILY 03/13/16 01/18/21 History Isosorbide Mononitrate ER [Imdur] 30 mg PO DAILY 01/08/19 01/18/21 History Atorvastatin [Lipitor] 40 mg PO DAILY 30 Days #30 tab 05/08/20 01/18/21 Rx Carvedilol [Coreg] 25 mg PO BID 05/08/20 01/18/21 History Clopidogrel [Plavix] 75 mg PO DAILY 30 Days #30 tab 05/08/20 01/18/21 Rx Ergocalciferol [Vitamin D2 50,000 unit PO FR 05/08/20 01/18/21 History (DRISDOL)] Fluticasone/Vilanterol [Breo 1 puff INHALATION RT-DAILY 05/08/20 01/18/21 History Ellipta 100-25 Mcg Inhaler] amLODIPine [Norvasc] 5 mg PO BID 30 Days #60 tab 05/08/20 01/18/21 Rx Donepezil [Aricept] 5 mg PO HS #30 tab 05/17/20 01/18/21 Rx Memantine [Namenda] 5 mg PO BID #60 tab 05/17/20 01/18/21 Rx Nitroglycerin Sl Tabs [Nitrostat] 0.4 mg SL Q5M PRN 05/20/20 01/18/21 History Famotidine [Pepcid] 20 mg PO BID 12/12/20 01/18/21 History Fenofibrate [Lofibra] 160 mg PO DAILY 12/12/20 01/18/21 History Ferrous Sulfate [Iron (65 MG 325 mg PO DAILY 12/12/20 01/18/21 History Elemental)] Albuterol Inhaler [Ventolin Hfa 2 puff INHALATION Q4HR PRN 30 Days 12/13/20 01/18/21 Rx Inhaler] #1 puff Ascorbic Acid [Vitamin C] 500 mg PO DAILY 30 Days #30 tab 12/13/20 01/18/21 Rx Zinc Sulfate [Orazinc] 220 mg PO DAILY 30 Days #30 cap 12/13/20 01/18/21 Rx Allergies Allergy/AdvReac Type Severity Reaction Status Date / Time lincomycin HCl Allergy Unknown Unknown Verified 01/18/21 12:04 [From Lincocin] Physical Exam Vitals: Vital Signs Temp Pulse Pulse Pulse Pulse Resp BP 01/19/21 18:10 01/19/21 16:03 97.9 F 70 16 01/19/21 13:17 69 18 01/19/21 11:51 98.0 F 69 18 01/19/21 11:50 52 L 69 01/19/21 11:49 01/19/21 08:41 98.0 F 55 L 18 01/19/21 08:00 55 L 18 01/19/21 03:37 97.9 F 74 18 01/19/21 02:00 18 01/19/21 00:30 18 01/18/21 23:20 97.9 F 57 L 18 01/18/21 21:25 55 L 18 122/80 BP BP BP Pulse Ox 01/19/21 18:10 86/42 122/49 01/19/21 16:03 117/47 97 01/19/21 13:17 01/19/21 11:51 100/46 97 01/19/21 11:50 01/19/21 11:49 77/40 96/57 01/19/21 08:41 105/63 97 01/19/21 08:00 01/19/21 03:37 122/80 98 01/19/21 02:00 01/19/21 00:30 01/18/21 23:20 119/79 97 01/18/21 21:25 98 Intake and Output 01/19/21 01/19/21 01/19/21 06:59 14:59 22:59 Intake Total 480 240 Balance 480 240 Intake: Oral 480 240 Other: Voiding Method Toilet # Voids 1 1 Weight 20.5 kg Results 01/19/21 08:49 01/19/21 17:51 Cardiac Enzymes 01/18/21 01/18/21 01/19/21 Range/Units 18:52 18:52 17:51 AST 27 26 (14-36) U/L Troponin I <0.012 (0.000-0.034) ng/mL Lipids 01/19/21 Range/Units 08:49 Triglycerides 171 H (<150) mg/dL Cholesterol 174 (<200) mg/dL HDL Cholesterol 45 (40-60) mg/dL CBC 01/19/21 Range/Units 08:49 WBC 8.3 (3.8-10.6) k/uL RBC 3.41 L (3.80-5.40) m/uL Hgb 10.0 L (11.4-16.0) gm/dL Hct 30.5 L (34.0-46.0) % Plt Count 278 (150-450) k/uL Comprehensive Metabolic Panel 01/18/21 01/19/21 Range/Units 18:52 17:51 Sodium 129 L 132 L (137-145) mmol/L Potassium 5.2 H 4.8 (3.5-5.1) mmol/L Chloride 101 102 (98-107) mmol/L Carbon Dioxide 22 21 L (22-30) mmol/L BUN 32 H 39 H (7-17) mg/dL Creatinine 1.89 H 2.02 H (0.52-1.04) mg/dL Glucose 240 H 213 H (74-99) mg/dL Calcium 9.2 8.4 (8.4-10.2) mg/dL AST 27 26 (14-36) U/L ALT 11 11 (4-34) U/L Alkaline Phosphatase 63 68 (38-126) U/L Total Protein 6.0 L 5.9 L (6.3-8.2) g/dL Albumin 3.6 3.4 L (3.5-5.0) g/dL Current Medications Generic Name Dose Route Start Last Admin Trade Name Freq PRN Reason Stop Dose Admin Albuterol Sulfate 2 puff 01/18/21 12:34 01/19/21 08:24 Albuterol Hfa Inhaler INHALATION 2 puff Q4HR PRN Administration Shortness Of Breath Or Wheezing Ascorbic Acid 500 mg 01/19/21 09:00 01/19/21 08:42 Ascorbic Acid 500 Mg Tab PO 500 mg DAILY GHAZAL Administration Aspirin 81 mg 01/19/21 09:00 01/19/21 08:42 Aspirin 81 Mg PO 81 mg DAILY GHAZAL Administration Atorvastatin Calcium 40 mg 01/19/21 09:00 01/19/21 08:42 Atorvastatin 40 Mg Tab PO 40 mg DAILY GHAZAL Administration Budesonide/Formoterol Fumarate 2 puff 01/19/21 08:00 01/19/21 08:24 Symbicort 80-4.5 Mcg Inhaler INHALATION 2 puff RT-BID GHAZAL Administration Clopidogrel Bisulfate 75 mg 01/19/21 09:00 01/19/21 08:42 Clopidogrel 75 Mg Tab PO 75 mg DAILY GHAZAL Administration Donepezil HCl 5 mg 01/18/21 21:00 01/18/21 21:25 Donepezil 5 Mg Tab PO 5 mg HS GHAZAL Administration Ergocalciferol 1,250 mcg 01/24/21 09:00 Ergocalciferol 1,250 Mcg (50,000 Iu) Capsule PO FR GHAZAL Famotidine 20 mg 01/18/21 15:00 01/19/21 08:42 Famotidine 20 Mg Tab PO 20 mg DAILY GHAZAL Administration Fenofibrate 160 mg 01/19/21 09:00 01/19/21 08:42 Fenofibrate 160 Mg Tab PO 160 mg DAILY GHAZAL Administration Ferrous Sulfate 325 mg 01/19/21 09:00 01/19/21 08:42 Ferrous Sulfate 325 Mg Tab PO 325 mg DAILY GHAZAL Administration Ceftriaxone Sodium 1 gm/ 50 mls @ 100 mls/hr 01/19/21 15:15 01/19/21 15:05 Sodium Chloride IVPB 100 mls/hr Q24HR GHAZAL Administration Insulin Aspart 0 unit 01/18/21 17:30 01/19/21 17:19 Insulin Aspart (Novolog) 100 Unit/Ml Vial SQ 4 unit ACHS GHAZAL Administration Protocol Isosorbide Mononitrate 30 mg 01/19/21 09:00 01/19/21 08:42 Isosorbide Mononitrate Er 30 Mg Tab.Er.24h PO 30 mg DAILY GHAZAL Administration Memantine 5 mg 01/18/21 21:00 01/19/21 08:42 Memantine 5 Mg Tab PO 5 mg BID GHAZAL Administration Midodrine 5 mg 01/20/21 07:30 Midodrine 5 Mg Tab PO AC-TID GHAZAL Zinc Sulfate 220 mg 01/19/21 09:00 01/19/21 08:42 Zinc Sulfate 220 Mg Cap PO 220 mg DAILY GHAZAL Administration Intake and Output 01/19/21 01/19/21 01/19/21 06:59 14:59 22:59 Intake Total 480 240 Balance 480 240 Intake: Oral 480 240 Other: Voiding Method Toilet # Voids 1 1 Weight 20.5 kg 01/19/21 08:49 01/19/21 17:51
[2021-01-19 19:59] LABS: Glucose,Whole Blood 147 mg/dL (75-99)
[2021-01-19] MEDS: DONEPEZIL 5 MG TAB PO SCH (22:43)
[2021-01-20 06:23] LABS: Glucose,Whole Blood 180 mg/dL (75-99)
[2021-01-20] MEDS: INSULIN ASPART (NovoLOG) 100 UNIT/ML VIAL SQ SCH ×4 (06:55→22:19)
[2021-01-20] MEDS: MIDODRINE 5 MG TAB PO SCH ×3 (06:56→18:49)
[2021-01-20] MEDS: ALBUTEROL HFA INHALER INHALATION PRN ×3 (08:42→19:10)
[2021-01-20] MEDS: SYMBICORT 80-4.5 MCG INHALER INHALATION SCH ×2 (08:44→19:10)
[2021-01-20] MEDS: FAMOTIDINE 20 MG TAB PO SCH (09:10)
[2021-01-20] MEDS: ASCORBIC ACID 500 MG TAB PO SCH (09:10)
[2021-01-20] MEDS: MEMANTINE 5 MG TAB PO SCH (09:10)
[2021-01-20] MEDS: ASPIRIN 81 MG PO SCH (09:10)
[2021-01-20] MEDS: ZINC SULFATE 220 MG CAP PO SCH (09:10)
[2021-01-20] MEDS: FERROUS SULFATE 325 MG TAB PO SCH (09:10)
[2021-01-20] MEDS: CLOPIDOGREL 75 MG TAB PO SCH (09:10)
[2021-01-20] MEDS: ATORVASTATIN 40 MG TAB PO SCH (09:10)
[2021-01-20] MEDS: ISOSORBIDE MONONITRATE ER 30 MG TAB.ER.24H PO SCH (09:10)
[2021-01-20] MEDS: FENOFIBRATE 160 MG TAB PO SCH (09:10)
[2021-01-20 11:39] LABS: Basophils % (A) 1 %; Eosinophils # (A) 0.4 k/uL (0-0.7); Eosinophils % (A) 4 %; HCT 30.9 % (34.0-46.0); Lymphocytes # (A) 1.9 k/uL (1.0-4.8); Lymphocytes % (A) 23 %; MCH 28.9 pg (25.0-35.0); MCHC 32.4 g/dL (31.0-37.0); MCV 89.2 fL (80.0-100.0); Mean Platelet Volume 9.4; Monocytes # (A) 0.4 k/uL (0-1.0); Monocytes % (A) 5 %; Neutrophils # (A) 5.4 k/uL (1.3-7.7); Neutrophils % (A) 66 %; Platelet Count 266 k/uL (150-450); RBC 3.46 m/uL (3.80-5.40); RDW 13.9 % (11.5-15.5); WBC 8.2 k/uL (3.8-10.6)
[2021-01-20 11:56] LABS: Glucose,Whole Blood 232 mg/dL (75-99)
--- NOTE | 2021-01-20 12:20 | P.PN ---
Subjective Patient is seen in follow-up for chronic kidney disease and hyponatremia. Sodium level 132 as of yesterday. Creatinine 2.02. Receiving IV fluids. Blood pressure stable. Currently on room air. No chest pain or shortness of breath. Vital signs are stable. General: The patient appeared well nourished and normally developed. HEENT: Head exam is unremarkable. Neck is without jugular venous distension. LUNGS: Breath sounds decreased. HEART: Rate and Rhythm are regular. ABDOMEN: Soft, nontender. EXTREMITITES: No edema. Objective - Vital Signs Vital signs: Vital Signs Temp 98.1 F 01/20/21 08:00 Pulse 74 01/20/21 08:00 Resp 18 01/20/21 08:00 BP 132/68 01/20/21 08:00 Pulse Ox 96 01/20/21 08:00 Intake & Output 01/19/21 01/20/21 01/20/21 18:59 06:59 18:59 Intake Total 720 240 Balance 720 240 Intake: Oral 720 240 Other: Voiding Method Toilet Toilet Toilet # Voids 1 1 - Labs CBC & Chem 7: 01/20/21 10:27 01/19/21 17:51 Labs: Abnormal Lab Results - Last 24 Hours (Table) 01/19/21 01/19/21 01/19/21 Range/Units 12:41 17:00 17:51 RBC (3.80-5.40) m/uL Hgb (11.4-16.0) gm/dL Hct (34.0-46.0) % Sodium 132 L (137-145) mmol/L Carbon Dioxide 21 L (22-30) mmol/L BUN 39 H (7-17) mg/dL Creatinine 2.02 H (0.52-1.04) mg/dL Glucose 213 H (74-99) mg/dL POC Glucose (mg/dL) 255 H (75-99) mg/dL Total Protein 5.9 L (6.3-8.2) g/dL Albumin 3.4 L (3.5-5.0) g/dL Urine Appearance Cloudy H (Clear) Urine Protein Trace H (Negative) Urine Glucose (UA) 2+ H (Negative) Urine Nitrite Positive H (Negative) Ur Leukocyte Esterase Large H (Negative) Urine WBC 126 H (0-5) /hpf Urine WBC Clumps Many H (None) /hpf Urine Bacteria Many H (None) /hpf 01/19/21 01/20/21 01/20/21 Range/Units 19:57 06:20 10:27 RBC 3.46 L (3.80-5.40) m/uL Hgb 10.0 L (11.4-16.0) gm/dL Hct 30.9 L (34.0-46.0) % Sodium (137-145) mmol/L Carbon Dioxide (22-30) mmol/L BUN (7-17) mg/dL Creatinine (0.52-1.04) mg/dL Glucose (74-99) mg/dL POC Glucose (mg/dL) 147 H 180 H (75-99) mg/dL Total Protein (6.3-8.2) g/dL Albumin (3.5-5.0) g/dL Urine Appearance (Clear) Urine Protein (Negative) Urine Glucose (UA) (Negative) Urine Nitrite (Negative) Ur Leukocyte Esterase (Negative) Urine WBC (0-5) /hpf Urine WBC Clumps (None) /hpf Urine Bacteria (None) /hpf 01/20/21 Range/Units 11:34 RBC (3.80-5.40) m/uL Hgb (11.4-16.0) gm/dL Hct (34.0-46.0) % Sodium (137-145) mmol/L Carbon Dioxide (22-30) mmol/L BUN (7-17) mg/dL Creatinine (0.52-1.04) mg/dL Glucose (74-99) mg/dL POC Glucose (mg/dL) 232 H (75-99) mg/dL Total Protein (6.3-8.2) g/dL Albumin (3.5-5.0) g/dL Urine Appearance (Clear) Urine Protein (Negative) Urine Glucose (UA) (Negative) Urine Nitrite (Negative) Ur Leukocyte Esterase (Negative) Urine WBC (0-5) /hpf Urine WBC Clumps (None) /hpf Urine Bacteria (None) /hpf Microbiology - Last 24 Hours (Table) 01/19/21 12:41 Urine Culture - Preliminary Urine,Clean Catch Assessment and Plan Plan: Assessment: 1. Chronic kidney disease stage IIIB with baseline creatinine 1.8-2. Renal function fairly stable. Etiologies nephrosclerosis. 2. Hypovolemic hyponatremia improved with IV hydration. 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 3. COVID-19 infection. 4. Hypertension with chronic kidney disease. Plan: Decreased rate of normal saline to 50 mL an hour. 1500 mL fluid restriction. Encouraged oral intake. Check TSH. Avoid nephrotoxins. Stop midodrine. Tight blood sugar control.
[2021-01-20 17:00] LABS: Glucose,Whole Blood 227 mg/dL (75-99)
--- NOTE | 2021-01-20 18:13 | P.PN ---
Subjective Progress Note Date: 01/20/21 This is a 81-year-old female with history of coronary artery disease, CVA, diabetes mellitus, hyperlipidemia, hypertension, dementia and recent covid infection, is apparently admitted to the hospital with episodes of for syncope. She was admitted to a hospital in [place] and apparently she was advised to have permanent pacemaker implantation. Patient refused. She was being treated with Coreg 25 mg by mouth twice a day. Patient had mild sinus bradycardia on admission. No Sigmund pauses noted at this time. She was also found to have significant postural hypotension. Patient was started on amiodarone drip. Patient had a cardiac catheterization last year and was found to have mild diffuse disease and also 50% left main disease. She was seen by cardiac and oxygen who recommended medical therapy. At this point I don't see any urgent need for pacemaker. We'll try to get information from [place]. We'll hold Coreg and wants heart rate improves, may start on a smaller dose. Continue rest of the medication. Patient also has chronic renal failure being followed by nephrology Objective - Vital Signs Vital signs: Vital Signs Temp 98.1 F 01/20/21 08:00 Pulse 72 01/20/21 14:00 Resp 18 01/20/21 14:00 BP 152/79 01/20/21 12:00 Pulse Ox 96 01/20/21 12:00 Intake & Output 01/19/21 01/20/21 01/20/21 18:59 06:59 18:59 Intake Total 720 365 Balance 720 365 Intake: Oral 720 365 Other: Voiding Method Toilet Toilet Toilet # Voids 1 1 2 - Exam This patient is not personally examined to reduce the exposure to covid P and most of the information is gathered from chart and also prognosis. We'll continue to monitor her rhythm and her blood pressure. Further recommendation will depend upon the clinical course. - Labs CBC & Chem 7: 01/20/21 10:27 01/19/21 17:51 Labs: Abnormal Lab Results - Last 24 Hours (Table) 01/19/21 01/19/21 01/20/21 Range/Units 17:51 19:57 06:20 RBC (3.80-5.40) m/uL Hgb (11.4-16.0) gm/dL Hct (34.0-46.0) % Sodium 132 L (137-145) mmol/L Carbon Dioxide 21 L (22-30) mmol/L BUN 39 H (7-17) mg/dL Creatinine 2.02 H (0.52-1.04) mg/dL Glucose 213 H (74-99) mg/dL POC Glucose (mg/dL) 147 H 180 H (75-99) mg/dL Total Protein 5.9 L (6.3-8.2) g/dL Albumin 3.4 L (3.5-5.0) g/dL 01/20/21 01/20/21 01/20/21 Range/Units 10:27 11:34 16:48 RBC 3.46 L (3.80-5.40) m/uL Hgb 10.0 L (11.4-16.0) gm/dL Hct 30.9 L (34.0-46.0) % Sodium (137-145) mmol/L Carbon Dioxide (22-30) mmol/L BUN (7-17) mg/dL Creatinine (0.52-1.04) mg/dL Glucose (74-99) mg/dL POC Glucose (mg/dL) 232 H 227 H (75-99) mg/dL Total Protein (6.3-8.2) g/dL Albumin (3.5-5.0) g/dL Microbiology - Last 24 Hours (Table) 01/19/21 12:41 Urine Culture - Preliminary Urine,Clean Catch
--- NOTE | 2021-01-20 18:19 | US ---
EXAMINATION TYPE: US venous doppler duplex LE DATE OF EXAM: 01/20/2021 6:10 PM COMPARISON: US CLINICAL HISTORY: dvt. R/O DVT. Hx of DVT. Patient gave poor history. SIDE PERFORMED: Bilateral TECHNIQUE: The lower extremity deep venous system is examined utilizing real time linear array sonog awilda with graded compression, doppler sonography and color-flow sonography. VESSELS IMAGED: Common Femoral Vein Deep Femoral Vein Greater Saphenous Vein * Femoral Vein Popliteal Vein Small Saphenous Vein * Proximal Calf Veins (* superficial vessels) Limited due to edema and patient's pain tolerance. Right Leg: Patient was unable to tolerate compression of the distal femoral vein. No evidence of DVT in veins imaged at this time. Left Leg: Patient was unable to tolerate compression of the distal femoral vein. No evidence of DVT in veins imaged at this time. IMPRESSION: No sign of deep vein thrombosis in both legs.
--- NOTE | 2021-01-20 18:24 | PN ---
PROGRESS NOTE DATE OF SERVICE: 01/20/2021 This 81-year-old woman who was admitted with possible acute UTI with sepsis is on broad- spectrum IV antibiotics. The patient also had COVID-19 positivity. The patient had previously COVID-19 infection. Multiple consultants are following the patient closely. The V/Q scan did not show perfusion defects. The patient is being closely monitored. Past medical history reviewed. REVIEW OF SYSTEMS: CARDIOVASCULAR SYSTEM: No angina, palpitations. RESPIRATORY SYSTEM: As mentioned earlier. GI: As mentioned earlier. : No dysuria or retention. NERVOUS SYSTEM: No numbness, weakness. CURRENT MEDICATIONS: Reviewed. They include Ventolin, vitamin C, Lipitor, Symbicort, Rocephin, Plavix. Aricept, Pepcid, Lofibra, Orazinc. Doses are reviewed. PHYSICAL EXAMINATION: Patient alert and oriented x3. Pulse 72, blood pressure 127/71, respiration 18, temperature 98.1, pulse ox 96% on room air. HEENT: Conjunctivae normal. NECK: No jugular venous distention. CARDIOVASCULAR SYSTEM: S1, S2 muffled. RESPIRATORY SYSTEM: Breath sounds diminished at the bases. A few scattered rhonchi and crackles. ABDOMEN: Soft, non-tender. LEGS: No edema. No swelling. NERVOUS SYSTEM: No focal deficit. LABS: WBC 8.2, hemoglobin 10. Glucose 227. UA noted. urine culture pending. ASSESSMENT: 1. Possible acute urinary tract infection with sepsis, present on admission. 2. Acute syncope, present on admission. Rule out cardiac arrhythmia. 3. Sinus bradycardia. 4. Increased creatinine with chronic kidney disease, stage 3. 5. Hyponatremia. 6. Persistent COVID-19 positivity. 7. Anemia, normocytic. 8. History of recent COVID-19 infection. 9. History of asthma. 10.History of coronary artery disease. 11.History of cerebrovascular accident, transient ischemic attack. 12.Diabetes mellitus, type 2. 13.Hypertension. 14.Hyperlipidemia. 15.History of myocardial infarction. 16.History of degenerative joint disease. 17.History of pneumonia. 18.History of vascular disorder. 19.History of chronic kidney disease, stage 3 possibly. 20.History of thoracic aortic aneurysm. 21.History of nephrolithiasis. 22.History of . 23.Remote history of nicotine dependence. 24.Obesity with body mass index of 37.8. RECOMMENDATIONS AND DISCUSSION: I recommend to continue current medications, continue with the monitoring, symptomatic treatment. Continue with the antibiotics. Await the culture report. COVID-19 is still positive, but the patient is maintaining oxygenation at this time. The chest x-ray was reported as showing no acute abnormality. I would also order an ultrasound of the legs to complete the workup. Further recommendations to follow. MMFELIPEL / IJN: [id number] /
[2021-01-20 20:19] LABS: Glucose,Whole Blood 254 mg/dL (75-99)
[2021-01-20] MEDS: DONEPEZIL 5 MG TAB PO SCH (22:19)
--- NOTE | 2021-01-21 03:03 | P.CNNES ---
History of Present Illness Consult date: 01/20/21 Requesting physician: Zenaida Hu Reason for Consult: Dementia, Alzheimer's History of Present Illness: Patient is a 81-year-old female with history of asthma, CAD, CVA, diabetes, hypertension and chronic mild renal disease, came to the hospital on 01/18/2021 by ambulance for a syncopal episode. Patient does not remember what she was doing, but she remembers waking up on the EMS gurney. Patient also has been seeing cardiology for placement of pacemaker. Patient denies any shortness of breath, chest pain, abdominal pain, nausea vomiting headache or visual changes. Patient's vital signs on arrival blood pressure 128/49, pulse rate 46 and temperature 97.3. Her orthostatics were positive with supine blood pressure 122/49 and standing up was 86/42. Another time it was supine 96/57, standing up 77/40. Patient's blood tests shows sodium 132 potassium 4.8, BUN 39, creatinine 2.02. Hepatic panel normal. UA shows large amount of leukocyte Estrace. Positive nitrite. 126 WBCs, many WBC clumps. Urine cultures pending. Hemoglobin A1c 9.5 on 12/12/2020. Lipid panel with cholesterol 174, LDL 95, HDL 45 and triglycerides and 71. Byrd virus PCR positive. Patient does take fenofibrate, Namenda 5 mg twice a day, donepezil 5 mg daily Plavix 75 mg, aspirin 81 mg. Neurology was consulted to rule out dementia. Patient denies any problems with the memory. Patient does not believe that even any family members have risk concerns about memory loss. Patient has diabetes, hypertension. She was a light smoker, quit in 1966. She drinks alcohol very occasionally. She lives by herself, has 3 children. Patient hasn't had vaccination for Byrd virus. Review of Systems As above in detail. All other review of systems unremarkable. Past Medical History Past Medical History: Asthma, Coronary Artery Disease (CAD), Cancer, Chest Pain / Angina, CVA/TIA, Diabetes Mellitus, Hyperlipidemia, Hypertension, Myocardial Infarction (CO), Osteoarthritis (OA), Pneumonia, Renal Disease, Skin Disorder, Syncope, Vascular Disorder Additional Past Medical History / Comment(s): Pt recently admitted to [facility] on 05/08/20 with chest pain, Other hx: CVA in 2016-no residual, NIDDM type II, low back pain, iron deficiency anemia, thoracic aneurysm per past medical record-pt states she has never been told about an aneurysm, nephrolithiasis-pt passed stones on her own, skin cancer with removals, L knee pain, eczema Last Myocardial Infarction Date:: 2018 History of Any Multi-Drug Resistant Organisms: None Reported Past Surgical History: Section, Hysterectomy, Orthopedic Surgery Additional Past Surgical History / Comment(s): x3, bilateral carpal tunnel releases, bilateral cataract removals, skin cancer removals. Past Anesthesia/Blood Transfusion Reactions: No Reported Reaction Past Psychological History: No Psychological Hx Reported Additional Psychological History / Comment(s): Pt resides alone. She uses a cane/walker to ambulate. She does not have a car, her grandson lives a couple miles from her and gives her rides. Smoking Status: Former smoker Past Alcohol Use History: None Reported Additional Past Alcohol Use History / Comment(s): Pt started smoking in 1955 and quit in 1984. Past Drug Use History: None Reported - Past Family History Mother Family Medical History: Cancer Additional Family Medical History / Comment(s): BRAIN TUMOR Brother(s) Family Medical History: Cancer, Diabetes Mellitus Additional Family Medical History / Comment(s): BRAIN TUMOR. Father Family Medical History: Myocardial Infarction (CO) Additional Family Medical History / Comment(s): "Heart problems" Daughter(s) Family Medical History: Cancer Additional Family Medical History / Comment(s): Malignant neoplasm of brain Unspecified Family Medical History: Asthma, Hyperlipidemia, Renal Disease Medications and Allergies Home Medications Medication Instructions Recorded Confirmed Type Aspirin [Adult Low Dose Aspirin EC] 81 mg PO DAILY 03/13/16 01/18/21 History sitaGLIPtin [Januvia] 50 mg PO DAILY 03/13/16 01/18/21 History Isosorbide Mononitrate ER [Imdur] 30 mg PO DAILY 01/08/19 01/18/21 History Atorvastatin [Lipitor] 40 mg PO DAILY 30 Days #30 tab 05/08/20 01/18/21 Rx Carvedilol [Coreg] 25 mg PO BID 05/08/20 01/18/21 History Clopidogrel [Plavix] 75 mg PO DAILY 30 Days #30 tab 05/08/20 01/18/21 Rx Ergocalciferol [Vitamin D2 50,000 unit PO FR 05/08/20 01/18/21 History (DRISDOL)] Fluticasone/Vilanterol [Breo 1 puff INHALATION RT-DAILY 05/08/20 01/18/21 History Ellipta 100-25 Mcg Inhaler] amLODIPine [Norvasc] 5 mg PO BID 30 Days #60 tab 05/08/20 01/18/21 Rx Donepezil [Aricept] 5 mg PO HS #30 tab 05/17/20 01/18/21 Rx Memantine [Namenda] 5 mg PO BID #60 tab 05/17/20 01/18/21 Rx Nitroglycerin Sl Tabs [Nitrostat] 0.4 mg SL Q5M PRN 05/20/20 01/18/21 History Famotidine [Pepcid] 20 mg PO BID 12/12/20 01/18/21 History Fenofibrate [Lofibra] 160 mg PO DAILY 12/12/20 01/18/21 History Ferrous Sulfate [Iron (65 MG 325 mg PO DAILY 12/12/20 01/18/21 History Elemental)] Albuterol Inhaler [Ventolin Hfa 2 puff INHALATION Q4HR PRN 30 Days 12/13/20 01/18/21 Rx Inhaler] #1 puff Ascorbic Acid [Vitamin C] 500 mg PO DAILY 30 Days #30 tab 12/13/20 01/18/21 Rx Zinc Sulfate [Orazinc] 220 mg PO DAILY 30 Days #30 cap 12/13/20 01/18/21 Rx Allergies Allergy/AdvReac Type Severity Reaction Status Date / Time lincomycin HCl Allergy Unknown Unknown Verified 01/18/21 12:04 [From Lincocin] Physical Examination - Vital Signs Vital Signs: Vital Signs Temp Pulse Pulse Pulse Resp BP BP 01/20/21 04:00 98.2 F 85 18 01/20/21 02:00 52 L 67 18 01/20/21 00:00 98.3 F 67 18 01/19/21 20:00 98.0 F 64 18 120/53 01/19/21 18:10 86/42 01/19/21 16:03 97.9 F 70 16 117/47 01/19/21 13:17 69 18 01/19/21 11:51 98.0 F 69 18 100/46 01/19/21 11:50 52 L 69 01/19/21 11:49 77/40 BP Pulse Ox 01/20/21 04:00 156/65 97 01/20/21 02:00 01/20/21 00:00 123/71 99 01/19/21 20:00 99 01/19/21 18:10 122/49 01/19/21 16:03 97 01/19/21 13:17 01/19/21 11:51 97 01/19/21 11:50 01/19/21 11:49 96/57 Intake and Output 01/19/21 01/20/21 01/20/21 22:59 06:59 14:59 Intake Total 240 240 Balance 240 240 Intake: Oral 240 240 Other: Voiding Method Toilet Toilet # Voids 1 1 Patient is an elderly female, very pleasant, in no acute distress. Patient is alert awake oriented to time place and person. Speech and language functions are normal. Attention, concentration and fund of knowledge is adequate. Patient knows her name, age, and that she is in the hospital in [facility]. She knows it is December and the year is 2020. She thinks Karlene is the president. When I gave her 5 choices of the last 5 presidents, patient states it is "Pressley". On asking the season, patient states it is beginning of summer. I asked what season comes before summer, states winter. On cranial examination pupils are round and reactive to light, visual webb are full on confrontation with no neglect. Extraocular muscles are intact with no nystagmus. Face is symmetric, tongue protrudes to the midline. Palatal elevation and sensation is normal, hearing and shoulder shrug normal, facial sensation normal. On muscle strength testing there is no pronator drift and the strength is normal in arms and legs distally and proximally except deltoid which future weak, 3 on the right, 4 left, probably from rotator cuff problems. Reflexes are diminished and plantars are downgoing. Sensory touch is equal. No ataxia for [id number] testing. Tone and bulk of muscles normal. Results - Laboratory Findings CBC and BMP: 01/20/21 10:27 01/21/21 09:33 Abnormal Lab Findings: Abnormal Labs 01/18/21 01/18/21 01/18/21 11:19 11:19 11:19 RBC 3.51 L Hgb 10.7 L Hct 31.4 L D-Dimer Sodium 133 L Potassium Carbon Dioxide 21 L BUN 29 H Creatinine 1.93 H Glucose 244 H POC Glucose (mg/dL) Total Protein Albumin Triglycerides Urine Appearance Urine Protein Urine Glucose (UA) Urine Nitrite Ur Leukocyte Esterase Urine WBC Urine WBC Clumps Urine Bacteria Coronavirus (PCR) Detected A 01/18/21 01/18/21 01/18/21 17:41 18:52 18:52 RBC Hgb Hct D-Dimer 1.40 H Sodium 129 L Potassium 5.2 H Carbon Dioxide BUN 32 H Creatinine 1.89 H Glucose 240 H POC Glucose (mg/dL) 219 H Total Protein 6.0 L Albumin Triglycerides Urine Appearance Urine Protein Urine Glucose (UA) Urine Nitrite Ur Leukocyte Esterase Urine WBC Urine WBC Clumps Urine Bacteria Coronavirus (PCR) 01/18/21 01/19/21 01/19/21 21:07 06:29 08:49 RBC Hgb Hct D-Dimer Sodium Potassium Carbon Dioxide BUN Creatinine Glucose POC Glucose (mg/dL) 198 H 292 H Total Protein Albumin Triglycerides 171 H Urine Appearance Urine Protein Urine Glucose (UA) Urine Nitrite Ur Leukocyte Esterase Urine WBC Urine WBC Clumps Urine Bacteria Coronavirus (PCR) 01/19/21 01/19/21 01/19/21 08:49 11:49 12:41 RBC 3.41 L Hgb 10.0 L Hct 30.5 L D-Dimer Sodium Potassium Carbon Dioxide BUN Creatinine Glucose POC Glucose (mg/dL) 131 H Total Protein Albumin Triglycerides Urine Appearance Cloudy H Urine Protein Trace H Urine Glucose (UA) 2+ H Urine Nitrite Positive H Ur Leukocyte Esterase Large H Urine WBC 126 H Urine WBC Clumps Many H Urine Bacteria Many H Coronavirus (PCR) 01/19/21 01/19/21 01/19/21 17:00 17:51 19:57 RBC Hgb Hct D-Dimer Sodium 132 L Potassium Carbon Dioxide 21 L BUN 39 H Creatinine 2.02 H Glucose 213 H POC Glucose (mg/dL) 255 H 147 H Total Protein 5.9 L Albumin 3.4 L Triglycerides Urine Appearance Urine Protein Urine Glucose (UA) Urine Nitrite Ur Leukocyte Esterase Urine WBC Urine WBC Clumps Urine Bacteria Coronavirus (PCR) 01/20/21 06:20 RBC Hgb Hct D-Dimer Sodium Potassium Carbon Dioxide BUN Creatinine Glucose POC Glucose (mg/dL) 180 H Total Protein Albumin Triglycerides Urine Appearance Urine Protein Urine Glucose (UA) Urine Nitrite Ur Leukocyte Esterase Urine WBC Urine WBC Clumps Urine Bacteria Coronavirus (PCR) Assessment and Plan Assessment: * Syncopal spell, likely vasovagal or orthostatic. Patient has numerous reasons for syncopal spell including orthostasis, UTI, acute renal insufficiency, and positive byrd virus testing. * Mild memory disturbance. Patient denies any memory issues. Patient was slightly disoriented on examination, which could be related to numerous medical conditions as above. No definitive evidence of dementia at this time. However this is not the best time to evaluate for dementia given multitude medical issues as above. Plan: * Patient has multiple acute medical issues ongoing at this time. Treatment of all these medical conditions as per IM and other specialties. * To evaluate for possible cognitive impairment, I would suggest patient follow up with neurologist, once all her medical conditions have come under control, in an out-patient setting. * No other neurological workup indicated. * Will check B12 and Folate. * Neurology will sign off. Please re-consult neurology if any concerns.
[2021-01-21] MEDS: INSULIN ASPART (NovoLOG) 100 UNIT/ML VIAL SQ SCH ×4 (07:04→21:01)
[2021-01-21 08:17] LABS: Glucose,Whole Blood 125 mg/dL (75-99)
[2021-01-21] MEDS: ALBUTEROL HFA INHALER INHALATION PRN ×3 (08:33→16:20)
[2021-01-21] MEDS: SYMBICORT 80-4.5 MCG INHALER INHALATION SCH ×2 (08:33→20:00)
[2021-01-21] MEDS: MIDODRINE 5 MG TAB PO SCH (09:51)
[2021-01-21] MEDS: FAMOTIDINE 20 MG TAB PO SCH (09:52)
[2021-01-21] MEDS: CLOPIDOGREL 75 MG TAB PO SCH (09:52)
[2021-01-21] MEDS: ISOSORBIDE MONONITRATE ER 30 MG TAB.ER.24H PO SCH (09:52)
[2021-01-21] MEDS: ASCORBIC ACID 500 MG TAB PO SCH (09:52)
[2021-01-21] MEDS: ASPIRIN 81 MG PO SCH (09:52)
[2021-01-21] MEDS: FERROUS SULFATE 325 MG TAB PO SCH (09:53)
[2021-01-21] MEDS: ZINC SULFATE 220 MG CAP PO SCH (09:53)
[2021-01-21] MEDS: ATORVASTATIN 40 MG TAB PO SCH (09:53)
[2021-01-21] MEDS: FENOFIBRATE 160 MG TAB PO SCH (09:53)
[2021-01-21 10:45] LABS: Magnesium 1.9 mg/dL (1.6-2.3); Potassium 4.5 mmol/L (3.5-5.1)
--- NOTE | 2021-01-21 11:11 | P.PN ---
Subjective Patient is seen in follow-up for chronic kidney disease and hyponatremia. Sodium level better. Renal function also improved. Receiving IV fluids. Blood pressure stable. Currently on room air. No chest pain or shortness of breath. No vomiting or diarrhea. Vital signs are stable. General: The patient appeared well nourished and normally developed. HEENT: Head exam is unremarkable. Neck is without jugular venous distension. LUNGS: Breath sounds decreased. HEART: Rate and Rhythm are regular. ABDOMEN: Soft, nontender. EXTREMITITES: No edema. Objective - Vital Signs Vital signs: Vital Signs Temp 98.7 F 01/21/21 09:00 Pulse 68 01/21/21 09:00 Resp 18 01/21/21 09:00 BP 162/72 01/21/21 09:00 Pulse Ox 95 01/21/21 09:00 Intake & Output 01/20/21 01/21/21 01/21/21 18:59 06:59 18:59 Intake Total 587 180 Balance 587 180 Intake: Oral 587 180 Other: Voiding Method Toilet Toilet # Voids 2 1 1 # Bowel Movements 1 - Labs CBC & Chem 7: 01/20/21 10:27 01/21/21 09:33 Labs: Abnormal Lab Results - Last 24 Hours (Table) 01/20/21 01/20/21 01/20/21 Range/Units 10:27 11:34 16:48 RBC 3.46 L (3.80-5.40) m/uL Hgb 10.0 L (11.4-16.0) gm/dL Hct 30.9 L (34.0-46.0) % Chloride (98-107) mmol/L BUN (7-17) mg/dL Creatinine (0.52-1.04) mg/dL Glucose (74-99) mg/dL POC Glucose (mg/dL) 232 H 227 H (75-99) mg/dL 01/20/21 01/21/21 01/21/21 Range/Units 20:18 06:02 09:33 RBC (3.80-5.40) m/uL Hgb (11.4-16.0) gm/dL Hct (34.0-46.0) % Chloride 109 H (98-107) mmol/L BUN 27 H (7-17) mg/dL Creatinine 1.71 H (0.52-1.04) mg/dL Glucose 119 H (74-99) mg/dL POC Glucose (mg/dL) 254 H 125 H (75-99) mg/dL Microbiology - Last 24 Hours (Table) 01/19/21 12:41 Urine Culture - Preliminary Urine,Clean Catch Gram Neg Bacilli 01/19/21 17:51 Blood Culture - Preliminary Blood No Growth after 24 hours Assessment and Plan Plan: Assessment: 1. Chronic kidney disease stage IIIB with baseline creatinine 1.8-2. Renal function stable. Etiology is nephrosclerosis. 2. Hypovolemic hyponatremia improved with IV hydration. 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 Resolved. 3. COVID-19 infection. 4. Hypertension with chronic kidney disease. Stable. Plan: Hep-Lock IV fluids. 1500 mL fluid restriction. Encouraged oral intake. Follow-up TSH. Avoid nephrotoxins. Tight blood sugar control.
[2021-01-21 11:30] LABS: Glucose,Whole Blood 139 mg/dL (75-99)
--- NOTE | 2021-01-21 15:35 | P.PN ---
Subjective Patient is a pleasant 81-year-old female with history of coronary artery disease, CVA, TIA, diabetes mellitus type 2, hyperlipidemia, hypertension, d ementia and recent COVID-19 infection who presents secondary to apparent syncopal episode. She has had hospitalizations in the past and has had recommendations for pacemaker in the past however has not wanted it. Patient had COVID-19 infection approximately 1 month ago. Patient did have non-STEMI last year and had heart catheterization performed which showed ostial left main 50% stenosis, mild LAD stenosis, circumflex 20th 30% stenosis and RCA 30-40% stenosis. Patient was evaluated by cardiothoracic surgery and has been treated medically. Patient's home cardiac medications include Plavix 75 mg daily, carvedilol 25 mg twice a day, atorvastatin 40 mg daily, aspirin 81 mg daily, Imdur 30 mg daily, amlodipine 5 mg twice a day On presentationt to emergency depratment she was found to have sinus bradycardia with heart rate 46 bpm, left axis deviation, poor R-wave progression. Last echo cardiogram from 11/2020 showed ejection fraction 60-65%, mild aortic valve sclerosis, no other significant abnormalities. Troponin normal 3 and coronavirus still detected. Orthostatic vitals were positive pressure going from 122/49 supine with blood pressure dropping to 86/42. Venous dopplers negative for DVT bilaterally 01/21/21: Patient was started on midodrine, she is no longer hypotensive. Her amlodipine and carvedilol are being held. Patient seen at bedside. No acute distress. Laboratory data reviewed sodium 138, potassium 4.5, serum creatinine 1.71, magnesium 1.9 Telemetry reviewed, sinus mechanism HR 50-60s blood pressure 159/70, heart rate 65, afebrile, maintaining oxygen saturations on room air PHYSICAL EXAMINATION Vital signs reviewed. CONSTITUTIONAL: No apparent distress. Frail, elderly, poor recall HEENT: Head is normocephalic. No JVD. No carotid bruit. CHEST EXAMINATION: Lungs are clear to auscultation. No chest wall tenderness is noted on palpation or with deep breathing. HEART EXAMINATION: Regular rate and rhythm. S1, S2 heard. No murmurs, gallops or rub. ABDOMEN: Soft, nontender. Positive bowel sounds. EXTREMITIES: 2+ peripheral pulses, no lower extremity edema and no calf tenderness. NEUROLOGIC EXAMINATION: Patient is awake, alert poor historian ASSESSMENT COVID-19 Syncope with recurrent episodes Sinus bradycardia, appears symptomatic and has had recommendations for pacemaker in the past apparently- continues to refuse pacemaker Orthostatic hypotension History of hypertension on antihypertensive medications Coronary artery disease with 50% left main stenosis, treated medically Chronic Kidney Disease - nephrology is following Diabetes mellitus type 2 History of stroke Dementia PLAN Midodrine discontinued Will continue to monitor blood pressure and potentially restart amlodipine if needed Nephrology following, appreciate recommendations Continue medical theray with aspirin, plavix, statin, imdur Objective - Vital Signs Vital signs: Vital Signs Temp 98.9 F 01/21/21 11:34 Pulse 65 01/21/21 11:34 Resp 20 01/21/21 11:34 BP 159/70 01/21/21 11:34 Pulse Ox 97 01/21/21 11:34 Intake & Output 01/20/21 01/21/21 01/21/21 18:59 06:59 18:59 Intake Total 587 600 Balance 587 600 Intake: Oral 587 600 Other: Voiding Method Toilet Toilet # Voids 2 1 1 # Bowel Movements 1 - Labs CBC & Chem 7: 01/20/21 10:27 01/21/21 09:33 Labs: Abnormal Lab Results - Last 24 Hours (Table) 01/20/21 01/20/21 01/21/21 Range/Units 16:48 20:18 06:02 Chloride (98-107) mmol/L BUN (7-17) mg/dL Creatinine (0.52-1.04) mg/dL Glucose (74-99) mg/dL POC Glucose (mg/dL) 227 H 254 H 125 H (75-99) mg/dL 01/21/21 01/21/21 Range/Units 09:33 11:28 Chloride 109 H (98-107) mmol/L BUN 27 H (7-17) mg/dL Creatinine 1.71 H (0.52-1.04) mg/dL Glucose 119 H (74-99) mg/dL POC Glucose (mg/dL) 139 H (75-99) mg/dL Microbiology - Last 24 Hours (Table) 01/19/21 12:41 Urine Culture - Preliminary Urine,Clean Catch Gram Neg Bacilli 01/19/21 17:51 Blood Culture - Preliminary Blood No Growth after 24 hours
[2021-01-21 16:46] LABS: Glucose,Whole Blood 255 mg/dL (75-99)
[2021-01-21 18:33] LABS: Hemoglobin A1C 8.8 % (4.0-6.0)
[2021-01-21 20:34] LABS: Glucose,Whole Blood 125 mg/dL (75-99)
[2021-01-21] MEDS: DONEPEZIL 5 MG TAB PO SCH (21:02)
[2021-01-21 23:58] LABS: Folate, Serum 9.5 ng/mL
[2021-01-22 06:28] LABS: Glucose,Whole Blood 149 mg/dL (75-99)
[2021-01-22] MEDS: INSULIN ASPART (NovoLOG) 100 UNIT/ML VIAL SQ SCH ×2 (06:42→12:11)
[2021-01-22] MEDS: SYMBICORT 80-4.5 MCG INHALER INHALATION SCH (08:47)
[2021-01-22] MEDS: ALBUTEROL HFA INHALER INHALATION PRN ×3 (08:47→15:51)
[2021-01-22] MEDS: ZINC SULFATE 220 MG CAP PO SCH (08:49)
[2021-01-22] MEDS: ASPIRIN 81 MG PO SCH (08:49)
[2021-01-22] MEDS: ISOSORBIDE MONONITRATE ER 30 MG TAB.ER.24H PO SCH (08:49)
[2021-01-22] MEDS: ATORVASTATIN 40 MG TAB PO SCH (08:49)
[2021-01-22] MEDS: CLOPIDOGREL 75 MG TAB PO SCH (08:49)
[2021-01-22] MEDS: FAMOTIDINE 20 MG TAB PO SCH (08:49)
[2021-01-22] MEDS: FERROUS SULFATE 325 MG TAB PO SCH (08:49)
[2021-01-22] MEDS: ASCORBIC ACID 500 MG TAB PO SCH (08:49)
[2021-01-22] MEDS: FENOFIBRATE 160 MG TAB PO SCH (08:49)
--- NOTE | 2021-01-22 09:47 | P.PN ---
Subjective Progress Note Date: 01/21/21 Patient is admitted for Covid 19 and patient is off oxygen and patient was diagnosed with UTI as well, patient has urine cultures that are positive for gram-negative his left elevation of the cultures are still pending. VQ scan did not show any perfusion defects. Constitutional: Denied any fatigue denied any fever. Cardio vascular: denied any chest pain, palpitations Gastrointestinal denied any nausea vomiting Pulmonary: Denied any shortness of breath cough Neurologic denied any new focal deficits All inpatient medications were reviewed and appropriate changes in these medications as dictated in the interval history and assessment and plan. Objective - Vital Signs Vital signs: Vital Signs Temp 99.4 F 01/22/21 08:48 Pulse 66 01/22/21 08:48 Resp 20 01/22/21 08:48 BP 148/71 01/22/21 08:48 Pulse Ox 97 01/22/21 08:48 Intake & Output 01/21/21 01/22/21 01/22/21 18:59 06:59 18:59 Intake Total 1080 Balance 1080 Weight 22.5 kg Intake: Oral 1080 Other: Voiding Method Toilet # Voids 1 1 1 # Bowel Movements 1 - Exam PHYSICAL EXAMINATION: GENERAL: The patient is alert and oriented x3, not in any acute distress. Well developed, well nourished. HEENT: Pupils are round and equally reacting to light. EOMI. No scleral icterus. No conjunctival pallor. Normocephalic, atraumatic. No pharyngeal erythema. No thyromegaly. CARDIOVASCULAR: S1 and S2 present. No murmurs, rubs, or gallops. PULMONARY: Chest is clear to auscultation, no wheezing or crackles. ABDOMEN: Soft, nontender, nondistended, normoactive bowel sounds. No palpable organomegaly. MUSCULOSKELETAL: No joint swelling or deformity. EXTREMITIES: No cyanosis, clubbing, or pedal edema. NEUROLOGICAL: Gross neurological examination did not reveal any focal deficits. SKIN: No rashes. - Labs CBC & Chem 7: 01/20/21 10:27 01/21/21 09:33 Labs: Abnormal Lab Results - Last 24 Hours (Table) 01/21/21 01/21/21 01/21/21 Range/Units 09:33 09:33 11:28 Chloride 109 H (98-107) mmol/L BUN 27 H (7-17) mg/dL Creatinine 1.71 H (0.52-1.04) mg/dL Glucose 119 H (74-99) mg/dL POC Glucose (mg/dL) 139 H (75-99) mg/dL Hemoglobin A1c 8.8 H (4.0-6.0) % 01/21/21 01/21/21 01/22/21 Range/Units 16:37 20:32 06:26 Chloride (98-107) mmol/L BUN (7-17) mg/dL Creatinine (0.52-1.04) mg/dL Glucose (74-99) mg/dL POC Glucose (mg/dL) 255 H 125 H 149 H (75-99) mg/dL Hemoglobin A1c (4.0-6.0) % Microbiology - Last 24 Hours (Table) 01/19/21 17:51 Blood Culture - Preliminary Blood No Growth after 48 hours 01/19/21 12:41 Urine Culture - Final Urine,Clean Catch Escherichia coli Assessment and Plan Plan: -Sepsis secondary to urinary tract infection: Patient will be continued on Rocephin for now. 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
--- NOTE | 2021-01-22 09:58 | P.DS ---
Providers Date of admission: 01/18/21 12:33 Attending physician: Zenaida Hu Consults: 01/18/21 11:49 Consult Physician Stat Consulting Provider: Tomy Richardson Consult Reason/Comments: bradycardia Do you want consulting provider notified?: Already Contacted 01/18/21 18:29 Consult Physician Routine Consulting Provider: Luisana Quijano Consult Reason/Comments: arf Do you want consulting provider notified?: Yes Primary care physician: Roberto [facility]te [facility] Course: Patient is admitted for Covid 19 and patient is off oxygen and patient was diagnosed with UTI as well, patient has urine cultures that are positive for gram-negative his left elevation of the cultures are still pending. VQ scan did not show any perfusion defects. 01/22/2021 Patient is clinically doing well will be discharged today in stable medical condition to subacute rehabilitation. Patient had E. coli in the urine we'll order to more days of Ceftin to complete total Wednesday therapy for urinary tract infection. Patient was on beta gela which is Coreg 25 twice a day which was discontinued probably because of syncope and bradycardia episodes. Patient will be resumed on Norvasc blood pressure is bit elevated. Once the kidney function stabilizes patient probably will benefit from losartan and discontinue additional Norvasc at that time. PHYSICAL EXAMINATION: GENERAL: The patient is alert and oriented x3, not in any acute distress. Well developed, well nourished. HEENT: Pupils are round and equally reacting to light. EOMI. No scleral icterus. No conjunctival pallor. Normocephalic, atraumatic. No pharyngeal erythema. No thyromegaly. CARDIOVASCULAR: S1 and S2 present. No murmurs, rubs, or gallops. PULMONARY: Chest is clear to auscultation, no wheezing or crackles. ABDOMEN: Soft, nontender, nondistended, normoactive bowel sounds. No palpable organomegaly. MUSCULOSKELETAL: No joint swelling or deformity. EXTREMITIES: No cyanosis, clubbing, or pedal edema. NEUROLOGICAL: Gross neurological examination did not reveal any focal deficits. SKIN: No rashes. Assessment and Plan Plan: -Sepsis secondary to urinary tract infection: Being discharged on Ceftin for 2 days -COVID-19 infection -Syncope secondary to sepsis which improved at this time. Coreg was discontinued because of bradycardia -Chronic kidney disease stage 3 Baseline creatinine around 1.5 present creatinine around 2 patient probably has comment of acute renal failure from sepsis possibility of mild acute tubular necrosis -Dementia, probably senile dementia mild to moderate -Type 2 diabetes mellitus -Hypertension -hyperlipidemia Coronary artery disease Peripheral Vascular disease Plan - Discharge Summary Discharge Rx Participant: No New Discharge Prescriptions: New Cefuroxime Axetil [Ceftin] 500 mg PO BID 2 Days #4 tab Continue sitaGLIPtin [Januvia] 50 mg PO DAILY Aspirin [Adult Low Dose Aspirin EC] 81 mg PO DAILY Isosorbide Mononitrate ER [Imdur] 30 mg PO DAILY Fluticasone/Vilanterol [Breo Ellipta 100-25 Mcg Inhaler] 1 puff INHALATION RT-DAILY Ergocalciferol [Vitamin D2 (DRISDOL)] 50,000 unit PO FR Atorvastatin [Lipitor] 40 mg PO DAILY 30 Days #30 tab amLODIPine [Norvasc] 5 mg PO BID 30 Days #60 tab Clopidogrel [Plavix] 75 mg PO DAILY 30 Days #30 tab Donepezil [Aricept] 5 mg PO HS #30 tab Memantine [Namenda] 5 mg PO BID #60 tab Nitroglycerin Sl Tabs [Nitrostat] 0.4 mg SL Q5M PRN PRN Reason: Chest Pain Ferrous Sulfate [Iron (65 MG Elemental)] 325 mg PO DAILY Fenofibrate [Lofibra] 160 mg PO DAILY Famotidine [Pepcid] 20 mg PO BID Zinc Sulfate [Orazinc] 220 mg PO DAILY 30 Days #30 cap Albuterol Inhaler [Ventolin Hfa Inhaler] 2 puff INHALATION Q4HR PRN 30 Days #1 puff PRN Reason: Shortness Of Breath Or Wheezing Ascorbic Acid [Vitamin C] 500 mg PO DAILY 30 Days #30 tab Discontinued Carvedilol [Coreg] 25 mg PO BID Discharge Medication List Aspirin [Adult Low Dose Aspirin EC] 81 mg PO DAILY 03/13/16 [History] sitaGLIPtin [Januvia] 50 mg PO DAILY 03/13/16 [History] Isosorbide Mononitrate ER [Imdur] 30 mg PO DAILY 01/08/19 [History] Atorvastatin [Lipitor] 40 mg PO DAILY 30 Days #30 tab 05/08/20 [Rx] Clopidogrel [Plavix] 75 mg PO DAILY 30 Days #30 tab 05/08/20 [Rx] Ergocalciferol [Vitamin D2 (DRISDOL)] 50,000 unit PO FR 05/08/20 [History] Fluticasone/Vilanterol [Breo Ellipta 100-25 Mcg Inhaler] 1 puff INHALATION RT- DAILY 05/08/20 [History] amLODIPine [Norvasc] 5 mg PO BID 30 Days #60 tab 05/08/20 [Rx] Donepezil [Aricept] 5 mg PO HS #30 tab 05/17/20 [Rx] Memantine [Namenda] 5 mg PO BID #60 tab 05/17/20 [Rx] Nitroglycerin Sl Tabs [Nitrostat] 0.4 mg SL Q5M PRN 05/20/20 [History] Famotidine [Pepcid] 20 mg PO BID 12/12/20 [History] Fenofibrate [Lofibra] 160 mg PO DAILY 12/12/20 [History] Ferrous Sulfate [Iron (65 MG Elemental)] 325 mg PO DAILY 12/12/20 [History] Albuterol Inhaler [Ventolin Hfa Inhaler] 2 puff INHALATION Q4HR PRN 30 Days #1 puff 12/13/20 [Rx] Ascorbic Acid [Vitamin C] 500 mg PO DAILY 30 Days #30 tab 12/13/20 [Rx] Zinc Sulfate [Orazinc] 220 mg PO DAILY 30 Days #30 cap 12/13/20 [Rx] Cefuroxime Axetil [Ceftin] 500 mg PO BID 2 Days #4 tab 01/22/21 [Rx] Follow up Appointment(s)/Referral(s): Alex Alvarado MD [REFERRING] - 1 Week Discharge Disposition: TRANSFER TO SNF/F
--- NOTE | 2021-01-22 11:23 | P.PN ---
Subjective Patient is seen in follow-up for chronic kidney disease and hyponatremia. Sodium level better. Renal function also improved. Blood pressure stable. Currently on room air. No chest pain or shortness of breath. No vomiting or diarrhea. Vital signs are stable. General: The patient appeared well nourished and normally developed. HEENT: Head exam is unremarkable. Neck is without jugular venous distension. LUNGS: Breath sounds decreased. HEART: Rate and Rhythm are regular. ABDOMEN: Soft, nontender. EXTREMITITES: No edema. Objective - Vital Signs Vital signs: Vital Signs Temp 99.4 F 01/22/21 08:48 Pulse 66 01/22/21 08:48 Resp 20 01/22/21 08:48 BP 148/71 01/22/21 08:48 Pulse Ox 97 01/22/21 08:48 Intake & Output 01/21/21 01/22/21 01/22/21 18:59 06:59 18:59 Intake Total 1080 240 Balance 1080 240 Weight 22.5 kg Intake: Oral 1080 240 Other: Voiding Method Toilet # Voids 1 1 1 # Bowel Movements 1 - Labs CBC & Chem 7: 01/20/21 10:27 01/21/21 09:33 Labs: Abnormal Lab Results - Last 24 Hours (Table) 01/21/21 01/21/21 01/21/21 Range/Units 09:33 11:28 16:37 POC Glucose (mg/dL) 139 H 255 H (75-99) mg/dL Hemoglobin A1c 8.8 H (4.0-6.0) % 01/21/21 01/22/21 Range/Units 20:32 06:26 POC Glucose (mg/dL) 125 H 149 H (75-99) mg/dL Hemoglobin A1c (4.0-6.0) % Microbiology - Last 24 Hours (Table) 01/19/21 17:51 Blood Culture - Preliminary Blood No Growth after 48 hours 01/19/21 12:41 Urine Culture - Final Urine,Clean Catch Escherichia coli Assessment and Plan Plan: Assessment: 1. Chronic kidney disease stage IIIB with baseline creatinine 1.8-2. Renal function stable. Etiology is nephrosclerosis. 2. Hypovolemic hyponatremia improved with IV hydration. 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 Resolved. TSH normal. 3. COVID-19 infection. 4. Hypertension with chronic kidney disease. Stable. Plan: Remains off IV fluids. 1500 mL fluid restriction. Encouraged oral intake. Avoid nephrotoxins. Tight blood sugar control. Potential discharge to rehab today. Follow up outpatient in 1-2 weeks.
[2021-01-22 11:56] LABS: Glucose,Whole Blood 252 mg/dL (75-99)
[2021-01-22 12:07] VITALS: BP 167/78; PULSE 65; RESP 16; TEMP 97.9
[2021-01-23] MEDS ORDERED: amLODIPine 5 MG TAB PO SCH (09:00)
[2021-01-24] MEDS ORDERED: ERGOCALCIFEROL 1,250 MCG (50,000 IU) CAPSULE PO SCH (09:00)
== END 2021-01-22 16:48 | DRG 871 ==
LOC: EC 10:42 → 3SCARD 12:33
PROVIDERS: ADMIT Hospitalist; ATTEND Hospitalist
DX: A41.9 Sepsis, unspecified organism (principal); U07.1 COVID-19; N17.0 Acute kidney failure with tubular necrosis; N39.0 Urinary tract infection, site not specified; E22.2 Syndrome of inappropriate secretion of antidiuretic hormone; D63.1 Anemia in chronic kidney disease; E11.51 Type 2 diabetes mellitus with diabetic peripheral angiopathy without gangrene; E11.22 Type 2 diabetes mellitus with diabetic chronic kidney disease; G30.9 Alzheimer's disease, unspecified; F02.80 Dementia in other diseases classified elsewhere, unspecified severity, without behavioral disturbance, psychotic disturbance, mood disturbance, and anxiety; I71.2 Thoracic aortic aneurysm, without rupture; E11.65 Type 2 diabetes mellitus with hyperglycemia; B96.20 Unspecified Escherichia coli [E. coli] as the cause of diseases classified elsewhere; N18.32 Chronic kidney disease, stage 3b; R65.20 Severe sepsis without septic shock; I12.9 Hypertensive chronic kidney disease with stage 1 through stage 4 chronic kidney disease, or unspecified chronic kidney disease; E86.1 Hypovolemia; I35.0 Nonrheumatic aortic (valve) stenosis; E78.5 Hyperlipidemia, unspecified; J45.909 Unspecified asthma, uncomplicated; R00.1 Bradycardia, unspecified; I95.1 Orthostatic hypotension; I25.10 Atherosclerotic heart disease of native coronary artery without angina pectoris; D50.9 Iron deficiency anemia, unspecified; M54.5 Low back pain; I25.2 Old myocardial infarction; L30.9 Dermatitis, unspecified; M19.90 Unspecified osteoarthritis, unspecified site; E66.9 Obesity, unspecified; Z68.31 Body mass index [BMI] 31.0-31.9, adult; Z79.82 Long term (current) use of aspirin; Z79.02 Long term (current) use of antithrombotics/antiplatelets; Z79.84 Long term (current) use of oral hypoglycemic drugs; Z79.899 Other long term (current) drug therapy; Z87.891 Personal history of nicotine dependence; Z86.73 Personal history of transient ischemic attack (TIA), and cerebral infarction without residual deficits; Z85.828 Personal history of other malignant neoplasm of skin; Z87.01 Personal history of pneumonia (recurrent); Z87.442 Personal history of urinary calculi; Z98.891 History of uterine scar from previous surgery; Z90.710 Acquired absence of both cervix and uterus; Z87.42 Personal history of other diseases of the female genital tract; Z98.42 Cataract extraction status, left eye; Z98.41 Cataract extraction status, right eye; Z87.39 Personal history of other diseases of the musculoskeletal system and connective tissue; Z98.890 Other specified postprocedural states; Z88.1 Allergy status to other antibiotic agents; Z80.8 Family history of malignant neoplasm of other organs or systems; Z83.3 Family history of diabetes mellitus; Z82.49 Family history of ischemic heart disease and other diseases of the circulatory system; Z82.5 Family history of asthma and other chronic lower respiratory diseases; Z83.49 Family history of other endocrine, nutritional and metabolic diseases; Z84.1 Family history of disorders of kidney and ureter
CPT/HCPCS: 36415; 71046; 78580; 80048; 80053; 80061; 81001; 82607; 82746; 83036; 83735; 83930; 83935; 84443; 84484; 85025; 85379; 85610; 85730; 87040; 87077; 87086; 87186; 87635; 93005; 93970; 94640; 99285